=== PATIENT | female | born 1940 | race Caucasian/White ===

== ENCOUNTER → 2017-03-05 | Outpatient (CLI) | payer MEDICARE, OTHER ==
[2016-01-14 15:11] VITALS: BP 109/56
[~2017-03-05] MED LIST: AMIO200T2 PO; AMLO10TA2 PO; ASPI81TA2 PO; BENA20TA2 PO; DILT120C97 PO; DILT240C2 PO; DRON400T PO; HYDR25TA9 PO; MECL25TA PO; MULT1TAB52 PO; OMEG-113 PO; WARF4TAB7 PO
--- NOTE | 2017-03-05 09:52 | RAD ---
EXAM: DIGITAL SCREEN BILAT W/CAD. HISTORY: Screening. COMPARISON: 12/09/2015 and 11/25/2014. FINDINGS: Digital mammography was performed. Computer-aided detection (CAD) was utilized. The breast parenchyma demonstrates scattered fibroglandular densities (tissue density B). No dominant suspicious mass, suspicious microcalcifications, or architectural distortion is identified. Both breasts demonstrate scattered, benign appearing calcifications. IMPRESSION: No mammographic evidence of malignancy. BI-RADS CATEGORY: 2 BENIGN FINDING(S) RECOMMENDED FOLLOW-UP: 12M 12 MONTH FOLLOW-UP PQRS compliance statement: Patient information was entered into a reminder system with a target due date for the next mammogram. Mammography is a sensitive method for finding small breast cancers, but it does not detect them all and is not a substitute for careful clinical examination. A negative mammogram does not negate a clinically suspicious finding and should not result in delay in biopsying a clinically suspicious abnormality. "Our facility is accredited by the [employer] Mammography Program."
== END | disposition home or self-care (01) ==
LOC: MAMMO 09:19
PROVIDERS: ATTEND Nurse Practitioner Family
DX: Z12.31 Encounter for screening mammogram for malignant neoplasm of breast (principal)
CPT/HCPCS: G0202; 77067

== ENCOUNTER → 2017-03-05 | Outpatient (CLI) | payer MEDICARE, OTHER ==
[2016-01-14 15:11] VITALS: BP 109/56
--- NOTE | 2017-03-05 12:50 | RAD ---
APPROVED REPORT Patient Location: OUT-PATIENT Indications Rest Pain:Bilaterally VELOCITY AND DOPPLER WAVEFORM ANALYSIS RIGHT cm/secWaveformSeverity LEFT c m/secWaveformSeverity Ext Iliac Art. 157.0TriphasicExt Iliac Art. 109.0Triphasic pCFA 139.0TriphasicpCFA 168.0Biphasic dCFA 95.0TriphasicdCFA 107.0Biphasic Prof Fem Art. 86.0BiphasicProf Fem Art. 104.0Biphasic Fem Art Prox. 103.0BiphasicFem Art Prox. 109.0Triphasic Fem Art Mid. 90.0BiphasicFem Art Mid. 95.0Triphasic Fem Art Dist. 90.0BiphasicFem Art Dist. 122.0Triphasic Pop Art(AK) 81.0BiphasicPop Art(AK) 77.0Biphasic Pop Art(BK) 75.0BiphasicPop Art(BK) 68.0Biphasic GASTROENTEROLOGY NURSE Prox. 31.0BiphasicPTA Prox. 61.0Biphasic GASTROENTEROLOGY NURSE Dist. 71.0BiphasicPTA Dist. 91.0Biphasic Per Art Mid. 82.0BiphasicPer Art Mid. 69.0Biphasic COY Prox. 106.0BiphasicATA Prox. 42.0 Image Findings Mild to moderate atherosclerotic plaque with triphasic and biphasic flows throughout the lower extrem ity arterial tree as noted. No high grade flow limiting stenosis identified. Critical Notification Critical Value: No <Conclusion> No significant disease in the bilateral lower extremity arterial vessels.
--- NOTE | 2017-03-05 12:52 | RAD ---
APPROVED REPORT Patient Location: OUT-PATIENT Indications Rest Pain:Bilaterally Findings Normal JOSUE indices as follows: R arm: 129 mm hg R ankle: 130 mm hg L arm: 120 L ankle: 125 Critical Notification Critical Value: No <Conclusion> Normal bilateral JOSUE
--- NOTE | 2017-03-05 13:43 | CARD ---
APPROVED REPORT EXAM: Two-dimensional and M-mode echocardiogram with Doppler and color Doppler. Other Information Quality : GoodHR: 62bpm Rhythm : Pacemaker INDICATION Arrhythmia 2D DIMENSIONS RVDd2.7 (2.9-3.5cm)Left Atrium(2D)4.5 (1.6-4.0cm) IVSd0.8 (0.7-1.1cm)Aortic Root(2D)2.7 (2.0-3.7cm) LVDd5.0 (3.9-5.9cm)LVOT Diameter2.2 (1.8-2.4cm) PWd0.2 (0.7-1.1cm)LVDs3.0 (2.5-4.0cm) FS (%) 38.6 %SV79.7 ml Aortic Valve AoV Peak Delgado.129.3cm/sAoV VTI36.2cm AO Peak GR.6.7mmHgLVOT Peak Delgado.102.2cm/s AO Mean GR.4mmHgAVA (VMAX)3.05cm2 Mitral Valve MV E Pdlwrqlt620.6cm/sMV E Peak Gr.8mmHg MV DECEL [id number] A Ftcdmytp77.3cm/s MV E Mean Gr.2mmHgE/A Ratio3.4 MV A [id number] Tricuspid Valve TR P. Gmtoyfcx685kh/sTR Peak Gr.44mmHg LEFT VENTRICLE The left ventricle is normal size. There is normal left ventricular wall thickness. The left ventricu lar systolic function is normal and the ejection fraction is within normal range. The Ejection Fracti on is 55-60%. There is normal LV segmental wall motion. RIGHT VENTRICLE The right ventricle is normal size. There is normal right ventricular wall thickness. The right ventr icular systolic function is normal. ATRIA The left atrium is mild to moderately dilated. The right atrium size is normal. The interatrial septu m is intact with no evidence for an atrial septal defect or patent foramen ovale as noted on 2-D or D oppler imaging. AORTIC VALVE The aortic valve is mildly sclerotic. The aortic valve is trileaflet. Doppler and Color Flow revealed no significant aortic regurgitation. There is no significant aortic valvular stenosis. MITRAL VALVE Mitral annular calcification is mild. The mitral valve leaflets are thickened. There is no evidence o f mitral valve prolapse. There is no mitral valve stenosis. Doppler and Color Flow revealed moderate mitral regurgitation. TRICUSPID VALVE Doppler and Color Flow revealed moderate tricuspid regurgitation. The pulmonary artery systolic press ure is estimated at 47 mmHg. PULMONIC VALVE Doppler and Color Flow revealed mild pulmonic valvular regurgitation. There is no pulmonic valvular s tenosis. GREAT VESSELS The aortic root is normal in size. The ascending aorta is normal in size. The pulmonary artery is nor mal. The IVC is normal in size and collapses >50% with inspiration. PERICARDIAL EFFUSION There is no evidence of significant pericardial effusion. Critical Notification Critical Value: No <Conclusion> The left ventricle is normal size. The left ventricular systolic function is normal and the ejection fraction is within normal range. The Ejection Fraction is 55-60%. There is no significant aortic valvular stenosis. Doppler and Color Flow revealed no significant aortic regurgitation. Doppler and Color Flow revealed moderate mitral regurgitation. Doppler and Color Flow revealed moderate tricuspid regurgitation. The pulmonary artery systolic pressure is estimated at 47 mmHg.
== END | disposition home or self-care (01) ==
LOC: US 10:13
PROVIDERS: ATTEND Internal Medicine Cardiovascular Disease
DX: I48.0 Paroxysmal atrial fibrillation (principal); I49.9 Cardiac arrhythmia, unspecified; I08.1 Rheumatic disorders of both mitral and tricuspid valves; M79.605 Pain in left leg; M79.604 Pain in right leg
CPT/HCPCS: 93306; 93922; 93925

== ENCOUNTER → 2017-10-01 | Outpatient (CLI) | payer MEDICARE, OTHER ==
[2016-01-14 15:11] VITALS: BP 109/56
[~2017-10-01] MED LIST changes: +ASPI-630 PO; -ASPI81TA2 PO; +DILT120C80 PO; -DILT120C97 PO; +REGADENOSON 0.4 MG/5 ML DISP.SYRIN. IV ONE
--- NOTE | 2017-10-01 14:19 | RAD ---
APPROVED REPORT Test Type: Pharmacological Stress Nurse/Tech: Daina Stewart R.N. Test Indications: SOA Cardiac History: CAD, PPM, CABG,HTN Medications: See Electronic Medical Record Medical History: See Electronic Medical Record Resting EC% A PACED w/ inverted T waves in leads II,III,AVF,V3-V6, the leads with inverte d T's also have scant ST depression ranging from 0.5 to 1 whole small box Resting Heart Rate: 60 bpm Resting Blood Pressure: 125/69mmHg Pretest Chest Pain: No chest pain Nurse/Tech Notes S1S2, lungs CTA Consent: The procedure was explained to the patient in lay terms. Informed consent was witnessed. Joe eout was entered into [employer]. History and Stress Test performed by RT Tho (Chiquis) (N) Pharm. Details Pharmacologic stress testing was performed using 0.4mg per 5ml of regadenoson given intravenously ove r 7-10 seconds. Stress Symptoms general malaise, hot flash for several minutes, h/a towards the end of recovery period. HR when faste r was not paced and had a 1st degree AVB w/ darian of 0.28 POST EXERCISE Reason for Termination: Infusion complete Max HR: 100 bpm Max Blood Pressure: 131/51mmHg Blood Pressure response to exercise: Normal blood pressure response during stress. Heart Rate response to exercise: wnl Chest Pain: No. Arrhythmia: No. ST Change: No. INTERPRETATION Stress EKG Conclusion: Baseline EKG shows a predominantly atrially paced beats, some probable sinus b eats and T wave inversion in the inferior and anterior septal leads. The stress EKG shows no significant change from baseline. Abnormal baseline EKG but no EKG evidence of stressed induced ischemia. Imaging Protocol IMAGE PROTOCOL: Rest Tc-99m/stress Tc-99m 1 day Rest: Stress: Viability: Radiopharm.Tc99m TiktgccchEv43x Sestamibi Nztt31yPz 32mCi Img Date 10/01/2017 10/01/2017 Inj-Img [id number]. 60min. Rest Admin Site:IV - Right AntecubitalAdministrator:RT Tho (R)(N) Stress Admin Site: IV - Right AntecubitalAdministrator: Justin Perez, RT (R)(N) STRESS DATA End Diast. Vol.95.0mlAv. Heart Rate60.0bpm End Syst. Vol.29.0mlCO Index BSA0.0L/min Myocardial Yjok674.0gEject. Ekexzxhm17.0% Stress Rates Pk. Fill Rate3.41EDV/secLVtime Pk. Fill 251.67msec Pk. Empty Rate3.34ESV/secLVtime Pk. Qcrhu248.26msec 11/14 Pk. Fill0.80EDV/sec Stress Scores Regional WT0.00Summed WT0.00 Regional WM0.00Summed WM11.00 LV Perfusion The stress scans showed no significant defects. The rest scans showed no significant defects. Nuclear imaging shows no reversible ischemia or infarct. Wall Motion Normal left ventricular systolic function with an ejection fraction of 69%. LV Perf. Quant 17 Seg. SSS1.00 17 Seg. SRS2.00 17 Seg. SDS0.00 Stress Defect Extent (% LAD)0.60Rest Defect Extent (% LAD)5.00Rev. Defect Extent (% LAD)0.00 Stress Defect Extent (% LCX) 0.00Rest Defect Extent (% LCX)0.00Rev. Defect Extent (% LCX)0.00 Stress Defect Extent (% RCA)0.00Rest Defect Extent (% RCA)0.00Rev. Defect Extent (% RCA)0.00 Stress Defect Extent (% NIKHIL)1.30Rest Defect Extent (% NIKHIL)3.70Rev. Defect Extent (% NIKHIL)0.00 Conclusion 1. Abnormal baseline EKG but no EKG evidence of stressed induced ischemia. 2. Nuclear imaging shows no reversible ischemia or infarct. 3. Normal left ventricular systolic function with an ejection fraction of 69%. 4. Low risk Lexiscan nuclear stress test.
== END | disposition home or self-care (01) ==
LOC: NM 09:27
PROVIDERS: ATTEND Internal Medicine Cardiovascular Disease
DX: I25.10 Atherosclerotic heart disease of native coronary artery without angina pectoris (principal); I10 Essential (primary) hypertension; I49.5 Sick sinus syndrome
CPT/HCPCS: 78452; 93017; 96374; 96375; 96376; A9500; J2785

== ENCOUNTER → 2018-03-28 | Outpatient (CLI) | payer MEDICARE, OTHER | END | disposition home or self-care (01) | LOC: MAMMO 13:33 | DX: Z12.31 Encounter for screening mammogram for malignant neoplasm of breast (principal); I10 Essential (primary) hypertension; E78.5 Hyperlipidemia, unspecified | CPT/HCPCS: 77063; 77067 ==

== ENCOUNTER → 2018-04-19 | Outpatient (CLI) | payer MEDICARE, OTHER ==
[~2018-04-19] MED LIST changes: -AMIO200T2 PO; -AMLO10TA2 PO; -ASPI-630 PO; -BENA20TA2 PO; -DILT120C80 PO; -DILT240C2 PO; -DRON400T PO; -HYDR25TA9 PO; +IOHEXOL 300 MG/ML 100ML VIAL. IV; -MECL25TA PO; -MULT1TAB52 PO; -OMEG-113 PO; -REGADENOSON 0.4 MG/5 ML DISP.SYRIN. IV ONE; -WARF4TAB7 PO
[2018-04-19] MEDS: IOHEXOL 240 MG/ML 50ML VIAL. PO (09:28)
[2018-04-19 09:34] LABS: ISTAT CREATININE 1.8 mg/dL (0.6-1.1)
== END | disposition home or self-care (01) ==
LOC: KCIC CT 07:59
DX: J90 Pleural effusion, not elsewhere classified (principal); K82.8 Other specified diseases of gallbladder; N32.89 Other specified disorders of bladder; I10 Essential (primary) hypertension; R18.8 Other ascites; Z79.01 Long term (current) use of anticoagulants; Z95.0 Presence of cardiac pacemaker
CPT/HCPCS: 74176; 82565; Q9966

== ENCOUNTER 2018-11-15 15:31 | Inpatient (IN) | payer MEDICARE, OTHER ==
[~2018-11-15] VITALS: Ht 165.1 cm; Wt 79.4 kg
[~2018-11-15 15:31] MED LIST changes: +AMIO200T4 PO; +AMLO10TA6 PO; +ASPI-630 PO; +ATOR10TA60 PO; +BENA20TA4 PO; +BUME2TAB PO; +CHOL10003 PO; +DILT120C85 PO; +DILT240C2 PO; +DRON400T PO; +FAMO20TA5 PO; +HYDR-2145 PO; -IOHEXOL 300 MG/ML 100ML VIAL. IV; +LEVO50TA5 PO; +MECL25TA PO; +MULT1TAB52 PO; +OMEG-113 PO; +POTA10TA12 PO; +WARF4TAB64 PO
[2018-11-15 16:39] LABS: BASO # 0.1 x10^3/uL (0.0-0.2); BASO % 1 % (0-3); EOS # 0.1 x10^3/uL (0.0-0.7); EOS % 2 % (0-3); HEMOGLOBIN 10.9 g/dL (12.0-15.5); LYMPH # 0.7 x10^3/uL (1.0-4.8); LYMPH % 11 % (24-48); MEAN CORPUSCULAR HEMOGLOBIN 31 pg (25-35); MEAN CORPUSCULAR HGB CONC 35 g/dL (31-37); MEAN CORPUSCULAR VOLUME 87 fL (79-100); MONO # 0.7 x10^3/uL (0.0-1.1); MONO % 10 % (0-9); NEUT # 5.3 x10^3uL (1.8-7.7); NEUT % 77 % (31-73); PLATELET COUNT 182 x10^3/uL (140-400); RED BLOOD COUNT 3.56 x10^6/uL (3.50-5.40); RED CELL DISTRIBUTION WIDTH 16.4 % (11.5-14.5); WHITE BLOOD COUNT 6.9 x10^3/uL (4.0-11.0)
[2018-11-15 16:46] LABS: BILIRUBIN,URINE NEGATIVE (NEG); CLARITY,URINE CLOUDY; COLOR,URINE YELLOW; NITRITE,URINE NEGATIVE (NEG); PROTEIN,URINE NEGATIVE (NEG-TRACE)
[2018-11-15 16:49] LABS: CREATININE 1.4 mg/dL (0.6-1.0); GFR 36.4; POTASSIUM 3.7 mmol/L (3.5-5.1)
--- NOTE | 2018-11-15 16:49 | RAD ---
EXAM: Chest, 2 views. HISTORY: Edema. Cough. COMPARISON: 04/22/2018 FINDINGS: 2 views of the chest are obtained. There is diffuse increased interstitial opacity. There is a small right pleural effusion with right lower lobe atelectasis or infiltrate. There is mild elevation of the right hemidiaphragm. There is cardiomegaly. There is evidence of CABG and left atrial appendage clip placement. There is a cardiac pacemaker with leads in expected position. There is no pneumothorax. IMPRESSION: 1. Small right pleural effusion with lower lobe atelectasis or infiltrate. The superimposed on stable elevation of the right hemidiaphragm. 3. Cardiomegaly with mild diffuse increased interstitial opacity. Electronically signed by: Fany French MD (11/15/2018 4:45 PM) [facility]
[2018-11-15 16:52] LABS: BACTERIA,URINE FEW /HPF (0-FEW); RBC,URINE OCC /HPF (0-2); SQUAMOUS EPITHELIAL CELL,UR OCC /LPF
--- NOTE | 2018-11-15 16:53 | PHYS DOC ---
Past Medical History Past Medical History: A-Fib, Hypertension Additional Past Medical Histor: Ascites Past Surgical History: Angioplasty, Pacemaker Additional Past Surgical Histo: vein stripping Alcohol Use: None Drug Use: None Adult General Chief Complaint Chief Complaint: LOWER EXTREMITY SWELLING HPI HPI Patient is a 78 year old female who presents with bilateral lower extremity swelling and abdominal swelling that has been increasing over the past 2 weeks. The patient states that she takes Bumex and her primary care provider had increased her dosage recently. She states that it is not helping. The patient does have congestive heart failure and has had fluid overload before. The patient states that in April she also had to have a paracentesis to drain abdominal fluid. She states that they never found a cause for her ascites. She does not have known liver disease. She states that she feels that this is what is occurring now. She denies chest pain or shortness of air. Review of Systems Review of Systems Constitutional: Denies fever or chills [] Eyes: Denies change in visual acuity, redness, or eye pain [] HENT: Denies nasal congestion or sore throat [] Respiratory: Denies cough or shortness of breath [] Cardiovascular: No additional information not addressed in HPI [] GI: See history of present illness : Denies dysuria or hematuria [] Musculoskeletal: See history of present illness Integument: Denies rash or skin lesions [] Neurologic: Denies headache, focal weakness or sensory changes [] Endocrine: Denies polyuria or polydipsia [] All other systems were reviewed and found to be within normal limits, except as documented in this note. Current Medications Current Medications Current Medications Medications (Trade) Dose Ordered Sig/Aileen Start Time Stop Time Status Last Admin Dose Admin Acetaminophen (Tylenol) 650 mg PRN Q4HRS PRN 11/15/18 17:15 11/16/18 17:14 Albuterol/ Ipratropium (Duoneb) 3 ml RTQID 11/15/18 17:30 11/16/18 17:29 Levofloxacin/ Dextrose 50 ml @ 50 mls/hr Q24H 11/15/18 18:00 Levofloxacin/ Dextrose (Levaquin Per Pharmacy) 1 each PRN DAILY PRN 11/15/18 17:15 Ondansetron HCl (Zofran) 4 mg PRN Q8HRS PRN 11/15/18 17:15 11/16/18 17:14 Allergies Allergies Allergies Coded Allergies Type Severity Reaction Last Updated Verified Sulfa (Sulfonamide Antibiotics) Allergy Intermediate 04/04/18 No Physical Exam Physical Exam Constitutional: Well developed, well nourished, no acute distress, non-toxic appearance. [] HENT: Normocephalic, atraumatic, bilateral external ears normal, oropharynx moist, no oral exudates, nose normal. [] Eyes: PERRLA, EOMI, conjunctiva normal, no discharge. [] Neck: Normal range of motion, no tenderness, supple, no stridor. [] Cardiovascular:Heart rate regular rhythm, no murmur or gallops noted[] Lungs & Thorax: Bilateral breath sounds clear to auscultation [] Abdomen: Bowel sounds normal, firm, round, no tenderness Skin: Warm, dry, no erythema, no rash. [] Back: No tenderness, no CVA tenderness. [] Extremities: Bilateral tenderness with 2+ pitting edema to just below her knees , no cyanosis, no clubbing, ROM intact, no erythema or weeping Neurologic: Alert and oriented X 3, normal motor function, normal sensory function, no focal deficits noted. [] Psychologic: Affect normal, judgement normal, mood normal. [] Current Patient Data Vital Signs Vital Signs Date Time Temp Pulse Resp B/P (MAP) Pulse Ox O2 Delivery O2 Flow Rate FiO2 11/15/18 16:57 68 20 142/68 (92) 96 11/15/18 16:15 98.1 98.1 Lab Values Laboratory Tests Test 11/15/18 16:17 11/15/18 16:30 Urine Color Yellow Urine Clarity Cloudy Urine pH 7.0 Urine Specific [place] 1.010 Urine Protein Negative mg/dL (NEG-TRACE) Urine Glucose (UA) Negative mg/dL (NEG) Urine Ketones (Stick) Negative mg/dL (NEG) Urine Blood Small (NEG) Urine Nitrite Negative (NEG) Urine Bilirubin Negative (NEG) Urine Urobilinogen Dipstick 1.0 mg/dL (0.2 mg/dL) Urine Leukocyte Esterase Negative (NEG) Urine RBC Occ /HPF (0-2) Urine WBC 1-4 /HPF (0-4) Urine Squamous Epithelial Cells Occ /LPF Urine Bacteria Few /HPF (0-FEW) White Blood Count 6.9 x10^3/uL (4.0-11.0) Red Blood Count 3.56 x10^6/uL (3.50-5.40) Hemoglobin 10.9 g/dL (12.0-15.5) L Hematocrit 31.0 % (36.0-47.0) L Mean Corpuscular Volume 87 fL (79-100) Mean Corpuscular Hemoglobin 31 pg (25-35) Mean Corpuscular Hemoglobin Concent 35 g/dL (31-37) Red Cell Distribution Width 16.4 % (11.5-14.5) H Platelet Count 182 x10^3/uL (140-400) Neutrophils (%) (Auto) 77 % (31-73) H Lymphocytes (%) (Auto) 11 % (24-48) L Monocytes (%) (Auto) 10 % (0-9) H Eosinophils (%) (Auto) 2 % (0-3) Basophils (%) (Auto) 1 % (0-3) Neutrophils # (Auto) 5.3 x10^3uL (1.8-7.7) Lymphocytes # (Auto) 0.7 x10^3/uL (1.0-4.8) L Monocytes # (Auto) 0.7 x10^3/uL (0.0-1.1) Eosinophils # (Auto) 0.1 x10^3/uL (0.0-0.7) Basophils # (Auto) 0.1 x10^3/uL (0.0-0.2) Sodium Level 139 mmol/L (136-145) Potassium Level 3.7 mmol/L (3.5-5.1) Chloride Level 101 mmol/L (98-107) Carbon Dioxide Level 30 mmol/L (21-32) Anion Gap 8 (6-14) Blood Urea Nitrogen 18 mg/dL (7-20) Creatinine 1.4 mg/dL (0.6-1.0) H Estimated GFR (Cockcroft-Gault) 36.4 BUN/Creatinine Ratio 13 (6-20) Glucose Level 118 mg/dL (70-99) H Calcium Level 9.0 mg/dL (8.5-10.1) Total Bilirubin 1.4 mg/dL (0.2-1.0) H Aspartate Amino Transferase (AST) 28 U/L (15-37) Alanine Aminotransferase (ALT) 30 U/L (14-59) Alkaline Phosphatase 140 U/L (46-116) H XA-Hig-S-Type Natriuretic Peptide 2441 pg/mL (0-449) H Total Protein 6.6 g/dL (6.4-8.2) Albumin 3.1 g/dL (3.4-5.0) L Albumin/Globulin Ratio 0.9 (1.0-1.7) L Laboratory Tests 11/15/18 16:30 Laboratory Tests 11/15/18 16:30 EKG EKG [] Radiology/Procedures Radiology/Procedures []PATIENT: MARY ALICE MICHELE AACCOUNT: [id number]#: [id number] : 1940 LOCATION: ER AGE: 78 SEX: F EXAM STATUS: REG ER ORD. PHYSICIAN: MARTY DELATORRE APRN REASON: bilateral lower extremity edema PROCEDURE: CHEST PA & LATERAL EXAM: Chest, 2 views. HISTORY: Edema. Cough. COMPARISON: 04/22/2018 FINDINGS: 2 views of the chest are obtained. There is diffuse increased interstitial opacity. There is a small right pleural effusion with right lower lobe atelectasis or infiltrate. There is mild elevation of the right hemidiaphragm. There is cardiomegaly. There is evidence of CABG and left atrial appendage clip placement. There is a cardiac pacemaker with leads in expected position. There is no pneumothorax. IMPRESSION: 1. Small right pleural effusion with lower lobe atelectasis or infiltrate. The superimposed on stable elevation of the right hemidiaphragm. 3. Cardiomegaly with mild diffuse increased interstitial opacity. Electronically signed by: Fany Mcdonald MD (11/15/2018 4:45 PM) [facility] DICTATED and SIGNED BY: FANY MCDONALD MD DATE: 11/15/18 4712 Course & Med Decision Making Course & Med Decision Making Pertinent Labs and Imaging studies reviewed. (See chart for details) []The patient is being admitted to Dr. Castellon's service for treatment of her pneumonia and congestive heart failure. She is in agreement with this plan. She is being treated with Levaquin in the emergency department for pneumonia. Dragon Disclaimer Dragon Disclaimer This electronic medical record was generated, in whole or in part, using a voice recognition dictation system. Departure Departure Impression: Primary Impression: CHF (congestive heart failure) Additional Impression: Pneumonia Disposition: 09 ADMITTED INPATIENT Admitting Physician: Froylan Felix Condition: GOOD Referrals: ROMAIN MCMILLAN APRN (PCP) Problem Qualifiers MARTY DELATORRE APRN Nov 15, 2018 16:53
[2018-11-15 16:54] LABS: ALBUMIN 3.1 g/dL (3.4-5.0); ALBUMIN/GLOBULIN RATIO 0.9 (1.0-1.7); TOTAL BILIRUBIN 1.4 mg/dL (0.2-1.0); TOTAL PROTEIN 6.6 g/dL (6.4-8.2)
[2018-11-15] MEDS ORDERED: ONDANSETRON PF 4 MG/2 ML VIAL. IV PRN (17:15)
[2018-11-15] MEDS ORDERED: levOFLOXacin PER PHARMACY. MC PRN (17:15)
[2018-11-15] MEDS ORDERED: ACETAMINOPHEN 325 MG TABLET. PO PRN (17:15)
[2018-11-15] MEDS: IPRATRPIUM/ALBUTEROL 0.5/2.5MG 3 ML NEBU. NEB SCH ×2 (17:30→20:53)
[2018-11-15 19:00] VITALS: BP_SYST 121; BP_SYST 136; BP_DIAS 52; BP_DIAS 61
--- NOTE | 2018-11-15 19:46 | NUR ---
Pt. arrived around 1840 from ED w/ COPD and PNU. She is A/O x4 and will make needs known. Aliyah @ bedside.
--- NOTE | 2018-11-15 20:47 | PDOC1 ---
History and Physical Date of Admission Date of Admission DATE: 11/15/18 TIME: 20:45 Identification/Chief Complaint Chief Complaint SEEN IN ER 78 year old female who presents with bilateral lower extremity swelling and abdominal swelling that has been increasing over the past 2 weeks. The patient states that she takes Bumex and her primary care provider had increased her dosage recently. She states that it is not helping. The patient does have congestive heart failure and has had fluid overload before. Past Medical History Past Medical History Past Medical History Past Medical History: A-Fib, Hypertension Additional Past Medical Histor: Ascites Past Surgical History: Angioplasty, Pacemaker Additional Past Surgical Histo: vein stripping Alcohol Use: None Drug Use: None Thrombocytopenia,HX Elevated LFTs with ascites new-onset s/p paracentesis 04/23/18 ( 5 L?) moderate pleural effusion New-onset CHF Hypertension, indwelling pacer, history of A. fib on OAC Weight loss, poor appetite Elavetd Ca19-9 (320) family hx htn Cardiovascular: AFIB, CAD, CHF, HTN, Hyperlipidemia, Other Pulmonary: Other CENTRAL NERVOUS SYSTEM: Other GI: Other Heme/Onc: No pertinent hx Hepatobiliary: No pertinent hx Psych: Anxiety, Depression Musculoskeletal: Osteoarthritis Rheumatologic: No pertinent hx Infectious disease: No pertinent hx Renal/: No pertinent hx Endocrine: No pertinent hx, Hypothyroidism, Other Past Surgical History Past Surgical History: Pacemaker, CABG Family History Family History: Cancer, Diabetes, Heart Disease, Hypertension, Stroke Social History Smoke: Quit ALCOHOL: none Drugs: None Current Medications Current Medications Current Medications Ondansetron HCl (Zofran) 4 mg PRN Q8HRS PRN IV NAUSEA/VOMITING; Start 11/15/18 at 17:15; Stop 11/16/18 at 17:14 Acetaminophen (Tylenol) 650 mg PRN Q4HRS PRN PO FEVER; Start 11/15/18 at 17:15; Stop 11/16/18 at 17:14 Albuterol/ Ipratropium (Duoneb) 3 ml RTQID NEB Last administered on 11/15/18at 17 :30; Start 11/15/18 at 17:30; Stop 11/16/18 at 17:29 Levofloxacin/ Dextrose (Levaquin Per Pharmacy) 1 each PRN DAILY PRN MC SEE COMMENTS; Start 11/15/18 at 17:15 Levofloxacin/ Dextrose 50 ml @ 50 mls/hr Q24H IV Last administered on 11/15/18at 18:00; Start 11/15/18 at 18:00 Active Scripts Active Bumetanide 2 Mg Tablet 1 Tab PO BID 30 Days Multaq (Dronedarone Hcl) 400 Mg Tablet 400 Mg PO BID Reported Levothyroxine Sodium 50 Mcg Tablet 50 Mcg PO DAILYAC Atorvastatin Calcium 10 Mg Tablet 10 Mg PO HS Potassium Chloride 10 Meq Tablet.er 10 Meq PO DAILY Vitamin D3 (Cholecalciferol (Vitamin D3)) 1,000 Unit Tablet 1,000 Unit PO Famotidine 20 Mg Tablet 20 Mg PO BID Fish Oil 1,200 mg Softgel ([place]-3S/Dha/Epa/Fish Oil) 1 Each Capsule 2 Each PO Multivitamins (Multivitamin) 1 Each Tablet 1 Tab PO DAILY Aspirin 81 Mg Tab.chew 1 Tab PO DAILY Diltiazem 24HR Cd (Diltiazem Hcl) 120 Mg Cap.er.24h 1 Cap PO DAILY Warfarin Sodium 4 Mg Tablet 4.5 Mg PO DAILY Allergies Allergies: Coded Allergies: Sulfa (Sulfonamide Antibiotics) (Unverified Allergy, Intermediate, 04/04/18 ) ROS Review of System Review of Systems Review of Systems Constitutional: Denies fever or chills [] Eyes: Denies change in visual acuity, redness, or eye pain [] HENT: Denies nasal congestion or sore throat [] Respiratory: Denies cough or shortness of breath [] Cardiovascular: No additional information not addressed in HPI [] GI: See history of present illness : Denies dysuria or hematuria [] Musculoskeletal: See history of present illness Integument: Denies rash or skin lesions [] Neurologic: Denies headache, focal weakness or sensory changes [] Endocrine: Denies polyuria or polydipsia [] 14 PT systems were reviewed and found to be within normal limits, except as documented General: YES: Fatigue Respiratory: YES: Shortness of breath, SOB with excertion Musculoskeletal: Yes Joint Stiffness Skin: Yes Dry Skin Physical Exam Physical Exam Physical Exam Physical Exam Constitutional: Well developed, well nourished, no acute distress, non-toxic appearance. [] HENT: Normocephalic, atraumatic, bilateral external ears normal, oropharynx moist, no oral exudates, nose normal. [] Eyes: PERRLA, EOMI, conjunctiva normal, no discharge. [] Neck: Normal range of motion, no tenderness, supple, no stridor. [] Cardiovascular:Heart rate regular rhythm, no murmur or gallops noted[] Lungs & Thorax: Bilateral breath sounds clear to auscultation [] Abdomen: Bowel sounds normal, firm, round, no tenderness Skin: Warm, dry, no erythema, no rash. [] Back: No tenderness, no CVA tenderness. [] Extremities: Bilateral tenderness with 2+ pitting edema to just below her knees , no cyanosis, no clubbing, ROM intact, no erythema or weeping Neurologic: Alert and oriented X 3, normal motor function, normal sensory function, no focal deficits noted. [] Psychologic: Affect normal, judgement normal, mood normal. [] General: Oriented X3, Cooperative, mild distress HEENT: Atraumatic, EOMI Breasts: Not examined Abdomen: Normal bowel sounds, Soft Rectal Exam: not examined PELVIC: Examination not indicated Extremities: No cyanosis Neuro: Normal speech, Cranial nerves 3-12 NL Psych/Mental Status: Mental status NL, Mood NL Vitals Vitals Vital Signs Date Time Temp Pulse Resp B/P (MAP) Pulse Ox O2 Delivery O2 Flow Rate FiO2 11/15/18 19:00 97.7 59 20 136/52 (80) 98 Room Air 97.7 11/15/18 19:00 2.0 Labs Labs ECHOCARDIOGRAM ECHOCARDIOGRAM 04/24/2018: TTE: Left ventricle systolic function is normal. The Ejection Fraction is 55%. There is normal LV segmental wall motion. There is a pacemaker lead in the right atrium and right ventricle. The left atrium is mildly dilated. Moderate mitral regurgitation. Moderate tricuspid regurgitation. There is moderate pulmonary hypertension. The PA pressure was estimated at 65 mmHg. There is no evidence of significant pericardial effusion. HEART CATH HEART CATH 12/2015: FINDINGS 1. Hemodynamics: Left ventricular end-diastolic pressure of 22 mmHg. No pullback gradient across the aortic valve. 2. Left ventriculography: Normal left ventricle systolic function with ejection fraction estimated at 65%. No significant mitral regurgitation seen. 3. Coronary angiography: a. The left main coronary artery arose from the left sinus of Valsalva, gave rise to the left anterior descending and left circumflex arteries and showed 80- 90% stenosis involving the mid to distal segment. b. The left anterior descending artery showed patent stent in the proximal segment and 60% stenosis in the midsegment. The diagonal branch showed 50% stenosis in the proximal segment. c. The left circumflex artery did not show any significant stenosis. d. The right coronary artery was a large and dominant vessel arising from the right sinus of Valsalva that showed 30% stenosis involving the ostial segment. Conclusion 1. Significant 80-90% stenosis involving the left main coronary artery. The previously placed stent in the left anterior descending arteries patent. 2. Normal left ventricular systolic function with ejection fraction estimated at 65%. 3. No significant mitral regurgitation or aortic stenosis. REASON: check for ascites amt,liver etc, elevated LFTS,TB PROCEDURE: ABDOMEN LTD Indication: Check ascites. Elevated liver flexion contrast. TECHNIQUE: Grayscale, color Doppler and spectral waveform images of the abdomen obtained. COMPARISON: CT from 04/19/2018 FINDINGS: The main portal vein is patent with hepatopedal flow. The main portal vein measures 0.9 cm in diameter and is within normal limits. The left portal vein is patent. The right portal vein is patent. The hepatic artery is patent with peak systolic velocity of 73 cm/s. Hepatic veins are patent. Splenic vein is patent. Visualized pancreas is within normal limits. The main pancreatic duct measures 3 m in diameter and is within normal limits. IVC is patent. Liver measures 17 cm in longest dimension with mild surface nodularity. Mild hepatic steatosis. No apparent focal lesion. Gallstone noted. There is gallbladder wall thickening measuring 6 mm. No pericholecystic fluid. CBD measures 5 mm in diameter and is within normal limits. Right kidney measures 10 cm in length without hydronephrosis. Small amount of ascites is seen in the lower quadrants. Small right pleural effusion. IMPRESSION: 1. Findings of chronic liver disease. Mild hepatic steatosis. 2. Cholelithiasis. Gallbladder wall thickening can be seen in the context of chronic liver disease. No sonographic evidence of acute cholecystitis. 3. Portal vein is patent. Mild ascites. 4. Small right pleural effusion. Electronically signed by: Torres Dong DO (04/23/2018 10:19 AM) [facility] No. of containers..01 Other (Miscellaneous) Source: 01 ASCITES DIAGNOSIS: 02 ASCITES NEGATIVE FOR MALIGNANT CELLS. MESOTHELIAL CELLS ARE PRESENT. Signed out by: 02 Chintan Casanova MD, Pathologist NPI- [id number] Performed by: 01 Bessie Doty, Developer Relations Manager ([facility]) Gross description: 01 27ML, RED, CLOUDY /LCS FLAG LEGEND: L-Low Normal,H-High Normal,LL-Alert Low,HH-Alert High <-Panic Low,>-Panic High,A-Abnormal,AA-Critical Abnormal Performed at: [address] [address] Hipolito Carlton MD, [id number] [address] Luis Ansari MD, A duplicate report has been generated due to demographic updates. Performed at: [address] [place] [id number] MD Hipolito Carlton MD Phone: [phone] Dictated By: CHINTAN CASANOVA MD Signed By: CHINTAN CASANOVA MD Dictated Date/Time: 04/24/18 0000 Transcribed Date/Time: 07/16/18 1207 Wader Boot Top Assembler: TL Signed Date/Time: 07/16/18 1203 Laboratory Tests Test 11/15/18 16:17 11/15/18 16:30 Urine Color Yellow Urine Clarity Cloudy Urine pH 7.0 Urine Specific [place] 1.010 Urine Protein Negative mg/dL (NEG-TRACE) Urine Glucose (UA) Negative mg/dL (NEG) Urine Ketones (Stick) Negative mg/dL (NEG) Urine Blood Small (NEG) Urine Nitrite Negative (NEG) Urine Bilirubin Negative (NEG) Urine Urobilinogen Dipstick 1.0 mg/dL (0.2 mg/dL) Urine Leukocyte Esterase Negative (NEG) Urine RBC Occ /HPF (0-2) Urine WBC 1-4 /HPF (0-4) Urine Squamous Epithelial Cells Occ /LPF Urine Bacteria Few /HPF (0-FEW) White Blood Count 6.9 x10^3/uL (4.0-11.0) Red Blood Count 3.56 x10^6/uL (3.50-5.40) Hemoglobin 10.9 g/dL (12.0-15.5) Hematocrit 31.0 % (36.0-47.0) Mean Corpuscular Volume 87 fL (79-100) Mean Corpuscular Hemoglobin 31 pg (25-35) Mean Corpuscular Hemoglobin Concent 35 g/dL (31-37) Red Cell Distribution Width 16.4 % (11.5-14.5) Platelet Count 182 x10^3/uL (140-400) Neutrophils (%) (Auto) 77 % (31-73) Lymphocytes (%) (Auto) 11 % (24-48) Monocytes (%) (Auto) 10 % (0-9) Eosinophils (%) (Auto) 2 % (0-3) Basophils (%) (Auto) 1 % (0-3) Neutrophils # (Auto) 5.3 x10^3uL (1.8-7.7) Lymphocytes # (Auto) 0.7 x10^3/uL (1.0-4.8) Monocytes # (Auto) 0.7 x10^3/uL (0.0-1.1) Eosinophils # (Auto) 0.1 x10^3/uL (0.0-0.7) Basophils # (Auto) 0.1 x10^3/uL (0.0-0.2) Sodium Level 139 mmol/L (136-145) Potassium Level 3.7 mmol/L (3.5-5.1) Chloride Level 101 mmol/L (98-107) Carbon Dioxide Level 30 mmol/L (21-32) Anion Gap 8 (6-14) Blood Urea Nitrogen 18 mg/dL (7-20) Creatinine 1.4 mg/dL (0.6-1.0) Estimated GFR (Cockcroft-Gault) 36.4 BUN/Creatinine Ratio 13 (6-20) Glucose Level 118 mg/dL (70-99) Calcium Level 9.0 mg/dL (8.5-10.1) Total Bilirubin 1.4 mg/dL (0.2-1.0) Aspartate Amino Transf (AST/SGOT) 28 U/L (15-37) Alanine Aminotransferase (ALT/SGPT) 30 U/L (14-59) Alkaline Phosphatase 140 U/L (46-116) FG-Nvv-H-Type Natriuretic Peptide 2441 pg/mL (0-449) Total Protein 6.6 g/dL (6.4-8.2) Albumin 3.1 g/dL (3.4-5.0) Albumin/Globulin Ratio 0.9 (1.0-1.7) Laboratory Tests Test 11/15/18 16:17 11/15/18 16:30 Urine Color Yellow Urine Clarity Cloudy Urine pH 7.0 Urine Specific [place] 1.010 Urine Protein Negative mg/dL (NEG-TRACE) Urine Glucose (UA) Negative mg/dL (NEG) Urine Ketones (Stick) Negative mg/dL (NEG) Urine Blood Small (NEG) Urine Nitrite Negative (NEG) Urine Bilirubin Negative (NEG) Urine Urobilinogen Dipstick 1.0 mg/dL (0.2 mg/dL) Urine Leukocyte Esterase Negative (NEG) Urine RBC Occ /HPF (0-2) Urine WBC 1-4 /HPF (0-4) Urine Squamous Epithelial Cells Occ /LPF Urine Bacteria Few /HPF (0-FEW) White Blood Count 6.9 x10^3/uL (4.0-11.0) Red Blood Count 3.56 x10^6/uL (3.50-5.40) Hemoglobin 10.9 g/dL (12.0-15.5) Hematocrit 31.0 % (36.0-47.0) Mean Corpuscular Volume 87 fL (79-100) Mean Corpuscular Hemoglobin 31 pg (25-35) Mean Corpuscular Hemoglobin Concent 35 g/dL (31-37) Red Cell Distribution Width 16.4 % (11.5-14.5) Platelet Count 182 x10^3/uL (140-400) Neutrophils (%) (Auto) 77 % (31-73) Lymphocytes (%) (Auto) 11 % (24-48) Monocytes (%) (Auto) 10 % (0-9) Eosinophils (%) (Auto) 2 % (0-3) Basophils (%) (Auto) 1 % (0-3) Neutrophils # (Auto) 5.3 x10^3uL (1.8-7.7) Lymphocytes # (Auto) 0.7 x10^3/uL (1.0-4.8) Monocytes # (Auto) 0.7 x10^3/uL (0.0-1.1) Eosinophils # (Auto) 0.1 x10^3/uL (0.0-0.7) Basophils # (Auto) 0.1 x10^3/uL (0.0-0.2) Sodium Level 139 mmol/L (136-145) Potassium Level 3.7 mmol/L (3.5-5.1) Chloride Level 101 mmol/L (98-107) Carbon Dioxide Level 30 mmol/L (21-32) Anion Gap 8 (6-14) Blood Urea Nitrogen 18 mg/dL (7-20) Creatinine 1.4 mg/dL (0.6-1.0) Estimated GFR (Cockcroft-Gault) 36.4 BUN/Creatinine Ratio 13 (6-20) Glucose Level 118 mg/dL (70-99) Calcium Level 9.0 mg/dL (8.5-10.1) Total Bilirubin 1.4 mg/dL (0.2-1.0) Aspartate Amino Transf (AST/SGOT) 28 U/L (15-37) Alanine Aminotransferase (ALT/SGPT) 30 U/L (14-59) Alkaline Phosphatase 140 U/L (46-116) DG-Kkp-F-Type Natriuretic Peptide 2441 pg/mL (0-449) Total Protein 6.6 g/dL (6.4-8.2) Albumin 3.1 g/dL (3.4-5.0) Albumin/Globulin Ratio 0.9 (1.0-1.7) VTE Prophylaxis Ordered VTE Prophylaxis Devices: Yes VTE Pharmacological Prophylaxi: Yes Assessment/Plan Assessment/Plan Thrombocytopenia, RESOLVED Elevated LFTs with ascites new-onset s/p paracentesis 04/23/18 ( 5 L?) chronic liver disease. Mild hepatic steatosis. Cholelithiasis. Gallbladder wall thickening can be seen in the context of chronic liver disease. mild to moderate pleural effusion New-onset CHF CAD Significant 80-90% stenosis involving the left main coronary artery. The previously placed stent in the left anterior descending arteries patent. 04/29 Hypertension, indwelling pacer, history of A. fib on OAC Weight loss, poor appetite Elavetd Ca19-9 (320) Moderate mitral regurgitation. Moderate tricuspid regurgitation. moderate pulmonary hypertension. The PA pressure was estimated at 65 mmHg. PLAN TELE IV DIURESIS CARDIOLOGY CONSULT ECHO REVIEWED 04/29 JEANIE ARZATE MD Nov 15, 2018 20:47
[2018-11-15] MEDS: FAMOTIDINE 20 MG TABLET. PO SCH (21:00)
[2018-11-15] MEDS ORDERED: ATORVASTATIN CALCIUM 10 MG TABLET. PO SCH (21:00)
[2018-11-15] MEDS: DRONEDARONE HCL 400 MG TABLET PO SCH (21:00)
[2018-11-15 21:13] LABS: PROTHROMBIN TIME PATIENT 37.2 SEC (11.7-14.0)
[2018-11-15 23:00] VITALS: BP 134/62
[2018-11-16] MEDS ORDERED: MAGN400T22 PO (01:35)
[2018-11-16] MEDS ORDERED: ONDA4TAB7 PO (01:35)
[2018-11-16] MEDS ORDERED: DILT180C29 PO (01:35)
[2018-11-16] MEDS ORDERED: FERR325T14 PO (01:35)
[2018-11-16 03:00] VITALS: BP 129/55
[2018-11-16 04:56] LABS: BASO % 1 % (0-3); EOS # 0.1 x10^3/uL (0.0-0.7); EOS % 2 % (0-3); HEMATOCRIT 27.5 % (36.0-47.0); HEMOGLOBIN 9.8 g/dL (12.0-15.5); LYMPH # 0.8 x10^3/uL (1.0-4.8); LYMPH % 14 % (24-48); MEAN CORPUSCULAR HEMOGLOBIN 31 pg (25-35); MEAN CORPUSCULAR HGB CONC 35 g/dL (31-37); MEAN CORPUSCULAR VOLUME 87 fL (79-100); MONO # 0.6 x10^3/uL (0.0-1.1); MONO % 12 % (0-9); NEUT % 73 % (31-73); PLATELET COUNT 149 x10^3/uL (140-400); RED BLOOD COUNT 3.18 x10^6/uL (3.50-5.40); RED CELL DISTRIBUTION WIDTH 16.3 % (11.5-14.5); WHITE BLOOD COUNT 5.6 x10^3/uL (4.0-11.0)
[2018-11-16] MEDS: LEVOTHYROXINE 50 MCG TABLET PO SCH (05:46)
[2018-11-16 05:51] LABS: CREATININE 1.4 mg/dL (0.6-1.0); GFR 36.4; POTASSIUM 3.7 mmol/L (3.5-5.1)
[2018-11-16 07:00] VITALS: BP 151/57
[2018-11-16] MEDS: IPRATRPIUM/ALBUTEROL 0.5/2.5MG 3 ML NEBU. NEB SCH ×3 (07:16→15:05)
[2018-11-16] MEDS: ASPIRIN CHEWABLE 81 MG TABLET. PO SCH (08:35)
[2018-11-16] MEDS: BUMETANIDE 1 MG TABLET. PO SCH ×2 (08:35→16:54)
[2018-11-16] MEDS: MAGNESIUM OXIDE 400 MG TABLET PO SCH ×2 (08:36→20:25)
[2018-11-16] MEDS: MULTIVITAMIN with MINERAL TABLET. PO SCH (08:36)
[2018-11-16] MEDS: CHOLECALCIFEROL (VITAMIN D3) 1,000 UNIT TABLET PO SCH (08:36)
[2018-11-16] MEDS: DRONEDARONE HCL 400 MG TABLET PO SCH ×2 (08:36→20:25)
[2018-11-16] MEDS: FERROUS SULFATE 325 MG TABLET. PO SCH (08:36)
[2018-11-16] MEDS: OMEGA-3 FATTY ACIDS/FISH OIL 1,000 MG CAPSULE. PO SCH (08:36)
[2018-11-16] MEDS: POTASSIUM CHLORIDE 10 MEQ TABLET.ER. PO SCH (08:37)
[2018-11-16] MEDS ORDERED: WARFARIN SODIUM 4.5 MG PO SCH (09:00)
[2018-11-16 11:00] VITALS: BP 133/46
--- NOTE | 2018-11-16 11:07 | PDOC ---
PROGRESS NOTES History of Present Illness History of Present Illness Assessment/Plan Assessment/Plan Thrombocytopenia, RESOLVED Elevated LFTs with ascites new-onset s/p paracentesis 04/23/18 ( 5 L?) chronic liver disease. Mild hepatic steatosis. Cholelithiasis. Gallbladder wall thickening can be seen in the context of chronic liver disease. mild to moderate pleural effusion New-onset CHF CAD Significant 80-90% stenosis involving the left main coronary artery. The previously placed stent in the left anterior descending arteries patent. 04/29 Hypertension, indwelling pacer, history of A. fib on OAC Weight loss, poor appetite Elavetd Ca19-9 (320) ELEVATED CA 125 Moderate mitral regurgitation. Moderate tricuspid regurgitation. moderate pulmonary hypertension. The PA pressure was estimated at 65 mmHg. SUPRA-THERAPEUTIC INR Thickened endometrial stripe for the postmenopausal status the patient. PLAN TELE CONSULT DR GARG PELVIC SONO REPEAT CA 125 GI CONSULT IV DIURESIS CARDIOLOGY CONSULT ECHO REVIEWED 04/29 REPEAT ECHO HOLD COUMADIN ,PHARMACY ADJUSTING VIT 5 MG SQ X 1, INR AT 1800 TODAY ABD SONO TODAY Vitals Vitals Vital Signs Date Time Temp Pulse Resp B/P (MAP) Pulse Ox O2 Delivery O2 Flow Rate FiO2 11/16/18 08:37 66 151/57 11/16/18 08:03 Room Air 11/16/18 07:18 93 11/16/18 07:00 97.7 97.7 11/16/18 03:00 20 11/15/18 19:00 2.0 Physical Exam General: Alert, Oriented X3, Cooperative, No acute distress, mild distress Heart: Regular rate, Other (S4 GALLOP) Lungs: Clear Abdomen: Normal bowel sounds, Soft, Other (MILD DISTENSION, NO RUQ TENDERNESS) Extremities: No clubbing, No cyanosis, Other (1-2 PLUS ANKLE EDEMA) Labs LABS PROCEDURE: TRANSVAGINAL EXAM: Transvaginal sonogram. HISTORY: Elevated CA-19-9 tumor marker level. TECHNIQUE: Transvaginal sonographic imaging of the pelvis was performed. COMPARISON: CT dated 04/19/2018. FINDINGS: The uterus measures 6.4 x 3.1 x 5.0 cm. There are uterine parenchymal calcifications. The endometrial stripe is thickened for the postmenopausal status of the patient, measuring 9.2 mm. The ovaries are not seen. There is moderate pelvic free fluid. IMPRESSION: 1. Thickened endometrial stripe for the postmenopausal status the patient. Tissue sampling can be performed for definitive diagnosis. 2. Moderate pelvic free fluid. 3. Uterine parenchymal calcifications. 4. Nonvisualization of the ovaries. Electronically signed by: Fany French MD (04/25/2018 11:31 AM) [facility] Laboratory Tests Test 11/15/18 16:17 11/15/18 16:30 11/16/18 04:35 Urine Color Yellow Urine Clarity Cloudy Urine pH 7.0 Urine Specific [place] 1.010 Urine Protein Negative mg/dL (NEG-TRACE) Urine Glucose (UA) Negative mg/dL (NEG) Urine Ketones (Stick) Negative mg/dL (NEG) Urine Blood Small (NEG) Urine Nitrite Negative (NEG) Urine Bilirubin Negative (NEG) Urine Urobilinogen Dipstick 1.0 mg/dL (0.2 mg/dL) Urine Leukocyte Esterase Negative (NEG) Urine RBC Occ /HPF (0-2) Urine WBC 1-4 /HPF (0-4) Urine Squamous Epithelial Cells Occ /LPF Urine Bacteria Few /HPF (0-FEW) White Blood Count 6.9 x10^3/uL (4.0-11.0) 5.6 x10^3/uL (4.0-11.0) Red Blood Count 3.56 x10^6/uL (3.50-5.40) 3.18 x10^6/uL (3.50-5.40) Hemoglobin 10.9 g/dL (12.0-15.5) 9.8 g/dL (12.0-15.5) Hematocrit 31.0 % (36.0-47.0) 27.5 % (36.0-47.0) Mean Corpuscular Volume 87 fL (79-100) 87 fL (79-100) Mean Corpuscular Hemoglobin 31 pg (25-35) 31 pg (25-35) Mean Corpuscular Hemoglobin Concent 35 g/dL (31-37) 35 g/dL (31-37) Red Cell Distribution Width 16.4 % (11.5-14.5) 16.3 % (11.5-14.5) Platelet Count 182 x10^3/uL (140-400) 149 x10^3/uL (140-400) Neutrophils (%) (Auto) 77 % (31-73) 73 % (31-73) Lymphocytes (%) (Auto) 11 % (24-48) 14 % (24-48) Monocytes (%) (Auto) 10 % (0-9) 12 % (0-9) Eosinophils (%) (Auto) 2 % (0-3) 2 % (0-3) Basophils (%) (Auto) 1 % (0-3) 1 % (0-3) Neutrophils # (Auto) 5.3 x10^3uL (1.8-7.7) 4.0 x10^3uL (1.8-7.7) Lymphocytes # (Auto) 0.7 x10^3/uL (1.0-4.8) 0.8 x10^3/uL (1.0-4.8) Monocytes # (Auto) 0.7 x10^3/uL (0.0-1.1) 0.6 x10^3/uL (0.0-1.1) Eosinophils # (Auto) 0.1 x10^3/uL (0.0-0.7) 0.1 x10^3/uL (0.0-0.7) Basophils # (Auto) 0.1 x10^3/uL (0.0-0.2) 0.0 x10^3/uL (0.0-0.2) Prothrombin Time 37.2 SEC (11.7-14.0) 40.0 SEC (11.7-14.0) Prothromb Time International Ratio 3.8 (0.8-1.1) 4.1 (0.8-1.1) Sodium Level 139 mmol/L (136-145) 139 mmol/L (136-145) Potassium Level 3.7 mmol/L (3.5-5.1) 3.7 mmol/L (3.5-5.1) Chloride Level 101 mmol/L (98-107) 102 mmol/L (98-107) Carbon Dioxide Level 30 mmol/L (21-32) 29 mmol/L (21-32) Anion Gap 8 (6-14) 8 (6-14) Blood Urea Nitrogen 18 mg/dL (7-20) 14 mg/dL (7-20) Creatinine 1.4 mg/dL (0.6-1.0) 1.4 mg/dL (0.6-1.0) Estimated GFR (Cockcroft-Gault) 36.4 36.4 BUN/Creatinine Ratio 13 (6-20) Glucose Level 118 mg/dL (70-99) 98 mg/dL (70-99) Calcium Level 9.0 mg/dL (8.5-10.1) 9.0 mg/dL (8.5-10.1) Total Bilirubin 1.4 mg/dL (0.2-1.0) Aspartate Amino Transf (AST/SGOT) 28 U/L (15-37) Alanine Aminotransferase (ALT/SGPT) 30 U/L (14-59) Alkaline Phosphatase 140 U/L (46-116) CK-Ifn-J-Type Natriuretic Peptide 2441 pg/mL (0-449) Total Protein 6.6 g/dL (6.4-8.2) Albumin 3.1 g/dL (3.4-5.0) Albumin/Globulin Ratio 0.9 (1.0-1.7) Comment Review of Relevant I have reviewed the following items walt (where applicable) has been applied. Labs Laboratory Tests Test 11/15/18 16:17 11/15/18 16:30 11/16/18 04:35 Urine Color Yellow Urine Clarity Cloudy Urine pH 7.0 Urine Specific [place] 1.010 Urine Protein Negative mg/dL (NEG-TRACE) Urine Glucose (UA) Negative mg/dL (NEG) Urine Ketones (Stick) Negative mg/dL (NEG) Urine Blood Small (NEG) Urine Nitrite Negative (NEG) Urine Bilirubin Negative (NEG) Urine Urobilinogen Dipstick 1.0 mg/dL (0.2 mg/dL) Urine Leukocyte Esterase Negative (NEG) Urine RBC Occ /HPF (0-2) Urine WBC 1-4 /HPF (0-4) Urine Squamous Epithelial Cells Occ /LPF Urine Bacteria Few /HPF (0-FEW) White Blood Count 6.9 x10^3/uL (4.0-11.0) 5.6 x10^3/uL (4.0-11.0) Red Blood Count 3.56 x10^6/uL (3.50-5.40) 3.18 x10^6/uL (3.50-5.40) Hemoglobin 10.9 g/dL (12.0-15.5) 9.8 g/dL (12.0-15.5) Hematocrit 31.0 % (36.0-47.0) 27.5 % (36.0-47.0) Mean Corpuscular Volume 87 fL (79-100) 87 fL (79-100) Mean Corpuscular Hemoglobin 31 pg (25-35) 31 pg (25-35) Mean Corpuscular Hemoglobin Concent 35 g/dL (31-37) 35 g/dL (31-37) Red Cell Distribution Width 16.4 % (11.5-14.5) 16.3 % (11.5-14.5) Platelet Count 182 x10^3/uL (140-400) 149 x10^3/uL (140-400) Neutrophils (%) (Auto) 77 % (31-73) 73 % (31-73) Lymphocytes (%) (Auto) 11 % (24-48) 14 % (24-48) Monocytes (%) (Auto) 10 % (0-9) 12 % (0-9) Eosinophils (%) (Auto) 2 % (0-3) 2 % (0-3) Basophils (%) (Auto) 1 % (0-3) 1 % (0-3) Neutrophils # (Auto) 5.3 x10^3uL (1.8-7.7) 4.0 x10^3uL (1.8-7.7) Lymphocytes # (Auto) 0.7 x10^3/uL (1.0-4.8) 0.8 x10^3/uL (1.0-4.8) Monocytes # (Auto) 0.7 x10^3/uL (0.0-1.1) 0.6 x10^3/uL (0.0-1.1) Eosinophils # (Auto) 0.1 x10^3/uL (0.0-0.7) 0.1 x10^3/uL (0.0-0.7) Basophils # (Auto) 0.1 x10^3/uL (0.0-0.2) 0.0 x10^3/uL (0.0-0.2) Prothrombin Time 37.2 SEC (11.7-14.0) 40.0 SEC (11.7-14.0) Prothromb Time International Ratio 3.8 (0.8-1.1) 4.1 (0.8-1.1) Sodium Level 139 mmol/L (136-145) 139 mmol/L (136-145) Potassium Level 3.7 mmol/L (3.5-5.1) 3.7 mmol/L (3.5-5.1) Chloride Level 101 mmol/L (98-107) 102 mmol/L (98-107) Carbon Dioxide Level 30 mmol/L (21-32) 29 mmol/L (21-32) Anion Gap 8 (6-14) 8 (6-14) Blood Urea Nitrogen 18 mg/dL (7-20) 14 mg/dL (7-20) Creatinine 1.4 mg/dL (0.6-1.0) 1.4 mg/dL (0.6-1.0) Estimated GFR (Cockcroft-Gault) 36.4 36.4 BUN/Creatinine Ratio 13 (6-20) Glucose Level 118 mg/dL (70-99) 98 mg/dL (70-99) Calcium Level 9.0 mg/dL (8.5-10.1) 9.0 mg/dL (8.5-10.1) Total Bilirubin 1.4 mg/dL (0.2-1.0) Aspartate Amino Transf (AST/SGOT) 28 U/L (15-37) Alanine Aminotransferase (ALT/SGPT) 30 U/L (14-59) Alkaline Phosphatase 140 U/L (46-116) WD-Joe-H-Type Natriuretic Peptide 2441 pg/mL (0-449) Total Protein 6.6 g/dL (6.4-8.2) Albumin 3.1 g/dL (3.4-5.0) Albumin/Globulin Ratio 0.9 (1.0-1.7) Laboratory Tests Test 11/15/18 16:17 11/15/18 16:30 11/16/18 04:35 Urine Color Yellow Urine Clarity Cloudy Urine pH 7.0 Urine Specific [place] 1.010 Urine Protein Negative mg/dL (NEG-TRACE) Urine Glucose (UA) Negative mg/dL (NEG) Urine Ketones (Stick) Negative mg/dL (NEG) Urine Blood Small (NEG) Urine Nitrite Negative (NEG) Urine Bilirubin Negative (NEG) Urine Urobilinogen Dipstick 1.0 mg/dL (0.2 mg/dL) Urine Leukocyte Esterase Negative (NEG) Urine RBC Occ /HPF (0-2) Urine WBC 1-4 /HPF (0-4) Urine Squamous Epithelial Cells Occ /LPF Urine Bacteria Few /HPF (0-FEW) White Blood Count 6.9 x10^3/uL (4.0-11.0) 5.6 x10^3/uL (4.0-11.0) Red Blood Count 3.56 x10^6/uL (3.50-5.40) 3.18 x10^6/uL (3.50-5.40) Hemoglobin 10.9 g/dL (12.0-15.5) 9.8 g/dL (12.0-15.5) Hematocrit 31.0 % (36.0-47.0) 27.5 % (36.0-47.0) Mean Corpuscular Volume 87 fL (79-100) 87 fL (79-100) Mean Corpuscular Hemoglobin 31 pg (25-35) 31 pg (25-35) Mean Corpuscular Hemoglobin Concent 35 g/dL (31-37) 35 g/dL (31-37) Red Cell Distribution Width 16.4 % (11.5-14.5) 16.3 % (11.5-14.5) Platelet Count 182 x10^3/uL (140-400) 149 x10^3/uL (140-400) Neutrophils (%) (Auto) 77 % (31-73) 73 % (31-73) Lymphocytes (%) (Auto) 11 % (24-48) 14 % (24-48) Monocytes (%) (Auto) 10 % (0-9) 12 % (0-9) Eosinophils (%) (Auto) 2 % (0-3) 2 % (0-3) Basophils (%) (Auto) 1 % (0-3) 1 % (0-3) Neutrophils # (Auto) 5.3 x10^3uL (1.8-7.7) 4.0 x10^3uL (1.8-7.7) Lymphocytes # (Auto) 0.7 x10^3/uL (1.0-4.8) 0.8 x10^3/uL (1.0-4.8) Monocytes # (Auto) 0.7 x10^3/uL (0.0-1.1) 0.6 x10^3/uL (0.0-1.1) Eosinophils # (Auto) 0.1 x10^3/uL (0.0-0.7) 0.1 x10^3/uL (0.0-0.7) Basophils # (Auto) 0.1 x10^3/uL (0.0-0.2) 0.0 x10^3/uL (0.0-0.2) Prothrombin Time 37.2 SEC (11.7-14.0) 40.0 SEC (11.7-14.0) Prothromb Time International Ratio 3.8 (0.8-1.1) 4.1 (0.8-1.1) Sodium Level 139 mmol/L (136-145) 139 mmol/L (136-145) Potassium Level 3.7 mmol/L (3.5-5.1) 3.7 mmol/L (3.5-5.1) Chloride Level 101 mmol/L (98-107) 102 mmol/L (98-107) Carbon Dioxide Level 30 mmol/L (21-32) 29 mmol/L (21-32) Anion Gap 8 (6-14) 8 (6-14) Blood Urea Nitrogen 18 mg/dL (7-20) 14 mg/dL (7-20) Creatinine 1.4 mg/dL (0.6-1.0) 1.4 mg/dL (0.6-1.0) Estimated GFR (Cockcroft-Gault) 36.4 36.4 BUN/Creatinine Ratio 13 (6-20) Glucose Level 118 mg/dL (70-99) 98 mg/dL (70-99) Calcium Level 9.0 mg/dL (8.5-10.1) 9.0 mg/dL (8.5-10.1) Total Bilirubin 1.4 mg/dL (0.2-1.0) Aspartate Amino Transf (AST/SGOT) 28 U/L (15-37) Alanine Aminotransferase (ALT/SGPT) 30 U/L (14-59) Alkaline Phosphatase 140 U/L (46-116) RA-Yjr-K-Type Natriuretic Peptide 2441 pg/mL (0-449) Total Protein 6.6 g/dL (6.4-8.2) Albumin 3.1 g/dL (3.4-5.0) Albumin/Globulin Ratio 0.9 (1.0-1.7) Medications Current Medications Ondansetron HCl (Zofran) 4 mg PRN Q8HRS PRN IV NAUSEA/VOMITING; Start 11/15/18 at 17:15; Stop 11/16/18 at 17:14 Acetaminophen (Tylenol) 650 mg PRN Q4HRS PRN PO FEVER; Start 11/15/18 at 17:15; Stop 11/16/18 at 17:14 Albuterol/ Ipratropium (Duoneb) 3 ml RTQID NEB Last administered on 11/16/18at 07 :16; Start 11/15/18 at 17:30; Stop 11/16/18 at 17:29 Levofloxacin/ Dextrose (Levaquin Per Pharmacy) 1 each PRN DAILY PRN MC SEE COMMENTS; Start 11/15/18 at 17:15 Levofloxacin/ Dextrose 50 ml @ 50 mls/hr Q24H IV Last administered on 11/15/18at 18:00; Start 11/15/18 at 18:00 Aspirin (Children'S Aspirin) 81 mg DAILY PO Last administered on 11/16/18at 08:35 ; Start 11/16/18 at 09:00 Atorvastatin Calcium (Lipitor) 10 mg HS PO Last administered on 11/15/18at 22:14 ; Start 11/15/18 at 21:00; Stop 11/16/18 at 01:41; Status DC Vitamin D (Vitamin D3) 1,000 unit DAILY08 PO Last administered on 11/16/18at 08: 36; Start 11/16/18 at 08:00 Dronedarone (Multaq) 400 mg BID PO Last administered on 11/16/18at 08:36; Start 11/15/18 at 21:00 Famotidine (Pepcid) 20 mg QHS PO ; Start 11/15/18 at 21:00 Potassium Chloride (Klor-Con) 10 meq DAILY PO Last administered on 11/16/18at 08: 37; Start 11/16/18 at 09:00 Bumetanide (Bumex) 2 mg BID92 PO Last administered on 11/16/18at 08:35; Start 11/16/18 at 09:00 Diltiazem HCl (Cardizem 24hr Cd) 120 mg DAILY PO ; Start 11/16/18 at 09:00; Stop 11/16/18 at 09:00; Status DC Levothyroxine Sodium (Synthroid) 50 mcg DAILY06 PO Last administered on at 05:46; Start 11/16/18 at 06:00 Multivitamins (Thera M Plus) 1 tab DAILY PO Last administered on 11/16/18at 08:36 ; Start 11/16/18 at 09:00 Fish Oil (Fish Oil) 1,000 mg DAILY PO Last administered on 11/16/18at 08:36; Start 11/16/18 at 09:00 Non-Formulary Medication (Warfarin Sodium ) 4.5 mg DAILY PO ; Start 11/16/18 at 09:00; Status UNV Atorvastatin Calcium (Lipitor) 5 mg HS PO ; Start 11/16/18 at 21:00 Diltiazem HCl (Cardizem 24hr Cd) 180 mg DAILY PO Last administered on 11/16/18at 08:37; Start 11/16/18 at 09:00 Magnesium Oxide (Magnesium Oxide) 400 mg BID PO Last administered on 11/16/18at 08:36; Start 11/16/18 at 09:00 Ondansetron HCl (Zofran Odt) 4 mg PRN Q6HRS PRN PO NAUSEA/VOMITING 1ST CHOICE; Start 11/16/18 at 01:45 Ferrous Sulfate (Feosol) 325 mg DAILYWBKFT PO Last administered on 11/16/18at 08: 36; Start 11/16/18 at 08:00 Warfarin Sodium (Coumadin Per Pharmacy) 1 each PRN DAILY PRN MC SEE COMMENTS; Start 11/16/18 at 07:15 Warfarin Sodium (Coumadin - No Dose Today) 1 each 1X WARF ONCE MC ; Start at 16:00; Stop 11/16/18 at 16:01 Active Scripts Active Bumetanide 2 Mg Tablet 1 Tab PO BID 30 Days Multaq (Dronedarone Hcl) 400 Mg Tablet 400 Mg PO BID Reported Diltiazem 24HR Cd (Diltiazem Hcl) 180 Mg Cap.er.24h 180 Mg PO DAILY Mag-Oxide (Magnesium Oxide) 400 Mg Tablet 1 Tab PO BID Zofran (Ondansetron Hcl) 4 Mg Tablet 1 Tab PO PRN Q6HRS PRN Ferrous Sulfate 325 Mg Tablet 325 Mg PO DAILY Levothyroxine Sodium 50 Mcg Tablet 50 Mcg PO DAILYAC Atorvastatin Calcium 10 Mg Tablet 5 Mg PO HS Potassium Chloride 10 Meq Tablet.er 10 Meq PO DAILY Vitamin D3 (Cholecalciferol (Vitamin D3)) 1,000 Unit Tablet 1,000 Unit PO Famotidine 20 Mg Tablet 20 Mg PO BID Fish Oil 1,200 mg Softgel ([place]-3S/Dha/Epa/Fish Oil) 1 Each Capsule 2 Each PO Multivitamins (Multivitamin) 1 Each Tablet 1 Tab PO DAILY Aspirin 81 Mg Tab.chew 1 Tab PO DAILY Diltiazem 24HR Cd (Diltiazem Hcl) 120 Mg Cap.er.24h 1 Cap PO DAILY Warfarin Sodium 4 Mg Tablet 4 Mg PO DAILY Vitals/I & O Vital Sign - Last 24 Hours 11/15/18 11/15/18 11/15/18 11/15/18 16:15 16:57 19:00 19:00 Temp 98.1 97.6 97.7 98.1 97.6 97.7 Pulse 63 68 59 59 Resp 20 20 18 20 B/P (MAP) 143/66 (91) 142/68 (92) 121/61 (81) 136/52 (80) Pulse Ox 98 96 100 98 O2 Delivery Nasal Cannula Room Air O2 Flow Rate 2.0 11/15/18 11/15/18 11/15/18 11/16/18 20:05 20:56 23:00 03:00 Temp 98.0 98.6 98.0 98.6 Pulse 63 60 Resp 20 20 B/P (MAP) 134/62 (86) 129/55 (79) Pulse Ox 95 94 95 O2 Delivery Room Air Room Air Room Air Room Air 11/16/18 11/16/18 11/16/18 11/16/18 07:00 07:18 08:03 08:36 Temp 97.7 97.7 Pulse 66 66 B/P (MAP) 151/57 (88) 151/57 Pulse Ox 90 93 O2 Delivery Room Air Room Air Room Air 11/16/18 08:37 Pulse 66 B/P (MAP) 151/57 Intake and Output 11/15/18 11/15/18 11/16/18 15:01 23:01 07:01 Intake Total 170 ml 240 ml Balance 170 ml 240 ml JEANIE ARZATE MD Nov 16, 2018 11:07
[2018-11-16] MEDS: ONDANSETRON ODT 4 MG TAB.RAPDIS. PO PRN (11:10)
[2018-11-16] MEDS ORDERED: PHYTONADIONE 10 MG/ML ORAL SOLUTION. PO ONE (13:30)
--- NOTE | 2018-11-16 14:09 | PDOC2 ---
CONSULT Date of Consult Date of Consult DATE: 11/16/18 TIME: 14:06 Reason for Consult Reason for Consult: Hx ascites/cirrhosis Past Medical History Cardiovascular: AFIB, CAD, CHF, HTN, Hyperlipidemia, Other Pulmonary: Other CENTRAL NERVOUS SYSTEM: Other GI: Other Heme/Onc: No pertinent hx Hepatobiliary: No pertinent hx Psych: Anxiety, Depression Musculoskeletal: Osteoarthritis Rheumatologic: No pertinent hx Infectious disease: No pertinent hx Renal/: No pertinent hx Endocrine: No pertinent hx, Hypothyroidism, Other Past Surgical History Past Surgical History: Pacemaker, CABG Family History Family History: Cancer, Diabetes, Heart Disease, Hypertension, Stroke Social History Quit ALCOHOL: none Drugs: None Lives: with Family Domestic Violence: Neg Current Medications Current Medications Current Medications Ondansetron HCl (Zofran) 4 mg PRN Q8HRS PRN IV NAUSEA/VOMITING; Start 11/15/18 at 17:15; Stop 11/16/18 at 17:14 Acetaminophen (Tylenol) 650 mg PRN Q4HRS PRN PO FEVER; Start 11/15/18 at 17:15; Stop 11/16/18 at 17:14 Albuterol/ Ipratropium (Duoneb) 3 ml RTQID NEB Last administered on 11/16/18at 11 :15; Start 11/15/18 at 17:30; Stop 11/16/18 at 17:29 Levofloxacin/ Dextrose (Levaquin Per Pharmacy) 1 each PRN DAILY PRN MC SEE COMMENTS; Start 11/15/18 at 17:15 Levofloxacin/ Dextrose 50 ml @ 50 mls/hr Q24H IV Last administered on 11/15/18at 18:00; Start 11/15/18 at 18:00 Aspirin (Children'S Aspirin) 81 mg DAILY PO Last administered on 11/16/18at 08:35 ; Start 11/16/18 at 09:00 Atorvastatin Calcium (Lipitor) 10 mg HS PO Last administered on 11/15/18at 22:14 ; Start 11/15/18 at 21:00; Stop 11/16/18 at 01:41; Status DC Vitamin D (Vitamin D3) 1,000 unit DAILY08 PO Last administered on 11/16/18at 08: 36; Start 11/16/18 at 08:00 Dronedarone (Multaq) 400 mg BID PO Last administered on 11/16/18at 08:36; Start 11/15/18 at 21:00 Famotidine (Pepcid) 20 mg QHS PO ; Start 11/15/18 at 21:00 Potassium Chloride (Klor-Con) 10 meq DAILY PO Last administered on 11/16/18at 08: 37; Start 11/16/18 at 09:00 Bumetanide (Bumex) 2 mg BID92 PO Last administered on 11/16/18at 08:35; Start 11/16/18 at 09:00 Diltiazem HCl (Cardizem 24hr Cd) 120 mg DAILY PO ; Start 11/16/18 at 09:00; Stop 11/16/18 at 09:00; Status DC Levothyroxine Sodium (Synthroid) 50 mcg DAILY06 PO Last administered on at 05:46; Start 11/16/18 at 06:00 Multivitamins (Thera M Plus) 1 tab DAILY PO Last administered on 11/16/18at 08:36 ; Start 11/16/18 at 09:00 Fish Oil (Fish Oil) 1,000 mg DAILY PO Last administered on 11/16/18at 08:36; Start 11/16/18 at 09:00 Non-Formulary Medication (Warfarin Sodium ) 4.5 mg DAILY PO ; Start 11/16/18 at 09:00; Status UNV Atorvastatin Calcium (Lipitor) 5 mg HS PO ; Start 11/16/18 at 21:00 Diltiazem HCl (Cardizem 24hr Cd) 180 mg DAILY PO Last administered on 11/16/18at 08:37; Start 11/16/18 at 09:00 Magnesium Oxide (Magnesium Oxide) 400 mg BID PO Last administered on 11/16/18at 08:36; Start 11/16/18 at 09:00 Ondansetron HCl (Zofran Odt) 4 mg PRN Q6HRS PRN PO NAUSEA/VOMITING 1ST CHOICE Last administered on 11/16/18 11:10; Start 11/16/18 at 01:45 Ferrous Sulfate (Feosol) 325 mg DAILYWBKFT PO Last administered on 11/16/18 08: 36; Start 11/16/18 at 08:00 Warfarin Sodium (Coumadin Per Pharmacy) 1 each PRN DAILY PRN MC SEE COMMENTS; Start 11/16/18 at 07:15 Warfarin Sodium (Coumadin - No Dose Today) 1 each 1X WARF ONCE MC ; Start at 16:00; Stop 11/16/18 at 16:01 Phytonadione (Mephyton Oral Soln) 5 mg 1X ONCE PO ; Start 11/16/18 at 13:30; Stop 11/16/18 at 13:31; Status DC Active Scripts Active Bumetanide 2 Mg Tablet 1 Tab PO BID 30 Days Multaq (Dronedarone Hcl) 400 Mg Tablet 400 Mg PO BID Reported Diltiazem 24HR Cd (Diltiazem Hcl) 180 Mg Cap.er.24h 180 Mg PO DAILY Mag-Oxide (Magnesium Oxide) 400 Mg Tablet 1 Tab PO BID Zofran (Ondansetron Hcl) 4 Mg Tablet 1 Tab PO PRN Q6HRS PRN Ferrous Sulfate 325 Mg Tablet 325 Mg PO DAILY Levothyroxine Sodium 50 Mcg Tablet 50 Mcg PO DAILYAC Atorvastatin Calcium 10 Mg Tablet 5 Mg PO HS Potassium Chloride 10 Meq Tablet.er 10 Meq PO DAILY Vitamin D3 (Cholecalciferol (Vitamin D3)) 1,000 Unit Tablet 1,000 Unit PO Famotidine 20 Mg Tablet 20 Mg PO BID Fish Oil 1,200 mg Softgel ([place]-3S/Dha/Epa/Fish Oil) 1 Each Capsule 2 Each PO Multivitamins (Multivitamin) 1 Each Tablet 1 Tab PO DAILY Aspirin 81 Mg Tab.chew 1 Tab PO DAILY Diltiazem 24HR Cd (Diltiazem Hcl) 120 Mg Cap.er.24h 1 Cap PO DAILY Warfarin Sodium 4 Mg Tablet 4 Mg PO DAILY Allergies Allergies: Coded Allergies: Sulfa (Sulfonamide Antibiotics) (Unverified Allergy, Intermediate, 04/04/18 ) Vitals VITALS Vital Signs Date Time Temp Pulse Resp B/P (MAP) Pulse Ox O2 Delivery O2 Flow Rate FiO2 11/16/18 11:16 Room Air 11/16/18 11:00 97.2 68 16 133/46 (75) 93 97.2 11/15/18 19:00 2.0 Labs Labs Laboratory Tests Test 11/15/18 16:17 11/15/18 16:30 11/16/18 04:35 Urine Color Yellow Urine Clarity Cloudy Urine pH 7.0 Urine Specific [place] 1.010 Urine Protein Negative mg/dL (NEG-TRACE) Urine Glucose (UA) Negative mg/dL (NEG) Urine Ketones (Stick) Negative mg/dL (NEG) Urine Blood Small (NEG) Urine Nitrite Negative (NEG) Urine Bilirubin Negative (NEG) Urine Urobilinogen Dipstick 1.0 mg/dL (0.2 mg/dL) Urine Leukocyte Esterase Negative (NEG) Urine RBC Occ /HPF (0-2) Urine WBC 1-4 /HPF (0-4) Urine Squamous Epithelial Cells Occ /LPF Urine Bacteria Few /HPF (0-FEW) White Blood Count 6.9 x10^3/uL (4.0-11.0) 5.6 x10^3/uL (4.0-11.0) Red Blood Count 3.56 x10^6/uL (3.50-5.40) 3.18 x10^6/uL (3.50-5.40) Hemoglobin 10.9 g/dL (12.0-15.5) 9.8 g/dL (12.0-15.5) Hematocrit 31.0 % (36.0-47.0) 27.5 % (36.0-47.0) Mean Corpuscular Volume 87 fL (79-100) 87 fL (79-100) Mean Corpuscular Hemoglobin 31 pg (25-35) 31 pg (25-35) Mean Corpuscular Hemoglobin Concent 35 g/dL (31-37) 35 g/dL (31-37) Red Cell Distribution Width 16.4 % (11.5-14.5) 16.3 % (11.5-14.5) Platelet Count 182 x10^3/uL (140-400) 149 x10^3/uL (140-400) Neutrophils (%) (Auto) 77 % (31-73) 73 % (31-73) Lymphocytes (%) (Auto) 11 % (24-48) 14 % (24-48) Monocytes (%) (Auto) 10 % (0-9) 12 % (0-9) Eosinophils (%) (Auto) 2 % (0-3) 2 % (0-3) Basophils (%) (Auto) 1 % (0-3) 1 % (0-3) Neutrophils # (Auto) 5.3 x10^3uL (1.8-7.7) 4.0 x10^3uL (1.8-7.7) Lymphocytes # (Auto) 0.7 x10^3/uL (1.0-4.8) 0.8 x10^3/uL (1.0-4.8) Monocytes # (Auto) 0.7 x10^3/uL (0.0-1.1) 0.6 x10^3/uL (0.0-1.1) Eosinophils # (Auto) 0.1 x10^3/uL (0.0-0.7) 0.1 x10^3/uL (0.0-0.7) Basophils # (Auto) 0.1 x10^3/uL (0.0-0.2) 0.0 x10^3/uL (0.0-0.2) Prothrombin Time 37.2 SEC (11.7-14.0) 40.0 SEC (11.7-14.0) Prothromb Time International Ratio 3.8 (0.8-1.1) 4.1 (0.8-1.1) Sodium Level 139 mmol/L (136-145) 139 mmol/L (136-145) Potassium Level 3.7 mmol/L (3.5-5.1) 3.7 mmol/L (3.5-5.1) Chloride Level 101 mmol/L (98-107) 102 mmol/L (98-107) Carbon Dioxide Level 30 mmol/L (21-32) 29 mmol/L (21-32) Anion Gap 8 (6-14) 8 (6-14) Blood Urea Nitrogen 18 mg/dL (7-20) 14 mg/dL (7-20) Creatinine 1.4 mg/dL (0.6-1.0) 1.4 mg/dL (0.6-1.0) Estimated GFR (Cockcroft-Gault) 36.4 36.4 BUN/Creatinine Ratio 13 (6-20) Glucose Level 118 mg/dL (70-99) 98 mg/dL (70-99) Calcium Level 9.0 mg/dL (8.5-10.1) 9.0 mg/dL (8.5-10.1) Total Bilirubin 1.4 mg/dL (0.2-1.0) Aspartate Amino Transf (AST/SGOT) 28 U/L (15-37) Alanine Aminotransferase (ALT/SGPT) 30 U/L (14-59) Alkaline Phosphatase 140 U/L (46-116) DJ-Jnj-K-Type Natriuretic Peptide 2441 pg/mL (0-449) Total Protein 6.6 g/dL (6.4-8.2) Albumin 3.1 g/dL (3.4-5.0) Albumin/Globulin Ratio 0.9 (1.0-1.7) Laboratory Tests Test 11/15/18 16:17 11/15/18 16:30 11/16/18 04:35 Urine Color Yellow Urine Clarity Cloudy Urine pH 7.0 Urine Specific [place] 1.010 Urine Protein Negative mg/dL (NEG-TRACE) Urine Glucose (UA) Negative mg/dL (NEG) Urine Ketones (Stick) Negative mg/dL (NEG) Urine Blood Small (NEG) Urine Nitrite Negative (NEG) Urine Bilirubin Negative (NEG) Urine Urobilinogen Dipstick 1.0 mg/dL (0.2 mg/dL) Urine Leukocyte Esterase Negative (NEG) Urine RBC Occ /HPF (0-2) Urine WBC 1-4 /HPF (0-4) Urine Squamous Epithelial Cells Occ /LPF Urine Bacteria Few /HPF (0-FEW) White Blood Count 6.9 x10^3/uL (4.0-11.0) 5.6 x10^3/uL (4.0-11.0) Red Blood Count 3.56 x10^6/uL (3.50-5.40) 3.18 x10^6/uL (3.50-5.40) Hemoglobin 10.9 g/dL (12.0-15.5) 9.8 g/dL (12.0-15.5) Hematocrit 31.0 % (36.0-47.0) 27.5 % (36.0-47.0) Mean Corpuscular Volume 87 fL (79-100) 87 fL (79-100) Mean Corpuscular Hemoglobin 31 pg (25-35) 31 pg (25-35) Mean Corpuscular Hemoglobin Concent 35 g/dL (31-37) 35 g/dL (31-37) Red Cell Distribution Width 16.4 % (11.5-14.5) 16.3 % (11.5-14.5) Platelet Count 182 x10^3/uL (140-400) 149 x10^3/uL (140-400) Neutrophils (%) (Auto) 77 % (31-73) 73 % (31-73) Lymphocytes (%) (Auto) 11 % (24-48) 14 % (24-48) Monocytes (%) (Auto) 10 % (0-9) 12 % (0-9) Eosinophils (%) (Auto) 2 % (0-3) 2 % (0-3) Basophils (%) (Auto) 1 % (0-3) 1 % (0-3) Neutrophils # (Auto) 5.3 x10^3uL (1.8-7.7) 4.0 x10^3uL (1.8-7.7) Lymphocytes # (Auto) 0.7 x10^3/uL (1.0-4.8) 0.8 x10^3/uL (1.0-4.8) Monocytes # (Auto) 0.7 x10^3/uL (0.0-1.1) 0.6 x10^3/uL (0.0-1.1) Eosinophils # (Auto) 0.1 x10^3/uL (0.0-0.7) 0.1 x10^3/uL (0.0-0.7) Basophils # (Auto) 0.1 x10^3/uL (0.0-0.2) 0.0 x10^3/uL (0.0-0.2) Prothrombin Time 37.2 SEC (11.7-14.0) 40.0 SEC (11.7-14.0) Prothromb Time International Ratio 3.8 (0.8-1.1) 4.1 (0.8-1.1) Sodium Level 139 mmol/L (136-145) 139 mmol/L (136-145) Potassium Level 3.7 mmol/L (3.5-5.1) 3.7 mmol/L (3.5-5.1) Chloride Level 101 mmol/L (98-107) 102 mmol/L (98-107) Carbon Dioxide Level 30 mmol/L (21-32) 29 mmol/L (21-32) Anion Gap 8 (6-14) 8 (6-14) Blood Urea Nitrogen 18 mg/dL (7-20) 14 mg/dL (7-20) Creatinine 1.4 mg/dL (0.6-1.0) 1.4 mg/dL (0.6-1.0) Estimated GFR (Cockcroft-Gault) 36.4 36.4 BUN/Creatinine Ratio 13 (6-20) Glucose Level 118 mg/dL (70-99) 98 mg/dL (70-99) Calcium Level 9.0 mg/dL (8.5-10.1) 9.0 mg/dL (8.5-10.1) Total Bilirubin 1.4 mg/dL (0.2-1.0) Aspartate Amino Transf (AST/SGOT) 28 U/L (15-37) Alanine Aminotransferase (ALT/SGPT) 30 U/L (14-59) Alkaline Phosphatase 140 U/L (46-116) QD-Meg-N-Type Natriuretic Peptide 2441 pg/mL (0-449) Total Protein 6.6 g/dL (6.4-8.2) Albumin 3.1 g/dL (3.4-5.0) Albumin/Globulin Ratio 0.9 (1.0-1.7) Assessment/Plan Assessment/Plan Cirrhosis- with CHF, likely secondary to STALLWORTH and/or passive congestion with CHR , medical therpay recommended. O/P serologies and/or biopsy if patient is inclined ARNULFO RESENDIZ MD Nov 16, 2018 14:09
--- NOTE | 2018-11-16 14:15 | NUR ---
ASSUMED PATIENT CARE AT THIS TIME, PATIENT ALERT AND VERBALLY RESPONSIVE, FAMILY MEMBERS AT THE BEDSIDE, QUESTIONS AND CONCERNS ANSWERED.
[2018-11-16 15:00] VITALS: BP 120/61
--- NOTE | 2018-11-16 16:26 | NUR ---
Pharmacy Warfarin Dosing Note S:Pharmacy consulted to assist with anticoagulation therapy started with target INR: 2 -3 O:MARY ALICE MICHELE is a 78 year old F with Atrial Fibrillation LABS: Last INR: 4.1 Last HGB: 9.8 Last HCT: 27.5 Last PLT: 149 Last dose of Hold given on 11/15/18 (unless dose taken prior to admission at home) Previous Regimen: 4 mg po daily Vitamin K given: Y 5 mg po 11/16/18 Drug Interaction Changes: New Interacting Drug Ongoing Drug Interactions: Levofloxacin A:INR of 4.1 is above desired range. Target range for this patient is: 2 -3 P: Warfarin dose: Hold Today at 1600 Bridge Therapy: None Next INR due 11/17/18 Pharmacy anticoagulation service will continue to follow. MAXIMILIANO CARVER [facility], 11/16/18 [id number]
[2018-11-16] MEDS: cefTRIAXone IV Push 1 GM VIAL. IVP SCH (18:37)
[2018-11-16 19:00] VITALS: BP 123/62
[2018-11-16 19:14] LABS: PROTHROMBIN TIME PATIENT 40.9 SEC (11.7-14.0)
[2018-11-16] MEDS: ATORVASTATIN CALCIUM 10 MG TABLET. PO SCH (20:24)
[2018-11-16] MEDS: FAMOTIDINE 20 MG TABLET. PO SCH (20:24)
[2018-11-16] MEDS: LACTOBACILLUS RHAMNOSUS GG 1 CAPSULE. PO SCH (20:25)
--- NOTE | 2018-11-16 20:50 | RAD ---
EXAM: Bilateral lower extremity venous Doppler sonogram. HISTORY: Edema and pain. TECHNIQUE: Lee scale and color Doppler sonographic evaluation of the bilateral lower extremity veins with spectral waveform analysis was performed. FINDINGS: There is normal color flow, normal compressibility and there are normal spectral waveforms in the common femoral, superficial femoral, popliteal, posterior tibial and greater saphenous veins. IMPRESSION: No Doppler evidence of lower extremity deep venous thrombosis. Electronically signed by: Fany French MD (11/16/2018 8:46 PM) [facility]
[2018-11-16 21:13] LABS: CA 125 154.4 U/mL (0.0-38.1)
--- NOTE | 2018-11-16 21:39 | RAD ---
EXAM: Pelvic sonogram. HISTORY: Elevated serum CA 125 tumor marker level. TECHNIQUE: Sonographic imaging of the pelvis was performed. COMPARISON: None. FINDINGS: The uterus measures 5.9 x 4.4 x 4.1 cm. The endometrial stripe is not seen. The ovaries are not seen. There is no ascites. No solid or cystic lesion is seen within the adnexal regions. The bladder volume is 91 cc. IMPRESSION: Obscured endometrial stripe and ovaries. No suspicious lesion is seen within the adnexal regions. Electronically signed by: Fany French MD (11/16/2018 9:36 PM) [facility]
--- NOTE | 2018-11-16 21:45 | RAD ---
Complete abdominal ultrasound History: ASCITES. . Findings: Aorta: Poorly visualized. Inferior vena cava: Poorly visualized but appears patent. Pancreas: Poorly visualized. Liver: Measures 18.4 cm cephalocaudal. Gallbladder: Large echogenic structure identified with posterior shadowing. Gallbladder wall thickening, measures 6 mm. Bile ducts: No evidence of dilatation Right kidney: 10.1 cm length. No evidence of hydronephrosis. Left kidney: 9.1 cm length. No evidence of hydronephrosis. Spleen: Not enlarged. Right upper quadrant ascites is identified. Impression: 1. Findings compatible with cholelithiasis. Gallbladder wall thickening as can be seen with cholecystitis. 2. Right upper quadrant mild ascites. Electronically signed by: Jose Ramirez MD (11/16/2018 9:41 PM) [facility]
--- NOTE | 2018-11-16 22:23 | PDOC2 ---
CARDIOLOGY CONSULT NOTE CHEIF COMPLAINT: Lower extremity swelling. HPI: 78 y.o female presenting with recurrent lower ext edema. Seen in 04/2018 with ascites and volume overload. Had paracentesis and diuresis. Returns now with recurrent issues. GI prelim diagnosis is Henson versus pulm HTN related fluid overload. Patient reports outpt diuresis with bumex not adequate. Admitted for inpt diuresis. Reports compliance with meds. No chest pain, syncope. Since admission this morning she reports improved symptoms. No palpitations. PMHX: ardiovascular: AFIB (previous modified Alarcon-Maze procedure with PVI using cryo and RODRIGO ligation with atria-clip), CAD (s/p CABG with OG to LAD; radial artery to diagonal & SVG to OM on 01/07/2016), CHF, HTN, Hyperlipidemia, Other ( SSS with [facility] PPM; venous insufficiency with RF catheter ablation of left GSV) SOCHX: No alcohol, tob or illicits. FAMHX: NC CURRENT MEDS: Bumex diltiazem dronaderone warfarin ALLERGIES: Allergies Coded Allergies Type Severity Reaction Last Updated Verified Sulfa (Sulfonamide Antibiotics) Allergy Intermediate 04/04/18 No ROS: Negative for 08/25 systems reviewed unless otherwise noted above in HPI PHYSICAL EXAM: Vital Signs: Vital Signs Date Time Temp Pulse Resp B/P (MAP) Pulse Ox O2 Delivery O2 Flow Rate FiO2 11/16/18 20:42 Room Air 11/16/18 20:25 62 123/62 11/16/18 19:00 97.9 18 95 97.9 11/15/18 19:00 2.0 I & O Intake and Output 11/16/18 07:01 Intake Total 410 ml Balance 410 ml Intake Oral 360 ml IV Total 50 ml # Voids 2 Physical Exam: GEN.: No apparent distress. Alert and oriented. HEENT: Head is normocephalic, atraumatic NECK: Supple. LUNGS: Decreased right sided breath sounds. HEART: RRR, S1, S2 present. Peripheral pulses intact ABDOMEN: Soft, nontender. Positive bowel sounds. EXTREMITIES: 1+ edema on the left leg, RLE no edema. NEUROLOGIC: Normal speech, normal tone PSYCHIATRIC: Normal affect, normal mood. SKIN: No ulcerations DIAGNOSTIC TESTING: Echo 04/2018, normal EF with moderate to severe phtn Nuc 2017 - wnl LE u/s negative. Labs noted - anemia. ASSESSMENT: 1. Acute on chronic diastolic HF 2. Cor pulmonale 3. HENSON with cirrhosis. PLAN: 1. Continue diuresis as tolerated, close monitoring of renal function. Will add israel 50mg daily 2. Will repeat echo to assess for any progression of pulmonary HTN. 3. Supportive care. Poor usp prognosis. Ok to DC from CV standpoint after echo with close f/u in clinic in 1-2 weeks. Thx. Would consider referral to p. HTN center on an outpt basis. JAMSHID WEBB MD Nov 16, 2018 22:23
[2018-11-16 23:00] VITALS: BP 122/48
--- NOTE | 2018-11-17 00:36 | CONS ---
DATE OF CONSULTATION: 11/16/2018 GASTROENTEROLOGY CONSULTATION REASON FOR CONSULTATION: Ascites, thrombocytopenia, history of liver disease, CHF. HISTORY OF PRESENT ILLNESS: A 78-year-old female who is admitted with nonproductive cough, dyspnea, shortness of breath. Subsequently, he has been admitted for possible bronchitis and heart failure. The patient states that she has taken diuretics in the past with good control of fluid overload. Until recently, she has been on antibiotics without significant improvement in her cough and has been admitted for further evaluation and care. PAST MEDICAL HISTORY: CHF, hypertension, status post pacemaker placement, status post angioplasty, status post CABG. MEDICATIONS: At the present time includes atorvastatin, warfarin, magnesium, diltiazem, fish oil, multivitamins, Bumex, potassium chloride, aspirin, ferrous sulfate, vitamin D, levothyroxine, famotidine. FAMILY AND SOCIAL HISTORY: She is retired. Does not drink or smoke. REVIEW OF SYSTEMS: Per records. PHYSICAL EXAMINATION: GENERAL: Reveals a thin, cachectic-appearing white female who is alert, cooperative, in mild distress. VITAL SIGNS: Temperature is 97.2, pulse 68, respiratory rate 16, blood pressure is 132/46. HEENT: Normocephalic and atraumatic head. Pupils and extraocular muscles are not tested. Sclerae anicteric. NECK: Supple. LUNGS: Clear. CARDIOVASCULAR: Reveals an S1, S2 without S3, S4 or appreciable murmur. Well-healed midline sternal incision. LUNGS: Decreased breath sounds with crackles and inspiratory rhonchi. ABDOMEN: Soft abdomen, normal bowel sounds without appreciable hepatosplenomegaly with mild fullness, epigastric tenderness to deep palpation. EXTREMITIES: Reveals no cyanosis or clubbing. Has 2+ edema. LABORATORY STUDIES: Sodium 138, potassium 3.7, chloride 102, bicarbonate 29, BUN 14, creatinine 1.4. Total bilirubin 1.4, AST of 28, ALT of 30, alkaline phosphatase of 148. Beta natriuretic peptide 2441, total protein 6.6, albumin 3.1. AFP is 1.0. IMPRESSION: Cirrhosis with interval ascites, most likely is cardiogenic in nature, nonalcoholic steatohepatitis certainly is possible as well. We will recommend medical therapy for the heart failure, consider additional autoimmune markers as an outpatient due to limitations on inpatient lab evaluations as well as possible biopsy if the patient is resistant to medical therapy. ARNULFO RESENDIZ MD DR: CLAUDE/mayda JOB#: [id number] / [id number] MAGALI Devine MD
--- NOTE | 2018-11-17 02:15 | CONS ---
DATE OF CONSULTATION: SERVICE: Internal medicine. 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 HISTORY OF PRESENT ILLNESS: This is a very pleasant 78-year-old white female that presented with bilateral edema and abdominal swelling that has been increased over the past 2 weeks. The patient had a previous episode in April of last year. The patient at that time had a CA-125 in the 600 level. The patient has history of a-fib with the current pacemaker and CABG also performed. The patient also has history of thrombocytopenia, elevated liver function test, and congestive heart failure, hypertension, weight loss, and poor appetite. I discussed approximately 20-30 minutes with the patient and her daughters about reason and causes for elevated CA-125. The patient has a history of cirrhosis with ascites and both of those could be the inciting cause of elevation of the CA-125. On exam of her abdomen and legs, I do agree with increased abdominal distention and edema in her bilateral lower extremities, but feel this elevated CA-125 is not probably related to any type of ovarian neoplasm since ultrasound in the past did not reveal the large ovaries or ovarian cyst. A CT scan or MRI would give more information to lymphadenopathy or omental signal lesions if this is possible with her pacemaker. the CA-125 was ordered. I will follow up along with you with that, but in the light of her paracentesis also back in April of last year with no evidence of confinement of any type of malignancy in her associated with the fluid, I feel it highly unlikely this is hope ovarian or uterine origin. I will continue to follow along with you. If you have any other questions or have additional information, feel free to contact me. IMPRESSION: Elevated CA-125, most likely not associated with any ovarian or uterine or female genitalia lesions. We will follow up with a repeat CA-125. We will consider MRI or CT scan or repeat ultrasound to look for additional lymphadenopathy or ovarian pathology or uterine pathology. I appreciate to allow me to participate in care of your patient. If you have any questions about this patient or any other patient, feel free to contact me. MINH CANTU MD DR: CLAUDIO/mayda JOB#: [id number] / [id number]
[2018-11-17] MEDS: LEVOTHYROXINE 50 MCG TABLET PO SCH (05:41)
[2018-11-17 06:01] LABS: BASO % 1 % (0-3); EOS # 0.1 x10^3/uL (0.0-0.7); EOS % 3 % (0-3); HEMATOCRIT 28.3 % (36.0-47.0); HEMOGLOBIN 9.8 g/dL (12.0-15.5); LYMPH # 0.8 x10^3/uL (1.0-4.8); LYMPH % 14 % (24-48); MEAN CORPUSCULAR HEMOGLOBIN 30 pg (25-35); MEAN CORPUSCULAR HGB CONC 35 g/dL (31-37); MEAN CORPUSCULAR VOLUME 86 fL (79-100); MONO # 0.7 x10^3/uL (0.0-1.1); MONO % 11 % (0-9); NEUT # 4.1 x10^3uL (1.8-7.7); NEUT % 71 % (31-73); PLATELET COUNT 153 x10^3/uL (140-400); RED BLOOD COUNT 3.28 x10^6/uL (3.50-5.40); RED CELL DISTRIBUTION WIDTH 16.6 % (11.5-14.5); WHITE BLOOD COUNT 5.8 x10^3/uL (4.0-11.0)
[2018-11-17 06:22] LABS: PROTHROMBIN TIME PATIENT 22.9 SEC (11.7-14.0)
[2018-11-17 06:36] LABS: ALBUMIN 2.8 g/dL (3.4-5.0); ALBUMIN/GLOBULIN RATIO 0.9 (1.0-1.7); CALCIUM 8.9 mg/dL (8.5-10.1); CREATININE 1.3 mg/dL (0.6-1.0); GFR 39.6; POTASSIUM 3.5 mmol/L (3.5-5.1); TOTAL BILIRUBIN 1.3 mg/dL (0.2-1.0)
[2018-11-17 07:00] VITALS: BP 125/40
[2018-11-17] MEDS: ALBUTEROL SULFATE 2.5 MG/3 ML NEBU. NEB PRN ×2 (07:25→20:20)
[2018-11-17] MEDS: BUMETANIDE 1 MG TABLET. PO SCH ×2 (09:24→14:25)
[2018-11-17] MEDS: MAGNESIUM OXIDE 400 MG TABLET PO SCH ×2 (09:25→21:27)
[2018-11-17] MEDS: FERROUS SULFATE 325 MG TABLET. PO SCH (09:25)
[2018-11-17] MEDS: SPIRONOLACTONE 25 MG TABLET PO SCH (09:25)
[2018-11-17] MEDS: DRONEDARONE HCL 400 MG TABLET PO SCH ×2 (09:25→21:27)
[2018-11-17] MEDS: OMEGA-3 FATTY ACIDS/FISH OIL 1,000 MG CAPSULE. PO SCH (09:26)
[2018-11-17] MEDS: MULTIVITAMIN with MINERAL TABLET. PO SCH (09:26)
[2018-11-17] MEDS: CHOLECALCIFEROL (VITAMIN D3) 1,000 UNIT TABLET PO SCH (09:26)
[2018-11-17] MEDS: POTASSIUM CHLORIDE 10 MEQ TABLET.ER. PO SCH (09:27)
[2018-11-17] MEDS: LACTOBACILLUS RHAMNOSUS GG 1 CAPSULE. PO SCH ×2 (09:27→21:27)
[2018-11-17] MEDS: ASPIRIN CHEWABLE 81 MG TABLET. PO SCH (09:27)
--- NOTE | 2018-11-17 10:52 | PDOC ---
PROGRESS NOTES History of Present Illness History of Present Illness Assessment/Plan Assessment/Plan Thrombocytopenia, RESOLVED Elevated LFTs with ascites new-onset s/p paracentesis 04/23/18 ( 5 L?) chronic liver disease. Mild hepatic steatosis. Cholelithiasis. Gallbladder wall thickening can be seen in the context of chronic liver disease. mild to moderate pleural effusion New-onset CHF CAD Significant 80-90% stenosis involving the left main coronary artery. The previously placed stent in the left anterior descending arteries patent. 04/29 Hypertension, indwelling pacer, history of A. fib on OAC Weight loss, poor appetite Elavetd Ca19-9 (320) ELEVATED CA 200=068, ELEVATED Reviewed pt Ca 125 down to 154.4 from 600 from april 2018 Moderate mitral regurgitation. Moderate tricuspid regurgitation. moderate pulmonary hypertension. The PA pressure was estimated at 65 mmHg. SUPRA-THERAPEUTIC INR now 2.1, pharmacy adjusting Thickened endometrial stripe for the postmenopausal status the patient. PLAN TELE CONSULT DR GARG if ovarian ca suspected will need onc-spa assistant manager consult PELVIC SONO noted REPEAT CA 125 pending GI CONSULT IV DIURESIS CARDIOLOGY CONSULT ECHO REVIEWED 04/29 REPEAT ECHO COUMADIN ,PHARMACY ADJUSTING ABD SONO REVIEWED Vitals Vitals Vital Signs Date Time Temp Pulse Resp B/P (MAP) Pulse Ox O2 Delivery O2 Flow Rate FiO2 11/17/18 09:26 58 125/40 11/17/18 07:26 94 Room Air 11/17/18 07:00 98.0 18 98.0 Physical Exam General: Alert, Oriented X3, Cooperative, No acute distress, mild distress Heart: Regular rate, Other (S4 GALLOP) Lungs: Clear Abdomen: Normal bowel sounds, Soft, No tenderness, Other (MILD DISTENSION, NO RUQ TENDERNESS) Extremities: No clubbing, No cyanosis, Other (1-2 PLUS ANKLE EDEMA) Skin: No significant lesion Labs LABS Laboratory Tests Test 11/16/18 17:50 11/17/18 05:40 Prothrombin Time 40.9 SEC (11.7-14.0) 22.9 SEC (11.7-14.0) Prothromb Time International Ratio 4.2 (0.8-1.1) 2.1 (0.8-1.1) White Blood Count 5.8 x10^3/uL (4.0-11.0) Red Blood Count 3.28 x10^6/uL (3.50-5.40) Hemoglobin 9.8 g/dL (12.0-15.5) Hematocrit 28.3 % (36.0-47.0) Mean Corpuscular Volume 86 fL (79-100) Mean Corpuscular Hemoglobin 30 pg (25-35) Mean Corpuscular Hemoglobin Concent 35 g/dL (31-37) Red Cell Distribution Width 16.6 % (11.5-14.5) Platelet Count 153 x10^3/uL (140-400) Neutrophils (%) (Auto) 71 % (31-73) Lymphocytes (%) (Auto) 14 % (24-48) Monocytes (%) (Auto) 11 % (0-9) Eosinophils (%) (Auto) 3 % (0-3) Basophils (%) (Auto) 1 % (0-3) Neutrophils # (Auto) 4.1 x10^3uL (1.8-7.7) Lymphocytes # (Auto) 0.8 x10^3/uL (1.0-4.8) Monocytes # (Auto) 0.7 x10^3/uL (0.0-1.1) Eosinophils # (Auto) 0.1 x10^3/uL (0.0-0.7) Basophils # (Auto) 0.0 x10^3/uL (0.0-0.2) Sodium Level 140 mmol/L (136-145) Potassium Level 3.5 mmol/L (3.5-5.1) Chloride Level 103 mmol/L (98-107) Carbon Dioxide Level 30 mmol/L (21-32) Anion Gap 7 (6-14) Blood Urea Nitrogen 13 mg/dL (7-20) Creatinine 1.3 mg/dL (0.6-1.0) Estimated GFR (Cockcroft-Gault) 39.6 BUN/Creatinine Ratio 10 (6-20) Glucose Level 92 mg/dL (70-99) Calcium Level 8.9 mg/dL (8.5-10.1) Total Bilirubin 1.3 mg/dL (0.2-1.0) Aspartate Amino Transf (AST/SGOT) 21 U/L (15-37) Alanine Aminotransferase (ALT/SGPT) 24 U/L (14-59) Alkaline Phosphatase 114 U/L (46-116) Total Protein 6.0 g/dL (6.4-8.2) Albumin 2.8 g/dL (3.4-5.0) Albumin/Globulin Ratio 0.9 (1.0-1.7) Comment Review of Relevant I have reviewed the following items walt (where applicable) has been applied. Labs Laboratory Tests Test 11/15/18 16:17 11/15/18 16:30 11/16/18 04:35 11/16/18 17:50 Urine Color Yellow Urine Clarity Cloudy Urine pH 7.0 Urine Specific [place] 1.010 Urine Protein Negative mg/dL (NEG-TRACE) Urine Glucose (UA) Negative mg/dL (NEG) Urine Ketones (Stick) Negative mg/dL (NEG) Urine Blood Small (NEG) Urine Nitrite Negative (NEG) Urine Bilirubin Negative (NEG) Urine Urobilinogen Dipstick 1.0 mg/dL (0.2 mg/dL) Urine Leukocyte Esterase Negative (NEG) Urine RBC Occ /HPF (0-2) Urine WBC 1-4 /HPF (0-4) Urine Squamous Epithelial Cells Occ /LPF Urine Bacteria Few /HPF (0-FEW) White Blood Count 6.9 x10^3/uL (4.0-11.0) 5.6 x10^3/uL (4.0-11.0) Red Blood Count 3.56 x10^6/uL (3.50-5.40) 3.18 x10^6/uL (3.50-5.40) Hemoglobin 10.9 g/dL (12.0-15.5) 9.8 g/dL (12.0-15.5) Hematocrit 31.0 % (36.0-47.0) 27.5 % (36.0-47.0) Mean Corpuscular Volume 87 fL (79-100) 87 fL (79-100) Mean Corpuscular Hemoglobin 31 pg (25-35) 31 pg (25-35) Mean Corpuscular Hemoglobin Concent 35 g/dL (31-37) 35 g/dL (31-37) Red Cell Distribution Width 16.4 % (11.5-14.5) 16.3 % (11.5-14.5) Platelet Count 182 x10^3/uL (140-400) 149 x10^3/uL (140-400) Neutrophils (%) (Auto) 77 % (31-73) 73 % (31-73) Lymphocytes (%) (Auto) 11 % (24-48) 14 % (24-48) Monocytes (%) (Auto) 10 % (0-9) 12 % (0-9) Eosinophils (%) (Auto) 2 % (0-3) 2 % (0-3) Basophils (%) (Auto) 1 % (0-3) 1 % (0-3) Neutrophils # (Auto) 5.3 x10^3uL (1.8-7.7) 4.0 x10^3uL (1.8-7.7) Lymphocytes # (Auto) 0.7 x10^3/uL (1.0-4.8) 0.8 x10^3/uL (1.0-4.8) Monocytes # (Auto) 0.7 x10^3/uL (0.0-1.1) 0.6 x10^3/uL (0.0-1.1) Eosinophils # (Auto) 0.1 x10^3/uL (0.0-0.7) 0.1 x10^3/uL (0.0-0.7) Basophils # (Auto) 0.1 x10^3/uL (0.0-0.2) 0.0 x10^3/uL (0.0-0.2) Prothrombin Time 37.2 SEC (11.7-14.0) 40.0 SEC (11.7-14.0) 40.9 SEC (11.7-14.0) Prothromb Time International Ratio 3.8 (0.8-1.1) 4.1 (0.8-1.1) 4.2 (0.8-1.1) Sodium Level 139 mmol/L (136-145) 139 mmol/L (136-145) Potassium Level 3.7 mmol/L (3.5-5.1) 3.7 mmol/L (3.5-5.1) Chloride Level 101 mmol/L (98-107) 102 mmol/L (98-107) Carbon Dioxide Level 30 mmol/L (21-32) 29 mmol/L (21-32) Anion Gap 8 (6-14) 8 (6-14) Blood Urea Nitrogen 18 mg/dL (7-20) 14 mg/dL (7-20) Creatinine 1.4 mg/dL (0.6-1.0) 1.4 mg/dL (0.6-1.0) Estimated GFR (Cockcroft-Gault) 36.4 36.4 BUN/Creatinine Ratio 13 (6-20) Glucose Level 118 mg/dL (70-99) 98 mg/dL (70-99) Calcium Level 9.0 mg/dL (8.5-10.1) 9.0 mg/dL (8.5-10.1) Total Bilirubin 1.4 mg/dL (0.2-1.0) Aspartate Amino Transf (AST/SGOT) 28 U/L (15-37) Alanine Aminotransferase (ALT/SGPT) 30 U/L (14-59) Alkaline Phosphatase 140 U/L (46-116) ZM-Gbi-J-Type Natriuretic Peptide 2441 pg/mL (0-449) Total Protein 6.6 g/dL (6.4-8.2) Albumin 3.1 g/dL (3.4-5.0) Albumin/Globulin Ratio 0.9 (1.0-1.7) CA 125 Antigen 154.4 U/mL (0.0-38.1) Test 11/17/18 05:40 White Blood Count 5.8 x10^3/uL (4.0-11.0) Red Blood Count 3.28 x10^6/uL (3.50-5.40) Hemoglobin 9.8 g/dL (12.0-15.5) Hematocrit 28.3 % (36.0-47.0) Mean Corpuscular Volume 86 fL (79-100) Mean Corpuscular Hemoglobin 30 pg (25-35) Mean Corpuscular Hemoglobin Concent 35 g/dL (31-37) Red Cell Distribution Width 16.6 % (11.5-14.5) Platelet Count 153 x10^3/uL (140-400) Neutrophils (%) (Auto) 71 % (31-73) Lymphocytes (%) (Auto) 14 % (24-48) Monocytes (%) (Auto) 11 % (0-9) Eosinophils (%) (Auto) 3 % (0-3) Basophils (%) (Auto) 1 % (0-3) Neutrophils # (Auto) 4.1 x10^3uL (1.8-7.7) Lymphocytes # (Auto) 0.8 x10^3/uL (1.0-4.8) Monocytes # (Auto) 0.7 x10^3/uL (0.0-1.1) Eosinophils # (Auto) 0.1 x10^3/uL (0.0-0.7) Basophils # (Auto) 0.0 x10^3/uL (0.0-0.2) Prothrombin Time 22.9 SEC (11.7-14.0) Prothromb Time International Ratio 2.1 (0.8-1.1) Sodium Level 140 mmol/L (136-145) Potassium Level 3.5 mmol/L (3.5-5.1) Chloride Level 103 mmol/L (98-107) Carbon Dioxide Level 30 mmol/L (21-32) Anion Gap 7 (6-14) Blood Urea Nitrogen 13 mg/dL (7-20) Creatinine 1.3 mg/dL (0.6-1.0) Estimated GFR (Cockcroft-Gault) 39.6 BUN/Creatinine Ratio 10 (6-20) Glucose Level 92 mg/dL (70-99) Calcium Level 8.9 mg/dL (8.5-10.1) Total Bilirubin 1.3 mg/dL (0.2-1.0) Aspartate Amino Transf (AST/SGOT) 21 U/L (15-37) Alanine Aminotransferase (ALT/SGPT) 24 U/L (14-59) Alkaline Phosphatase 114 U/L (46-116) Total Protein 6.0 g/dL (6.4-8.2) Albumin 2.8 g/dL (3.4-5.0) Albumin/Globulin Ratio 0.9 (1.0-1.7) Laboratory Tests Test 11/16/18 17:50 11/17/18 05:40 Prothrombin Time 40.9 SEC (11.7-14.0) 22.9 SEC (11.7-14.0) Prothromb Time International Ratio 4.2 (0.8-1.1) 2.1 (0.8-1.1) White Blood Count 5.8 x10^3/uL (4.0-11.0) Red Blood Count 3.28 x10^6/uL (3.50-5.40) Hemoglobin 9.8 g/dL (12.0-15.5) Hematocrit 28.3 % (36.0-47.0) Mean Corpuscular Volume 86 fL (79-100) Mean Corpuscular Hemoglobin 30 pg (25-35) Mean Corpuscular Hemoglobin Concent 35 g/dL (31-37) Red Cell Distribution Width 16.6 % (11.5-14.5) Platelet Count 153 x10^3/uL (140-400) Neutrophils (%) (Auto) 71 % (31-73) Lymphocytes (%) (Auto) 14 % (24-48) Monocytes (%) (Auto) 11 % (0-9) Eosinophils (%) (Auto) 3 % (0-3) Basophils (%) (Auto) 1 % (0-3) Neutrophils # (Auto) 4.1 x10^3uL (1.8-7.7) Lymphocytes # (Auto) 0.8 x10^3/uL (1.0-4.8) Monocytes # (Auto) 0.7 x10^3/uL (0.0-1.1) Eosinophils # (Auto) 0.1 x10^3/uL (0.0-0.7) Basophils # (Auto) 0.0 x10^3/uL (0.0-0.2) Sodium Level 140 mmol/L (136-145) Potassium Level 3.5 mmol/L (3.5-5.1) Chloride Level 103 mmol/L (98-107) Carbon Dioxide Level 30 mmol/L (21-32) Anion Gap 7 (6-14) Blood Urea Nitrogen 13 mg/dL (7-20) Creatinine 1.3 mg/dL (0.6-1.0) Estimated GFR (Cockcroft-Gault) 39.6 BUN/Creatinine Ratio 10 (6-20) Glucose Level 92 mg/dL (70-99) Calcium Level 8.9 mg/dL (8.5-10.1) Total Bilirubin 1.3 mg/dL (0.2-1.0) Aspartate Amino Transf (AST/SGOT) 21 U/L (15-37) Alanine Aminotransferase (ALT/SGPT) 24 U/L (14-59) Alkaline Phosphatase 114 U/L (46-116) Total Protein 6.0 g/dL (6.4-8.2) Albumin 2.8 g/dL (3.4-5.0) Albumin/Globulin Ratio 0.9 (1.0-1.7) Medications Current Medications Ondansetron HCl (Zofran) 4 mg PRN Q8HRS PRN IV NAUSEA/VOMITING; Start 11/15/18 at 17:15; Stop 11/16/18 at 17:14; Status DC Acetaminophen (Tylenol) 650 mg PRN Q4HRS PRN PO FEVER; Start 11/15/18 at 17:15; Stop 11/16/18 at 17:14; Status DC Albuterol/ Ipratropium (Duoneb) 3 ml RTQID NEB Last administered on 11/16/18at 15 :05; Start 11/15/18 at 17:30; Stop 11/16/18 at 17:29; Status DC Levofloxacin/ Dextrose (Levaquin Per Pharmacy) 1 each PRN DAILY PRN MC SEE COMMENTS; Start 11/15/18 at 17:15; Status Cancel Levofloxacin/ Dextrose 50 ml @ 50 mls/hr Q24H IV Last administered on 11/15/18at 18:00; Start 11/15/18 at 18:00; Stop 11/16/18 at 16:37; Status DC Aspirin (Children'S Aspirin) 81 mg DAILY PO Last administered on 11/17/18at 09:27 ; Start 11/16/18 at 09:00 Atorvastatin Calcium (Lipitor) 10 mg HS PO Last administered on 11/15/18at 22:14 ; Start 11/15/18 at 21:00; Stop 11/16/18 at 01:41; Status DC Vitamin D (Vitamin D3) 1,000 unit DAILY08 PO Last administered on 11/17/18at 09: 26; Start 11/16/18 at 08:00 Dronedarone (Multaq) 400 mg BID PO Last administered on 11/17/18at 09:25; Start 11/15/18 at 21:00 Famotidine (Pepcid) 20 mg QHS PO Last administered on 11/16/18at 20:24; Start 11/15/18 at 21:00 Potassium Chloride (Klor-Con) 10 meq DAILY PO Last administered on 11/17/18 09: 27; Start 11/16/18 at 09:00 Bumetanide (Bumex) 2 mg BID92 PO Last administered on 11/17/18 09:24; Start 11/16/18 at 09:00 Diltiazem HCl (Cardizem 24hr Cd) 120 mg DAILY PO ; Start 11/16/18 at 09:00; Stop 11/16/18 at 09:00; Status DC Levothyroxine Sodium (Synthroid) 50 mcg DAILY06 PO Last administered on 05:41; Start 11/16/18 at 06:00 Multivitamins (Thera M Plus) 1 tab DAILY PO Last administered on 11/17/18 09:26 ; Start 11/16/18 at 09:00 Fish Oil (Fish Oil) 1,000 mg DAILY PO Last administered on 11/17/18 09:26; Start 11/16/18 at 09:00 Non-Formulary Medication (Warfarin Sodium ) 4.5 mg DAILY PO ; Start 11/16/18 at 09:00; Status UNV Atorvastatin Calcium (Lipitor) 5 mg HS PO Last administered on 11/16/18 20:24; Start 11/16/18 at 21:00 Diltiazem HCl (Cardizem 24hr Cd) 180 mg DAILY PO Last administered on 11/17/18 09:26; Start 11/16/18 at 09:00 Magnesium Oxide (Magnesium Oxide) 400 mg BID PO Last administered on 11/17/18 09:25; Start 11/16/18 at 09:00 Ondansetron HCl (Zofran Odt) 4 mg PRN Q6HRS PRN PO NAUSEA/VOMITING 1ST CHOICE Last administered on 11/16/18 11:10; Start 11/16/18 at 01:45 Ferrous Sulfate (Feosol) 325 mg DAILYWBKFT PO Last administered on 11/17/18 09: 25; Start 11/16/18 at 08:00 Warfarin Sodium (Coumadin Per Pharmacy) 1 each PRN DAILY PRN MC SEE COMMENTS Last administered on 11/16/18 16:25; Start 11/16/18 at 07:15 Warfarin Sodium (Coumadin - No Dose Today) 1 each 1X WARF ONCE MC ; Start at 16:00; Stop 11/16/18 at 16:01; Status DC Phytonadione (Mephyton Oral Soln) 5 mg 1X ONCE PO Last administered on at 16:55; Start 11/16/18 at 13:30; Stop 11/16/18 at 13:31; Status DC Lactobacillus Rhamnosus (Culturelle) 1 cap BID PO Last administered on at 09:27; Start 11/16/18 at 21:00 Ceftriaxone Sodium (Rocephin) 1 gm Q24H IVP Last administered on 11/16/18at 18:37 ; Start 11/16/18 at 17:00 Albuterol Sulfate (Ventolin Neb Soln) 2.5 mg PRN Q4HRS PRN NEB SHORTNESS OF BREATH Last administered on 11/17/18at 07:25; Start 11/16/18 at 22:15 Spironolactone (Aldactone) 50 mg DAILY PO Last administered on 11/17/18at 09:25; Start 11/17/18 at 09:00 Active Scripts Active Bumetanide 2 Mg Tablet 1 Tab PO BID 30 Days Multaq (Dronedarone Hcl) 400 Mg Tablet 400 Mg PO BID Reported Diltiazem 24HR Cd (Diltiazem Hcl) 180 Mg Cap.er.24h 180 Mg PO DAILY Mag-Oxide (Magnesium Oxide) 400 Mg Tablet 1 Tab PO BID Zofran (Ondansetron Hcl) 4 Mg Tablet 1 Tab PO PRN Q6HRS PRN Ferrous Sulfate 325 Mg Tablet 325 Mg PO DAILY Levothyroxine Sodium 50 Mcg Tablet 50 Mcg PO DAILYAC Atorvastatin Calcium 10 Mg Tablet 5 Mg PO HS Potassium Chloride 10 Meq Tablet.er 10 Meq PO DAILY Vitamin D3 (Cholecalciferol (Vitamin D3)) 1,000 Unit Tablet 1,000 Unit PO Famotidine 20 Mg Tablet 20 Mg PO BID Fish Oil 1,200 mg Softgel ([place]-3S/Dha/Epa/Fish Oil) 1 Each Capsule 2 Each PO Multivitamins (Multivitamin) 1 Each Tablet 1 Tab PO DAILY Aspirin 81 Mg Tab.chew 1 Tab PO DAILY Diltiazem 24HR Cd (Diltiazem Hcl) 120 Mg Cap.er.24h 1 Cap PO DAILY Warfarin Sodium 4 Mg Tablet 4 Mg PO DAILY Vitals/I & O Vital Sign - Last 24 Hours 11/16/18 11/16/18 11/16/18 11/16/18 11:00 11:16 15:00 15:06 Temp 97.2 97.8 97.2 97.8 Pulse 68 60 Resp 16 16 B/P (MAP) 133/46 (75) 120/61 (80) Pulse Ox 93 95 O2 Delivery Room Air Room Air Room Air Room Air 11/16/18 11/16/18 11/16/18 11/16/18 19:00 20:00 20:25 20:42 Temp 97.9 97.9 Pulse 62 62 Resp 18 B/P (MAP) 123/62 (82) 123/62 Pulse Ox 95 O2 Delivery Room Air Room Air Room Air 11/16/18 11/17/18 11/17/18 11/17/18 23:00 03:00 07:00 07:26 Temp 98.0 98.0 98.0 98.0 Pulse 59 58 Resp 18 18 B/P (MAP) 122/48 (72) 125/40 (68) Pulse Ox 95 95 94 O2 Delivery Room Air Room Air Room Air 11/17/18 11/17/18 09:25 09:26 Pulse 58 58 B/P (MAP) 125/40 125/40 Intake and Output 11/16/18 11/16/18 11/17/18 15:01 23:01 07:01 Intake Total 600 ml 600 ml 380 ml Balance 600 ml 600 ml 380 ml JEANIE ARZATE MD Nov 17, 2018 10:52
[2018-11-17 11:00] VITALS: BP 152/57
--- NOTE | 2018-11-17 11:58 | NUR ---
Pharmacy Warfarin Dosing Note S:Pharmacy consulted to assist with anticoagulation therapy started with target INR: 2 -3 O:MARY ALICE MICHELE is a 78 year old F with Atrial Fibrillation LABS: Last INR: 2.1 Last HGB: 9.8 Last HCT: 28.3 Last PLT: 153 Last dose of Hold given on 11/16/18 at 1600 Previous Regimen: 4 mg po daily Vitamin K given: Y 5 mg po 11/16/18 Drug Interaction Changes: New Interacting Drug Ongoing Drug Interactions: Levofloxacin -Dc'd changed to ceftriaxone per Dr. Castellon A:INR of 2.1 is within desired range. Target range for this patient is: 2 -3 P: Warfarin dose: 2.5 mg Today at 1600 Bridge Therapy: None Next INR due 11/18/18 Pharmacy anticoagulation service will continue to follow. MAXIMILIANO CARVER [facility], 11/17/18 [id number]
--- NOTE | 2018-11-17 13:45 | PDOC ---
Provider Note Provider Note Consult Reviewed pt Ca 125 down to 154.4 from 600 in april 2018 U/S normal If further need to evaluate pt possibility of ovarian Ca would recommend ham smoker/ onc consult. MINH CANTU MD Nov 17, 2018 13:45
[2018-11-17 15:00] VITALS: BP 100/64
--- NOTE | 2018-11-17 15:04 | PDOC ---
G I PROGRESS NOTE Reason for Follow-up Cough/ascites/abd distention Subjective Feeling better Physical Exam Lungs decreased BS CV S1 S2 ABD +BS, soft, distended EXt 1+ edema Review of Relevant I have reviewed the following items walt (where applicable) has been applied. Labs Laboratory Tests Test 11/15/18 16:17 11/15/18 16:30 11/16/18 04:35 11/16/18 17:50 Urine Color Yellow Urine Clarity Cloudy Urine pH 7.0 Urine Specific [place] 1.010 Urine Protein Negative mg/dL (NEG-TRACE) Urine Glucose (UA) Negative mg/dL (NEG) Urine Ketones (Stick) Negative mg/dL (NEG) Urine Blood Small (NEG) Urine Nitrite Negative (NEG) Urine Bilirubin Negative (NEG) Urine Urobilinogen Dipstick 1.0 mg/dL (0.2 mg/dL) Urine Leukocyte Esterase Negative (NEG) Urine RBC Occ /HPF (0-2) Urine WBC 1-4 /HPF (0-4) Urine Squamous Epithelial Cells Occ /LPF Urine Bacteria Few /HPF (0-FEW) White Blood Count 6.9 x10^3/uL (4.0-11.0) 5.6 x10^3/uL (4.0-11.0) Red Blood Count 3.56 x10^6/uL (3.50-5.40) 3.18 x10^6/uL (3.50-5.40) Hemoglobin 10.9 g/dL (12.0-15.5) 9.8 g/dL (12.0-15.5) Hematocrit 31.0 % (36.0-47.0) 27.5 % (36.0-47.0) Mean Corpuscular Volume 87 fL (79-100) 87 fL (79-100) Mean Corpuscular Hemoglobin 31 pg (25-35) 31 pg (25-35) Mean Corpuscular Hemoglobin Concent 35 g/dL (31-37) 35 g/dL (31-37) Red Cell Distribution Width 16.4 % (11.5-14.5) 16.3 % (11.5-14.5) Platelet Count 182 x10^3/uL (140-400) 149 x10^3/uL (140-400) Neutrophils (%) (Auto) 77 % (31-73) 73 % (31-73) Lymphocytes (%) (Auto) 11 % (24-48) 14 % (24-48) Monocytes (%) (Auto) 10 % (0-9) 12 % (0-9) Eosinophils (%) (Auto) 2 % (0-3) 2 % (0-3) Basophils (%) (Auto) 1 % (0-3) 1 % (0-3) Neutrophils # (Auto) 5.3 x10^3uL (1.8-7.7) 4.0 x10^3uL (1.8-7.7) Lymphocytes # (Auto) 0.7 x10^3/uL (1.0-4.8) 0.8 x10^3/uL (1.0-4.8) Monocytes # (Auto) 0.7 x10^3/uL (0.0-1.1) 0.6 x10^3/uL (0.0-1.1) Eosinophils # (Auto) 0.1 x10^3/uL (0.0-0.7) 0.1 x10^3/uL (0.0-0.7) Basophils # (Auto) 0.1 x10^3/uL (0.0-0.2) 0.0 x10^3/uL (0.0-0.2) Prothrombin Time 37.2 SEC (11.7-14.0) 40.0 SEC (11.7-14.0) 40.9 SEC (11.7-14.0) Prothromb Time International Ratio 3.8 (0.8-1.1) 4.1 (0.8-1.1) 4.2 (0.8-1.1) Sodium Level 139 mmol/L (136-145) 139 mmol/L (136-145) Potassium Level 3.7 mmol/L (3.5-5.1) 3.7 mmol/L (3.5-5.1) Chloride Level 101 mmol/L (98-107) 102 mmol/L (98-107) Carbon Dioxide Level 30 mmol/L (21-32) 29 mmol/L (21-32) Anion Gap 8 (6-14) 8 (6-14) Blood Urea Nitrogen 18 mg/dL (7-20) 14 mg/dL (7-20) Creatinine 1.4 mg/dL (0.6-1.0) 1.4 mg/dL (0.6-1.0) Estimated GFR (Cockcroft-Gault) 36.4 36.4 BUN/Creatinine Ratio 13 (6-20) Glucose Level 118 mg/dL (70-99) 98 mg/dL (70-99) Calcium Level 9.0 mg/dL (8.5-10.1) 9.0 mg/dL (8.5-10.1) Total Bilirubin 1.4 mg/dL (0.2-1.0) Aspartate Amino Transf (AST/SGOT) 28 U/L (15-37) Alanine Aminotransferase (ALT/SGPT) 30 U/L (14-59) Alkaline Phosphatase 140 U/L (46-116) EB-Vsn-G-Type Natriuretic Peptide 2441 pg/mL (0-449) Total Protein 6.6 g/dL (6.4-8.2) Albumin 3.1 g/dL (3.4-5.0) Albumin/Globulin Ratio 0.9 (1.0-1.7) CA 125 Antigen 154.4 U/mL (0.0-38.1) Test 11/17/18 05:40 White Blood Count 5.8 x10^3/uL (4.0-11.0) Red Blood Count 3.28 x10^6/uL (3.50-5.40) Hemoglobin 9.8 g/dL (12.0-15.5) Hematocrit 28.3 % (36.0-47.0) Mean Corpuscular Volume 86 fL (79-100) Mean Corpuscular Hemoglobin 30 pg (25-35) Mean Corpuscular Hemoglobin Concent 35 g/dL (31-37) Red Cell Distribution Width 16.6 % (11.5-14.5) Platelet Count 153 x10^3/uL (140-400) Neutrophils (%) (Auto) 71 % (31-73) Lymphocytes (%) (Auto) 14 % (24-48) Monocytes (%) (Auto) 11 % (0-9) Eosinophils (%) (Auto) 3 % (0-3) Basophils (%) (Auto) 1 % (0-3) Neutrophils # (Auto) 4.1 x10^3uL (1.8-7.7) Lymphocytes # (Auto) 0.8 x10^3/uL (1.0-4.8) Monocytes # (Auto) 0.7 x10^3/uL (0.0-1.1) Eosinophils # (Auto) 0.1 x10^3/uL (0.0-0.7) Basophils # (Auto) 0.0 x10^3/uL (0.0-0.2) Prothrombin Time 22.9 SEC (11.7-14.0) Prothromb Time International Ratio 2.1 (0.8-1.1) Sodium Level 140 mmol/L (136-145) Potassium Level 3.5 mmol/L (3.5-5.1) Chloride Level 103 mmol/L (98-107) Carbon Dioxide Level 30 mmol/L (21-32) Anion Gap 7 (6-14) Blood Urea Nitrogen 13 mg/dL (7-20) Creatinine 1.3 mg/dL (0.6-1.0) Estimated GFR (Cockcroft-Gault) 39.6 BUN/Creatinine Ratio 10 (6-20) Glucose Level 92 mg/dL (70-99) Calcium Level 8.9 mg/dL (8.5-10.1) Total Bilirubin 1.3 mg/dL (0.2-1.0) Aspartate Amino Transf (AST/SGOT) 21 U/L (15-37) Alanine Aminotransferase (ALT/SGPT) 24 U/L (14-59) Alkaline Phosphatase 114 U/L (46-116) Total Protein 6.0 g/dL (6.4-8.2) Albumin 2.8 g/dL (3.4-5.0) Albumin/Globulin Ratio 0.9 (1.0-1.7) Laboratory Tests Test 11/16/18 17:50 11/17/18 05:40 Prothrombin Time 40.9 SEC (11.7-14.0) 22.9 SEC (11.7-14.0) Prothromb Time International Ratio 4.2 (0.8-1.1) 2.1 (0.8-1.1) White Blood Count 5.8 x10^3/uL (4.0-11.0) Red Blood Count 3.28 x10^6/uL (3.50-5.40) Hemoglobin 9.8 g/dL (12.0-15.5) Hematocrit 28.3 % (36.0-47.0) Mean Corpuscular Volume 86 fL (79-100) Mean Corpuscular Hemoglobin 30 pg (25-35) Mean Corpuscular Hemoglobin Concent 35 g/dL (31-37) Red Cell Distribution Width 16.6 % (11.5-14.5) Platelet Count 153 x10^3/uL (140-400) Neutrophils (%) (Auto) 71 % (31-73) Lymphocytes (%) (Auto) 14 % (24-48) Monocytes (%) (Auto) 11 % (0-9) Eosinophils (%) (Auto) 3 % (0-3) Basophils (%) (Auto) 1 % (0-3) Neutrophils # (Auto) 4.1 x10^3uL (1.8-7.7) Lymphocytes # (Auto) 0.8 x10^3/uL (1.0-4.8) Monocytes # (Auto) 0.7 x10^3/uL (0.0-1.1) Eosinophils # (Auto) 0.1 x10^3/uL (0.0-0.7) Basophils # (Auto) 0.0 x10^3/uL (0.0-0.2) Sodium Level 140 mmol/L (136-145) Potassium Level 3.5 mmol/L (3.5-5.1) Chloride Level 103 mmol/L (98-107) Carbon Dioxide Level 30 mmol/L (21-32) Anion Gap 7 (6-14) Blood Urea Nitrogen 13 mg/dL (7-20) Creatinine 1.3 mg/dL (0.6-1.0) Estimated GFR (Cockcroft-Gault) 39.6 BUN/Creatinine Ratio 10 (6-20) Glucose Level 92 mg/dL (70-99) Calcium Level 8.9 mg/dL (8.5-10.1) Total Bilirubin 1.3 mg/dL (0.2-1.0) Aspartate Amino Transf (AST/SGOT) 21 U/L (15-37) Alanine Aminotransferase (ALT/SGPT) 24 U/L (14-59) Alkaline Phosphatase 114 U/L (46-116) Total Protein 6.0 g/dL (6.4-8.2) Albumin 2.8 g/dL (3.4-5.0) Albumin/Globulin Ratio 0.9 (1.0-1.7) Medications Current Medications Ondansetron HCl (Zofran) 4 mg PRN Q8HRS PRN IV NAUSEA/VOMITING; Start 11/15/18 at 17:15; Stop 11/16/18 at 17:14; Status DC Acetaminophen (Tylenol) 650 mg PRN Q4HRS PRN PO FEVER; Start 11/15/18 at 17:15; Stop 11/16/18 at 17:14; Status DC Albuterol/ Ipratropium (Duoneb) 3 ml RTQID NEB Last administered on 11/16/18at 15 :05; Start 11/15/18 at 17:30; Stop 11/16/18 at 17:29; Status DC Levofloxacin/ Dextrose (Levaquin Per Pharmacy) 1 each PRN DAILY PRN MC SEE COMMENTS; Start 11/15/18 at 17:15; Status Cancel Levofloxacin/ Dextrose 50 ml @ 50 mls/hr Q24H IV Last administered on 11/15/18at 18:00; Start 11/15/18 at 18:00; Stop 11/16/18 at 16:37; Status DC Aspirin (Children'S Aspirin) 81 mg DAILY PO Last administered on 11/17/18 09:27 ; Start 11/16/18 at 09:00 Atorvastatin Calcium (Lipitor) 10 mg HS PO Last administered on 11/15/18 22:14 ; Start 11/15/18 at 21:00; Stop 11/16/18 at 01:41; Status DC Vitamin D (Vitamin D3) 1,000 unit DAILY08 PO Last administered on 11/17/18 09: 26; Start 11/16/18 at 08:00 Dronedarone (Multaq) 400 mg BID PO Last administered on 11/17/18 09:25; Start 11/15/18 at 21:00 Famotidine (Pepcid) 20 mg QHS PO Last administered on 11/16/18at 20:24; Start 11/15/18 at 21:00 Potassium Chloride (Klor-Con) 10 meq DAILY PO Last administered on 11/17/18at 09: 27; Start 11/16/18 at 09:00 Bumetanide (Bumex) 2 mg BID92 PO Last administered on 11/17/18 14:25; Start 11/16/18 at 09:00 Diltiazem HCl (Cardizem 24hr Cd) 120 mg DAILY PO ; Start 11/16/18 at 09:00; Stop 11/16/18 at 09:00; Status DC Levothyroxine Sodium (Synthroid) 50 mcg DAILY06 PO Last administered on 05:41; Start 11/16/18 at 06:00 Multivitamins (Thera M Plus) 1 tab DAILY PO Last administered on 11/17/18 09:26 ; Start 11/16/18 at 09:00 Fish Oil (Fish Oil) 1,000 mg DAILY PO Last administered on 11/17/18 09:26; Start 11/16/18 at 09:00 Non-Formulary Medication (Warfarin Sodium ) 4.5 mg DAILY PO ; Start 11/16/18 at 09:00; Status UNV Atorvastatin Calcium (Lipitor) 5 mg HS PO Last administered on 11/16/18 20:24; Start 11/16/18 at 21:00 Diltiazem HCl (Cardizem 24hr Cd) 180 mg DAILY PO Last administered on 11/17/18 09:26; Start 11/16/18 at 09:00 Magnesium Oxide (Magnesium Oxide) 400 mg BID PO Last administered on 11/17/18 09:25; Start 11/16/18 at 09:00 Ondansetron HCl (Zofran Odt) 4 mg PRN Q6HRS PRN PO NAUSEA/VOMITING 1ST CHOICE Last administered on 11/16/18 11:10; Start 11/16/18 at 01:45 Ferrous Sulfate (Feosol) 325 mg DAILYWBKFT PO Last administered on 11/17/18 09: 25; Start 11/16/18 at 08:00 Warfarin Sodium (Coumadin Per Pharmacy) 1 each PRN DAILY PRN MC SEE COMMENTS Last administered on 11/17/18 11:58; Start 11/16/18 at 07:15 Warfarin Sodium (Coumadin - No Dose Today) 1 each 1X WARF ONCE MC ; Start at 16:00; Stop 11/16/18 at 16:01; Status DC Phytonadione (Mephyton Oral Soln) 5 mg 1X ONCE PO Last administered on at 16:55; Start 11/16/18 at 13:30; Stop 11/16/18 at 13:31; Status DC Lactobacillus Rhamnosus (Culturelle) 1 cap BID PO Last administered on at 09:27; Start 11/16/18 at 21:00 Ceftriaxone Sodium (Rocephin) 1 gm Q24H IVP Last administered on 11/16/18at 18:37 ; Start 11/16/18 at 17:00 Albuterol Sulfate (Ventolin Neb Soln) 2.5 mg PRN Q4HRS PRN NEB SHORTNESS OF BREATH Last administered on 11/17/18at 07:25; Start 11/16/18 at 22:15 Spironolactone (Aldactone) 50 mg DAILY PO Last administered on 11/17/18at 09:25; Start 11/17/18 at 09:00 Warfarin Sodium (Coumadin) 2.5 mg 1X WARF ONCE PO ; Start 11/17/18 at 16:00; Stop 11/17/18 at 16:01 Active Scripts Active Bumetanide 2 Mg Tablet 1 Tab PO BID 30 Days Multaq (Dronedarone Hcl) 400 Mg Tablet 400 Mg PO BID Reported Diltiazem 24HR Cd (Diltiazem Hcl) 180 Mg Cap.er.24h 180 Mg PO DAILY Mag-Oxide (Magnesium Oxide) 400 Mg Tablet 1 Tab PO BID Zofran (Ondansetron Hcl) 4 Mg Tablet 1 Tab PO PRN Q6HRS PRN Ferrous Sulfate 325 Mg Tablet 325 Mg PO DAILY Levothyroxine Sodium 50 Mcg Tablet 50 Mcg PO DAILYAC Atorvastatin Calcium 10 Mg Tablet 5 Mg PO HS Potassium Chloride 10 Meq Tablet.er 10 Meq PO DAILY Vitamin D3 (Cholecalciferol (Vitamin D3)) 1,000 Unit Tablet 1,000 Unit PO Famotidine 20 Mg Tablet 20 Mg PO BID Fish Oil 1,200 mg Softgel ([place]-3S/Dha/Epa/Fish Oil) 1 Each Capsule 2 Each PO Multivitamins (Multivitamin) 1 Each Tablet 1 Tab PO DAILY Aspirin 81 Mg Tab.chew 1 Tab PO DAILY Diltiazem 24HR Cd (Diltiazem Hcl) 120 Mg Cap.er.24h 1 Cap PO DAILY Warfarin Sodium 4 Mg Tablet 4 Mg PO DAILY Vitals/I & O Vital Sign - Last 24 Hours 11/16/18 11/16/18 11/16/18 11/16/18 15:06 19:00 20:00 20:25 Temp 97.9 97.9 Pulse 62 62 Resp 18 B/P (MAP) 123/62 (82) 123/62 Pulse Ox 95 O2 Delivery Room Air Room Air Room Air 11/16/18 11/16/18 11/17/18 11/17/18 20:42 23:00 03:00 07:00 Temp 98.0 98.0 98.0 98.0 Pulse 59 58 Resp 18 18 B/P (MAP) 122/48 (72) 125/40 (68) Pulse Ox 95 95 O2 Delivery Room Air Room Air Room Air 11/17/18 11/17/18 11/17/18 11/17/18 07:26 08:22 09:25 09:26 Pulse 58 58 B/P (MAP) 125/40 125/40 Pulse Ox 94 O2 Delivery Room Air Room Air 11/17/18 11:00 Temp 97.9 97.9 Pulse 65 Resp 18 B/P (MAP) 152/57 (88) Pulse Ox 95 O2 Delivery Room Air Intake and Output 11/16/18 11/16/18 11/17/18 15:01 23:01 07:01 Intake Total 600 ml 600 ml 380 ml Balance 600 ml 600 ml 380 ml Problem List Cirrhosis- with ascites, fluctuating CA 125 is noted with manager surgery input, await CA 19 -9 level, continue with increased diuretics ARNULFO RESENDIZ MD Nov 17, 2018 15:04
[2018-11-17] MEDS ORDERED: WARFARIN 2.5 MG TABLET. PO ONE (16:00)
[2018-11-17] MEDS: cefTRIAXone IV Push 1 GM VIAL. IVP SCH (17:19)
[2018-11-17 19:00] VITALS: BP 129/65
[2018-11-17] MEDS: FAMOTIDINE 20 MG TABLET. PO SCH (21:27)
[2018-11-17] MEDS: ATORVASTATIN CALCIUM 10 MG TABLET. PO SCH (21:27)
[2018-11-17 23:00] VITALS: BP 131/58
[2018-11-18] MEDS: LEVOTHYROXINE 50 MCG TABLET PO SCH (05:37)
[2018-11-18 07:00] VITALS: BP 132/48
[2018-11-18] MEDS: MULTIVITAMIN with MINERAL TABLET. PO SCH (08:07)
[2018-11-18] MEDS: BUMETANIDE 1 MG TABLET. PO SCH ×2 (08:07→16:11)
[2018-11-18] MEDS: OMEGA-3 FATTY ACIDS/FISH OIL 1,000 MG CAPSULE. PO SCH (08:07)
[2018-11-18] MEDS: LACTOBACILLUS RHAMNOSUS GG 1 CAPSULE. PO SCH ×2 (08:07→21:49)
[2018-11-18] MEDS: SPIRONOLACTONE 25 MG TABLET PO SCH (08:07)
[2018-11-18] MEDS: ASPIRIN CHEWABLE 81 MG TABLET. PO SCH (08:07)
[2018-11-18] MEDS: MAGNESIUM OXIDE 400 MG TABLET PO SCH ×2 (08:07→21:48)
[2018-11-18] MEDS: FERROUS SULFATE 325 MG TABLET. PO SCH (08:07)
[2018-11-18] MEDS: DRONEDARONE HCL 400 MG TABLET PO SCH ×2 (08:08→21:49)
[2018-11-18] MEDS: CHOLECALCIFEROL (VITAMIN D3) 1,000 UNIT TABLET PO SCH (08:08)
[2018-11-18] MEDS: POTASSIUM CHLORIDE 10 MEQ TABLET.ER. PO SCH (08:08)
[2018-11-18 08:56] LABS: BASO % 1 % (0-3); EOS # 0.1 x10^3/uL (0.0-0.7); EOS % 2 % (0-3); HEMATOCRIT 30.6 % (36.0-47.0); HEMOGLOBIN 10.5 g/dL (12.0-15.5); LYMPH # 0.8 x10^3/uL (1.0-4.8); LYMPH % 12 % (24-48); MEAN CORPUSCULAR HEMOGLOBIN 30 pg (25-35); MEAN CORPUSCULAR HGB CONC 34 g/dL (31-37); MEAN CORPUSCULAR VOLUME 88 fL (79-100); MONO # 0.5 x10^3/uL (0.0-1.1); MONO % 8 % (0-9); NEUT # 4.9 x10^3uL (1.8-7.7); NEUT % 77 % (31-73); PLATELET COUNT 169 x10^3/uL (140-400); RED CELL DISTRIBUTION WIDTH 16.7 % (11.5-14.5); WHITE BLOOD COUNT 6.4 x10^3/uL (4.0-11.0)
[2018-11-18 09:10] LABS: PROTHROMBIN TIME PATIENT 16.7 SEC (11.7-14.0)
[2018-11-18 09:13] LABS: ALBUMIN 3.1 g/dL (3.4-5.0); ALBUMIN/GLOBULIN RATIO 0.9 (1.0-1.7); CALCIUM 9.3 mg/dL (8.5-10.1); CREATININE 1.3 mg/dL (0.6-1.0); GFR 39.6; POTASSIUM 3.6 mmol/L (3.5-5.1); TOTAL BILIRUBIN 1.4 mg/dL (0.2-1.0); TOTAL PROTEIN 6.6 g/dL (6.4-8.2)
--- NOTE | 2018-11-18 09:13 | PDOC ---
PROGRESS NOTES Chief Complaint Chief Complaint Thrombocytopenia Elevated LFTs with ascites new-onset s/p paracentesis 04/23/18 ( 5 L?) chronic liver disease. Mild hepatic steatosis. Cholelithiasis. Gallbladder wall thickening can be seen in the context of chronic liver disease. mild to moderate pleural effusion New-onset CHF CAD Significant 80-90% stenosis involving the left main coronary artery. The previously placed stent in the left anterior descending arteries patent. 04/29 Hypertension, indwelling pacer, history of A. fib on OAC Weight loss, poor appetite Elavetd Ca19-9 (320) ELEVATED CA 336=626, ELEVATED Reviewed pt Ca 125 down to 154.4 from 600 from april 2018 Moderate mitral regurgitation. Moderate tricuspid regurgitation. moderate pulmonary hypertension. The PA pressure was estimated at 65 mmHg. SUPRA-THERAPEUTIC INR now 2.1, pharmacy adjusting Thickened endometrial stripe for the postmenopausal status the patient. History of Present Illness History of Present Illness This morning ate toast, feels more distended today and states she is having the urge to have a BM, would like bowel regimen PLAN TELE CONSULT DR GARG if ovarian ca suspected will need onc-silk examiner consult PELVIC SONO noted REPEAT CA 125 still elevated, lower GI CONSULTED IV DIURESIS CARDIOLOGY CONSULT ECHO REVIEWED 04/29 REPEAT ECHO COUMADIN ,PHARMACY ADJUSTING Vitals Vitals Vital Signs Date Time Temp Pulse Resp B/P (MAP) Pulse Ox O2 Delivery O2 Flow Rate FiO2 11/18/18 08:08 60 132/48 11/18/18 07:00 98.0 18 94 Room Air 98.0 Physical Exam General: Alert, Oriented X3, Cooperative, No acute distress, mild distress Heart: Regular rate, Other (S4 GALLOP) Lungs: Clear Abdomen: Normal bowel sounds, Soft, No tenderness, Other (MILD DISTENSION, NO RUQ TENDERNESS) Extremities: No clubbing, No cyanosis, Other (1-2 PLUS ANKLE EDEMA) Skin: No significant lesion Labs LABS Laboratory Tests Test 11/18/18 08:10 White Blood Count 6.4 x10^3/uL (4.0-11.0) Red Blood Count 3.50 x10^6/uL (3.50-5.40) Hemoglobin 10.5 g/dL (12.0-15.5) Hematocrit 30.6 % (36.0-47.0) Mean Corpuscular Volume 88 fL (79-100) Mean Corpuscular Hemoglobin 30 pg (25-35) Mean Corpuscular Hemoglobin Concent 34 g/dL (31-37) Red Cell Distribution Width 16.7 % (11.5-14.5) Platelet Count 169 x10^3/uL (140-400) Neutrophils (%) (Auto) 77 % (31-73) Lymphocytes (%) (Auto) 12 % (24-48) Monocytes (%) (Auto) 8 % (0-9) Eosinophils (%) (Auto) 2 % (0-3) Basophils (%) (Auto) 1 % (0-3) Neutrophils # (Auto) 4.9 x10^3uL (1.8-7.7) Lymphocytes # (Auto) 0.8 x10^3/uL (1.0-4.8) Monocytes # (Auto) 0.5 x10^3/uL (0.0-1.1) Eosinophils # (Auto) 0.1 x10^3/uL (0.0-0.7) Basophils # (Auto) 0.0 x10^3/uL (0.0-0.2) Prothrombin Time 16.7 SEC (11.7-14.0) Prothromb Time International Ratio 1.4 (0.8-1.1) Comment Review of Relevant I have reviewed the following items walt (where applicable) has been applied. Labs Laboratory Tests Test 11/16/18 17:50 11/17/18 05:40 11/18/18 08:10 Prothrombin Time 40.9 SEC (11.7-14.0) 22.9 SEC (11.7-14.0) 16.7 SEC (11.7-14.0) Prothromb Time International Ratio 4.2 (0.8-1.1) 2.1 (0.8-1.1) 1.4 (0.8-1.1) White Blood Count 5.8 x10^3/uL (4.0-11.0) 6.4 x10^3/uL (4.0-11.0) Red Blood Count 3.28 x10^6/uL (3.50-5.40) 3.50 x10^6/uL (3.50-5.40) Hemoglobin 9.8 g/dL (12.0-15.5) 10.5 g/dL (12.0-15.5) Hematocrit 28.3 % (36.0-47.0) 30.6 % (36.0-47.0) Mean Corpuscular Volume 86 fL (79-100) 88 fL (79-100) Mean Corpuscular Hemoglobin 30 pg (25-35) 30 pg (25-35) Mean Corpuscular Hemoglobin Concent 35 g/dL (31-37) 34 g/dL (31-37) Red Cell Distribution Width 16.6 % (11.5-14.5) 16.7 % (11.5-14.5) Platelet Count 153 x10^3/uL (140-400) 169 x10^3/uL (140-400) Neutrophils (%) (Auto) 71 % (31-73) 77 % (31-73) Lymphocytes (%) (Auto) 14 % (24-48) 12 % (24-48) Monocytes (%) (Auto) 11 % (0-9) 8 % (0-9) Eosinophils (%) (Auto) 3 % (0-3) 2 % (0-3) Basophils (%) (Auto) 1 % (0-3) 1 % (0-3) Neutrophils # (Auto) 4.1 x10^3uL (1.8-7.7) 4.9 x10^3uL (1.8-7.7) Lymphocytes # (Auto) 0.8 x10^3/uL (1.0-4.8) 0.8 x10^3/uL (1.0-4.8) Monocytes # (Auto) 0.7 x10^3/uL (0.0-1.1) 0.5 x10^3/uL (0.0-1.1) Eosinophils # (Auto) 0.1 x10^3/uL (0.0-0.7) 0.1 x10^3/uL (0.0-0.7) Basophils # (Auto) 0.0 x10^3/uL (0.0-0.2) 0.0 x10^3/uL (0.0-0.2) Sodium Level 140 mmol/L (136-145) Potassium Level 3.5 mmol/L (3.5-5.1) Chloride Level 103 mmol/L (98-107) Carbon Dioxide Level 30 mmol/L (21-32) Anion Gap 7 (6-14) Blood Urea Nitrogen 13 mg/dL (7-20) Creatinine 1.3 mg/dL (0.6-1.0) Estimated GFR (Cockcroft-Gault) 39.6 BUN/Creatinine Ratio 10 (6-20) Glucose Level 92 mg/dL (70-99) Calcium Level 8.9 mg/dL (8.5-10.1) Total Bilirubin 1.3 mg/dL (0.2-1.0) Aspartate Amino Transf (AST/SGOT) 21 U/L (15-37) Alanine Aminotransferase (ALT/SGPT) 24 U/L (14-59) Alkaline Phosphatase 114 U/L (46-116) Total Protein 6.0 g/dL (6.4-8.2) Albumin 2.8 g/dL (3.4-5.0) Albumin/Globulin Ratio 0.9 (1.0-1.7) Laboratory Tests Test 11/18/18 08:10 White Blood Count 6.4 x10^3/uL (4.0-11.0) Red Blood Count 3.50 x10^6/uL (3.50-5.40) Hemoglobin 10.5 g/dL (12.0-15.5) Hematocrit 30.6 % (36.0-47.0) Mean Corpuscular Volume 88 fL (79-100) Mean Corpuscular Hemoglobin 30 pg (25-35) Mean Corpuscular Hemoglobin Concent 34 g/dL (31-37) Red Cell Distribution Width 16.7 % (11.5-14.5) Platelet Count 169 x10^3/uL (140-400) Neutrophils (%) (Auto) 77 % (31-73) Lymphocytes (%) (Auto) 12 % (24-48) Monocytes (%) (Auto) 8 % (0-9) Eosinophils (%) (Auto) 2 % (0-3) Basophils (%) (Auto) 1 % (0-3) Neutrophils # (Auto) 4.9 x10^3uL (1.8-7.7) Lymphocytes # (Auto) 0.8 x10^3/uL (1.0-4.8) Monocytes # (Auto) 0.5 x10^3/uL (0.0-1.1) Eosinophils # (Auto) 0.1 x10^3/uL (0.0-0.7) Basophils # (Auto) 0.0 x10^3/uL (0.0-0.2) Prothrombin Time 16.7 SEC (11.7-14.0) Prothromb Time International Ratio 1.4 (0.8-1.1) Medications Current Medications Ondansetron HCl (Zofran) 4 mg PRN Q8HRS PRN IV NAUSEA/VOMITING; Start 11/15/18 at 17:15; Stop 11/16/18 at 17:14; Status DC Acetaminophen (Tylenol) 650 mg PRN Q4HRS PRN PO FEVER; Start 11/15/18 at 17:15; Stop 11/16/18 at 17:14; Status DC Albuterol/ Ipratropium (Duoneb) 3 ml RTQID NEB Last administered on 11/16/18at 15 :05; Start 11/15/18 at 17:30; Stop 11/16/18 at 17:29; Status DC Levofloxacin/ Dextrose (Levaquin Per Pharmacy) 1 each PRN DAILY PRN MC SEE COMMENTS; Start 11/15/18 at 17:15; Status Cancel Levofloxacin/ Dextrose 50 ml @ 50 mls/hr Q24H IV Last administered on 11/15/18at 18:00; Start 11/15/18 at 18:00; Stop 11/16/18 at 16:37; Status DC Aspirin (Children'S Aspirin) 81 mg DAILY PO Last administered on 11/18/18at 08:07 ; Start 11/16/18 at 09:00 Atorvastatin Calcium (Lipitor) 10 mg HS PO Last administered on 11/15/18at 22:14 ; Start 11/15/18 at 21:00; Stop 11/16/18 at 01:41; Status DC Vitamin D (Vitamin D3) 1,000 unit DAILY08 PO Last administered on 11/18/18at 08: 08; Start 11/16/18 at 08:00 Dronedarone (Multaq) 400 mg BID PO Last administered on 11/18/18at 08:08; Start 11/15/18 at 21:00 Famotidine (Pepcid) 20 mg QHS PO Last administered on 11/17/18 21:27; Start 11/15/18 at 21:00 Potassium Chloride (Klor-Con) 10 meq DAILY PO Last administered on 11/18/18 08: 08; Start 11/16/18 at 09:00 Bumetanide (Bumex) 2 mg BID92 PO Last administered on 11/18/18 08:07; Start 11/16/18 at 09:00 Diltiazem HCl (Cardizem 24hr Cd) 120 mg DAILY PO ; Start 11/16/18 at 09:00; Stop 11/16/18 at 09:00; Status DC Levothyroxine Sodium (Synthroid) 50 mcg DAILY06 PO Last administered on 05:37; Start 11/16/18 at 06:00 Multivitamins (Thera M Plus) 1 tab DAILY PO Last administered on 11/18/18 08:07 ; Start 11/16/18 at 09:00 Fish Oil (Fish Oil) 1,000 mg DAILY PO Last administered on 11/18/18 08:07; Start 11/16/18 at 09:00 Non-Formulary Medication (Warfarin Sodium ) 4.5 mg DAILY PO ; Start 11/16/18 at 09:00; Status UNV Atorvastatin Calcium (Lipitor) 5 mg HS PO Last administered on 11/17/18 21:27; Start 11/16/18 at 21:00 Diltiazem HCl (Cardizem 24hr Cd) 180 mg DAILY PO Last administered on 11/18/18 08:08; Start 11/16/18 at 09:00 Magnesium Oxide (Magnesium Oxide) 400 mg BID PO Last administered on 11/18/18 08:07; Start 11/16/18 at 09:00 Ondansetron HCl (Zofran Odt) 4 mg PRN Q6HRS PRN PO NAUSEA/VOMITING 1ST CHOICE Last administered on 11/16/18 11:10; Start 11/16/18 at 01:45 Ferrous Sulfate (Feosol) 325 mg DAILYWBKFT PO Last administered on 11/18/18 08: 07; Start 11/16/18 at 08:00 Warfarin Sodium (Coumadin Per Pharmacy) 1 each PRN DAILY PRN MC SEE COMMENTS Last administered on 1/6/19at 11:58; Start 11/16/18 at 07:15 Warfarin Sodium (Coumadin - No Dose Today) 1 each 1X WARF ONCE MC ; Start at 16:00; Stop 11/16/18 at 16:01; Status DC Phytonadione (Mephyton Oral Soln) 5 mg 1X ONCE PO Last administered on at 16:55; Start 11/16/18 at 13:30; Stop 11/16/18 at 13:31; Status DC Lactobacillus Rhamnosus (Culturelle) 1 cap BID PO Last administered on at 08:07; Start 11/16/18 at 21:00 Ceftriaxone Sodium (Rocephin) 1 gm Q24H IVP Last administered on 11/17/18at 17:19 ; Start 11/16/18 at 17:00 Albuterol Sulfate (Ventolin Neb Soln) 2.5 mg PRN Q4HRS PRN NEB SHORTNESS OF BREATH Last administered on 11/17/18at 20:20; Start 11/16/18 at 22:15 Spironolactone (Aldactone) 50 mg DAILY PO Last administered on 11/18/18at 08:07; Start 11/17/18 at 09:00 Warfarin Sodium (Coumadin) 2.5 mg 1X WARF ONCE PO Last administered on at 17:19; Start 11/17/18 at 16:00; Stop 11/17/18 at 16:01; Status DC Active Scripts Active Bumetanide 2 Mg Tablet 1 Tab PO BID 30 Days Multaq (Dronedarone Hcl) 400 Mg Tablet 400 Mg PO BID Reported Diltiazem 24HR Cd (Diltiazem Hcl) 180 Mg Cap.er.24h 180 Mg PO DAILY Mag-Oxide (Magnesium Oxide) 400 Mg Tablet 1 Tab PO BID Zofran (Ondansetron Hcl) 4 Mg Tablet 1 Tab PO PRN Q6HRS PRN Ferrous Sulfate 325 Mg Tablet 325 Mg PO DAILY Levothyroxine Sodium 50 Mcg Tablet 50 Mcg PO DAILYAC Atorvastatin Calcium 10 Mg Tablet 5 Mg PO HS Potassium Chloride 10 Meq Tablet.er 10 Meq PO DAILY Vitamin D3 (Cholecalciferol (Vitamin D3)) 1,000 Unit Tablet 1,000 Unit PO Famotidine 20 Mg Tablet 20 Mg PO BID Fish Oil 1,200 mg Softgel ([place]-3S/Dha/Epa/Fish Oil) 1 Each Capsule 2 Each PO Multivitamins (Multivitamin) 1 Each Tablet 1 Tab PO DAILY Aspirin 81 Mg Tab.chew 1 Tab PO DAILY Diltiazem 24HR Cd (Diltiazem Hcl) 120 Mg Cap.er.24h 1 Cap PO DAILY Warfarin Sodium 4 Mg Tablet 4 Mg PO DAILY Vitals/I & O Vital Sign - Last 24 Hours 11/17/18 11/17/18 11/17/18 11/17/18 09:25 09:26 11:00 15:00 Temp 97.9 97.9 97.9 97.9 Pulse 58 58 65 60 Resp 18 18 B/P (MAP) 125/40 125/40 152/57 (88) 100/64 (76) Pulse Ox 95 95 O2 Delivery Room Air Room Air 11/17/18 11/17/18 11/17/18 11/17/18 19:00 20:21 20:22 21:27 Temp 98.3 98.3 Pulse 60 60 Resp 18 B/P (MAP) 129/65 (86) 129/65 Pulse Ox 95 95 O2 Delivery Room Air Room Air 11/17/18 11/18/18 11/18/18 11/18/18 23:00 07:00 08:08 08:08 Temp 97.9 98.0 97.9 98.0 Pulse 62 60 60 60 Resp 16 18 B/P (MAP) 131/58 (82) 132/48 (76) 132/48 132/48 Pulse Ox 92 94 O2 Delivery Room Air Intake and Output 11/17/18 11/17/18 11/18/18 15:01 23:01 07:01 Intake Total 600 ml 420 ml 210 ml Balance 600 ml 420 ml 210 ml LUAN LAROSE MD Nov 18, 2018 09:13
[2018-11-18 10:45] VITALS: BP 119/65
--- NOTE | 2018-11-18 12:03 | PDOC ---
Subjective: Subjective: Nausea earlier - asked for med but didn't receive, not better. Ate 1/2 a piece of toast this morning. Abd distention x 3 weeks. Might have had a stool on Sunday - h/o constipation previously on Linzess, stopped due abdominal distention and changed to Miralax. Says has asked for that here and not given. Objective: Vital Signs: Vital Signs Date Time Temp Pulse Resp B/P (MAP) Pulse Ox O2 Delivery O2 Flow Rate FiO2 11/18/18 10:45 97.9 63 18 119/65 (83) 94 Room Air 97.9 Labs: Laboratory Tests Test 11/18/18 08:10 White Blood Count 6.4 x10^3/uL Red Blood Count 3.50 x10^6/uL Hemoglobin 10.5 g/dL Hematocrit 30.6 % Mean Corpuscular Volume 88 fL Mean Corpuscular Hemoglobin 30 pg Mean Corpuscular Hemoglobin Concent 34 g/dL Red Cell Distribution Width 16.7 % Platelet Count 169 x10^3/uL Neutrophils (%) (Auto) 77 % Lymphocytes (%) (Auto) 12 % Monocytes (%) (Auto) 8 % Eosinophils (%) (Auto) 2 % Basophils (%) (Auto) 1 % Neutrophils # (Auto) 4.9 x10^3uL Lymphocytes # (Auto) 0.8 x10^3/uL Monocytes # (Auto) 0.5 x10^3/uL Eosinophils # (Auto) 0.1 x10^3/uL Basophils # (Auto) 0.0 x10^3/uL Prothrombin Time 16.7 SEC Prothromb Time International Ratio 1.4 Sodium Level 138 mmol/L Potassium Level 3.6 mmol/L Chloride Level 102 mmol/L Carbon Dioxide Level 28 mmol/L Anion Gap 8 Blood Urea Nitrogen 12 mg/dL Creatinine 1.3 mg/dL Estimated GFR (Cockcroft-Gault) 39.6 BUN/Creatinine Ratio 9 Glucose Level 107 mg/dL Calcium Level 9.3 mg/dL Total Bilirubin 1.4 mg/dL Aspartate Amino Transf (AST/SGOT) 22 U/L Alanine Aminotransferase (ALT/SGPT) 26 U/L Alkaline Phosphatase 128 U/L Total Protein 6.6 g/dL Albumin 3.1 g/dL Albumin/Globulin Ratio 0.9 Imaging: Pelv US IMPRESSION: Obscured endometrial stripe and ovaries. No suspicious lesion is seen within the adnexal regions. Abd US Impression: 1. Findings compatible with cholelithiasis. Gallbladder wall thickening as can be seen with cholecystitis. 2. Right upper quadrant mild ascites. 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 Gordillo. TEQUILA CASTELAN Nov 18, 2018 12:03
--- NOTE | 2018-11-18 13:21 | NUR ---
Pharmacy Warfarin Dosing Note S: Pharmacy consulted to assist with anticoagulation therapy O: MARY ALICE MICHELE is a 78 year old F with Atrial Fibrillation LABS: Last INR: 1.4 Last HGB: 10.5 Last HCT: 30.6 Last PLT: 169 Last dose of 2.5 mg given on 11/17/18 at 1719 Vitamin K given: Y 5 mg po 11/16/18 Ongoing Drug Interactions: Rocephin (Levaquin d/c'd 11/16/18) A:INR of 1.4 is below desired range of 2 - 3 due to vitamin K admin and held dose. Interacting medication of Levaquin has been discontinued. Warfarin resumed at lower dose (2.5 mg) yesterday. P: Warfarin dose: 3 mg Today at 1600 Bridge Therapy: None Next INR due 11/19/18 Pharmacy anticoagulation service will continue to follow. JEAN ALLEN [facility], 11/18/18 [id number]
--- NOTE | 2018-11-18 14:49 | PDOC ---
PROGRESS NOTES Subjective Subjective c/o nausea and abdominal distention Objective Objective Vital Signs Date Time Temp Pulse Resp B/P (MAP) Pulse Ox O2 Delivery O2 Flow Rate FiO2 11/18/18 10:45 97.9 63 18 119/65 (83) 94 Room Air 97.9 11/18/18 08:00 2.0 Intake and Output 11/18/18 07:01 Intake Total 1230 ml Balance 1230 ml Intake Oral 1230 ml # Voids 2 Physical Exam Abdomen: Normal bowel sounds, Soft, No tenderness, Other (MILD DISTENSION, NO RUQ TENDERNESS) Heart: Regular rate, Other (S4 GALLOP) Extremities: No clubbing, No cyanosis, Other (1-2 PLUS ANKLE EDEMA) General: Alert, Oriented X3, Cooperative, mild distress HEENT: Atraumatic, EOMI MUSCULOSKELETAL: No deformity Neuro: Normal speech Psych/Mental Status: Mental status NL, Mood NL Skin: No significant lesion Assessment Assessment 1. Acute on chronic diastolic HF: Better compensated. Continue current medications including spironolactone. 2. Cor pulmonale, pulmonary hypertension. We will consider outpatient referral to [facility] 3. STALLWORTH with cirrhosis and ascites. GI following 4. CAD s/p CABG, clinically stable 5. SSS s/p PPM Comment Review of Relevant I have reviewed the following items walt (where applicable) has been applied. Labs Laboratory Tests Test 11/18/18 08:10 White Blood Count 6.4 x10^3/uL (4.0-11.0) Red Blood Count 3.50 x10^6/uL (3.50-5.40) Hemoglobin 10.5 g/dL (12.0-15.5) Hematocrit 30.6 % (36.0-47.0) Mean Corpuscular Volume 88 fL (79-100) Mean Corpuscular Hemoglobin 30 pg (25-35) Mean Corpuscular Hemoglobin Concent 34 g/dL (31-37) Red Cell Distribution Width 16.7 % (11.5-14.5) Platelet Count 169 x10^3/uL (140-400) Neutrophils (%) (Auto) 77 % (31-73) Lymphocytes (%) (Auto) 12 % (24-48) Monocytes (%) (Auto) 8 % (0-9) Eosinophils (%) (Auto) 2 % (0-3) Basophils (%) (Auto) 1 % (0-3) Neutrophils # (Auto) 4.9 x10^3uL (1.8-7.7) Lymphocytes # (Auto) 0.8 x10^3/uL (1.0-4.8) Monocytes # (Auto) 0.5 x10^3/uL (0.0-1.1) Eosinophils # (Auto) 0.1 x10^3/uL (0.0-0.7) Basophils # (Auto) 0.0 x10^3/uL (0.0-0.2) Prothrombin Time 16.7 SEC (11.7-14.0) Prothromb Time International Ratio 1.4 (0.8-1.1) Sodium Level 138 mmol/L (136-145) Potassium Level 3.6 mmol/L (3.5-5.1) Chloride Level 102 mmol/L (98-107) Carbon Dioxide Level 28 mmol/L (21-32) Anion Gap 8 (6-14) Blood Urea Nitrogen 12 mg/dL (7-20) Creatinine 1.3 mg/dL (0.6-1.0) Estimated GFR (Cockcroft-Gault) 39.6 BUN/Creatinine Ratio 9 (6-20) Glucose Level 107 mg/dL (70-99) Calcium Level 9.3 mg/dL (8.5-10.1) Total Bilirubin 1.4 mg/dL (0.2-1.0) Aspartate Amino Transf (AST/SGOT) 22 U/L (15-37) Alanine Aminotransferase (ALT/SGPT) 26 U/L (14-59) Alkaline Phosphatase 128 U/L (46-116) Total Protein 6.6 g/dL (6.4-8.2) Albumin 3.1 g/dL (3.4-5.0) Albumin/Globulin Ratio 0.9 (1.0-1.7) Medications Current Medications Polyethylene Glycol (miraLAX PACKET) 17 gm DAILY PO ; Start 11/19/18 at 09:00 Warfarin Sodium (Coumadin) 2.5 mg 1X WARF ONCE PO Last administered on at 17:19; Start 11/17/18 at 16:00; Stop 11/17/18 at 16:01; Status DC Warfarin Sodium (Coumadin) 3 mg 1X WARF ONCE PO ; Start 11/18/18 at 16:00; Stop 11/18/18 at 16:01 Vitals/I & O Vital Sign - Last 24 Hours 11/17/18 11/17/18 11/17/18 11/17/18 15:00 19:00 20:21 20:22 Temp 97.9 98.3 97.9 98.3 Pulse 60 60 Resp 18 18 B/P (MAP) 100/64 (76) 129/65 (86) Pulse Ox 95 95 95 O2 Delivery Room Air Room Air Room Air 11/17/18 11/17/18 11/18/18 11/18/18 21:27 23:00 07:00 08:00 Temp 97.9 98.0 97.9 98.0 Pulse 60 62 60 Resp 16 18 B/P (MAP) 129/65 131/58 (82) 132/48 (76) Pulse Ox 92 94 O2 Delivery Room Air Room Air O2 Flow Rate 2.0 11/18/18 11/18/18 11/18/18 08:08 08:08 10:45 Temp 97.9 97.9 Pulse 60 60 63 Resp 18 B/P (MAP) 132/48 132/48 119/65 (83) Pulse Ox 94 O2 Delivery Room Air Intake and Output 11/17/18 11/17/18 11/18/18 15:01 23:01 07:01 Intake Total 600 ml 420 ml 210 ml Balance 600 ml 420 ml 210 ml JENSEN BALTAZAR MD Nov 18, 2018 14:49
[2018-11-18 15:00] VITALS: BP 115/64
--- NOTE | 2018-11-18 15:37 | NUR ---
SW following for discharge planning. Discussed with RN. Per RN, pt is from home alone, and gets around okay. RN denied and SW needs at this time. SW will continue to follow.
[2018-11-18] MEDS ORDERED: WARFARIN 3 MG TABLET. PO ONE (16:00)
[2018-11-18] MEDS: cefTRIAXone IV Push 1 GM VIAL. IVP SCH (16:12)
--- NOTE | 2018-11-18 18:48 | NUR ---
Dr. Najera did not want to administer the cipro and flagyl so right now patient just getting fluids infused right now.
[2018-11-18 19:00] VITALS: BP 115/60
[2018-11-18] MEDS: ATORVASTATIN CALCIUM 10 MG TABLET. PO SCH (21:48)
[2018-11-18] MEDS: FAMOTIDINE 20 MG TABLET. PO SCH (21:49)
[2018-11-18 23:00] VITALS: BP 125/40
[2018-11-19 03:00] VITALS: BP 131/63
[2018-11-19] MEDS: LEVOTHYROXINE 50 MCG TABLET PO SCH (05:54)
[2018-11-19 07:00] VITALS: BP 98/46
[2018-11-19] MEDS: MULTIVITAMIN with MINERAL TABLET. PO SCH (09:10)
[2018-11-19] MEDS: CHOLECALCIFEROL (VITAMIN D3) 1,000 UNIT TABLET PO SCH (09:11)
[2018-11-19] MEDS: BUMETANIDE 1 MG TABLET. PO SCH ×2 (09:11→15:23)
[2018-11-19] MEDS: MAGNESIUM OXIDE 400 MG TABLET PO SCH ×2 (09:11→20:31)
[2018-11-19] MEDS: LACTOBACILLUS RHAMNOSUS GG 1 CAPSULE. PO SCH ×2 (09:11→20:31)
[2018-11-19] MEDS: FERROUS SULFATE 325 MG TABLET. PO SCH (09:11)
[2018-11-19] MEDS: SPIRONOLACTONE 25 MG TABLET PO SCH (09:11)
[2018-11-19] MEDS: OMEGA-3 FATTY ACIDS/FISH OIL 1,000 MG CAPSULE. PO SCH (09:11)
[2018-11-19] MEDS: POTASSIUM CHLORIDE 10 MEQ TABLET.ER. PO SCH (09:12)
[2018-11-19] MEDS: ASPIRIN CHEWABLE 81 MG TABLET. PO SCH (09:12)
[2018-11-19] MEDS: POLYETHYLENE GLYCOL 3350 17 GM PACKET. PO SCH (09:18)
--- NOTE | 2018-11-19 10:25 | PDOC ---
PROGRESS NOTES Chief Complaint Chief Complaint Thrombocytopenia Elevated LFTs with ascites new-onset s/p paracentesis 04/23/18 ( 5 L?) chronic liver disease. Mild hepatic steatosis. Cholelithiasis. Gallbladder wall thickening can be seen in the context of chronic liver disease. mild to moderate pleural effusion New-onset CHF CAD Significant 80-90% stenosis involving the left main coronary artery. The previously placed stent in the left anterior descending arteries patent. 04/29 Hypertension, indwelling pacer, history of A. fib on OAC Weight loss, poor appetite Elavetd Ca19-9 (320) ELEVATED CA 032=884, ELEVATED Reviewed pt Ca 125 down to 154.4 from 600 from april 2018 Moderate mitral regurgitation. Moderate tricuspid regurgitation. moderate pulmonary hypertension. The PA pressure was estimated at 65 mmHg. SUPRA-THERAPEUTIC INR now 2.1, pharmacy adjusting Thickened endometrial stripe for the postmenopausal status the patient. 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 May certainly have STALLWORTH/cirrhosis, but cardiac component as well - pulm HTN - should have referral to [facility] considered CA 19-9 normal. TELE If ovarian ca suspected will need onc-urogynecology physician consult PELVIC SONO noted REPEAT CA 125 still elevated, lower GI CONSULTED IV DIURESIS CARDIOLOGY CONSULT ECHO REVIEWED 04/29 REPEAT ECHO COUMADIN ,PHARMACY ADJUSTING Vitals Vitals Vital Signs Date Time Temp Pulse Resp B/P (MAP) Pulse Ox O2 Delivery O2 Flow Rate FiO2 11/19/18 07:00 97.4 60 18 98/46 (63) 93 Room Air 2.0 97.4 Physical Exam General: Alert, Oriented X3, Cooperative, mild distress Heart: Regular rate, Other (S4 GALLOP) Lungs: Clear Abdomen: Normal bowel sounds, Soft, No tenderness, Other (MILD DISTENSION, NO RUQ TENDERNESS) Extremities: No clubbing, No cyanosis, Other (1-2 PLUS ANKLE EDEMA) Skin: No significant lesion Comment Review of Relevant I have reviewed the following items walt (where applicable) has been applied. Labs Laboratory Tests Test 11/18/18 08:10 White Blood Count 6.4 x10^3/uL (4.0-11.0) Red Blood Count 3.50 x10^6/uL (3.50-5.40) Hemoglobin 10.5 g/dL (12.0-15.5) Hematocrit 30.6 % (36.0-47.0) Mean Corpuscular Volume 88 fL (79-100) Mean Corpuscular Hemoglobin 30 pg (25-35) Mean Corpuscular Hemoglobin Concent 34 g/dL (31-37) Red Cell Distribution Width 16.7 % (11.5-14.5) Platelet Count 169 x10^3/uL (140-400) Neutrophils (%) (Auto) 77 % (31-73) Lymphocytes (%) (Auto) 12 % (24-48) Monocytes (%) (Auto) 8 % (0-9) Eosinophils (%) (Auto) 2 % (0-3) Basophils (%) (Auto) 1 % (0-3) Neutrophils # (Auto) 4.9 x10^3uL (1.8-7.7) Lymphocytes # (Auto) 0.8 x10^3/uL (1.0-4.8) Monocytes # (Auto) 0.5 x10^3/uL (0.0-1.1) Eosinophils # (Auto) 0.1 x10^3/uL (0.0-0.7) Basophils # (Auto) 0.0 x10^3/uL (0.0-0.2) Prothrombin Time 16.7 SEC (11.7-14.0) Prothromb Time International Ratio 1.4 (0.8-1.1) Sodium Level 138 mmol/L (136-145) Potassium Level 3.6 mmol/L (3.5-5.1) Chloride Level 102 mmol/L (98-107) Carbon Dioxide Level 28 mmol/L (21-32) Anion Gap 8 (6-14) Blood Urea Nitrogen 12 mg/dL (7-20) Creatinine 1.3 mg/dL (0.6-1.0) Estimated GFR (Cockcroft-Gault) 39.6 BUN/Creatinine Ratio 9 (6-20) Glucose Level 107 mg/dL (70-99) Calcium Level 9.3 mg/dL (8.5-10.1) Total Bilirubin 1.4 mg/dL (0.2-1.0) Aspartate Amino Transf (AST/SGOT) 22 U/L (15-37) Alanine Aminotransferase (ALT/SGPT) 26 U/L (14-59) Alkaline Phosphatase 128 U/L (46-116) Total Protein 6.6 g/dL (6.4-8.2) Albumin 3.1 g/dL (3.4-5.0) Albumin/Globulin Ratio 0.9 (1.0-1.7) Medications Current Medications Ondansetron HCl (Zofran) 4 mg PRN Q8HRS PRN IV NAUSEA/VOMITING; Start 11/15/18 at 17:15; Stop 11/16/18 at 17:14; Status DC Acetaminophen (Tylenol) 650 mg PRN Q4HRS PRN PO FEVER; Start 11/15/18 at 17:15; Stop 11/16/18 at 17:14; Status DC Albuterol/ Ipratropium (Duoneb) 3 ml RTQID NEB Last administered on 11/16/18at 15 :05; Start 11/15/18 at 17:30; Stop 11/16/18 at 17:29; Status DC Levofloxacin/ Dextrose (Levaquin Per Pharmacy) 1 each PRN DAILY PRN MC SEE COMMENTS; Start 11/15/18 at 17:15; Status Cancel Levofloxacin/ Dextrose 50 ml @ 50 mls/hr Q24H IV Last administered on 11/15/18at 18:00; Start 11/15/18 at 18:00; Stop 11/16/18 at 16:37; Status DC Aspirin (Children'S Aspirin) 81 mg DAILY PO Last administered on 11/19/18at 09:12 ; Start 11/16/18 at 09:00 Atorvastatin Calcium (Lipitor) 10 mg HS PO Last administered on 11/15/18at 22:14 ; Start 11/15/18 at 21:00; Stop 11/16/18 at 01:41; Status DC Vitamin D (Vitamin D3) 1,000 unit DAILY08 PO Last administered on 11/19/18 09: 11; Start 11/16/18 at 08:00 Dronedarone (Multaq) 400 mg BID PO Last administered on 11/18/18 21:49; Start 11/15/18 at 21:00 Famotidine (Pepcid) 20 mg QHS PO Last administered on 11/18/18 21:49; Start 11/15/18 at 21:00 Potassium Chloride (Klor-Con) 10 meq DAILY PO Last administered on 11/19/18 09: 12; Start 11/16/18 at 09:00 Bumetanide (Bumex) 2 mg BID92 PO Last administered on 11/19/18 09:11; Start 11/16/18 at 09:00 Diltiazem HCl (Cardizem 24hr Cd) 120 mg DAILY PO ; Start 11/16/18 at 09:00; Stop 11/16/18 at 09:00; Status DC Levothyroxine Sodium (Synthroid) 50 mcg DAILY06 PO Last administered on 05:54; Start 11/16/18 at 06:00 Multivitamins (Thera M Plus) 1 tab DAILY PO Last administered on 11/19/18 09:10 ; Start 11/16/18 at 09:00 Fish Oil (Fish Oil) 1,000 mg DAILY PO Last administered on 11/19/18 09:11; Start 11/16/18 at 09:00 Non-Formulary Medication (Warfarin Sodium ) 4.5 mg DAILY PO ; Start 11/16/18 at 09:00; Status UNV Atorvastatin Calcium (Lipitor) 5 mg HS PO Last administered on 11/18/18 21:48; Start 11/16/18 at 21:00 Diltiazem HCl (Cardizem 24hr Cd) 180 mg DAILY PO Last administered on 11/18/18 08:08; Start 11/16/18 at 09:00 Magnesium Oxide (Magnesium Oxide) 400 mg BID PO Last administered on 11/19/18 09:11; Start 11/16/18 at 09:00 Ondansetron HCl (Zofran Odt) 4 mg PRN Q6HRS PRN PO NAUSEA/VOMITING 1ST CHOICE Last administered on 11/16/18 11:10; Start 11/16/18 at 01:45 Ferrous Sulfate (Feosol) 325 mg DAILYWBKFT PO Last administered on 11/19/18 09: 11; Start 11/16/18 at 08:00 Warfarin Sodium (Coumadin Per Pharmacy) 1 each PRN DAILY PRN MC SEE COMMENTS Last administered on 11/18/18 13:21; Start 11/16/18 at 07:15 Warfarin Sodium (Coumadin - No Dose Today) 1 each 1X WARF ONCE MC ; Start at 16:00; Stop 11/16/18 at 16:01; Status DC Phytonadione (Mephyton Oral Soln) 5 mg 1X ONCE PO Last administered on 16:55; Start 11/16/18 at 13:30; Stop 11/16/18 at 13:31; Status DC Lactobacillus Rhamnosus (Culturelle) 1 cap BID PO Last administered on 09:11; Start 11/16/18 at 21:00 Ceftriaxone Sodium (Rocephin) 1 gm Q24H IVP Last administered on 11/18/18 16:12 ; Start 11/16/18 at 17:00 Albuterol Sulfate (Ventolin Neb Soln) 2.5 mg PRN Q4HRS PRN NEB SHORTNESS OF BREATH Last administered on 11/17/18 20:20; Start 11/16/18 at 22:15 Spironolactone (Aldactone) 50 mg DAILY PO Last administered on 11/19/18 09:11; Start 11/17/18 at 09:00 Warfarin Sodium (Coumadin) 2.5 mg 1X WARF ONCE PO Last administered on 17:19; Start 11/17/18 at 16:00; Stop 11/17/18 at 16:01; Status DC Polyethylene Glycol (miraLAX PACKET) 17 gm DAILY PO Last administered on 09:18; Start 11/19/18 at 09:00 Warfarin Sodium (Coumadin) 3 mg 1X WARF ONCE PO Last administered on 11/18/18 16:12; Start 11/18/18 at 16:00; Stop 11/18/18 at 16:01; Status DC Active Scripts Active Bumetanide 2 Mg Tablet 1 Tab PO BID 30 Days Multaq (Dronedarone Hcl) 400 Mg Tablet 400 Mg PO BID Reported Diltiazem 24HR Cd (Diltiazem Hcl) 180 Mg Cap.er.24h 180 Mg PO DAILY Mag-Oxide (Magnesium Oxide) 400 Mg Tablet 1 Tab PO BID Zofran (Ondansetron Hcl) 4 Mg Tablet 1 Tab PO PRN Q6HRS PRN Ferrous Sulfate 325 Mg Tablet 325 Mg PO DAILY Levothyroxine Sodium 50 Mcg Tablet 50 Mcg PO DAILYAC Atorvastatin Calcium 10 Mg Tablet 5 Mg PO HS Potassium Chloride 10 Meq Tablet.er 10 Meq PO DAILY Vitamin D3 (Cholecalciferol (Vitamin D3)) 1,000 Unit Tablet 1,000 Unit PO Famotidine 20 Mg Tablet 20 Mg PO BID Fish Oil 1,200 mg Softgel (Tunica-3S/Dha/Epa/Fish Oil) 1 Each Capsule 2 Each PO Multivitamins (Multivitamin) 1 Each Tablet 1 Tab PO DAILY Aspirin 81 Mg Tab.chew 1 Tab PO DAILY Diltiazem 24HR Cd (Diltiazem Hcl) 120 Mg Cap.er.24h 1 Cap PO DAILY Warfarin Sodium 4 Mg Tablet 4 Mg PO DAILY Vitals/I & O Vital Sign - Last 24 Hours 11/18/18 11/18/18 11/18/18 11/18/18 10:45 15:00 19:00 20:03 Temp 97.9 97.9 97.8 97.9 97.9 97.8 Pulse 63 64 64 Resp 18 18 18 B/P (MAP) 119/65 (83) 115/64 (81) 115/60 (78) Pulse Ox 94 95 94 O2 Delivery Room Air Room Air Room Air Room Air 11/18/18 11/18/18 11/19/18 11/19/18 21:49 23:00 03:00 07:00 Temp 98.2 97.8 97.4 98.2 97.8 97.4 Pulse 64 62 72 60 Resp 18 18 18 B/P (MAP) 115/60 125/40 (68) 131/63 (85) 98/46 (63) Pulse Ox 96 95 93 O2 Delivery Room Air Room Air Room Air O2 Flow Rate 2.0 2.0 Intake and Output 11/18/18 11/18/18 11/19/18 15:01 23:01 07:01 Intake Total 600 ml 300 ml 120 ml Balance 600 ml 300 ml 120 ml LUAN LAROSE MD Nov 19, 2018 10:25
[2018-11-19 10:49] VITALS: BP 127/43
--- NOTE | 2018-11-19 11:51 | PDOC ---
Subjective: Subjective: Feels better today - ate better, no nausea. Can't tell if abdomen is distended. Wants to know "What more can be done about my liver." Did not have bone marrow or endometrial biopsy over the summer. Objective: Objective: RN says she has questions about "swelling." Vital Signs: Vital Signs Date Time Temp Pulse Resp B/P (MAP) Pulse Ox O2 Delivery O2 Flow Rate FiO2 11/19/18 10:49 97.8 62 18 127/43 (71) 96 Room Air 97.8 11/19/18 08:00 2.0 PE: GEN: NAD, up to chair LUNGS: CTAB HEART: RRR ABD: stable - some distention, non-tender EXTREMITY: mild BLE edema NEURO/PSYCH: A & O 3 A/P: Ascites (STALLWORTH/cirrhosis), CHF, pulm HTN, CKD -on PO diuretics -- Continue same per GI. TEQUILA CASTELAN Nov 19, 2018 11:51
[2018-11-19] MEDS: DRONEDARONE HCL 400 MG TABLET PO SCH ×2 (13:02→20:31)
--- NOTE | 2018-11-19 14:02 | NUR ---
Pharmacy Warfarin Dosing Note S:Pharmacy consulted to assist with anticoagulation therapy started with target INR: 2 -3 O:MARY ALICE MICHELE is a 78 year old F with Atrial Fibrillation LABS: Last INR: 1.4 Last HGB: 10.5 Last HCT: 30.6 Last PLT: 169 Last dose of 3 mg given on 11/18/18 at 1612 Previous Regimen: 4 mg po daily Vitamin K given: Y 5 mg po 11/16/18 Drug Interaction Changes: New Interacting Drug Ongoing Drug Interactions: Levofloxacin -Dc'd changed to ceftriaxone per Dr. Castellon A:INR of 1.4 is below desired range. Target range for this patient is: 2 -3 P: Warfarin dose: 3 mg Today at 1600 Bridge Therapy: None Next INR due IN AM Pharmacy anticoagulation service will continue to follow. LIZBET HERNANDEZ [facility], 11/19/18 1406
--- NOTE | 2018-11-19 14:18 | NUR ---
CATERINA following for discharge planning. Discussed with RN. SW met with pt to determine plans for discharge, pt does not want home health, as she believes she does not need it at this time. Pt lives in the basement of her daughter's home and has people who can support her if she needs anything. Pt denied any needs from SW. SW will continue to follow.
[2018-11-19 15:00] VITALS: BP 122/48
[2018-11-19] MEDS ORDERED: WARFARIN 3 MG TABLET. PO ONE (16:00)
[2018-11-19] MEDS: cefTRIAXone IV Push 1 GM VIAL. IVP SCH (16:16)
--- NOTE | 2018-11-19 17:14 | PDOC ---
CARDIO Progress Notes Date and Time Date of Service 11/19/2018 Time of Evaluation 1645 Subjective Subjective: No Chest Pain, No shortness of breath, No Palpitations Vitals Vitals Vital Signs Date Time Temp Pulse Resp B/P (MAP) Pulse Ox O2 Delivery O2 Flow Rate FiO2 11/19/18 15:00 97.8 64 18 122/48 (72) 97 Room Air 97.8 11/19/18 08:00 2.0 Weight Weight [ ] Input and Output Intake and Output Intake and Output 11/19/18 07:01 Intake Total 1020 ml Balance 1020 ml Intake Oral 1020 ml # Voids 1 Physical Exam HEENT: Neck Supple W Full Motion Chest: Symmetric LUNGS: Clear to Auscultation Heart: S1S2, RRR (no tele) Abdomen: Soft N/T Extremities: No Calf Tenderness, Other (1+ bilateral LE pitting edema) Neurology: alert, oriented, follow commands Assessment Assessment 1. Acute on chronic diastolic CHF: Compensated 2. Cor pulmonale, pulmonary hypertension. 3. STALLWORTH with cirrhosis and ascites. GI following 4. CAD s/p CABG, clinically stable 5. SSS s/p PPM Recommendations 1. Will discuss with primary aquatic scientist in regards to alternative for multaq if true cirrhosis is noted 2. Continue with aldactone, bumex and cardizem 3. TTE tomorrow. 4. Will continue warfarin for now for stroke prevention but will reevaluate further after complete GI eval in regards to cirrhosis confirmation 5. We will consider outpatient referral to [facility] GRENADA NELL HASSAN APRN Nov 19, 2018 17:14
[2018-11-19 19:00] VITALS: BP 140/66
[2018-11-19] MEDS: FAMOTIDINE 20 MG TABLET. PO SCH (20:31)
[2018-11-19] MEDS: ATORVASTATIN CALCIUM 10 MG TABLET. PO SCH (20:32)
[2018-11-19 23:00] VITALS: BP 116/42
[2018-11-20 03:00] VITALS: BP 114/51
[2018-11-20 05:28] LABS: PROTHROMBIN TIME PATIENT 19.1 SEC (11.7-14.0)
[2018-11-20] MEDS: LEVOTHYROXINE 50 MCG TABLET PO SCH (05:35)
--- NOTE | 2018-11-20 07:13 | PDOC ---
PROGRESS NOTES Chief Complaint Chief Complaint Thrombocytopenia Elevated LFTs with ascites new-onset s/p paracentesis 04/23/18 ( 5 L?) chronic liver disease. Mild hepatic steatosis. Cholelithiasis. Gallbladder wall thickening can be seen in the context of chronic liver disease. mild to moderate pleural effusion New-onset CHF CAD Significant 80-90% stenosis involving the left main coronary artery. The previously placed stent in the left anterior descending arteries patent. 04/29 Hypertension, indwelling pacer, history of A. fib on OAC Weight loss, poor appetite Elavetd Ca19-9 (320) ELEVATED CA [id number], ELEVATED Reviewed pt Ca 125 down to 154.4 from 600 from april 2018 Moderate mitral regurgitation. Moderate tricuspid regurgitation. moderate pulmonary hypertension. The PA pressure was estimated at 65 mmHg. SUPRA-THERAPEUTIC INR now 2.1, pharmacy adjusting Thickened endometrial stripe for the postmenopausal status the patient. History of Present Illness History of Present Illness This morning ate toast, feels more distended today and states she had BM last night and again this morning ASSESSMENT/PLAN Ascites, CHF, coagulopathy (better), CKD -h/o chronic liver disease on past imaging/STALLWORTH suspected in the past, had paracentesis in 04/2018 -h/o elevated CA125 (improved since 04/2018) -on Aldactone 50mg QD, also BID Bumex -Hematology recs to consider bone marrow bx and MAGNETIC DOCTOR/endometrial bx Nausea, decreased appetite -on famotidine H/o constipation -past use of Linzess, most recently Miralax Improving with diuresis. May certainly have STALLWORTH/cirrhosis, but cardiac component as well - pulm HTN - should have referral to [facility] considered CA 19-9 normal. TELE If ovarian ca suspected will need onc-supervisor customer complaint service consult PELVIC SONO noted REPEAT CA 125 still elevated, lower GI CONSULTED IV DIURESIS CARDIOLOGY CONSULT ECHO REVIEWED 04/29 REPEAT ECHO COUMADIN ,PHARMACY ADJUSTING Vitals Vitals Vital Signs Date Time Temp Pulse Resp B/P (MAP) Pulse Ox O2 Delivery O2 Flow Rate FiO2 11/20/18 03:00 97.8 60 18 114/51 (72) 94 Room Air 97.8 11/19/18 08:00 2.0 Physical Exam General: Alert, Oriented X3, Cooperative, mild distress Heart: Regular rate, Other (S4 GALLOP) Lungs: Clear Abdomen: Normal bowel sounds, Soft, No tenderness, Other (MILD DISTENSION, NO RUQ TENDERNESS) Extremities: No clubbing, No cyanosis, Other (1-2 PLUS ANKLE EDEMA) Skin: No significant lesion Labs LABS Laboratory Tests Test 11/20/18 04:20 Prothrombin Time 19.1 SEC (11.7-14.0) Prothromb Time International Ratio 1.6 (0.8-1.1) Comment Review of Relevant I have reviewed the following items walt (where applicable) has been applied. Labs Laboratory Tests Test 11/18/18 08:10 11/20/18 04:20 White Blood Count 6.4 x10^3/uL (4.0-11.0) Red Blood Count 3.50 x10^6/uL (3.50-5.40) Hemoglobin 10.5 g/dL (12.0-15.5) Hematocrit 30.6 % (36.0-47.0) Mean Corpuscular Volume 88 fL (79-100) Mean Corpuscular Hemoglobin 30 pg (25-35) Mean Corpuscular Hemoglobin Concent 34 g/dL (31-37) Red Cell Distribution Width 16.7 % (11.5-14.5) Platelet Count 169 x10^3/uL (140-400) Neutrophils (%) (Auto) 77 % (31-73) Lymphocytes (%) (Auto) 12 % (24-48) Monocytes (%) (Auto) 8 % (0-9) Eosinophils (%) (Auto) 2 % (0-3) Basophils (%) (Auto) 1 % (0-3) Neutrophils # (Auto) 4.9 x10^3uL (1.8-7.7) Lymphocytes # (Auto) 0.8 x10^3/uL (1.0-4.8) Monocytes # (Auto) 0.5 x10^3/uL (0.0-1.1) Eosinophils # (Auto) 0.1 x10^3/uL (0.0-0.7) Basophils # (Auto) 0.0 x10^3/uL (0.0-0.2) Prothrombin Time 16.7 SEC (11.7-14.0) 19.1 SEC (11.7-14.0) Prothromb Time International Ratio 1.4 (0.8-1.1) 1.6 (0.8-1.1) Sodium Level 138 mmol/L (136-145) Potassium Level 3.6 mmol/L (3.5-5.1) Chloride Level 102 mmol/L (98-107) Carbon Dioxide Level 28 mmol/L (21-32) Anion Gap 8 (6-14) Blood Urea Nitrogen 12 mg/dL (7-20) Creatinine 1.3 mg/dL (0.6-1.0) Estimated GFR (Cockcroft-Gault) 39.6 BUN/Creatinine Ratio 9 (6-20) Glucose Level 107 mg/dL (70-99) Calcium Level 9.3 mg/dL (8.5-10.1) Total Bilirubin 1.4 mg/dL (0.2-1.0) Aspartate Amino Transf (AST/SGOT) 22 U/L (15-37) Alanine Aminotransferase (ALT/SGPT) 26 U/L (14-59) Alkaline Phosphatase 128 U/L (46-116) Total Protein 6.6 g/dL (6.4-8.2) Albumin 3.1 g/dL (3.4-5.0) Albumin/Globulin Ratio 0.9 (1.0-1.7) Laboratory Tests Test 11/20/18 04:20 Prothrombin Time 19.1 SEC (11.7-14.0) Prothromb Time International Ratio 1.6 (0.8-1.1) Medications Current Medications Ondansetron HCl (Zofran) 4 mg PRN Q8HRS PRN IV NAUSEA/VOMITING; Start 11/15/18 at 17:15; Stop 11/16/18 at 17:14; Status DC Acetaminophen (Tylenol) 650 mg PRN Q4HRS PRN PO FEVER; Start 11/15/18 at 17:15; Stop 11/16/18 at 17:14; Status DC Albuterol/ Ipratropium (Duoneb) 3 ml RTQID NEB Last administered on 11/16/18at 15 :05; Start 11/15/18 at 17:30; Stop 11/16/18 at 17:29; Status DC Levofloxacin/ Dextrose (Levaquin Per Pharmacy) 1 each PRN DAILY PRN MC SEE COMMENTS; Start 11/15/18 at 17:15; Status Cancel Levofloxacin/ Dextrose 50 ml @ 50 mls/hr Q24H IV Last administered on 11/15/18 18:00; Start 11/15/18 at 18:00; Stop 11/16/18 at 16:37; Status DC Aspirin (Children'S Aspirin) 81 mg DAILY PO Last administered on 11/19/18 09:12 ; Start 11/16/18 at 09:00 Atorvastatin Calcium (Lipitor) 10 mg HS PO Last administered on 11/15/18 22:14 ; Start 11/15/18 at 21:00; Stop 11/16/18 at 01:41; Status DC Vitamin D (Vitamin D3) 1,000 unit DAILY08 PO Last administered on 11/19/18 09: 11; Start 11/16/18 at 08:00 Dronedarone (Multaq) 400 mg BID PO Last administered on 11/19/18 20:31; Start 11/15/18 at 21:00 Famotidine (Pepcid) 20 mg QHS PO Last administered on 11/19/18 20:31; Start 11/15/18 at 21:00 Potassium Chloride (Klor-Con) 10 meq DAILY PO Last administered on 11/19/18 09: 12; Start 11/16/18 at 09:00 Bumetanide (Bumex) 2 mg BID92 PO Last administered on 11/19/18 15:23; Start 11/16/18 at 09:00 Diltiazem HCl (Cardizem 24hr Cd) 120 mg DAILY PO ; Start 11/16/18 at 09:00; Stop 11/16/18 at 09:00; Status DC Levothyroxine Sodium (Synthroid) 50 mcg DAILY06 PO Last administered on 05:35; Start 11/16/18 at 06:00 Multivitamins (Thera M Plus) 1 tab DAILY PO Last administered on 11/19/18 09:10 ; Start 11/16/18 at 09:00 Fish Oil (Fish Oil) 1,000 mg DAILY PO Last administered on 11/19/18 09:11; Start 11/16/18 at 09:00 Non-Formulary Medication (Warfarin Sodium ) 4.5 mg DAILY PO ; Start 11/16/18 at 09:00; Status UNV Atorvastatin Calcium (Lipitor) 5 mg HS PO Last administered on 11/19/18 20:32; Start 11/16/18 at 21:00 Diltiazem HCl (Cardizem 24hr Cd) 180 mg DAILY PO Last administered on 11/19/18 13:02; Start 11/16/18 at 09:00 Magnesium Oxide (Magnesium Oxide) 400 mg BID PO Last administered on 11/19/18 20:31; Start 11/16/18 at 09:00 Ondansetron HCl (Zofran Odt) 4 mg PRN Q6HRS PRN PO NAUSEA/VOMITING 1ST CHOICE Last administered on 11/16/18 11:10; Start 11/16/18 at 01:45 Ferrous Sulfate (Feosol) 325 mg DAILYWBKFT PO Last administered on 11/19/18 09: 11; Start 11/16/18 at 08:00 Warfarin Sodium (Coumadin Per Pharmacy) 1 each PRN DAILY PRN MC SEE COMMENTS Last administered on 11/19/18 13:49; Start 11/16/18 at 07:15 Warfarin Sodium (Coumadin - No Dose Today) 1 each 1X WARF ONCE MC ; Start at 16:00; Stop 11/16/18 at 16:01; Status DC Phytonadione (Mephyton Oral Soln) 5 mg 1X ONCE PO Last administered on 16:55; Start 11/16/18 at 13:30; Stop 11/16/18 at 13:31; Status DC Lactobacillus Rhamnosus (Culturelle) 1 cap BID PO Last administered on 20:31; Start 11/16/18 at 21:00 Ceftriaxone Sodium (Rocephin) 1 gm Q24H IVP Last administered on 11/19/18 16:16 ; Start 11/16/18 at 17:00 Albuterol Sulfate (Ventolin Neb Soln) 2.5 mg PRN Q4HRS PRN NEB SHORTNESS OF BREATH Last administered on 11/17/18 20:20; Start 11/16/18 at 22:15 Spironolactone (Aldactone) 50 mg DAILY PO Last administered on 11/19/18 09:11; Start 11/17/18 at 09:00 Warfarin Sodium (Coumadin) 2.5 mg 1X WARF ONCE PO Last administered on 17:19; Start 11/17/18 at 16:00; Stop 11/17/18 at 16:01; Status DC Polyethylene Glycol (miraLAX PACKET) 17 gm DAILY PO Last administered on at 09:18; Start 11/19/18 at 09:00 Warfarin Sodium (Coumadin) 3 mg 1X WARF ONCE PO Last administered on 11/18/18at 16:12; Start 11/18/18 at 16:00; Stop 11/18/18 at 16:01; Status DC Warfarin Sodium (Coumadin) 3 mg 1X WARF ONCE PO Last administered on 11/19/18at 15:30; Start 11/19/18 at 16:00; Stop 11/19/18 at 16:01; Status DC Active Scripts Active Bumetanide 2 Mg Tablet 1 Tab PO BID 30 Days Multaq (Dronedarone Hcl) 400 Mg Tablet 400 Mg PO BID Reported Diltiazem 24HR Cd (Diltiazem Hcl) 180 Mg Cap.er.24h 180 Mg PO DAILY Mag-Oxide (Magnesium Oxide) 400 Mg Tablet 1 Tab PO BID Zofran (Ondansetron Hcl) 4 Mg Tablet 1 Tab PO PRN Q6HRS PRN Ferrous Sulfate 325 Mg Tablet 325 Mg PO DAILY Levothyroxine Sodium 50 Mcg Tablet 50 Mcg PO DAILYAC Atorvastatin Calcium 10 Mg Tablet 5 Mg PO HS Potassium Chloride 10 Meq Tablet.er 10 Meq PO DAILY Vitamin D3 (Cholecalciferol (Vitamin D3)) 1,000 Unit Tablet 1,000 Unit PO Famotidine 20 Mg Tablet 20 Mg PO BID Fish Oil 1,200 mg Softgel ([place]-3S/Dha/Epa/Fish Oil) 1 Each Capsule 2 Each PO Multivitamins (Multivitamin) 1 Each Tablet 1 Tab PO DAILY Aspirin 81 Mg Tab.chew 1 Tab PO DAILY Diltiazem 24HR Cd (Diltiazem Hcl) 120 Mg Cap.er.24h 1 Cap PO DAILY Warfarin Sodium 4 Mg Tablet 4 Mg PO DAILY Vitals/I & O Vital Sign - Last 24 Hours 11/19/18 11/19/18 11/19/18 11/19/18 08:00 10:49 13:02 13:02 Temp 97.8 97.8 Pulse 62 62 62 Resp 18 B/P (MAP) 127/43 (71) 127/43 127/43 Pulse Ox 96 O2 Delivery Room Air Room Air O2 Flow Rate 2.0 11/19/18 11/19/18 11/19/18 11/19/18 15:00 19:00 20:00 20:31 Temp 97.8 98.5 97.8 98.5 Pulse 64 60 60 Resp 18 18 B/P (MAP) 122/48 (72) 140/66 (90) 140/66 Pulse Ox 97 95 O2 Delivery Room Air Room Air Room Air 11/19/18 11/20/18 23:00 03:00 Temp 98.1 97.8 98.1 97.8 Pulse 59 60 Resp 18 18 B/P (MAP) 116/42 (66) 114/51 (72) Pulse Ox 95 94 O2 Delivery Room Air Room Air Intake and Output 11/19/18 11/19/18 11/20/18 15:01 23:01 07:01 Intake Total 600 ml 300 ml 300 ml Balance 600 ml 300 ml 300 ml LUAN LAROSE MD Nov 20, 2018 07:13
[2018-11-20 07:20] VITALS: BP 138/64
--- NOTE | 2018-11-20 08:18 | CARD ---
MR#: [id number] Date of Study: 11/17/2018 Ordering Physician: JAMSHID WEBB, Referring Physician: JEANIE ARZATE Tech: Radha Sharpe SHORTY APPROVED REPORT EXAM: Two-dimensional and M-mode echocardiogram with Doppler and color Doppler. Other Information Quality : ExcellentHR: 62bpm Rhythm : NSR INDICATION Pulmonary Hypertention Congestive Heart Failure 2D DIMENSIONS IVSd0.8 (0.7-1.1cm)LVDd4.6 (3.9-5.9cm) PWd0.9 (0.7-1.1cm)LVDs3.5 (2.5-4.0cm) FS (%) 24.6 %SV48.5 ml LVEF(%)50.0 (>50%)CO2.9 L/min Tricuspid Valve TR P. [id number] Peak Gr.42mmHg LEFT VENTRICLE The left ventricle is normal size. There is normal left ventricular wall thickness. The Ejection Frac tion is 40% There is global hypokinesis. Septal motion suggestive of conduction defect. Tissue Dopple r imaging reveals moderate left ventricular diastolic dysfunction. RIGHT VENTRICLE The right ventricle is moderately dilated. There is normal right ventricular wall thickness. RV Systo lic function is mildly reduced. ATRIA The left atrium is moderately dilated. The right atrium is moderately dilated. The interatrial septum is intact with no evidence for an atrial septal defect or patent foramen ovale as noted on 2-D or Do ppler imaging. AORTIC VALVE The aortic valve is normal in structure and function. There is no significant aortic valvular stenosi s. There is no aortic valvular vegetation. MITRAL VALVE The mitral valve is normal in structure and function. There is no evidence of mitral valve prolapse. There is no mitral valve stenosis. TRICUSPID VALVE The tricuspid valve is normal in structure and function. Doppler and Color Flow revealed moderate tri cuspid regurgitation. RVSP 42 mm hg. There is no tricuspid valve prolapse or vegetation. There is no tricuspid valve stenosis. PULMONIC VALVE Doppler and Color Flow revealed mild pulmonic valvular regurgitation. There is no pulmonic valvular s tenosis. GREAT VESSELS The aortic root is normal in size. The IVC is normal in size and collapses >50% with inspiration. PERICARDIAL EFFUSION There is no pleural effusion. There is no evidence of significant pericardial effusion. Critical Notification Critical Value: No <Conclusion> The Ejection Fraction is 40% There is global hypokinesis. Septal motion suggestive of conduction defect. The right ventricle is moderately dilated. RV Systolic function is mildly reduced. Doppler and Color Flow revealed moderate tricuspid regurgitation. RVSP 38 mm hg. Signed by : Jamshid Webb, Electronically Approved : 11/18/2018 09:06:39
[2018-11-20] MEDS: CHOLECALCIFEROL (VITAMIN D3) 1,000 UNIT TABLET PO SCH (08:26)
[2018-11-20] MEDS: FERROUS SULFATE 325 MG TABLET. PO SCH (08:26)
[2018-11-20] MEDS: SPIRONOLACTONE 25 MG TABLET PO SCH (08:26)
[2018-11-20] MEDS: MULTIVITAMIN with MINERAL TABLET. PO SCH (08:26)
[2018-11-20] MEDS: OMEGA-3 FATTY ACIDS/FISH OIL 1,000 MG CAPSULE. PO SCH (08:27)
[2018-11-20] MEDS: BUMETANIDE 1 MG TABLET. PO SCH ×2 (08:27→14:30)
[2018-11-20] MEDS: LACTOBACILLUS RHAMNOSUS GG 1 CAPSULE. PO SCH ×2 (08:27→20:51)
[2018-11-20] MEDS: ASPIRIN CHEWABLE 81 MG TABLET. PO SCH (08:27)
[2018-11-20] MEDS: MAGNESIUM OXIDE 400 MG TABLET PO SCH ×2 (08:27→20:51)
[2018-11-20] MEDS: POTASSIUM CHLORIDE 10 MEQ TABLET.ER. PO SCH (08:27)
[2018-11-20] MEDS: DRONEDARONE HCL 400 MG TABLET PO SCH (08:28)
[2018-11-20] MEDS: POLYETHYLENE GLYCOL 3350 17 GM PACKET. PO SCH (08:28)
[2018-11-20] MEDS: ONDANSETRON ODT 4 MG TAB.RAPDIS. PO PRN (10:17)
[2018-11-20 11:11] VITALS: BP 135/59
--- NOTE | 2018-11-20 11:17 | PDOC ---
Subjective: Subjective: Not feeling too well this morning - was nauseated and didn't eat much breakfast , maybe felt worse after taking pills. Still fills bloated, "mathew" gets full quickly when eating. Denies heartburn/ reflux but has always taken Pepcid. [place] short of breath this morning and maybe overnight. Objective: Objective: D/w cardiology yesterday and today. Vital Signs: Vital Signs Date Time Temp Pulse Resp B/P (MAP) Pulse Ox O2 Delivery O2 Flow Rate FiO2 11/20/18 08:28 61 138/64 11/20/18 08:00 Room Air 2.0 11/20/18 07:20 98.0 20 94 98.0 Labs: Laboratory Tests Test 11/20/18 04:20 Prothrombin Time 19.1 SEC Prothromb Time International Ratio 1.6 Imaging: Echo 11/17 <Conclusion> The Ejection Fraction is 40% There is global hypokinesis. Septal motion suggestive of conduction defect. The right ventricle is moderately dilated. RV Systolic function is mildly reduced. Doppler and Color Flow revealed moderate tricuspid regurgitation. RVSP 38 mm hg. PE: GEN: NAD LUNGS: CTAB HEART: RRR ABD: stable distention NEURO/PSYCH: A & O 3 A/P: Ascites -cirrhosis on imaging (unclear if has portal hypertension), STALLWORTH suspected -CHF, pulm HTN, CKD on PO diuretics -additional h/o A Fib on Warfarin and Multaq - per yesterday's note, could continue Warfarin w/ monitoring, risk vs benefit re: Multaq Dyspepsia -- Try PPI instead of H2 avi. TEQUILA CASTELAN Nov 20, 2018 11:17
[2018-11-20] MEDS ORDERED: CALCIUM CARBONATE 500 MG TAB.CHEW PO PRN (11:30)
[2018-11-20] MEDS: PANTOPRAZOLE 40 MG TABLET.DR. PO SCH (12:42)
--- NOTE | 2018-11-20 14:32 | NUR ---
Pharmacy Warfarin Dosing Note S: Pharmacy consulted to assist with anticoagulation therapy started O: MARY ALICE MICHELE is a 78 year old F with Atrial Fibrillation LABS: Last INR: 1.6 Last HGB: 10.5 Last HCT: 30.6 Last PLT: 169 Last dose of 3 mg given on 11/19/18 at 1530 Vitamin K given: YES 5 mg po 11/16/18 Ongoing Drug Interactions: Levofloxacin -Dc'd changed to ceftriaxone per Dr. Castellon A:INR of 1.6 is below desired range. Target range for this patient is: 2 -3 P: Warfarin dose: 3 mg Today at 1600 Bridge Therapy: None Next INR due 11/21/18 AM Pharmacy anticoagulation service will continue to follow. DUANE GALICIA ROPER [facility], 11/20/18 [id number]
[2018-11-20 15:10] VITALS: BP 123/59
[2018-11-20] MEDS ORDERED: WARFARIN 3 MG TABLET. PO ONE (16:00)
--- NOTE | 2018-11-20 16:09 | NUR ---
SW following for discharge planning. Discussed with RN, RN advised no SW needs at this time. SW will continue to follow.
[2018-11-20 19:00] VITALS: BP 134/61
[2018-11-20] MEDS: ATORVASTATIN CALCIUM 10 MG TABLET. PO SCH (20:51)
[2018-11-20 23:00] VITALS: BP 116/50
[2018-11-21 04:56] LABS: PROTHROMBIN TIME PATIENT 12.9 SEC (11.7-14.0)
[2018-11-21] MEDS: LEVOTHYROXINE 50 MCG TABLET PO SCH (06:18)
[2018-11-21 07:00] VITALS: BP 129/42
[2018-11-21] MEDS: MAGNESIUM OXIDE 400 MG TABLET PO SCH (08:34)
[2018-11-21] MEDS: SPIRONOLACTONE 25 MG TABLET PO SCH (08:34)
[2018-11-21] MEDS: POTASSIUM CHLORIDE 10 MEQ TABLET.ER. PO SCH (08:34)
[2018-11-21] MEDS: BUMETANIDE 1 MG TABLET. PO SCH (08:34)
[2018-11-21] MEDS: CHOLECALCIFEROL (VITAMIN D3) 1,000 UNIT TABLET PO SCH (08:34)
[2018-11-21] MEDS: ASPIRIN CHEWABLE 81 MG TABLET. PO SCH (08:35)
[2018-11-21] MEDS: PANTOPRAZOLE 40 MG TABLET.DR. PO SCH (08:35)
[2018-11-21] MEDS: FERROUS SULFATE 325 MG TABLET. PO SCH (08:35)
[2018-11-21] MEDS: LACTOBACILLUS RHAMNOSUS GG 1 CAPSULE. PO SCH (08:35)
[2018-11-21] MEDS: OMEGA-3 FATTY ACIDS/FISH OIL 1,000 MG CAPSULE. PO SCH (08:35)
[2018-11-21] MEDS: MULTIVITAMIN with MINERAL TABLET. PO SCH (08:35)
[2018-11-21] MEDS: POLYETHYLENE GLYCOL 3350 17 GM PACKET. PO SCH (08:36)
[2018-11-21 08:49] LABS: ALBUMIN 3.1 g/dL (3.4-5.0); ALBUMIN/GLOBULIN RATIO 0.9 (1.0-1.7); CALCIUM 9.2 mg/dL (8.5-10.1); CREATININE 1.3 mg/dL (0.6-1.0); GFR 39.6; POTASSIUM 3.6 mmol/L (3.5-5.1); TOTAL BILIRUBIN 1.3 mg/dL (0.2-1.0); TOTAL PROTEIN 6.5 g/dL (6.4-8.2)
[2018-11-21] MEDS ORDERED: METOPROLOL SUCC 24HR ER 50 MG TAB.ER.24H. PO SCH (09:00)
[2018-11-21 11:00] VITALS: BP 134/35
[2018-11-21] MEDS ORDERED: SPIR25TA PO (11:43)
[2018-11-21] MEDS ORDERED: METO50TA4 PO (11:43)
[2018-11-21] MEDS ORDERED: Pantoprazole PO (11:43)
--- NOTE | 2018-11-21 11:45 | PDOC ---
PROGRESS NOTES Chief Complaint Chief Complaint Thrombocytopenia Elevated LFTs with ascites new-onset s/p paracentesis 04/23/18 ( 5 L?) chronic liver disease. Mild hepatic steatosis. Cholelithiasis. Gallbladder wall thickening can be seen in the context of chronic liver disease. mild to moderate pleural effusion New-onset CHF CAD Significant 80-90% stenosis involving the left main coronary artery. The previously placed stent in the left anterior descending arteries patent. 04/29 Hypertension, indwelling pacer, history of A. fib on OAC Weight loss, poor appetite Elavetd Ca19-9 (320) ELEVATED CA 556=[id number], ELEVATED Reviewed pt Ca 125 down to 154.4 from 600 from april 2018 Moderate mitral regurgitation. Moderate tricuspid regurgitation. moderate pulmonary hypertension. The PA pressure was estimated at 65 mmHg. SUPRA-THERAPEUTIC INR now 2.1, pharmacy adjusting Thickened endometrial stripe for the postmenopausal status the patient. History of Present Illness History of Present Illness This morning feels much better, feels more distended today and states she had BM last night and again this morning ASSESSMENT/PLAN Ascites, CHF, coagulopathy (better), CKD -h/o chronic liver disease on past imaging/STALLWORTH suspected in the past, had paracentesis in 04/2018 -h/o elevated CA125 (improved since 04/2018) -on Aldactone 50mg QD, also BID Bumex -Hematology recs to consider bone marrow bx and [employer] ASBE[employer]/endometrial bx Nausea, decreased appetite -on famotidine H/o constipation -past use of Linzess, most recently Miralax Improving with diuresis. May certainly have STALLWORTH/cirrhosis, but cardiac component as well - pulm HTN - should have referral to [facility] considered CA 19-9 normal. TELE If ovarian ca suspected will need onc-information scientist consult PELVIC SONO noted REPEAT CA 125 still elevated, lower GI CONSULTED IV DIURESIS CARDIOLOGY CONSULT ECHO REVIEWED 04/29 REPEAT ECHO COUMADIN ,PHARMACY ADJUSTING Vitals Vitals Vital Signs Date Time Temp Pulse Resp B/P (MAP) Pulse Ox O2 Delivery O2 Flow Rate FiO2 11/21/18 08:35 61 129/42 11/21/18 08:00 Room Air 11/21/18 07:00 98.1 18 91 98.1 11/20/18 08:00 2.0 Physical Exam General: Alert, Oriented X3, Cooperative, mild distress Heart: Regular rate, Other (S4 GALLOP) Lungs: Clear Abdomen: Normal bowel sounds, Soft, No tenderness, Other (MILD DISTENSION, NO RUQ TENDERNESS) Extremities: No clubbing, No cyanosis, Other (1-2 PLUS ANKLE EDEMA) Skin: No significant lesion Labs LABS Laboratory Tests Test 11/21/18 04:25 Prothrombin Time 12.9 SEC (11.7-14.0) Prothromb Time International Ratio 1.0 (0.8-1.1) Sodium Level 141 mmol/L (136-145) Potassium Level 3.6 mmol/L (3.5-5.1) Chloride Level 103 mmol/L (98-107) Carbon Dioxide Level 31 mmol/L (21-32) Anion Gap 7 (6-14) Blood Urea Nitrogen 14 mg/dL (7-20) Creatinine 1.3 mg/dL (0.6-1.0) Estimated GFR (Cockcroft-Gault) 39.6 BUN/Creatinine Ratio 11 (6-20) Glucose Level 83 mg/dL (70-99) Calcium Level 9.2 mg/dL (8.5-10.1) Total Bilirubin 1.3 mg/dL (0.2-1.0) Aspartate Amino Transf (AST/SGOT) 22 U/L (15-37) Alanine Aminotransferase (ALT/SGPT) 22 U/L (14-59) Alkaline Phosphatase 135 U/L (46-116) Total Protein 6.5 g/dL (6.4-8.2) Albumin 3.1 g/dL (3.4-5.0) Albumin/Globulin Ratio 0.9 (1.0-1.7) Comment Review of Relevant I have reviewed the following items walt (where applicable) has been applied. Labs Laboratory Tests Test 11/20/18 04:20 11/21/18 04:25 Prothrombin Time 19.1 SEC (11.7-14.0) 12.9 SEC (11.7-14.0) Prothromb Time International Ratio 1.6 (0.8-1.1) 1.0 (0.8-1.1) Sodium Level 141 mmol/L (136-145) Potassium Level 3.6 mmol/L (3.5-5.1) Chloride Level 103 mmol/L (98-107) Carbon Dioxide Level 31 mmol/L (21-32) Anion Gap 7 (6-14) Blood Urea Nitrogen 14 mg/dL (7-20) Creatinine 1.3 mg/dL (0.6-1.0) Estimated GFR (Cockcroft-Gault) 39.6 BUN/Creatinine Ratio 11 (6-20) Glucose Level 83 mg/dL (70-99) Calcium Level 9.2 mg/dL (8.5-10.1) Total Bilirubin 1.3 mg/dL (0.2-1.0) Aspartate Amino Transf (AST/SGOT) 22 U/L (15-37) Alanine Aminotransferase (ALT/SGPT) 22 U/L (14-59) Alkaline Phosphatase 135 U/L (46-116) Total Protein 6.5 g/dL (6.4-8.2) Albumin 3.1 g/dL (3.4-5.0) Albumin/Globulin Ratio 0.9 (1.0-1.7) Laboratory Tests Test 11/21/18 04:25 Prothrombin Time 12.9 SEC (11.7-14.0) Prothromb Time International Ratio 1.0 (0.8-1.1) Sodium Level 141 mmol/L (136-145) Potassium Level 3.6 mmol/L (3.5-5.1) Chloride Level 103 mmol/L (98-107) Carbon Dioxide Level 31 mmol/L (21-32) Anion Gap 7 (6-14) Blood Urea Nitrogen 14 mg/dL (7-20) Creatinine 1.3 mg/dL (0.6-1.0) Estimated GFR (Cockcroft-Gault) 39.6 BUN/Creatinine Ratio 11 (6-20) Glucose Level 83 mg/dL (70-99) Calcium Level 9.2 mg/dL (8.5-10.1) Total Bilirubin 1.3 mg/dL (0.2-1.0) Aspartate Amino Transf (AST/SGOT) 22 U/L (15-37) Alanine Aminotransferase (ALT/SGPT) 22 U/L (14-59) Alkaline Phosphatase 135 U/L (46-116) Total Protein 6.5 g/dL (6.4-8.2) Albumin 3.1 g/dL (3.4-5.0) Albumin/Globulin Ratio 0.9 (1.0-1.7) Medications Current Medications Ondansetron HCl (Zofran) 4 mg PRN Q8HRS PRN IV NAUSEA/VOMITING; Start 11/15/18 at 17:15; Stop 11/16/18 at 17:14; Status DC Acetaminophen (Tylenol) 650 mg PRN Q4HRS PRN PO FEVER; Start 11/15/18 at 17:15; Stop 11/16/18 at 17:14; Status DC Albuterol/ Ipratropium (Duoneb) 3 ml RTQID NEB Last administered on 11/16/18at 15 :05; Start 11/15/18 at 17:30; Stop 11/16/18 at 17:29; Status DC Levofloxacin/ Dextrose (Levaquin Per Pharmacy) 1 each PRN DAILY PRN MC SEE COMMENTS; Start 11/15/18 at 17:15; Status Cancel Levofloxacin/ Dextrose 50 ml @ 50 mls/hr Q24H IV Last administered on 11/15/18at 18:00; Start 11/15/18 at 18:00; Stop 11/16/18 at 16:37; Status DC Aspirin (Children'S Aspirin) 81 mg DAILY PO Last administered on 11/21/18 08: 35; Start 11/16/18 at 09:00 Atorvastatin Calcium (Lipitor) 10 mg HS PO Last administered on 11/15/18 22:14 ; Start 11/15/18 at 21:00; Stop 11/16/18 at 01:41; Status DC Vitamin D (Vitamin D3) 1,000 unit DAILY08 PO Last administered on 11/21/18 08: 34; Start 11/16/18 at 08:00 Dronedarone (Multaq) 400 mg BID PO Last administered on 11/20/18 08:28; Start 11/15/18 at 21:00; Stop 11/20/18 at 14:52; Status DC Famotidine (Pepcid) 20 mg QHS PO Last administered on 11/19/18at 20:31; Start 11/15/18 at 21:00; Stop 11/20/18 at 11:17; Status DC Potassium Chloride (Klor-Con) 10 meq DAILY PO Last administered on 11/21/18at 08 :34; Start 11/16/18 at 09:00 Bumetanide (Bumex) 2 mg BID92 PO Last administered on 11/21/18 08:34; Start at 09:00 Diltiazem HCl (Cardizem 24hr Cd) 120 mg DAILY PO ; Start 11/16/18 at 09:00; Stop 11/16/18 at 09:00; Status DC Levothyroxine Sodium (Synthroid) 50 mcg DAILY06 PO Last administered on 06:18; Start 11/16/18 at 06:00 Multivitamins (Thera M Plus) 1 tab DAILY PO Last administered on 11/21/18 08: 35; Start 11/16/18 at 09:00 Fish Oil (Fish Oil) 1,000 mg DAILY PO Last administered on 11/21/18 08:35; Start 11/16/18 at 09:00 Non-Formulary Medication (Warfarin Sodium ) 4.5 mg DAILY PO ; Start 11/16/18 at 09:00; Status UNV Atorvastatin Calcium (Lipitor) 5 mg HS PO Last administered on 11/20/18 20:51; Start 11/16/18 at 21:00 Diltiazem HCl (Cardizem 24hr Cd) 180 mg DAILY PO Last administered on 11/20/18 08:27; Start 11/16/18 at 09:00; Stop 11/20/18 at 14:52; Status DC Magnesium Oxide (Magnesium Oxide) 400 mg BID PO Last administered on 11/21/18 08:34; Start 11/16/18 at 09:00 Ondansetron HCl (Zofran Odt) 4 mg PRN Q6HRS PRN PO NAUSEA/VOMITING 1ST CHOICE Last administered on 11/20/18 10:17; Start 11/16/18 at 01:45 Ferrous Sulfate (Feosol) 325 mg DAILYWBKFT PO Last administered on 11/21/18 08 :35; Start 11/16/18 at 08:00 Warfarin Sodium (Coumadin Per Pharmacy) 1 each PRN DAILY PRN MC SEE COMMENTS Last administered on 11/20/18 14:32; Start 11/16/18 at 07:15 Warfarin Sodium (Coumadin - No Dose Today) 1 each 1X WARF ONCE MC ; Start at 16:00; Stop 11/16/18 at 16:01; Status DC Phytonadione (Mephyton Oral Soln) 5 mg 1X ONCE PO Last administered on 16:55; Start 11/16/18 at 13:30; Stop 11/16/18 at 13:31; Status DC Lactobacillus Rhamnosus (Culturelle) 1 cap BID PO Last administered on 08:35; Start 11/16/18 at 21:00 Ceftriaxone Sodium (Rocephin) 1 gm Q24H IVP Last administered on 11/19/18 16:16 ; Start 11/16/18 at 17:00; Stop 11/20/18 at 15:28; Status DC Albuterol Sulfate (Ventolin Neb Soln) 2.5 mg PRN Q4HRS PRN NEB SHORTNESS OF BREATH Last administered on 11/17/18 20:20; Start 11/16/18 at 22:15 Spironolactone (Aldactone) 50 mg DAILY PO Last administered on 11/21/18 08:34 ; Start 11/17/18 at 09:00 Warfarin Sodium (Coumadin) 2.5 mg 1X WARF ONCE PO Last administered on 17:19; Start 11/17/18 at 16:00; Stop 11/17/18 at 16:01; Status DC Polyethylene Glycol (miraLAX PACKET) 17 gm DAILY PO Last administered on 08:36; Start 11/19/18 at 09:00 Warfarin Sodium (Coumadin) 3 mg 1X WARF ONCE PO Last administered on 11/18/18 16:12; Start 11/18/18 at 16:00; Stop 11/18/18 at 16:01; Status DC Warfarin Sodium (Coumadin) 3 mg 1X WARF ONCE PO Last administered on 11/19/18 15:30; Start 11/19/18 at 16:00; Stop 11/19/18 at 16:01; Status DC Pantoprazole Sodium (Protonix) 40 mg DAILYAC PO Last administered on 11/21/18 08:35; Start 11/20/18 at 12:00 Calcium Carbonate/ Glycine (Tums) 500 mg PRN AFTMEALHC PRN PO INDIGESTION; Start 11/20/18 at 11:30 Warfarin Sodium (Coumadin) 3 mg 1X WARF ONCE PO Last administered on 11/20/18 15:59; Start 11/20/18 at 16:00; Stop 11/20/18 at 16:01; Status DC Metoprolol Succinate (Toprol Xl) 50 mg DAILY PO Last administered on 11/21/18at 08:35; Start 11/21/18 at 09:00 Active Scripts Active Aldactone (Spironolactone) 25 Mg Tablet 25 Mg PO DAILY 30 Days [Pantoprazole] 40 MG Tablet.dr 40 Mg PO DAILYAC 30 Days Toprol Xl (Metoprolol Succinate) 50 Mg Tab.er.24h 50 Mg PO DAILY 30 Days Bumetanide 2 Mg Tablet 1 Tab PO BID 30 Days Reported Mag-Oxide (Magnesium Oxide) 400 Mg Tablet 1 Tab PO BID Zofran (Ondansetron Hcl) 4 Mg Tablet 1 Tab PO PRN Q6HRS PRN Ferrous Sulfate 325 Mg Tablet 325 Mg PO DAILY Levothyroxine Sodium 50 Mcg Tablet 50 Mcg PO DAILYAC Atorvastatin Calcium 10 Mg Tablet 5 Mg PO HS Potassium Chloride 10 Meq Tablet.er 10 Meq PO DAILY Vitamin D3 (Cholecalciferol (Vitamin D3)) 1,000 Unit Tablet 1,000 Unit PO Fish Oil 1,200 mg Softgel ([place]-3S/Dha/Epa/Fish Oil) 1 Each Capsule 2 Each PO Multivitamins (Multivitamin) 1 Each Tablet 1 Tab PO DAILY Aspirin 81 Mg Tab.chew 1 Tab PO DAILY Diltiazem 24HR Cd (Diltiazem Hcl) 120 Mg Cap.er.24h 1 Cap PO DAILY Warfarin Sodium 4 Mg Tablet 4 Mg PO DAILY Vitals/I & O Vital Sign - Last 24 Hours 11/20/18 11/20/18 11/20/18 11/20/18 15:10 19:00 20:00 23:00 Temp 97.7 98.4 98.3 97.7 98.4 98.3 Pulse 62 60 60 Resp 18 20 17 B/P (MAP) 123/59 (80) 134/61 (85) 116/50 (72) Pulse Ox 96 96 94 O2 Delivery Room Air Room Air Room Air 11/21/18 11/21/18 11/21/18 07:00 08:00 08:35 Temp 98.1 98.1 Pulse 61 61 Resp 18 B/P (MAP) 129/42 (71) 129/42 Pulse Ox 91 O2 Delivery Room Air Room Air Intake and Output 11/20/18 11/20/18 11/21/18 15:01 23:01 07:01 Intake Total 640 ml 480 ml 240 ml Output Total 1 ml Balance 640 ml 480 ml 239 ml LUAN LAROSE MD Nov 21, 2018 11:45
--- NOTE | 2018-11-21 11:46 | PDOC3 ---
Discharge Summary Visit Information Date of Admission: Nov 15, 2018 Date of Discharge: Nov 21, 2018 Admitting Diagnosis: CHF Final Diagnosis Cirrhosis, CHF Brief Hospital Course Allergies Allergies Coded Allergies Type Severity Reaction Last Updated Verified Sulfa (Sulfonamide Antibiotics) Allergy Intermediate 04/04/18 No Vital Signs Vital Signs Date Time Temp Pulse Resp B/P (MAP) Pulse Ox O2 Delivery O2 Flow Rate FiO2 11/21/18 08:35 61 129/42 11/21/18 08:00 Room Air 11/21/18 07:00 98.1 18 91 98.1 11/20/18 08:00 2.0 Lab Results Laboratory Tests Test 11/20/18 04:20 11/21/18 04:25 Prothrombin Time 19.1 SEC (11.7-14.0) 12.9 SEC (11.7-14.0) Prothromb Time International Ratio 1.6 (0.8-1.1) 1.0 (0.8-1.1) Sodium Level 141 mmol/L (136-145) Potassium Level 3.6 mmol/L (3.5-5.1) Chloride Level 103 mmol/L (98-107) Carbon Dioxide Level 31 mmol/L (21-32) Anion Gap 7 (6-14) Blood Urea Nitrogen 14 mg/dL (7-20) Creatinine 1.3 mg/dL (0.6-1.0) Estimated GFR (Cockcroft-Gault) 39.6 BUN/Creatinine Ratio 11 (6-20) Glucose Level 83 mg/dL (70-99) Calcium Level 9.2 mg/dL (8.5-10.1) Total Bilirubin 1.3 mg/dL (0.2-1.0) Aspartate Amino Transf (AST/SGOT) 22 U/L (15-37) Alanine Aminotransferase (ALT/SGPT) 22 U/L (14-59) Alkaline Phosphatase 135 U/L (46-116) Total Protein 6.5 g/dL (6.4-8.2) Albumin 3.1 g/dL (3.4-5.0) Albumin/Globulin Ratio 0.9 (1.0-1.7) Laboratory Tests Test 11/21/18 04:25 Prothrombin Time 12.9 SEC (11.7-14.0) Prothromb Time International Ratio 1.0 (0.8-1.1) Sodium Level 141 mmol/L (136-145) Potassium Level 3.6 mmol/L (3.5-5.1) Chloride Level 103 mmol/L (98-107) Carbon Dioxide Level 31 mmol/L (21-32) Anion Gap 7 (6-14) Blood Urea Nitrogen 14 mg/dL (7-20) Creatinine 1.3 mg/dL (0.6-1.0) Estimated GFR (Cockcroft-Gault) 39.6 BUN/Creatinine Ratio 11 (6-20) Glucose Level 83 mg/dL (70-99) Calcium Level 9.2 mg/dL (8.5-10.1) Total Bilirubin 1.3 mg/dL (0.2-1.0) Aspartate Amino Transf (AST/SGOT) 22 U/L (15-37) Alanine Aminotransferase (ALT/SGPT) 22 U/L (14-59) Alkaline Phosphatase 135 U/L (46-116) Total Protein 6.5 g/dL (6.4-8.2) Albumin 3.1 g/dL (3.4-5.0) Albumin/Globulin Ratio 0.9 (1.0-1.7) Brief Hospital Course Ms. Cali is a 78 year old w/ PMHx CAD, HTN, Afib s/p PPM, recent diagnosis of ascites with cirrhosis who presents with bilateral lower extremity swelling and abdominal swelling that has been increasing over the past 2 weeks. She was seen by cardiology and started on bumex with good diuresis, previously had a paracentesis for ascites, no significant fluid this admission. After d/w GI and cardiology with her h/o amiodarone and dronaderone dosing it was decided with her liver disease she should d/c the multaq and changed to metoprolol xl only with good effect. She continued her warfarin and diltiazem for her afib history. PPI was added for her nausea with good effect. For her ascites a CA125 was drawn based on elevated score in April 2018, Ca 125 down to 154.4 from 600. Seen by [facility] and abdominal imaging was negative for any concerning lymph nodes or masses. She does have etl architect/onc contact information at [facility] for follow up consultation after d/c home. She will also f/u with GI and cardiology in the next 30 days Other problems addressed: Thrombocytopenia Elevated LFTs with ascites new-onset s/p paracentesis 04/23/18 ( 5 L?) chronic liver disease. Mild hepatic steatosis. Cholelithiasis. Gallbladder wall thickening can be seen in the context of chronic liver disease. mild to moderate pleural effusion New-onset CHF - on BB, bumex, aldactone, ARB, statin, ASA and warfarin CAD Significant 80-90% stenosis involving the left main coronary artery. The previously placed stent in the left anterior descending arteries patent. 04/29 Hypertension, indwelling pacer, history of A. 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 Moderate tricuspid regurgitation. moderate pulmonary hypertension. The PA pressure was estimated at 65 mmHg. SUPRA-THERAPEUTIC INR now 2.1, pharmacy adjusting Thickened endometrial stripe for the postmenopausal status the patient. H/o constipation -past use of Linzess, most recently Miralax Discharge Information Condition at Discharge: Improved Follow Up: Weeks Disposition/Orders: D/C to Home Scheduled Aspirin (Aspirin) 81 Mg Tab.chew, 1 TAB PO DAILY, #30 Ref 3 (Reported) Entered as Reported by: CRISTINO GLEASON on 12/31/15 0834 Last Action: Continued on 11/15/182049 by JEANIE ARZATE MD Atorvastatin Calcium (Atorvastatin Calcium) 10 Mg Tablet, 5 MG PO HS for FOR CHOLESTEROL, #30 Ref 0 (Reported) Entered as Reported by: RADHA MOORE on 04/03/18 1555 Last Action: Edited on 11/16/18 013 by HIRAL ROSENBERG Bumetanide (Bumetanide) 2 Mg Tablet, 1 TAB PO BID for 30 Days, #60 Ref 3 Prescribed by: DAQUAN LOVELL on 04/26/18 0833 Last Action: Converted on 11/15/182049 by JEANIE ARZATE MD Diltiazem Hcl (Diltiazem 24HR Cd) 120 Mg Cap.er.24h, 1 CAP PO DAILY for HTN for 30 Days, #30 Ref 2 Prescribed by: LUAN LAROSE MD on 11/21/18 1253 Ferrous Sulfate (Ferrous Sulfate) 325 Mg Tablet, 325 MG PO DAILY for supplement, (Reported) Entered as Reported by: HIRAL ROSENBERG on 11/16/18134 Last Action: New Order on 11/16/18134 by HIRAL ROSENBERG Levothyroxine Sodium (Levothyroxine Sodium) 50 Mcg Tablet, 50 MCG PO DAILYAC for THYROID SUPPLEMENT, #30 Ref 0 (Reported) Entered as Reported by: ELIZABETH STUBBS on 04/04/18 1018 Last Action: Converted on 11/15/182049 by JEANIE ARZATE MD Magnesium Oxide (Mag-Oxide) 400 Mg Tablet, 1 TAB PO BID for supplement, #60 Ref 5 (Reported) Entered as Reported by: HIRAL ROSENBERG on 11/16/18134 Last Action: New Order on 11/16/18134 by HIRAL ROSENBERG Metoprolol Succinate (Toprol Xl) 50 Mg Tab.er.24h, 50 MG PO DAILY for Atrial Tachyarrhythmia for 30 Days, #30 Ref 2 Prescribed by: LUAN LAROSE MD on 11/21/18 1143 Multivitamin (Multivitamins) 1 Each Tablet, 1 TAB PO DAILY, #90 Ref 3 (Reported) Entered as Reported by: ANNETTE VELEZ on 01/05/16 1220 Last Action: Converted on 11/15/182049 by JEANIE ARZATE MD Potassium Chloride (Potassium Chloride) 10 Meq Tablet.er, 10 MEQ PO DAILY, ( Reported) Entered as Reported by: RADHA MOORE on 04/03/18 1555 Last Action: Continued on 11/15/182049 by JEANIE ARZATE MD Spironolactone (Aldactone) 25 Mg Tablet, 25 MG PO DAILY for CHF for 30 Days, #30 Prescribed by: LUAN LAROSE MD on 11/21/18 1143 Warfarin Sodium (Warfarin Sodium) 4 Mg Tablet, 4 MG PO DAILY for anticoagulant, (Reported) Entered as Reported by: LEYDA ROBERTS on 01/24/14 1438 Last Action: Edited on 11/16/18134 by HIRAL ROSENBERG [Pantoprazole] 40 MG TABLET.DR, 40 MG PO DAILYAC for GERD for 30 Days, #30 Prescribed by: LUAN LAROSE MD on 11/21/18 1143 Scheduled PRN Ondansetron Hcl (Zofran) 4 Mg Tablet, 1 TAB PO PRN Q6HRS PRN for NAUSEA, #5 ( Reported) Entered as Reported by: HIRAL ROSENBERG on 11/16/18134 Last Action: New Order on 11/16/18134 by HIRAL ROSENBERG Miscellaneous Medications Cholecalciferol (Vitamin D3) (Vitamin D3) 1,000 Unit Tablet, 1,000 UNIT PO, ( Reported) Entered as Reported by: RADHA MOORE on 04/03/18 0031 Last Action: Continued on 11/15/182049 by JEANIE ARZATE MD [place]-3S/Dha/Epa/Fish Oil (Fish Oil 1,200 mg Softgel) 1 Each Capsule, 2 EACH PO, (Reported) Entered as Reported by: ANNETTE VELEZ on 01/05/16 1220 Last Action: Converted on 11/15/182049 by JEANIE ARZATE MD Discontinued Medications Diltiazem Hcl (Diltiazem 24HR Cd) 180 Mg Cap.er.24h, 180 MG PO DAILY for cardiac , (Reported) Entered as Reported by: HIRAL ROSENBERG on 11/16/18134 Last Action: New Order on 11/16/18134 by HIRAL ROSENBERG Dronedarone Hcl (Multaq) 400 Mg Tablet, 400 MG PO BID, #60 Ref 3 Prescribed by: MAGALI WOLF on 09/12/14 0752 Last Action: Continued on 11/15/182049 by JEANIE ARZATE MD Famotidine (Famotidine) 20 Mg Tablet, 20 MG PO BID, (Reported) Entered as Reported by: RADHA MOORE on 04/03/18 9229 Last Action: Continued on 11/15/182049 by MD LACHELLE SOLANO CHRISTOPHER S MD Nov 21, 2018 11:46
--- NOTE | 2018-11-21 12:17 | NUR ---
Pharmacy Warfarin Dosing Note S: Pharmacy consulted to assist with anticoagulation therapy O: MARY ALICE MICHELE is a 78 year old F with Atrial Fibrillation LABS: Last INR: 1 Last HGB: 10.5 Last HCT: 30.6 Last PLT: 169 Last dose of 3 mg given on 11/19/18 at 1530 Vitamin K given: Y 5 mg po 11/16/18 Ongoing Drug Interactions: Levofloxacin -Dc'd changed to ceftriaxone per Dr. Castellon A:INR of 1 is below desired range. Target range for this patient is: 2 -3 P: Warfarin dose: 5 mg Prior to Discharge Bridge Therapy: None Next INR due per MD orders after d/c Pharmacy anticoagulation service will continue to follow. Rabia Aguilar RPH, 11/21/18 0974
--- NOTE | 2018-11-21 12:19 | PDOC ---
Subjective: Subjective: Feels better today, going home later. Objective: Vital Signs: Vital Signs Date Time Temp Pulse Resp B/P (MAP) Pulse Ox O2 Delivery O2 Flow Rate FiO2 11/21/18 11:00 97.5 60 18 134/35 (68) 92 Room Air 97.5 11/20/18 08:00 2.0 PE: GEN: NAD, eating lunch, dressed to leave NEURO/PSYCH: A & O 3 A/P: CHF, pulm HTN, A Fib Cirrhosis on imaging -- Note DC plans, looks like Multaq discontinued. She asks about follow-up w/ Dr. Gordillo, will review this w/ him. TEQUILA CASTELAN Nov 21, 2018 12:19
[2018-11-21] MEDS ORDERED: DILT120C85 PO (12:53)
--- NOTE | 2018-11-21 12:55 | NUR ---
SW following for dc planning. Discussed with RN, RN advised no needs. Pt does not want home health, RN anticipates pt will dc home today. No further SW needs.
[2018-11-21] MEDS ORDERED: WARFARIN 5 MG TABLET. PO ONE (13:00)
--- NOTE | 2018-11-21 14:26 | NUR ---
Patient discharged, home self care. Patient given new prescriptions and details regarding follow-ups with both Dr. Marie and Dr. Gordillo. Patient understands discharge instructions. Patient thoroughly educated about which home medications to discontinue and the need to fill new prescriptions Patient alert and stable upon discharge. IV line discontinued. All belongings with patient. Patient was accompanied by this RN to sister's car.
== END 2018-11-21 14:41 | disposition home or self-care (01) | DRG 291 ==
LOC: ER 15:31 → 5 SOUTH 17:10
PROVIDERS: ADMIT Family Medicine; ATTEND Family Medicine
DX: I13.0 Hypertensive heart and chronic kidney disease with heart failure and stage 1 through stage 4 chronic kidney disease, or unspecified chronic kidney disease (principal); J18.9 Pneumonia, unspecified organism; I50.33 Acute on chronic diastolic (congestive) heart failure; R18.8 Other ascites; K76.6 Portal hypertension; J98.11 Atelectasis; D68.9 Coagulation defect, unspecified; D69.6 Thrombocytopenia, unspecified; R79.89 Other specified abnormal findings of blood chemistry; I25.10 Atherosclerotic heart disease of native coronary artery without angina pectoris; I48.91 Unspecified atrial fibrillation; N18.9 Chronic kidney disease, unspecified; E78.5 Hyperlipidemia, unspecified; F41.9 Anxiety disorder, unspecified; F32.9 Major depressive disorder, single episode, unspecified; M19.90 Unspecified osteoarthritis, unspecified site; I08.1 Rheumatic disorders of both mitral and tricuspid valves; I27.81 Cor pulmonale (chronic); I27.29 Other secondary pulmonary hypertension; K80.20 Calculus of gallbladder without cholecystitis without obstruction; K74.60 Unspecified cirrhosis of liver; I49.5 Sick sinus syndrome; R63.4 Abnormal weight loss; Z68.29 Body mass index [BMI] 29.0-29.9, adult; Z95.1 Presence of aortocoronary bypass graft; Z83.3 Family history of diabetes mellitus; Z82.49 Family history of ischemic heart disease and other diseases of the circulatory system; Z82.3 Family history of stroke; Z95.5 Presence of coronary angioplasty implant and graft; Z78.0 Asymptomatic menopausal state; Z79.01 Long term (current) use of anticoagulants; Z95.0 Presence of cardiac pacemaker; K75.81 Nonalcoholic steatohepatitis (NASH)
CPT/HCPCS: 36415; 71046; 76700; 76856; 80048; 80053; 81001; 83880; 85025; 85610; 86301; 86304; 93306; 93970; 94640; 94760; 96365; 96366; J0696; J1956; J7613; J7620; Q0162; 99285-25

== ENCOUNTER → 2019-06-23 | Outpatient (CLI) | payer MEDICARE, OTHER ==
[~2019-06-23] MED LIST changes: -AMLO10TA6 PO; +AMLO10TA8 PO; -BUME2TAB PO; +BUME2TAB3 PO; +DILT180C29 PO; +FERR325T14 PO; +MAGN400T22 PO; +METO50TA4 PO; +ONDA4TAB7 PO; +Pantoprazole PO; +SPIR25TA PO
--- NOTE | 2019-06-25 14:35 | RAD ---
DATE: 06/23/2019 3:08 PM EXAM: MAMMO EFRA SCREENING BILATERAL HISTORY: routine screening evaluation. COMPARISON: 12/09/2015, 03/05/2017, 03/28/2018 Bilateral CC and MLO views of the breasts were performed. Bilateral breast tomosynthesis was performed in CC and MLO projections. This study was interpreted with the benefit of Computerized Aided Detection (CAD). FINDINGS: Breast Density: SCATTERED The breast parenchyma shows scattered fibroglandular densities. Breast parenchyma level B Benign calcifications are present. The parenchymal pattern appears stable. Nodular density at the posterior depth of the left breast seen on the MLO view with central lucency likely low-lying lymph node, partial suggestion of this density on prior mammogram. No suspicious masses, microcalcifications or architectural distortion is present to suggest malignancy in either breast. The visualized axillae are unremarkable. IMPRESSION: No mammographic evidence of malignancy. BI-RADS CATEGORY: 2 BENIGN FINDING(S) RECOMMENDED FOLLOW-UP: 12M 12 MONTH FOLLOW-UP Annual screening mammography is recommended, unless clinically indicated sooner based on symptoms or change in physical exam. PQRS compliance statement: Patient information was entered into a reminder system with a target due date for the next mammogram. Mammography is a sensitive method for finding small breast cancers, but it does not detect them all and is not a substitute for careful clinical examination. A negative mammogram does not negate a clinically suspicious finding and should not result in delay in biopsying a clinically suspicious abnormality. "Our facility is accredited by the [employer] Mammography Program."
== END | disposition home or self-care (01) ==
LOC: MAMMO 14:57
PROVIDERS: ATTEND Nurse Practitioner Family
DX: Z12.31 Encounter for screening mammogram for malignant neoplasm of breast (principal); N64.89 Other specified disorders of breast
CPT/HCPCS: 77063; 77067

== ENCOUNTER → 2019-12-01 | Outpatient (CLI) | payer MEDICARE, OTHER ==
[~2019-12-01] MED LIST changes: -DILT120C85 PO; +DILT120C99 PO; -POTA10TA12 PO; +POTASSIUM CHLO10 ME1 PO
--- NOTE | 2019-12-01 11:04 | CARD ---
MR#: [id number] Date of Study: 12/01/2019 Ordering Physician: JENSEN MARIE, Referring Physician: JENSEN MARIE Tech: Martha Franz SHORTY APPROVED REPORT EXAM: Two-dimensional and M-mode echocardiogram with Doppler and color Doppler. Other Information Quality : AverageHR: 80bpm Rhythm : NSR INDICATION Congestive Heart Failure 2D DIMENSIONS RVDd2.8 (2.9-3.5cm)Left Atrium(2D)3.7 (1.6-4.0cm) IVSd1.0 (0.7-1.1cm)Aortic Root(2D)2.6 (2.0-3.7cm) LVDd3.9 (3.9-5.9cm)LVOT Diameter1.8 (1.8-2.4cm) PWd1.0 (0.7-1.1cm)LVDs2.9 (2.5-4.0cm) FS (%) 24.6 %SV32.1 ml LVEF(%)49.5 (>50%) M-Mode DIMENSIONS Left Atrium(MM)4.12 (2.5-4.0cm)Aortic Root2.73 (2.2-3.7cm) Aortic Valve AoV Peak Delgado.114.0cm/sAoV VTI25.1cm AO Peak GR.5.2mmHgLVOT Peak Delgado.78.8cm/s AO Mean GR.3mmHgAVA (VMAX)1.67cm2 PEYTON (VTI)1.70cm2 Mitral Valve MV E Jxtzfgnu110.5cm/sMV E Peak Gr.81mmHg MV DECEL EIPR360moFA A Rxuuwjvg71.8cm/s E/A Ratio4.2 Pulmonary Valve PV Peak Bmcwzdly53.9cm/s Tricuspid Valve TR P. Biusryvy694uu/sRAP DTCAUYZV2duRk TR Peak Gr.10noFeAQOP71foOo LEFT VENTRICLE The left ventricle is normal size. There is normal left ventricular wall thickness. The left ventricu lar systolic function is mildly impaired. The Ejection Fraction is 45%. Septal motion consistent with conduction abnormality. Tissue Doppler imaging reveals moderate left ventricular diastolic dysfuncti on. RIGHT VENTRICLE The right ventricle is normal size. There is normal right ventricular wall thickness. The right ventr icular systolic function is normal. Pacer lead noted in right heart. ATRIA The left atrium is mildly dilated. The right atrium size is normal. The interatrial septum is intact with no evidence for an atrial septal defect or patent foramen ovale as noted on 2-D or Doppler imagi ng. AORTIC VALVE The aortic valve is normal in structure and function. The aortic valve is trileaflet. Doppler and Col or Flow revealed no significant aortic regurgitation. There is no significant aortic valvular stenosi s. MITRAL VALVE The mitral valve is mildly thickened. There is no evidence of mitral valve prolapse. There is no mitr al valve stenosis. Doppler and Color-flow revealed moderate mitral regurgitation. TRICUSPID VALVE The tricuspid valve is normal in structure and function. Doppler and Color Flow revealed moderate tri cuspid regurgitation. There is mild-moderate pulmonary hypertension. The PA pressure was estimated at 45 mmHg. There is no tricuspid valve prolapse or vegetation. There is no tricuspid valve stenosis. PULMONIC VALVE The pulmonary valve is normal in structure and function. Doppler and Color Flow revealed mild pulmoni c valvular regurgitation. There is no pulmonic valvular stenosis. GREAT VESSELS The aortic root is normal in size. The ascending aorta is normal in size. The IVC is dilated and christel apses >50% with inspiration. PERICARDIAL EFFUSION There is no evidence of significant pericardial effusion. Critical Notification Critical Value: No <Conclusion> The left ventricular systolic function is mildly impaired. The Ejection Fraction is 45%. Septal motion consistent with conduction abnormality. Pacer lead noted in RA/RV. Moderate mitral regurgitation. Moderate tricuspid regurgitation. The PA pressure was estimated at 45 mmHg. There is no evidence of significant pericardial effusion. Signed by : Jensen Marie, Electronically Approved : 12/01/2019 11:04:10
--- NOTE | 2019-12-03 08:03 | RAD ---
MR#: [id number] Date of Study: 12/01/2019 Ordering Physician: JENSEN BALTAZAR, Referring Physician: JENSEN BALTAZAR, Tech: Rubén Sin MBA, RDMS, RVT, RDCS, RTR APPROVED REPORT Patient Location: OUT-PATIENT Indications Rest Pain:Bilaterally VELOCITY AND DOPPLER WAVEFORM ANALYSIS RIGHT cm/secWaveformSeverity LEFT cm/secWaveform Severity dCFA 111.0TriphasicdCFA 96.0Triphasic Prof Fem Art. 49.0TriphasicProf Fem Art. 53.0Triphasic Fem Art Prox. 109.0TriphasicFem Art Prox. 76.0Biphasic Fem Art Mid. 62.0TriphasicFem Art Mid. 75.0Biphasic Fem Art Dist. 72.0TriphasicFem Art Dist. 76.0Biphasic Pop Art(Fossa) 50.0TriphasicPop Art(AK) 69.0Biphasic CHAPERONE Prox. 31.0TriphasicPTA Prox. 41.0Biphasic CHAPERONE Dist. 41.0TriphasicPTA Dist. 73.0Biphasic Per Art Mid. 57.0TriphasicPer Art Mid. 45.0Biphasic COY Prox. 56.0TriphasicATA Prox. 28.0Biphasic DPA 40TriphasicDPA 42Biphasic Image Findings Grayscale images of the bilateral lower extremity arterial vessels demonstrate mild diffuse intimal h yperplasia and plaque. Spectral waveforms, velocities are grossly within normal limits. Below-knee velocities in the peronea l, posterior tibial and anterior tibial vessels are mildly diminished on the left side compared to th e right but no gross focal obstruction is noted. Critical Notification Critical Value: No <Conclusion> 1. No significant lower extremity arterial disease identified with three-vessel runoff below the knee Signed by : Dorian Greer, Electronically Approved : 12/03/2019 08:03:41
== END | disposition home or self-care (01) ==
LOC: US 09:46
PROVIDERS: ATTEND Internal Medicine Cardiovascular Disease
DX: I08.8 Other rheumatic multiple valve diseases (principal); I11.0 Hypertensive heart disease with heart failure; I50.9 Heart failure, unspecified; I70.293 Other atherosclerosis of native arteries of extremities, bilateral legs
CPT/HCPCS: 93306; 93925

== ENCOUNTER → 2019-12-08 | Outpatient (CLI) | payer MEDICARE, OTHER ==
[~2019-12-08] MED LIST changes: +REGADENOSON 0.4 MG/5 ML DISP.SYRIN. IV ONE
--- NOTE | 2019-12-08 14:02 | RAD ---
MR#: [id number] Date of Study: 12/08/2019 Ordering Physician: JENSEN BALTAZAR, Referring Physician: SHER DEL REAL Tech: NORY Holder ARRT (R) (N) APPROVED REPORT Test Type: Pharmacological Stress Nurse/Tech: Ramón JARQUIN Test Indications: CAD, SOB x2 months Cardiac History: 2013= Cardiac stents, 2015=CABG, PPM, HTN, See EMR. Medications: ASA, See EMR. Medical History: See EMR. Resting ECG: Paced Resting Heart Rate: 80 bpm Resting Blood Pressure: 139/68mmHg Pretest Chest Pain: No chest pain Nurse/Tech Notes Lungs clear in right lobes, Crackles in Left upper and lower lobe. Heart tones regular. Consent: The procedure was explained to the patient in lay terms. Informed consent was witnessed. Joe eout was entered into [facility]. History and Stress Test performed by RT Tho (R) (N) Pharm. Details Pharmacologic stress testing was performed using 0.4mg per 5ml of regadenoson given intravenously ove r 7-10 seconds. POST EXERCISE Reason for Termination: Infusion complete Max HR: 84 bpm Max Blood Pressure: 119/47mmHg Blood Pressure response to exercise: Normal blood pressure response during stress. Heart Rate response to exercise: WNL Chest Pain: No. Arrhythmia: No. ST Change: No. INTERPRETATION Stress EKG Conclusion: Baseline EKG showed ventricular paced rhythm. Nondiagnostic changes at peak st ress. No arrhythmias. Imaging Protocol IMAGE PROTOCOL: Rest Tc-99m/stress Tc-99m 1 day Rest: Stress: Viability: Radiopharm.Tc99m UfiyncaqbEq62u Sestamibi Brbu39tBs 33mCi Img Date 12/08/2019 12/08/2019 Inj-Img Nwvy63ewr. 60min. Rest Admin Site:IV - Left AntecubitalAdministrator:NORY Holder, KO (R)(N) Stress Admin Site: IV - Left AntecubitalAdministrator: RT Karo Nettles)(N) STRESS DATA End Diast. Vol.60.0mlAv. Heart Rate80.0bpm End Syst. Vol.14.0mlCO Index BSA0.0L/min Myocardial Mass99.0gEject. Izvafbws79.0% Stress Rates Pk. Fill Rate3.80EDV/secLVtime Pk. Fill 124.92msec Pk. Empty Rate4.74ESV/secLVtime Pk. Mqgln685.80msec 1/3 Pk. Fill2.24EDV/sec Stress Scores Regional WT0.00Summed WT0.00 Regional WM0.00Summed WM7.00 LV Perfusion Scintigraphic images showed small reversible defect involving the apical wall consistent with ischemi a. Wall Motion Normal left ventricle systolic function with ejection fraction calculated at 77%. LV Perf. Quant 17 Seg. SSS6.00 17 Seg. SRS2.00 17 Seg. SDS4.00 Stress Defect Extent (% LAD)11.90Rest Defect Extent (% LAD)0.60Rev. Defect Extent (% LAD)6.30 Stress Defect Extent (% LCX) 16.30Rest Defect Extent (% LCX)0.00Rev. Defect Extent (% LCX)15.00 Stress Defect Extent (% RCA)1.10Rest Defect Extent (% RCA)0.00Rev. Defect Extent (% RCA)1.10 Stress Defect Extent (% NIKHIL)14.80Rest Defect Extent (% NIKHIL)0.90Rev. Defect Extent (% NIKHIL)9.60 Conclusion 1. Regadenoson cardioisotope stress test showed small amount of apical wall ischemia. 2. Normal left ventricular systolic function with ejection fraction calculated at 77%. 3. Low to intermediate risk for cardiac events. Signed by : Jensen Baltazar, Electronically Approved : 12/08/2019 14:02:25
== END | disposition home or self-care (01) ==
LOC: NM 09:30
PROVIDERS: ATTEND Internal Medicine Cardiovascular Disease
DX: I25.9 Chronic ischemic heart disease, unspecified (principal); I25.10 Atherosclerotic heart disease of native coronary artery without angina pectoris; I10 Essential (primary) hypertension; Z95.1 Presence of aortocoronary bypass graft
CPT/HCPCS: 78452; 93017; A9500; J2785

== ENCOUNTER 2020-01-16 08:28 | Outpatient (CLI) | payer MEDICARE, OTHER ==
[2020-01-16] VITALS (14 sets, daily range): BP systolic 92–125; BP diastolic 48–69
[~2020-01-16] VITALS: Ht 167.6 cm; Wt 74.8 kg
[~2020-01-16 08:28] MED LIST changes: -REGADENOSON 0.4 MG/5 ML DISP.SYRIN. IV ONE
[2020-01-16] MEDS ORDERED: POTA10TA12 PO (08:59)
[2020-01-16] MEDS ORDERED: BUME2TAB3 PO (08:59)
[2020-01-16] MEDS ORDERED: WARF1TAB69 PO (08:59)
[2020-01-16 09:04] LABS: HEMATOCRIT 41.5 % (36.0-47.0); HEMOGLOBIN 14.1 g/dL (12.0-15.5); RED BLOOD COUNT 4.73 x10^6/uL (3.50-5.40); RED CELL DISTRIBUTION WIDTH 15.2 % (11.5-14.5); WHITE BLOOD COUNT 8.7 x10^3/uL (4.0-11.0)
[2020-01-16 09:15] LABS: PROTHROMBIN TIME PATIENT 21.3 SEC (11.7-14.0)
[2020-01-16 09:19] LABS: CALCIUM 9.6 mg/dL (8.5-10.1); CREATININE 1.6 mg/dL (0.6-1.0); GFR 31.1; POTASSIUM 5.1 mmol/L (3.5-5.1)
[2020-01-16] MEDS ORDERED: fentaNYL PF VIAL 100 MCG/2 ML VIAL ONE (09:57)
[2020-01-16] MEDS ORDERED: LIDOCAINE 1% Multi-Dose 20 ML VIAL. ONE (09:58)
[2020-01-16] MEDS ORDERED: IODIXANOL 320 MG/ML 100 ML VIAL. ONE (09:58)
[2020-01-16] MEDS ORDERED: MIDAZOLAM HCL/PF 2 MG/2 ML VIAL. ONE (09:58)
[2020-01-16] MEDS ORDERED: MIDAZOLAM HCL/PF 2 MG/2 ML VIAL. IV ONE (10:15)
[2020-01-16] MEDS ORDERED: fentaNYL PF VIAL 100 MCG/2 ML VIAL IV ONE (10:15)
[2020-01-16] MEDS ORDERED: LIDOCAINE 1% Multi-Dose 20 ML VIAL. INJ ONE (10:15)
[2020-01-16] MEDS ORDERED: IODIXANOL 320 MG/ML 100 ML VIAL. IART ONE (10:15)
--- NOTE | 2020-01-16 12:05 | CARD ---
MR#: [id number] Date of Study: 01/16/2020 Ordering Physician: JENSEN BALTAZAR, Referring Physician: JENSEN BALTAZAR Tech: STEPHANIE ARREDONDO APPROVED REPORT Technologist: STEPHANIE ARREDONDO Nurse: Jackelin Douglas RN Procedure(s) performed: Right and left heart catheterization, selective coronary angiography and dominik ctive angiography of the bypass grafts Flouro time: 7.8 min Dose: 33.45 Gycm2 Contrast total: 109 Visi Moderate sedation: 33 min INDICATION The indication(s) include : Refractory dyspnea on exertion in a patient with known history of coronar y artery disease and positive stress test. [facility] Clinical Frailty Scale [facility] Clinical Frailty Scale: Mildly Frail Heart Failure Heart Failure: Yes If Yes, Newly Diagnosed: No If Yes, HF Type: Systolic If Yes, NYHA Class: Class II PROCEDURE NARRATIVE After explaining the risks, benefits and alternative options, informed consent was obtained from imelda ent. Patient was brought to the cardiac Data Warehousing Engineer and her right groin was prepped and draped in the us ual fashion. 20 mL of 2% lidocaine was infiltrated into the skin and subcutaneous tissues for local a nesthesia. Arterial and venous accesses were obtained in the right common femoral artery and vein res pectively and 6 and 5 Japanese sheaths inserted. 5 Japanese Latham-Katerin catheter was then advanced under fl uoroscopy guidance and intracardiac pressures and oxygen saturations obtained. Subsequently, JL4 and JR4 catheters were used to perform selective angiography of the left and right coronary arteries. The JR4 catheter was then used to perform selective angiography of the saphenous vein graft to the obtus e marginal branch, radial artery graft to the diagonal branch and also the left internal mammary apolinar ry graft to the left anterior descending artery. LVEDP and transaortic gradients were measured. Patie nt tolerated the procedure well. Hemostasis was achieved using Angio-Seal and manual compression. The re were no immediate complications. FINDINGS 1. RIGHT HEART CATHETERIZATION a. Intracardiac pressures: Mean right atrial pressure 9 mmHg, right ventricle pressure 35/1 mmHg, p ulmonary artery pressure 33/13 mmHg with mean PA pressure 22 mmHg and mean pulmonary capillary wedge pressure of 18 mmHg. No evidence for pulmonary hypertension. b. Oxygen saturation: Right atrium 73.1%, pulmonary artery 70.6% and arterial sheath 100%. c. Cardiac output by Roe method 3.1 L/m. 2. LEFT HEART CATHETERIZATION a. The left main coronary artery arose from the left sinus of Valsalva, gave rise to the left anteri or descending and left circumflex arteries and showed 70% mid to distal segment stenosis. b. The left anterior descending artery showed 80% stenosis in the midsegment. c. The left circumflex artery showed 60% stenosis in the proximal segment. d. The right coronary artery was a large and dominant vessel arising from the right sinus of Valsalv a that did not show any significant stenosis. e. The saphenous vein graft to the obtuse marginal branch of left circumflex artery was widely paten t. f. The radial artery graft to the diagonal branch was widely patent. g. The left internal mammary artery graft to the left anterior descending artery was widely patent. Conclusion 1. Coronary artery disease s/p coronary artery bypass surgery with patent OG to LAD, patent radial artery graft to the diagonal branch and patent SVG to OM/LCx. The right coronary artery that was not grafted did not show any significant stenosis. 2. No pulmonary hypertension. 3. No evidence for intracranial correction. Recommendations Patient's dyspnea on exertion appears noncardiac in etiology. We will refer patient to pulmonary team to rule out pulmonary etiology and also address her sleep apnea. Signed by : Jensen Baltazar, Electronically Approved : 01/16/2020 12:05:04
--- NOTE | 2020-01-16 14:15 | NUR ---
Discharge Note: MARY ALICE MICHELE Discharge instructions and discharge home medications reviewed with Family Member and a copy given. All questions have been answered and understanding verbalized. Patient ate lunch with no difficulties. The following instructions and handouts were given: Moderate sedation and groin site care. Patient is to restart Coumadin tomorrow, Thursday January 16, 2020. Discontinued lines and drains: Left hand PIV, dressing clean dry intact. Patient discharged to home with daughter via wheelchair to private vehicle.
== END 2020-01-16 14:30 | disposition home or self-care (01) ==
LOC: CCL 08:28
PROVIDERS: ATTEND Internal Medicine Cardiovascular Disease
DX: R06.00 Dyspnea, unspecified (principal); I25.10 Atherosclerotic heart disease of native coronary artery without angina pectoris
CPT/HCPCS: 36415; 80048; 85027; 85610; 93461; 99152; 99153; C1760; C1769; C1773; C1892; J1644; J2250; J3010; J3490; Q9967; C1771

== ENCOUNTER → 2020-04-26 | Outpatient (CLI) | payer MEDICARE, OTHER ==
[2020-01-16 14:00] VITALS: BP 100/62
[~2020-04-26] MED LIST changes: +MULT-445 PO; -MULT1TAB52 PO; +POTA10TA12 PO; +WARF1TAB69 PO
--- NOTE | 2020-04-26 12:00 | RAD ---
PA and lateral views of the chest. Comparison: None. Indication: Pleural effusion Findings: Left subclavian pacemaker sternotomy wires and CABG clips are reidentified. The heart size is enlarged. No pneumothorax or effusion. Mild bilateral predominantly basilar interstitial opacities are identified. The bony structures are intact. Impression: 1. Cardiomegaly. No pleural effusion seen. Mild pulmonary vascular congestion. Electronically signed by: Junaid Lucia MD (04/26/2020 11:57 AM) [id number]
--- NOTE | 2020-04-27 12:41 | SLEEP ---
DATE OF STUDY: 04/26/2020 HOME SLEEP STUDY REFERRING PHYSICIAN: Carole Pugh APRN The patient is a 79-year-old who weighs 165 pounds with a BMI of 26.6. The patient's [place] score was 0. The patient underwent home sleep study performed at [facility]. Total recording time was 573 minutes. During the night study, the patient had 34 obstructive apneas, no central apneas, 2 mixed apneas and 37 hypopneas. The patient's AHI was 14.8 per hour. The patient has signs of upper airway resistance syndrome during the testing throughout the night. Nocturnal oximetry study revealed no significant desaturation. Average saturation of 94% with the lowest of 88%. Mean heart rate 60 beats per minute. IMPRESSION: 1. Mild obstructive sleep apnea at an AHI of 14.8 per hour. 2. No significant nocturnal hypoxia. RECOMMENDATIONS: 1. If the patient is clinically symptomatic or has comorbid conditions, then the patient would benefit from treatment of sleep apnea with CPAP. 2. Weight loss to the ideal body weight is recommended. 3. Avoid EDGER TAILER depressants. 4. Cautioned regarding driving until symptoms of sleep apnea resolve. YULI PECK MD DR: CAMRYN/mayda JOB#: [id number] / [id number] CAROLE Melgar APRN
== END | disposition home or self-care (01) ==
LOC: RT 10:00
PROVIDERS: ATTEND Internal Medicine Critical Care Medicine
DX: J94.8 Other specified pleural conditions (principal); G47.33 Obstructive sleep apnea (adult) (pediatric); I51.7 Cardiomegaly
CPT/HCPCS: 71046; G0399

== ENCOUNTER 2020-06-08 16:39 | Emergency (ER) | payer MEDICARE, OTHER ==
[~2020-06-08] VITALS: Ht 167.6 cm; Wt 75.0 kg
[2020-06-08 19:30] VITALS: BP 167/80
--- NOTE | 2020-06-08 21:27 | RAD ---
Examination: Unilateral venous Doppler. Technique: Ultrasound evaluation of the left lower extremity was performed from the groin to the upper calf with madison scale, spectral and color doppler evaluation. Indication: Leg swelling Comparison: None Findings: There is normal venous flow and compressibility of left common femoral vein, femoral vein, popliteal vein, and visualized proximal calf veins. Impression: No evidence for deep vein thrombosis of left lower extremity from the level of the calf veins to the groins. Electronically signed by: Socrates Potts MD (06/08/2020 9:23 PM) [facility]
[2020-06-08] MEDS ORDERED: NAPR-514 PO (21:41)
--- NOTE | 2020-06-08 21:41 | PHYS DOC ---
Past Medical History Past Medical History: A-Fib, Hypertension Additional Past Medical Histor: Ascites Past Surgical History: Angioplasty, Pacemaker Additional Past Surgical Histo: vein stripping Smoking Status: Former Smoker Alcohol Use: None Drug Use: None General Adult EDM: Chief Complaint: LOWER EXT PAIN HPI: HPI: Patient is a 79-year-old female presents with pain and swelling in her left calf. She does not remember any injury to the area. She denies any chest pain shortness of breath or dyspnea on exertion. She states it is mainly painful when she tries to walk. She has not noticed any bruising or swollen blood vessels on the skin. [] Review of Systems: Review of Systems: Constitutional: Denies fever or chills. [] Eyes: Denies change in visual acuity. [] HENT: Denies nasal congestion or sore throat. [] Respiratory: Denies cough or shortness of breath. [] Cardiovascular: Denies chest pain or edema. [] GI: Denies abdominal pain, nausea, vomiting, bloody stools or diarrhea. [] : Denies dysuria. [] Musculoskeletal: Per HPI [] Integument: Denies rash. [] Neurologic: Denies headache, focal weakness or sensory changes. [] Endocrine: Denies polyuria or polydipsia. [] Lymphatic: Denies swollen glands. [] Psychiatric: Denies depression or anxiety. [] Heart Score: Risk Factors: Risk Factors: DM, Current or recent (<one month) smoker, HTN, HLP, family history of CAD, obesity. Risk Scores: Score 0 - 3: 2.5% MACE over next 6 weeks - Discharge Home Score 4 - 6: 20.3% MACE over next 6 weeks - Admit for Clinical Observation Score 7 - 10: 72.7% MACE over next 6 weeks - Early Invasive Strategies Allergies: Allergies: Allergies Coded Allergies Type Severity Reaction Last Updated Verified Sulfa (Sulfonamide Antibiotics) Allergy Intermediate Nausea and Vomiting 01/16/20 No Physical Exam: PE: Constitutional: Well developed, well nourished, no acute distress, non-toxic appearance. [] HENT: Normocephalic, atraumatic, bilateral external ears normal, oropharynx moist, no oral exudates, nose normal. [] Eyes: PERRLA, EOMI, conjunctiva normal, no discharge. [] Neck: Normal range of motion, no tenderness, supple, no stridor. [] Cardiovascular:Heart rate regular rhythm, no murmur [] Lungs & Thorax: Bilateral breath sounds clear to auscultation [] Abdomen: Bowel sounds normal, soft, no tenderness, no masses, no pulsatile masses. [] Skin: Warm, dry, no erythema, no rash. [] Back: No tenderness, no CVA tenderness. [] Extremities: Left calf is definitely a little more swollen than the right it is tender to palp no bruising. [] Neurologic: Alert and oriented X 3, normal motor function, normal sensory function, no focal deficits noted. [] Psychologic: Anxious [] Current Patient Data: Vital Signs: Vital Signs Date Time Temp Pulse Resp B/P (MAP) Pulse Ox O2 Delivery O2 Flow Rate FiO2 06/08/20 19:30 97.9 61 18 167/80 (109) 98 Room Air 97.9 EKG: EKG: [] Radiology/Procedures: Radiology/Procedures: []REASON: left calf swelling and pain PROCEDURE: VENOUS LOWER EXTREMITY LEFT Examination: Unilateral venous Doppler. Technique: Ultrasound evaluation of the left lower extremity was performed from the groin to the upper calf with madison scale, spectral and color doppler evaluation. Indication: Leg swelling Comparison: None Findings: There is normal venous flow and compressibility of left common femoral vein, femoral vein, popliteal vein, and visualized proximal calf veins. Impression: No evidence for deep vein thrombosis of left lower extremity from the level of the calf veins to the groins. Course & Med Decision Making: Course & Med Decision Making Pertinent Labs and Imaging studies reviewed. (See chart for details) [] Dragon Disclaimer: Dragon Disclaimer: This electronic medical record was generated, in whole or in part, using a voice recognition dictation system. Departure Departure Impression: Primary Impression: Localized swelling of left lower leg Disposition: 01 HOME, SELF-CARE Condition: STABLE Referrals: ROMAIN MCMILLAN APRN (PCP) Patient Instructions: Muscle Strain Scripts Naproxen (NAPROXEN) 500 Mg Tablet 1 TAB PO BID PRN for PAIN, #30 TAB 1 Refill Prov: JUANJO TUBBS DO 06/08/20 Justicifation of Admission Dx: Justifications for Admission: Justification of Admission Dx: No JUANJO TUBBS DO Jun 08, 2020 21:41
== END 2020-06-08 21:46 | disposition home or self-care (01) ==
LOC: ER 16:39
DX: R60.0 Localized edema (principal); M79.605 Pain in left leg; I10 Essential (primary) hypertension; Z90.89 Acquired absence of other organs; Z95.0 Presence of cardiac pacemaker; Z87.891 Personal history of nicotine dependence; Z86.79 Personal history of other diseases of the circulatory system
CPT/HCPCS: 93971; 99284

== ENCOUNTER → 2020-06-30 | Outpatient (CLI) | payer MEDICARE ==
[2020-06-08 19:30] VITALS: BP 167/80
[~2020-06-30] MED LIST changes: +NAPR-514 PO
--- NOTE | 2020-07-02 16:43 | RAD ---
EXAM: BILATERAL DIGITAL 3D SCREENING MAMMOGRAPHY. HISTORY: Routine mammographic screening. TECHNIQUE: Bilateral digital 3D and tomographic images were obtained in CC and MLO projections. Computer-aided detection was not currently available. COMPARISON: 06/23/2019. COMPOSITION: B. There are scattered areas of fibroglandular density. FINDINGS: There are no suspicious masses, microcalcifications or architectural distortion. The parenchymal pattern is stable. Scattered, vascular and coarse calcifications are benign. BI-RADS CATEGORY 2: Benign. RECOMMENDATION: 1. Routine screening mammography in one year. If mammography demonstrates dense breast tissue (heterogenously dense or extremely dense, category C or D), which could hide abnormalities, and if other risk factors for breast cancer have been identified, supplemental screening tests that may be suggested by the ordering physician may be of benefit. Dense breast tissue, in and of itself, is a relatively common condition. Therefore, this information is not provided to cause undue concern, but rather to raise awareness and to promote discussion with the referring physician regarding the presence of other risk factors, in addition to dense breast tissue. The results of this mammography examination is provided to the patient and referring physician. The patient should contact their referring physician if any questions or concerns exist regarding this report. PQRS compliance statement - Patient information was entered into a reminder system with a target due date for the next mammogram. "Our facility is accredited by the [employer] Mammography Program." Electronically signed by: Josue Durand MD (07/02/2020 4:40 PM) [facility]
== END | disposition home or self-care (01) ==
LOC: MAMMO 12:23
PROVIDERS: ATTEND Nurse Practitioner Family
DX: Z12.31 Encounter for screening mammogram for malignant neoplasm of breast (principal); N64.89 Other specified disorders of breast
CPT/HCPCS: 77063; 77067

== ENCOUNTER → 2021-03-21 | Outpatient (CLI) | payer MEDICARE ==
[~2021-03-21] MED LIST changes: -AMIO200T4 PO; +AMIO200T6 PO; +AMLO-187 PO; -AMLO10TA8 PO; -DRON400T PO; +DRON400T6 PO
--- NOTE | 2021-03-21 16:15 | CARD ---
MR#: [id number] Date of Study: 03/21/2021 Ordering Physician: JENSEN BALTAZAR, Referring Physician: JENSEN BALTAZAR Tech: Anitha Coa RDCS APPROVED REPORT EXAM: Two-dimensional and M-mode echocardiogram with Doppler and color Doppler. Other Information Quality : Good INDICATION Cardiac Disease: CAD Pacemaker 2015 2D DIMENSIONS RVDd2.6 (2.9-3.5cm)Left Atrium(2D)4.1 (1.6-4.0cm) IVSd0.8 (0.7-1.1cm)Aortic Root(2D)2.5 (2.0-3.7cm) LVDd4.4 (3.9-5.9cm)LVOT Diameter2.0 (1.8-2.4cm) PWd0.7 (0.7-1.1cm)LVDs2.4 (2.5-4.0cm) FS (%) 30.0 %SV69.0 ml LVEF(%)60.0 (>50%) Aortic Valve AoV Peak Delgado.131.5cm/sAoV VTI26.7cm AO Peak GR.6.9mmHgLVOT Peak Delgado.110.4cm/s AO Mean GR.3mmHgAVA (VMAX)2.55cm2 PEYTON (VTI)3.00cm2 Mitral Valve MV E Bobhemac240.6cm/sMV DECEL NNIG350eu MV A Xxpntmbn92.2cm/sE/A Ratio2.9 Tricuspid Valve TR P. Sqaljrrj839mx/sRAP TOIBXIMU6auNv TR Peak Gr.12vcDeIGMQ66yeMx Pulmonary Vein S1 Lwqwubrk15.6cm/sD2 Wpdjnyvx095.9cm/s LEFT VENTRICLE The left ventricle is normal size. There is normal left ventricular wall thickness. The left ventricu lar systolic function is normal and the ejection fraction is within normal range. The Ejection Fracti on is 55-60%. Apical motion consistent with pacemaker activation. Otherwise, grossly normal wall nilson on. Tissue Doppler imaging reveals moderate left ventricular diastolic dysfunction. RIGHT VENTRICLE The right ventricle is normal size. The right ventricular systolic function is normal. There is a pac emaker lead in the right ventricle. ATRIA The left atrium is mildly dilated. The right atrium size is normal. A pacemaker is seen in the right atrium consistent with history. The interatrial septum is intact with no evidence for an atrial septa l defect or patent foramen ovale as noted on 2-D or Doppler imaging. AORTIC VALVE The aortic valve is calcified but opens well. Doppler and Color Flow revealed no significant aortic r egurgitation. There is no significant aortic valvular stenosis. MITRAL VALVE The mitral valve is calcified but opens well. There is no evidence of mitral valve prolapse. There is no mitral valve stenosis. Doppler and Color-flow revealed mild mitral regurgitation. TRICUSPID VALVE The tricuspid valve is normal in structure and function. Doppler and Color Flow revealed moderate tri cuspid regurgitation. There is moderate pulmonary hypertension. The PA pressure was estimated at 57 m mHg. There is no tricuspid valve stenosis. PULMONIC VALVE The pulmonic valve is not well visualized. Doppler and Color Flow revealed mild pulmonic valvular reg urgitation. There is no pulmonic valvular stenosis. GREAT VESSELS The aortic root is normal in size. The ascending aorta is normal in size. The IVC is normal in size a nd collapses >50% with inspiration. PERICARDIAL EFFUSION There is no evidence of significant pericardial effusion. Critical Notification Critical Value: No <Conclusion> The left ventricular systolic function is normal and the ejection fraction is within normal range. Th e Ejection Fraction is 55-60%. Apical motion consistent with pacemaker activation. Otherwise, grossly normal wall motion. There is a pacemaker lead in the right ventricle. Doppler and Color Flow revealed moderate tricuspid regurgitation. There is moderate pulmonary hyperte nsion. The PA pressure was estimated at 57 mmHg. Signed by : Dorian Greer, Electronically Approved : 03/21/2021 16:14:59
== END ==
LOC: ECHO 13:26
PROVIDERS: ATTEND Internal Medicine Cardiovascular Disease
DX: I08.8 Other rheumatic multiple valve diseases (principal); I27.20 Pulmonary hypertension, unspecified; Z95.0 Presence of cardiac pacemaker
CPT/HCPCS: 93306

== ENCOUNTER → 2021-08-08 | Outpatient (CLI) | payer MEDICARE ==
[~2021-08-08] MED LIST changes: +REGADENOSON 0.4 MG/5 ML DISP.SYRIN. IV ONE
--- NOTE | 2021-08-10 10:12 | RAD ---
MR#: [id number] Date of Study: 08/08/2021 Ordering Physician: JENSEN BALTAZAR Referring Physician: SHER DEL REAL Tech: RT Karo Nettles) (N) APPROVED REPORT Test Type: Pharmacological Stress Nurse/Tech: Coco Ahumada RN Test Indications: CAD Cardiac History: HTN, CABG, Stent, PPM Medications: See Electronic Medical Record Medical History: See Electronic Medical Record Resting ECG: AV paced Resting Heart Rate: 60 bpm Resting Blood Pressure: 133/63mmHg Pretest Chest Pain: None Nurse/Tech Notes lungs CTA Consent: The procedure was explained to the patient in lay terms. Informed consent was witnessed. Joe eout was entered into [employer]. History and Stress Test performed by LYUBOV Franco Pharm. Details Pharmacologic stress testing was performed using 0.4mg per 5ml of regadenoson given intravenously ove r 7-10 seconds. Stress Symptoms No chest pain or symptoms. POST EXERCISE Reason for Termination: Infusion complete Max HR: 128 bpm Max Blood Pressure: 121/53mmHg Blood Pressure response to exercise: Normal blood pressure response during stress. Heart Rate response to exercise: normal response Chest Pain: No. Arrhythmia: No. ST Change: No. INTERPRETATION Stress EKG Conclusion: The resting EKG is AV paced. The stress EKG is V paced. Imaging Protocol IMAGE PROTOCOL: Rest Tc-99m/stress Tc-99m 1 day Rest: Stress: Viability: Radiopharm.Tc99m AnjpsggugDc05e Sestamibi Daqu61iIj 31mCi Duration 15min. 15min. Img Date 08/08/2021 08/08/2021 Inj-Img Ustm80wnz. 75min. Rest Admin Site:IV - Left AntecubitalAdministrator:RT Karo Nettles)(N) Stress Admin Site: IV - Left AntecubitalAdministrator: LYUBOV Franco STRESS DATA End Diast. Vol.68.0mlLVEDV index BSA37.0ml End Syst. Vol.13.0mlLVESV index BSA7.0ml Myocardial Uldj245.0gEject. Bmineszw15.0% Stress Scores Regional WT0.00Summed WT0.00 Regional WM0.00Summed WM8.00 LV Perfusion The stress scans show slight apical thinning. The rest scans show slight apical thinning. Nuclear imaging shows no reversible ischemia or infarct. Wall Motion LV systolic function is normal with an ejection fraction of greater than 70%. LV Perf. Quant 17 Seg. SSS1.00 17 Seg. SRS6.00 17 Seg. SDS0.00 Stress Defect Extent (% LAD)3.80Rest Defect Extent (% LAD)6.30Rev. Defect Extent (% LAD)3.80 Stress Defect Extent (% LCX) 0.00Rest Defect Extent (% LCX)10.00Rev. Defect Extent (% LCX)0.00 Stress Defect Extent (% RCA)0.00Rest Defect Extent (% RCA)12.20Rev. Defect Extent (% RCA)0.00 Stress Defect Extent (% NIKHIL)2.00Rest Defect Extent (% NIKHIL)12.80Rev. Defect Extent (% NIKHIL)2.00 Conclusion 1. Paced rhythm throughout the test. 2. Nuclear imaging shows no reversible ischemia or infarct. 3. Left ventricular systolic function is normal with an ejection fraction of greater than 70%. 4. Low risk Lexiscan nuclear stress test. Signed by : Rick Leone MD Electronically Approved : 08/10/2021 10:12:22
== END ==
LOC: NM 09:18
PROVIDERS: ATTEND Internal Medicine Cardiovascular Disease
DX: I25.10 Atherosclerotic heart disease of native coronary artery without angina pectoris (principal)
CPT/HCPCS: 78452; 93017; 93306; A9500; J2785

== ENCOUNTER 2021-11-17 10:29 | Inpatient (IN) | payer MEDICARE ==
[~2021-11-17] VITALS: Ht 167.6 cm; Wt 73.5 kg
[~2021-11-17 10:29] MED LIST changes: +AMIO200T53 PO; -AMIO200T6 PO; -BENA20TA4 PO; +BENA20TA84 PO; -REGADENOSON 0.4 MG/5 ML DISP.SYRIN. IV ONE
--- NOTE | 2021-11-17 11:09 | EKG ---
[facility] [address] [place] [address] Test Date: 2021-11-17 Test Time: 10:53:07 Pat Name: MARY ALICE MICHELE Department: Room: Gender: F German Professor: : 1940 Requested By: EUFEMIA HUGHES Order Number: [id number] Reading MD: Hans Marie Measurements Intervals Noble Rate: 76 P: OR: QRS: -73 QRSD: 192 T: 104 QT: 458 QTc: 520 Interpretive Statements VENTRICULAR PACED RHYTHM VENTRICULAR PREMATURE COMPLEXES Electronically Signed On 11-17-2021 14:23:44 AUTOMOTIVE ENGINEERING TEACHER by Hans Marie
[2021-11-17 11:35] LABS: BASO % 1 % (0-3); EOS % 0 % (0-3); HEMATOCRIT 37.2 % (36.0-47.0); LYMPH # 0.4 x10^3/uL (1.0-4.8); LYMPH % 5 % (24-48); MEAN CORPUSCULAR HEMOGLOBIN 29 pg (25-35); MEAN CORPUSCULAR HGB CONC 35 g/dL (31-37); MEAN CORPUSCULAR VOLUME 83 fL (79-100); MONO # 0.6 x10^3/uL (0.0-1.1); MONO % 8 % (0-9); NEUT # 6.7 x10^3/uL (1.8-7.7); NEUT % 86 % (31-73); PLATELET COUNT 187 x10^3/uL (140-400); RED BLOOD COUNT 4.49 x10^6/uL (3.50-5.40); RED CELL DISTRIBUTION WIDTH 15.1 % (11.5-14.5); WHITE BLOOD COUNT 7.8 x10^3/uL (4.0-11.0)
[2021-11-17 11:39] LABS: CREATININE 1.3 mg/dL (0.6-1.0); GFR 39.3; POTASSIUM 4.4 mmol/L (3.5-5.1)
[2021-11-17 11:44] LABS: ALBUMIN 3.5 g/dL (3.4-5.0); ALBUMIN/GLOBULIN RATIO 0.9 (1.0-1.7); MAGNESIUM 2.3 mg/dL (1.8-2.4); TOTAL PROTEIN 7.4 g/dL (6.4-8.2)
--- NOTE | 2021-11-17 11:58 | RAD ---
Exam Date: 11/17/2021 11:[address] HEAD AND C-SPINE WO Indication: Reason: SYNCOPE. HIT HEAD ON FLOOR, HEADACHE, NECK PAIN / Spl. Instructions: / History: . One or more of the following dose reduction techniques were utilized: *Automated exposure control (AEC) *Adjustment of mA and/or kV according to patient size *Use of iterative reconstruction technique *CT scan done according to ALARA, or ALARA/IMAGE GENTLY EXAMINATION: CT OF THE HEAD WITHOUT CONTRAST INDICATION: Trauma, head injury, headache; TECHNIQUE: Noncontrast helical axial CT images of the head were obtained. FINDINGS: The ventricles and sulci are prominent consistent with cerebral volume loss. Patchy ill-defined low attenuation areas in the subcortical and periventricular white matter bilaterally are consistent with microvascular disease. There is no evidence of acute intracranial hemorrhage, extra-axial collecti on, mass effect, midline shift, or acute territorial infarct. No lesion of the skull base or the calv arium is seen. The visualized paranasal sinuses, mastoid air cells, and orbits are normal in appearan ce. IMPRESSION: No evidence for acute intracranial abnormality. Volume loss and microvascular disease. EXAMINATION: CT OF THE CERVICAL SPINE WITHOUT CONTRAST Clinical Indication: Cervical spine pain after trauma Technique: Thin cut helical axial CT images through the cervical spine were obtained without contrast on a multi-detector CT scanner. Source data was then reconstructed into sagittal and coronal planes. Findings: Alignment is maintained without spondylolisthesis. Vertebral body heights are maintained without acute fracture. Mild to moderate multilevel degenerativ e changes are noted. No significant prevertebral soft tissue swelling is demonstrated. No severe osse ous central canal stenosis is seen. Biapical scarring is seen in the lungs. Impression: No evidence of acute cervical spine fracture or subluxation. Degenerative changes noted. Electronically signed by: Faustino Craft MD (11/17/2021 11:55 AM) [id number]
[2021-11-17] MEDS ORDERED: ONDANSETRON PF 4 MG/2 ML VIAL. IVP ONE (12:15)
--- NOTE | 2021-11-17 12:21 | RAD ---
EXAMINATION: Pelvic radiograph. VIEWS: Renal AP view COMPARISON: None INDICATION:81 years, Female, fell, pelvis pain. FINDINGS: No acute fracture, dislocation or subluxation. No bone erosion or periosteal reaction. Soft tissues a re grossly unremarkable. IMPRESSION: No acute osseous process. Electronically signed by: Jacques Elam DO (11/17/2021 12:18 PM) [id number]
--- NOTE | 2021-11-17 12:24 | RAD ---
EXAMINATION: Chest radiograph. VIEWS: Single AP view of the chest COMPARISON: Chest radiograph from 04/26/2020 INDICATION:81 years, Female, cough. FINDINGS: Left subclavian pacemaker, sternotomy wires and post-CABG changes are reidentified. Stable mildly enl arged cardiac silhouette. Increased bibasilar interstitial opacities with patchy and confluent bilate ral airspace opacities. No pneumothorax or pleural effusion. No acute osseous process. IMPRESSION: Multifocal airspace disease concerning for multifocal pneumonia, pulmonary edema is felt to be less l ikely. Electronically signed by: Jacques Elam DO (11/17/2021 12:21 PM) [id number]
[2021-11-17 12:49] LABS: BILIRUBIN,URINE NEGATIVE (NEG); CLARITY,URINE CLEAR; COLOR,URINE YELLOW; NITRITE,URINE NEGATIVE (NEG); PROTEIN,URINE NEGATIVE (NEG-TRACE); UROBILINOGEN,URINE 0.2 mg/dL (0.2 mg/dL)
[2021-11-17 13:03] LABS: BACTERIA,URINE MANY /HPF (0-FEW)
[2021-11-17] MEDS ORDERED: cefTRIAXone IV Push 1 GM VIAL. IVP ONE (13:45)
--- NOTE | 2021-11-17 14:38 | PHYS DOC ---
Past Medical History Past Medical History: A-Fib, Hypertension Additional Past Medical Histor: Ascites Past Surgical History: Angioplasty, Coronary Bypass Surgery, Pacemaker Additional Past Surgical Histo: vein stripping Smoking Status: Never Smoker Alcohol Use: None Drug Use: None General Adult EDM: Chief Complaint: MECHANICAL FALL HPI: HPI: Patient is a 81 year old female who was brought here by her daughter for evaluation of generalized weakness, body aches, nausea vomiting diarrhea. Patient has been sick for 2 weeks. Patient was walking in her kitchen this morning, she passed out, she landed on her buttocks and hit the back of her head on the floor. Patient was tested negative for COVID-19 infection couple days ago. Patient has history of atrial fibrillation, A. fib, and AICD. Patient says she is not on blood thinners. Patient denies any chest pain or any trouble with breathing at this time. Patient denies any fever. Patient denies any abdominal pain. Patient denies any back pain. Review of Systems: Review of Systems: Constitutional: Denies fever or chills. [] Eyes: Denies change in visual acuity. [] HENT: Denies nasal congestion or sore throat. [] Respiratory: Positive for nonproductive cough, trouble breathing with exertion Cardiovascular: Denies chest pain or edema. [] GI: Denies abdominal pain, positive for nausea vomiting diarrhea : Denies dysuria. [] Musculoskeletal: Denies back pain or joint pain. [] Integument: Denies rash. [] Neurologic: Positive headache, positive for general weakness, Endocrine: Denies polyuria or polydipsia. [] Lymphatic: Denies swollen glands. [] Psychiatric: Denies depression or anxiety. [] Heart Score: C/O Chest Pain: N/A Risk Factors: Risk Factors: DM, Current or recent (<one month) smoker, HTN, HLP, family history of CAD, obesity. Risk Scores: Score 0 - 3: 2.5% MACE over next 6 weeks - Discharge Home Score 4 - 6: 20.3% MACE over next 6 weeks - Admit for Clinical Observation Score 7 - 10: 72.7% MACE over next 6 weeks - Early Invasive Strategies Current Medications: Current Medications Medications (Trade) Dose Ordered Sig/Aileen Start Time Stop Time Status Last Admin Dose Admin Ceftriaxone Sodium (Rocephin) 1 gm 1X ONCE 11/17/21 13:45 11/17/21 13:46 DC Ondansetron HCl (Zofran) 4 mg 1X ONCE 11/17/21 12:15 11/17/21 12:16 DC 11/17/21 12:23 4 MG Allergies: Allergies: Allergies Coded Allergies Type Severity Reaction Last Updated Verified Sulfa (Sulfonamide Antibiotics) Allergy Intermediate Nausea and Vomiting 11/17/21 No Physical Exam: PE: Constitutional: Well developed, well nourished, no acute distress, non-toxic appearance. [] HENT: Normocephalic, atraumatic, bilateral external ears normal, oropharynx dry, no oral exudates, nose normal. [] Eyes: PERRLA, EOMI, conjunctiva normal, no discharge. [] Neck: Normal range of motion, no tenderness, supple, no stridor. [] Cardiovascular: Heart rate is paced, no murmur Lungs & Thorax: Bilateral breath sounds clear to auscultation [] Abdomen: Bowel sounds normal, soft, no tenderness, no masses, no pulsatile masses. [] Skin: Warm, dry, no erythema, no rash. [] Back: No tenderness, no CVA tenderness. [] Extremities: No tenderness, no cyanosis, no clubbing, ROM intact, no edema. [] Neurologic: Alert and oriented X 3, normal motor function, normal sensory function, no focal deficits noted. [] Psychologic: Affect normal, judgement normal, mood normal. [] Current Patient Data: Labs: Laboratory Tests Test 11/17/21 11:03 11/17/21 11:08 11/17/21 12:33 SARS-CoV-2 Antigen (Rapid) Positive (NEGATIVE) *A White Blood Count 7.8 x10^3/uL (4.0-11.0) Red Blood Count 4.49 x10^6/uL (3.50-5.40) Hemoglobin 13.0 g/dL (12.0-15.5) Hematocrit 37.2 % (36.0-47.0) Mean Corpuscular Volume 83 fL (79-100) Mean Corpuscular Hemoglobin 29 pg (25-35) Mean Corpuscular Hemoglobin Concent 35 g/dL (31-37) Red Cell Distribution Width 15.1 % (11.5-14.5) H Platelet Count 187 x10^3/uL (140-400) Neutrophils (%) (Auto) 86 % (31-73) H Lymphocytes (%) (Auto) 5 % (24-48) L Monocytes (%) (Auto) 8 % (0-9) Eosinophils (%) (Auto) 0 % (0-3) Basophils (%) (Auto) 1 % (0-3) Neutrophils # (Auto) 6.7 x10^3/uL (1.8-7.7) Lymphocytes # (Auto) 0.4 x10^3/uL (1.0-4.8) L Monocytes # (Auto) 0.6 x10^3/uL (0.0-1.1) Eosinophils # (Auto) 0.0 x10^3/uL (0.0-0.7) Basophils # (Auto) 0.0 x10^3/uL (0.0-0.2) Sodium Level 125 mmol/L (136-145) L Potassium Level 4.4 mmol/L (3.5-5.1) Chloride Level 90 mmol/L (98-107) L Carbon Dioxide Level 28 mmol/L (21-32) Anion Gap 7 (6-14) Blood Urea Nitrogen 26 mg/dL (7-20) H Creatinine 1.3 mg/dL (0.6-1.0) H Estimated GFR (Cockcroft-Gault) 39.3 BUN/Creatinine Ratio 20 (6-20) Glucose Level 108 mg/dL (70-99) H Calcium Level 9.0 mg/dL (8.5-10.1) Magnesium Level 2.3 mg/dL (1.8-2.4) Total Bilirubin 1.0 mg/dL (0.2-1.0) Aspartate Amino Transferase (AST) 38 U/L (15-37) H Alanine Aminotransferase (ALT) 37 U/L (14-59) Alkaline Phosphatase 105 U/L (46-116) Troponin I High Sensitivity 14 ng/L (4-50) ES-Kks-S-Type Natriuretic Peptide 1039 pg/mL (0-449) H Total Protein 7.4 g/dL (6.4-8.2) Albumin 3.5 g/dL (3.4-5.0) Albumin/Globulin Ratio 0.9 (1.0-1.7) L Lipase 175 U/L (73-393) Urine Collection Type U cath Urine Color Yellow Urine Clarity Clear Urine pH 5.0 (<5.0-8.0) Urine Specific Angie 1.015 (1.000-1.030) Urine Protein Negative mg/dL (NEG-TRACE) Urine Glucose (UA) Negative mg/dL (NEG) Urine Ketones (Stick) Trace mg/dL (NEG) Urine Blood Small (NEG) Urine Nitrite Negative (NEG) Urine Bilirubin Negative (NEG) Urine Urobilinogen Dipstick 0.2 mg/dL (0.2 mg/dL) Urine Leukocyte Esterase Small (NEG) Urine RBC 3-5 /HPF (0-2) Urine WBC 11-20 /HPF (0-4) Urine Transitional Epithelial Cells Occ /LPF Urine Bacteria Many /HPF (0-FEW) Laboratory Tests 11/17/21 11:08 Laboratory Tests 11/17/21 11:08 Vital Signs: Vital Signs Date Time Temp Pulse Resp B/P (MAP) Pulse Ox O2 Delivery O2 Flow Rate FiO2 11/17/21 12:26 76 20 134/60 (84) 96 Room Air 11/17/21 10:43 98.9 98.9 EKG: EKG: [][place] [id number] EKG REPORT Signed PATIENT: MARY ALICE MICHELE ACCOUNT: [id number] : 1940 LOCATION: ER AGE: 81 SEX: F EXAM PROCEDURE: 12 Lead EKG STATUS: REG ER ORD. PHYSICIAN: EUFEMIA HUGHES DO REASON: [address] [address] Test Date: 2021-11-17 Test Time: 10:53:07 Pat Name: MARY ALICE MICHELE Department: Room: Gender: F Lead Business Analyst: : 1940 Requested By: EUFEMIA HUGHES Order Number: [id number] Reading MD: Jensen Baltazar Measurements Intervals [place] Rate: 76 P: MA: QRS: -73 QRSD: 192 T: 104 QT: 458 QTc: 520 Interpretive Statements VENTRICULAR PACED RHYTHM VENTRICULAR PREMATURE COMPLEXES Electronically Signed On 11-17-2021 14:23:44 [address] AWAY DRIVER by Jensen Baltazar DICTATED and SIGNED BY: JENSEN BALTAZAR MD DATE: 11/17/21 [id number] Radiology/Procedures: Radiology/Procedures: [facility] [address] [place] [address] IMAGING REPORT Signed PATIENT: MARY ALICE MICHELE ACCOUNT: [id number] : 1940 LOCATION: ER AGE: 81 SEX: F EXAM STATUS: REG ER ORD. PHYSICIAN: EUFEMIA HUGHES DO REASON: SYNCOPE. HIT HEAD ON FLOOR, HEADACHE, NECK PAIN PROCEDURE: CT HEAD AND CERVICAL SPINE WO Exam Date: 11/17/2021 11:[address] HEAD AND C-SPINE WO Indication: Reason: SYNCOPE. HIT HEAD ON FLOOR, HEADACHE, NECK PAIN / Spl. I nstructions: / History: . One or more of the following dose reduction techniques were utilized: *Automated exposure control (AEC) *Adjustment of mA and/or kV according to patient size *Use of iterative reconstruction technique *CT scan done according to ALARA, or ALARA/IMAGE GENTLY EXAMINATION: CT OF THE HEAD WITHOUT CONTRAST INDICATION: Trauma, head injury, headache; TECHNIQUE: Noncontrast helical axial CT images of the head were obtained. FINDINGS: The ventricles and sulci are prominent consistent with cerebral volume loss. Patchy ill-defined low attenuation areas in the subcortical and periventricular white matter bilaterally are consistent with microvascular disease. There is no evidence of acute intracranial hemorrhage, extra-axial collection, mass effect, midline shift, or acute territorial infarct. No lesion of the skull base or the calvarium is seen. The visualized paranasal sinuses, mastoid air cells, and orbits are normal in appearance. IMPRESSION: No evidence for acute intracranial abnormality. Volume loss and microvascular disease. EXAMINATION: CT OF THE CERVICAL SPINE WITHOUT CONTRAST Clinical Indication: Cervical spine pain after trauma Technique: Thin cut helical axial CT images through the cervical spine were obtained without contrast on a multi-detector CT scanner. Source data was then reconstructed into sagittal and coronal planes. Findings: Alignment is maintained without spondylolisthesis. Vertebral body heights are maintained without acute fracture. Mild to moderate multilevel degenerative changes are noted. No significant prevertebral soft tissue swelling is demonstrated. No severe osseous central canal stenosis is seen. Biapical scarring is seen in the lungs. Impression: No evidence of acute cervical spine fracture or subluxation. D egenerative changes noted. Electronically signed by: Lali Craft MD (11/17/2021 11:55 AM) [id number] DICTATED and SIGNED BY: LALI CRAFT MD DATE: 11/17/21 [id number] [facility] [address] [place], [place] [id number] IMAGING REPORT Signed PATIENT: MARY ALICE MICHELE ACCOUNT: [id number] : 1940 LOCATION: ER AGE: 81 SEX: F EXAM STATUS: REG ER ORD. PHYSICIAN: EUFEMIA HUGHES DO REASON: COUGH CT ALSO PROCEDURE: CHEST AP ONLY EXAMINATION: Chest radiograph. VIEWS: Single AP view of the chest COMPARISON: Chest radiograph from 04/26/2020 INDICATION:81 years, Female, cough. FINDINGS: Left subclavian pacemaker, sternotomy wires and post-CABG changes are reidentified. Stable mildly enlarged cardiac silhouette. Increased bibasilar interstitial opacities with patchy and confluent bilateral airspace opacities. No pneumothorax or pleural effusion. No acute osseous process. IMPRESSION: Multifocal airspace disease concerning for multifocal pneumonia, pulmonary edema is felt to be less likely. Electronically signed by: Sonia Elam DO (11/17/2021 12:21 PM) [id number] DICTATED and SIGNED BY: SONIA ELAM DO DATE: 11/17/21 [id number] [facility] [address] [place] [address] IMAGING REPORT Signed PATIENT: MARY ALICE MICHELE ACCOUNT: [id number] : 1940 LOCATION: ER AGE: 81 SEX: F EXAM STATUS: REG ER ORD. PHYSICIAN: EUFEMIA HUGHES DO REASON: FELL, PELVIS PAIN CT ALSO PROCEDURE: PELVIS EXAMINATION: Pelvic radiograph. VIEWS: Renal AP view COMPARISON: None INDICATION:81 years, Female, fell, pelvis pain. FINDINGS: No acute fracture, dislocation or subluxation. No bone erosion or periosteal reaction. Soft tissues are grossly unremarkable. IMPRESSION: No acute osseous process. Electronically signed by: Sonia Elam DO (11/17/2021 12:18 PM) [id number] DICTATED and SIGNED BY: SONIA ELAM DO DATE: 11/17/21 [id number] Course & Med Decision Making: Course & Med Decision Making Pertinent Labs and Imaging studies reviewed. (See chart for details) Patient is a 81-year-old female who was brought here by family for evaluation of general weakness with nausea vomiting diarrhea. Patient was found to have COVID-19 pneumonia. Patient be admitted to hospital for further evaluation and treatment. Discussed with hospital on-call Dr. Patricio who agreed to admit the patient Dragon Disclaimer: Shirley Disclaimer: This electronic medical record was generated, in whole or in part, using a voice recognition dictation system. Departure Departure Impression: Primary Impression: Pneumonia due to COVID-19 virus Additional Impressions: UTI (urinary tract infection) Syncope and collapse Disposition: ADMITTED INPATIENT Admitting Physician: ANAIS (DR. LAROSE) Condition: STABLE Referrals: ROMAIN MCMILLAN APRN (PCP) EUFEMIA HUGHES DO Nov 17, 2021 14:38
--- NOTE | 2021-11-17 14:48 | PDOC1 ---
History and Physical Date of Admission Date of Admission DATE: 11/17/21 TIME: 14:45 Identification/Chief Complaint Chief Complaint Cough Source Source: Patient History of Present Illness History of Present Illness Ms Cali is an 81-year-old female w/ PMHx SSS s/p permanent pacemaker implantation, s/p AICD, CAD s/p CABG, afib s/p ablation who comes to ED c/o weakness, myalgias, N/V/D for almost 2 weeks. She has had loss off appetite and anosmia as well. She notes she was getting up to make herself food in the kitchen when she became lightheaded and fell back onto her backside and struck the back of her head on the concrete floor. She did not lose consciousness, did not experience any shock, has no focal weakness, no seizure activity. She denies any back pain. No PND or orthopnea. EKG paced WBC 7.8, Hb 13, platelets 187, NA 127, K4.4, BUN 26, CR 1.3, glucose 108, magn esium 2.3, bilirubin 1, AST 38, ALT 37, alkaline phosphatase 105, albumin 3.5, lipase 175, NT proBNP is 1039, high-sensitivity troponin is 14, urinalysis small leuk esterase small blood, rapid COVID-[address] head neck no acute abnormalities, pelvic x-ray with no acute abnormalities no fracture noted. Chest radiograph with bilateral interstitial opacities, median sternotomy wires, AICD. Admitted for further care. Past Medical History Cardiovascular: AFIB, CAD, CHF, HTN, Hyperlipidemia, Other Pulmonary: Other CENTRAL NERVOUS SYSTEM: Other GI: Other Heme/Onc: No pertinent hx Hepatobiliary: No pertinent hx Psych: Anxiety, Depression Musculoskeletal: Osteoarthritis Rheumatologic: No pertinent hx Infectious disease: No pertinent hx Renal/: No pertinent hx Endocrine: No pertinent hx, Hypothyroidism, Other Past Surgical History Past Surgical History: Pacemaker, CABG Family History Family History: Cancer, Diabetes, Heart Disease, Hypertension, Stroke Social History Smoke: No ALCOHOL: none Drugs: None Current Problem List Problem List Problems Medical Problems: (1) Pneumonia due to COVID-19 virus Status: Acute (2) Syncope and collapse Status: Acute (3) UTI (urinary tract infection) Status: Acute Current Medications Current Medications Current Medications Ondansetron HCl (Zofran) 4 mg 1X ONCE IVP Last administered on 11/17/21at 12:23; Start 11/17/21 at 12:15; Stop 11/17/21 at 12:16; Status DC Ceftriaxone Sodium (Rocephin) 1 gm 1X ONCE IVP ; Start 11/17/21 at 13:45; Stop 11/17/21 at 13:46; Status DC Active Scripts Active Naproxen 500 Mg Tablet 1 Tab PO BID PRN Diltiazem 24HR Cd (Diltiazem Hcl) 120 Mg Cap.er.24h 1 Cap PO DAILY 30 Days Toprol XL (Metoprolol Succinate) 50 Mg Tab.er.24h 50 Mg PO DAILY 30 Days Reported Warfarin Sodium 1 Mg Tablet 3 Tab PO DAILY Bumetanide 2 Mg Tablet 1 Tab PO DAILY Potassium Chloride (Potassium Chloride) 10 Meq Tab.sr.24h 2 Tab PO BID Mag-Oxide (Magnesium Oxide) 400 Mg Tablet 1 Tab PO BID Ferrous Sulfate 325 Mg Tablet 325 Mg PO DAILY Levothyroxine Sodium 50 Mcg Tablet 50 Mcg PO DAILYAC Atorvastatin Calcium 10 Mg Tablet 5 Mg PO HS Vitamin D3 (Cholecalciferol (Vitamin D3)) 1,000 Unit Tablet 1,000 Unit PO Fish Oil 1,200 mg Softgel ([place]-3S/Dha/Epa/Fish Oil) 1 Each Capsule 2 Each PO Multivitamins (Multivitamin) 1 Each Tablet 1 Tab PO DAILY Aspirin 81 Mg Tab.chew 1 Tab PO DAILY Allergies Allergies: Coded Allergies: Sulfa (Sulfonamide Antibiotics) (Unverified Allergy, Intermediate, Nausea and Vomiting, 11/17/21) ROS General: YES: Chills, Fatigue, Malaise, Appetite; No: Night Sweats, Other PSYCHOLOGICAL ROS: No: Anxiety, Behavioral Disorder, Concentration difficultie, Decreased libido, Depression, Disorientation, Hallucinations, Hostility, Irritablity, Memory difficulties, Mood Swings, Obsessive thoughts, Physical abuse, Sexual abuse, Sleep disturbances, Suicidal ideation, Other Eyes: No Blurry vision, No Decreased vision, No Double vision, No Dry eyes, No Excessive tearing, No Eye Pain, No Itchy Eyes, No Loss of vision, No Photophobia, No Scotomata, No Uses contacts, No Uses glasses, No Other HEENT: No: Heacaches, Visual Changes, Hearing change, Nasal congestion, Nasal discharge, Oral lesions, Sinus pain, Sore Throat, Epistaxis, Sneezing, Snoring, Tinnitus, Vertigo, Vocal changes, Other ALLERGY AND IMMUNOLOGY: No: Hives, Insect Bite Sensitivity, Itchy/Watery Eyes, Nasal Congestion, Post Nasal Drip, Seasonal Allergies, Other Hematological and Lymphatic: No: Bleeding Problems, Blood Clots, Blood T ransfusions, Brusing, Night Sweats, Pallor, Swollen Lymph Nodes, Other ENDOCRINE: No: Breast Changes, Galactorrhea, Hair Pattern Changes, Hot Flashes, Malaise/lethargy, Mood Swings, Palpitations, Polydipsia/polyuria, Skin Changes, Temperature Intolerance, Unexpected Weight Changes, Other Breast: No New/Changing Breast Lumps, No Nipple changes, No Nipple discharge, No Other Respiratory: YES: Cough, Shortness of breath, SOB with excertion; No: Hemoptysis, Orthopnea, Pleuritic Pain, Sputum Changes, Stridor, Tachypnea, Wheezing, Other Cardiovascular: No Chest Pain, No Palpitations, No Orthopnea, No Paroxysmal No c. Dyspnea, No Edema, No Lt Headedness, No Other Gastrointestinal: Yes Nausea, Yes Vomiting, Yes Diarrhea; No Abdominal Pain, No Constipation, No Melena, No Hematochezia, No Other Genitourinary: No Dysuria, No Frequency, No Incontinence, No Hematuria, No Retention, No Discharge, No Urgency, No Pain, No Flank Pain, No Other, No , No , No , No , No , No , No Musculoskeletal: Yes Gait Disturbance, Yes Muscular Weakness; No Joint Pain, No Joint Stiffness, No Joint Swelling, No Muscle Pain, No Pain In:, No Swelling In:, No Other Neurological: No Behavorial Changes, No Bowel/Bladder ControlChng, No Confusion, No Dizziness, No Gait Disturbance, No Headaches, No Impaired Coord/balance, No Memory Loss, No Numbness/Tingling, No Seizures, No Speech Problems, No Tremors, No Visual Changes, No Weakness, No Other Skin: No Dry Skin, No Eczema, No Hair Changes, No Lumps, No Mole Changes, No Mottling, No Nail Changes, No Pruritus, No Rash, No Skin Lesion Changes, No Other, No Acne Physical Exam General: Alert, Oriented X3, Cooperative, moderate distress HEENT: Atraumatic, PERRLA, EOMI, Mucous membr. moist/pink Lungs: Clear to auscultation, Normal air movement Heart: S1S2, RRR, no thrills, no rubs Abdomen: Normal bowel sounds, Soft, No tenderness, No hepatosplenomegaly, No masses Rectal Exam: not examined Extremities: No clubbing, No cyanosis, No edema, Normal pulses, No tenderness/swelling Skin: No rashes, No breakdown, No significant lesion Neuro: Normal speech, Strength at 5/5 X4 ext, Normal tone, Sensation intact, Cranial nerves 3-12 NL, Reflexes 2+ Psych/Mental Status: Mental status NL, Mood NL Vitals Vitals Vital Signs Date Time Temp Pulse Resp B/P (MAP) Pulse Ox O2 Delivery O2 Flow Rate FiO2 11/17/21 12:26 76 20 134/60 (84) 96 Room Air 11/17/21 10:43 98.9 98.9 Labs Labs Laboratory Tests Test 11/17/21 11:03 11/17/21 11:08 11/17/21 12:33 SARS-CoV-2 Antigen (Rapid) Positive (NEGATIVE) White Blood Count 7.8 x10^3/uL (4.0-11.0) Red Blood Count 4.49 x10^6/uL (3.50-5.40) Hemoglobin 13.0 g/dL (12.0-15.5) Hematocrit 37.2 % (36.0-47.0) Mean Corpuscular Volume 83 fL (79-100) Mean Corpuscular Hemoglobin 29 pg (25-35) Mean Corpuscular Hemoglobin Concent 35 g/dL (31-37) Red Cell Distribution Width 15.1 % (11.5-14.5) Platelet Count 187 x10^3/uL (140-400) Neutrophils (%) (Auto) 86 % (31-73) Lymphocytes (%) (Auto) 5 % (24-48) Monocytes (%) (Auto) 8 % (0-9) Eosinophils (%) (Auto) 0 % (0-3) Basophils (%) (Auto) 1 % (0-3) Neutrophils # (Auto) 6.7 x10^3/uL (1.8-7.7) Lymphocytes # (Auto) 0.4 x10^3/uL (1.0-4.8) Monocytes # (Auto) 0.6 x10^3/uL (0.0-1.1) Eosinophils # (Auto) 0.0 x10^3/uL (0.0-0.7) Basophils # (Auto) 0.0 x10^3/uL (0.0-0.2) Sodium Level 125 mmol/L (136-145) Potassium Level 4.4 mmol/L (3.5-5.1) Chloride Level 90 mmol/L (98-107) Carbon Dioxide Level 28 mmol/L (21-32) Anion Gap 7 (6-14) Blood Urea Nitrogen 26 mg/dL (7-20) Creatinine 1.3 mg/dL (0.6-1.0) Estimated GFR (Cockcroft-Gault) 39.3 BUN/Creatinine Ratio 20 (6-20) Glucose Level 108 mg/dL (70-99) Calcium Level 9.0 mg/dL (8.5-10.1) Magnesium Level 2.3 mg/dL (1.8-2.4) Total Bilirubin 1.0 mg/dL (0.2-1.0) Aspartate Amino Transf (AST/SGOT) 38 U/L (15-37) Alanine Aminotransferase (ALT/SGPT) 37 U/L (14-59) Alkaline Phosphatase 105 U/L (46-116) Troponin I High Sensitivity 14 ng/L (4-50) GU-Zdl-I-Type Natriuretic Peptide 1039 pg/mL (0-449) Total Protein 7.4 g/dL (6.4-8.2) Albumin 3.5 g/dL (3.4-5.0) Albumin/Globulin Ratio 0.9 (1.0-1.7) Lipase 175 U/L (73-393) Urine Collection Type U cath Urine Color Yellow Urine Clarity Clear Urine pH 5.0 (<5.0-8.0) Urine Specific [place] 1.015 (1.000-1.030) Urine Protein Negative mg/dL (NEG-TRACE) Urine Glucose (UA) Negative mg/dL (NEG) Urine Ketones (Stick) Trace mg/dL (NEG) Urine Blood Small (NEG) Urine Nitrite Negative (NEG) Urine Bilirubin Negative (NEG) Urine Urobilinogen Dipstick 0.2 mg/dL (0.2 mg/dL) Urine Leukocyte Esterase Small (NEG) Urine RBC 3-5 /HPF (0-2) Urine WBC 11-20 /HPF (0-4) Urine Transitional Epithelial Cells Occ /LPF Urine Bacteria Many /HPF (0-FEW) Laboratory Tests Test 11/17/21 11:03 11/17/21 11:08 11/17/21 12:33 SARS-CoV-2 Antigen (Rapid) Positive (NEGATIVE) White Blood Count 7.8 x10^3/uL (4.0-11.0) Red Blood Count 4.49 x10^6/uL (3.50-5.40) Hemoglobin 13.0 g/dL (12.0-15.5) Hematocrit 37.2 % (36.0-47.0) Mean Corpuscular Volume 83 fL (79-100) Mean Corpuscular Hemoglobin 29 pg (25-35) Mean Corpuscular Hemoglobin Concent 35 g/dL (31-37) Red Cell Distribution Width 15.1 % (11.5-14.5) Platelet Count 187 x10^3/uL (140-400) Neutrophils (%) (Auto) 86 % (31-73) Lymphocytes (%) (Auto) 5 % (24-48) Monocytes (%) (Auto) 8 % (0-9) Eosinophils (%) (Auto) 0 % (0-3) Basophils (%) (Auto) 1 % (0-3) Neutrophils # (Auto) 6.7 x10^3/uL (1.8-7.7) Lymphocytes # (Auto) 0.4 x10^3/uL (1.0-4.8) Monocytes # (Auto) 0.6 x10^3/uL (0.0-1.1) Eosinophils # (Auto) 0.0 x10^3/uL (0.0-0.7) Basophils # (Auto) 0.0 x10^3/uL (0.0-0.2) Sodium Level 125 mmol/L (136-145) Potassium Level 4.4 mmol/L (3.5-5.1) Chloride Level 90 mmol/L (98-107) Carbon Dioxide Level 28 mmol/L (21-32) Anion Gap 7 (6-14) Blood Urea Nitrogen 26 mg/dL (7-20) Creatinine 1.3 mg/dL (0.6-1.0) Estimated GFR (Cockcroft-Gault) 39.3 BUN/Creatinine Ratio 20 (6-20) Glucose Level 108 mg/dL (70-99) Calcium Level 9.0 mg/dL (8.5-10.1) Magnesium Level 2.3 mg/dL (1.8-2.4) Total Bilirubin 1.0 mg/dL (0.2-1.0) Aspartate Amino Transf (AST/SGOT) 38 U/L (15-37) Alanine Aminotransferase (ALT/SGPT) 37 U/L (14-59) Alkaline Phosphatase 105 U/L (46-116) Troponin I High Sensitivity 14 ng/L (4-50) JR-Xti-U-Type Natriuretic Peptide 1039 pg/mL (0-449) Total Protein 7.4 g/dL (6.4-8.2) Albumin 3.5 g/dL (3.4-5.0) Albumin/Globulin Ratio 0.9 (1.0-1.7) Lipase 175 U/L (73-393) Urine Collection Type U cath Urine Color Yellow Urine Clarity Clear Urine pH 5.0 (<5.0-8.0) Urine Specific [place] 1.015 (1.000-1.030) Urine Protein Negative mg/dL (NEG-TRACE) Urine Glucose (UA) Negative mg/dL (NEG) Urine Ketones (Stick) Trace mg/dL (NEG) Urine Blood Small (NEG) Urine Nitrite Negative (NEG) Urine Bilirubin Negative (NEG) Urine Urobilinogen Dipstick 0.2 mg/dL (0.2 mg/dL) Urine Leukocyte Esterase Small (NEG) Urine RBC 3-5 /HPF (0-2) Urine WBC 11-20 /HPF (0-4) Urine Transitional Epithelial Cells Occ /LPF Urine Bacteria Many /HPF (0-FEW) Images Images CT HEAD AND C-SPINE WO Indication: Reason: SYNCOPE. HIT HEAD ON FLOOR, HEADACHE, NECK PAIN / Spl. Instructions: / History: . One or more of the following dose reduction techniques were utilized: *Automated exposure control (AEC) *Adjustment of mA and/or kV according to patient size *Use of iterative reconstruction technique *CT scan done according to ALARA, or ALARA/IMAGE GENTLY EXAMINATION: CT OF THE HEAD WITHOUT CONTRAST INDICATION: Trauma, head injury, headache; TECHNIQUE: Noncontrast helical axial CT images of the head were obtained. FINDINGS: The ventricles and sulci are prominent consistent with cerebral volume loss. Patchy ill-defined low attenuation areas in the subcortical and periventricular white matter bilaterally are consistent with microvascular disease. There is no evidence of acute intracranial hemorrhage, extra-axial collection, mass effect, midline shift, or acute territorial infarct. No lesion of the skull base or the calvarium is seen. The visualized paranasal sinuses, mastoid air cells, and orbits are normal in appearance. IMPRESSION: No evidence for acute intracranial abnormality. Volume loss and microvascular disease. EXAMINATION: CT OF THE CERVICAL SPINE WITHOUT CONTRAST Clinical Indication: Cervical spine pain after trauma Technique: Thin cut helical axial CT images through the cervical spine were obtained without contrast on a multi-detector CT scanner. Source data was then reconstructed into sagittal and coronal planes. Findings: Alignment is maintained without spondylolisthesis. Vertebral body heights are maintained without acute fracture. Mild to moderate multilevel degenerative changes are noted. No significant prevertebral soft tissue swelling is demonstrated. No severe osseous central canal stenosis is seen. Biapical scarring is seen in the lungs. Impression: No evidence of acute cervical spine fracture or subluxation. Degenerative changes noted. Electronically signed by: Lali Craft MD (11/17/2021 11:55 AM) [id number] DICTATED and SIGNED BY: LALI CRAFT MD DATE: 11/17/21 [id number] [facility] [address] [place] [address] IMAGING REPORT Signed PATIENT: MARY ALICE CALI ACCOUNT: [id number] : 1940 LOCATION: ER AGE: 81 SEX: F EXAM STATUS: REG ER ORD. PHYSICIAN: EUFEMIA HUGHES DO REASON: COUGH CT ALSO PROCEDURE: CHEST AP ONLY EXAMINATION: Chest radiograph. VIEWS: Single AP view of the chest COMPARISON: Chest radiograph from 04/26/2020 INDICATION:81 years, Female, cough. FINDINGS: Left subclavian pacemaker, sternotomy wires and post-CABG changes are reidentified. Stable mildly enlarged cardiac silhouette. Increased bibasilar interstitial opacities with patchy and confluent bilateral airspace opacities. No pneumothorax or pleural effusion. No acute osseous process. IMPRESSION: Multifocal airspace disease concerning for multifocal pneumonia, pulmonary edema is felt to be less likely. Electronically signed by: Sonia Elam DO (11/17/2021 12:21 PM) [id number] DICTATED and SIGNED BY: SONIA ELAM DO DATE: 11/17/21 [id number] [facility] [address] [place] [address] IMAGING REPORT Signed PATIENT: MARY ALICE CALI ACCOUNT: [id number] : 1940 LOCATION: ER AGE: 81 SEX: F EXAM STATUS: REG ER ORD. PHYSICIAN: EUFEMIA HUGHES DO REASON: FELL, PELVIS PAIN CT ALSO PROCEDURE: PELVIS EXAMINATION: Pelvic radiograph. VIEWS: Renal AP view COMPARISON: None INDICATION:81 years, Female, fell, pelvis pain. FINDINGS: No acute fracture, dislocation or subluxation. No bone erosion or periosteal reaction. Soft tissues are grossly unremarkable. IMPRESSION: No acute osseous process. VTE Prophylaxis Ordered VTE Prophylaxis Devices: Yes VTE Pharmacological Prophylaxi: Yes Assessment/Plan Assessment/Plan A/P: Pneumonia - multifocal. Given the symptoms of 2 weeks and comorbidities likely secondary gram negative pneumonia with COVID 19 pneumonia. Empiric antibiotics for CAP COVID 19 -symptomatic with cough, malaise, diarrhea, loss of appetite. Not currently hypoxic, will give supportive care. Fall - likely due to weakness and debility. CT head and pelvis with no acute fracture. PT for gait assessment Hyponatremia - nutritional from COVID, will have casting associate to see NOHELIA - likely vasomotor nephropathy from poor PO intake. Will monitor SSS s/p PPM. Stable CAD s/p CABG - stable Atrial fibrillation s/p ablation - stable, sinus, paced FEN - Cardiac diet PPX - lovenox FULL CODE Dispo - inpatient Justifications for Admission Other Justification LUAN LAROSE MD Nov 17, 2021 14:48
[2021-11-17] MEDS ORDERED: ACETAMINOPHEN 325 MG TABLET. PO PRN (15:45)
[2021-11-17] MEDS ORDERED: guaiFENesin DM 200MG/20MG 10 ML SYRUP PO PRN (15:45)
[2021-11-17] MEDS: ENOXAPARIN 40 MG/0.4 ML SYRINGE. SQ SCH (17:04)
[2021-11-17] MEDS: DOXYCYCLINE HYCLATE 100 MG TABLET PO SCH (17:04)
--- NOTE | 2021-11-17 17:15 | PDOC2 ---
CONSULT Date of Consult Date of Consult DATE: 11/17/21 TIME: 17:03 Reason for Consult Reason for Consult: Syncope Referring Physician Referring Physician: Dr. Najera Identification/Chief Complaint Chief Complaint Generalized weakness Source Source: Chart review, Patient History of Present Illness Reason for Visit: 81-year-old female with history of sick sinus syndrome s/p permanent pacemaker implantation, coronary artery disease s/p CABG, atrial fibrillation/flutter s/p ablation therapy was brought by daughter for 2-week history of generalized weakness, body aches, nausea, vomiting and diarrhea. This morning, apparently when she was walking in her kitchen she had an episode of syncope, landed on her buttocks and hit the back of her head on the floor. She was diagnosed with Covid pneumonia and admitted for further management. She denied any chest pain, orthopnea/PND or palpitations. Past Medical History Cardiovascular: AFIB, CAD, CHF, HTN, Hyperlipidemia, Other Pulmonary: Other CENTRAL NERVOUS SYSTEM: Other GI: Other Heme/Onc: No pertinent hx Hepatobiliary: No pertinent hx Psych: Anxiety, Depression Musculoskeletal: Osteoarthritis Rheumatologic: No pertinent hx Infectious disease: No pertinent hx Renal/: No pertinent hx Endocrine: No pertinent hx, Hypothyroidism, Other Past Surgical History Past Surgical History: Pacemaker, CABG Family History Family History: Cancer, Diabetes, Heart Disease, Hypertension, Stroke Social History ALCOHOL: none Drugs: None Lives: with Family Domestic Violence: Neg Current Problem List Problem List Problems Medical Problems: (1) Pneumonia due to COVID-19 virus Status: Acute (2) Syncope and collapse Status: Acute (3) UTI (urinary tract infection) Status: Acute Current Medications Current Medications Current Medications Ondansetron HCl (Zofran) 4 mg 1X ONCE IVP Last administered on 11/17/21at 12:23; Start 11/17/21 at 12:15; Stop 11/17/21 at 12:16; Status DC Ceftriaxone Sodium (Rocephin) 1 gm 1X ONCE IVP Last administered on 11/17/21at 15:00; Start 11/17/21 at 13:45; Stop 11/17/21 at 13:46; Status DC Ondansetron HCl (Zofran) 4 mg PRN Q4HRS PRN IVP NAUSEA/VOMITING; Start 11/17/21 at 15:45 Tramadol HCl (Ultram) 50 mg PRN Q6HRS PRN PO MILD TO MODERATE PAIN; Start 11/17/21 at 15:45 Guaifenesin (Robitussin Dm) 10 ml PRN Q6HRS PRN PO COUGH; Start 11/17/21 at 15:45 Enoxaparin Sodium (Lovenox 40mg Syringe) 40 mg Q24H SQ ; Start 11/17/21 at 16:00 Acetaminophen (Tylenol) 650 mg PRN Q6HRS PRN PO MILD PAIN / TEMP > 100.3'F; Start 11/17/21 at 15:45 Zinc Sulfate (Orazinc) 220 mg DAILY PO ; Start 11/18/21 at 09:00 Thiamine Mononitrate (Vitamin B-1) 100 mg DAILY PO ; Start 11/18/21 at 09:00 Ascorbic Acid (Vitamin C) 500 mg DAILY PO ; Start 11/18/21 at 09:00 Doxycycline Hyclate (Vibra-Tab) 100 mg BID PO ; Start 11/17/21 at 17:00 Ceftriaxone Sodium (Rocephin) 1 gm Q24H IVP ; Start 11/18/21 at 16:00 Active Scripts Active Naproxen 500 Mg Tablet 1 Tab PO BID PRN Diltiazem 24HR Cd (Diltiazem Hcl) 120 Mg Cap.er.24h 1 Cap PO DAILY 30 Days Toprol XL (Metoprolol Succinate) 50 Mg Tab.er.24h 50 Mg PO DAILY 30 Days Reported Warfarin Sodium 1 Mg Tablet 3 Tab PO DAILY Bumetanide 2 Mg Tablet 1 Tab PO DAILY Potassium Chloride (Potassium Chloride) 10 Meq Tab.sr.24h 2 Tab PO BID Mag-Oxide (Magnesium Oxide) 400 Mg Tablet 1 Tab PO BID Ferrous Sulfate 325 Mg Tablet 325 Mg PO DAILY Levothyroxine Sodium 50 Mcg Tablet 50 Mcg PO DAILYAC Atorvastatin Calcium 10 Mg Tablet 5 Mg PO HS Vitamin D3 (Cholecalciferol (Vitamin D3)) 1,000 Unit Tablet 1,000 Unit PO Fish Oil 1,200 mg Softgel (Garfield-3S/Dha/Epa/Fish Oil) 1 Each Capsule 2 Each PO Multivitamins (Multivitamin) 1 Each Tablet 1 Tab PO DAILY Aspirin 81 Mg Tab.chew 1 Tab PO DAILY Allergies Allergies: Coded Allergies: Sulfa (Sulfonamide Antibiotics) (Unverified Allergy, Intermediate, Nausea and Vomiting, 11/17/21) ROS General: YES: Chills, Fatigue, Malaise, Appetite (Loss of) PSYCHOLOGICAL ROS: No: Hallucinations Eyes: No Loss of vision HEENT: No: Epistaxis Respiratory: YES: Cough; No: Hemoptysis, Shortness of breath Cardiovascular: No Chest Pain Gastrointestinal: Yes Nausea, Yes Vomiting, Yes Diarrhea Genitourinary: No Hematuria Neurological: Yes Other (Syncope); No Seizures Physical Exam General: Alert, No acute distress HEENT: PERRLA Lungs: Other (Scattered crepitations bilaterally) Heart: Regular rate Abdomen: Soft Extremities: No edema Neuro: Normal speech, Normal tone Psych/Mental Status: Mood NL Vitals VITALS Vital Signs Date Time Temp Pulse Resp B/P (MAP) Pulse Ox O2 Delivery O2 Flow Rate FiO2 11/17/21 14:58 74 20 129/60 (83) 98 Room Air 11/17/21 10:43 98.9 98.9 Labs Labs Laboratory Tests Test 11/17/21 11:03 11/17/21 11:08 11/17/21 12:33 11/17/21 15:25 SARS-CoV-2 Antigen (Rapid) Positive (NEGATIVE) White Blood Count 7.8 x10^3/uL (4.0-11.0) Red Blood Count 4.49 x10^6/uL (3.50-5.40) Hemoglobin 13.0 g/dL (12.0-15.5) Hematocrit 37.2 % (36.0-47.0) Mean Corpuscular Volume 83 fL (79-100) Mean Corpuscular Hemoglobin 29 pg (25-35) Mean Corpuscular Hemoglobin Concent 35 g/dL (31-37) Red Cell Distribution Width 15.1 % (11.5-14.5) Platelet Count 187 x10^3/uL (140-400) Neutrophils (%) (Auto) 86 % (31-73) Lymphocytes (%) (Auto) 5 % (24-48) Monocytes (%) (Auto) 8 % (0-9) Eosinophils (%) (Auto) 0 % (0-3) Basophils (%) (Auto) 1 % (0-3) Neutrophils # (Auto) 6.7 x10^3/uL (1.8-7.7) Lymphocytes # (Auto) 0.4 x10^3/uL (1.0-4.8) Monocytes # (Auto) 0.6 x10^3/uL (0.0-1.1) Eosinophils # (Auto) 0.0 x10^3/uL (0.0-0.7) Basophils # (Auto) 0.0 x10^3/uL (0.0-0.2) Sodium Level 125 mmol/L (136-145) Potassium Level 4.4 mmol/L (3.5-5.1) Chloride Level 90 mmol/L (98-107) Carbon Dioxide Level 28 mmol/L (21-32) Anion Gap 7 (6-14) Blood Urea Nitrogen 26 mg/dL (7-20) Creatinine 1.3 mg/dL (0.6-1.0) Estimated GFR (Cockcroft-Gault) 39.3 BUN/Creatinine Ratio 20 (6-20) Glucose Level 108 mg/dL (70-99) Calcium Level 9.0 mg/dL (8.5-10.1) Magnesium Level 2.3 mg/dL (1.8-2.4) Total Bilirubin 1.0 mg/dL (0.2-1.0) Aspartate Amino Transf (AST/SGOT) 38 U/L (15-37) Alanine Aminotransferase (ALT/SGPT) 37 U/L (14-59) Alkaline Phosphatase 105 U/L (46-116) Troponin I High Sensitivity 14 ng/L (4-50) 17 ng/L (4-50) AD-Gmp-I-Type Natriuretic Peptide 1039 pg/mL (0-449) Total Protein 7.4 g/dL (6.4-8.2) Albumin 3.5 g/dL (3.4-5.0) Albumin/Globulin Ratio 0.9 (1.0-1.7) Lipase 175 U/L (73-393) Urine Collection Type U cath Urine Color Yellow Urine Clarity Clear Urine pH 5.0 (<5.0-8.0) Urine Specific [place] 1.015 (1.000-1.030) Urine Protein Negative mg/dL (NEG-TRACE) Urine Glucose (UA) Negative mg/dL (NEG) Urine Ketones (Stick) Trace mg/dL (NEG) Urine Blood Small (NEG) Urine Nitrite Negative (NEG) Urine Bilirubin Negative (NEG) Urine Urobilinogen Dipstick 0.2 mg/dL (0.2 mg/dL) Urine Leukocyte Esterase Small (NEG) Urine RBC 3-5 /HPF (0-2) Urine WBC 11-20 /HPF (0-4) Urine Transitional Epithelial Cells Occ /LPF Urine Bacteria Many /HPF (0-FEW) Laboratory Tests Test 11/17/21 11:03 11/17/21 11:08 11/17/21 12:33 11/17/21 15:25 SARS-CoV-2 Antigen (Rapid) Positive (NEGATIVE) White Blood Count 7.8 x10^3/uL (4.0-11.0) Red Blood Count 4.49 x10^6/uL (3.50-5.40) Hemoglobin 13.0 g/dL (12.0-15.5) Hematocrit 37.2 % (36.0-47.0) Mean Corpuscular Volume 83 fL (79-100) Mean Corpuscular Hemoglobin 29 pg (25-35) Mean Corpuscular Hemoglobin Concent 35 g/dL (31-37) Red Cell Distribution Width 15.1 % (11.5-14.5) Platelet Count 187 x10^3/uL (140-400) Neutrophils (%) (Auto) 86 % (31-73) Lymphocytes (%) (Auto) 5 % (24-48) Monocytes (%) (Auto) 8 % (0-9) Eosinophils (%) (Auto) 0 % (0-3) Basophils (%) (Auto) 1 % (0-3) Neutrophils # (Auto) 6.7 x10^3/uL (1.8-7.7) Lymphocytes # (Auto) 0.4 x10^3/uL (1.0-4.8) Monocytes # (Auto) 0.6 x10^3/uL (0.0-1.1) Eosinophils # (Auto) 0.0 x10^3/uL (0.0-0.7) Basophils # (Auto) 0.0 x10^3/uL (0.0-0.2) Sodium Level 125 mmol/L (136-145) Potassium Level 4.4 mmol/L (3.5-5.1) Chloride Level 90 mmol/L (98-107) Carbon Dioxide Level 28 mmol/L (21-32) Anion Gap 7 (6-14) Blood Urea Nitrogen 26 mg/dL (7-20) Creatinine 1.3 mg/dL (0.6-1.0) Estimated GFR (Cockcroft-Gault) 39.3 BUN/Creatinine Ratio 20 (6-20) Glucose Level 108 mg/dL (70-99) Calcium Level 9.0 mg/dL (8.5-10.1) Magnesium Level 2.3 mg/dL (1.8-2.4) Total Bilirubin 1.0 mg/dL (0.2-1.0) Aspartate Amino Transf (AST/SGOT) 38 U/L (15-37) Alanine Aminotransferase (ALT/SGPT) 37 U/L (14-59) Alkaline Phosphatase 105 U/L (46-116) Troponin I High Sensitivity 14 ng/L (4-50) 17 ng/L (4-50) CH-Xwy-F-Type Natriuretic Peptide 1039 pg/mL (0-449) Total Protein 7.4 g/dL (6.4-8.2) Albumin 3.5 g/dL (3.4-5.0) Albumin/Globulin Ratio 0.9 (1.0-1.7) Lipase 175 U/L (73-393) Urine Collection Type U cath Urine Color Yellow Urine Clarity Clear Urine pH 5.0 (<5.0-8.0) Urine Specific [place] 1.015 (1.000-1.030) Urine Protein Negative mg/dL (NEG-TRACE) Urine Glucose (UA) Negative mg/dL (NEG) Urine Ketones (Stick) Trace mg/dL (NEG) Urine Blood Small (NEG) Urine Nitrite Negative (NEG) Urine Bilirubin Negative (NEG) Urine Urobilinogen Dipstick 0.2 mg/dL (0.2 mg/dL) Urine Leukocyte Esterase Small (NEG) Urine RBC 3-5 /HPF (0-2) Urine WBC 11-20 /HPF (0-4) Urine Transitional Epithelial Cells Occ /LPF Urine Bacteria Many /HPF (0-FEW) Assessment/Plan Assessment/Plan 1. Covid-19 pneumonia: Continue treatment per IM. 2. Syncope: Most probably secondary to dehydration resulting from loss of appetite/N/V/D. Continue intravenous hydration. 3. Sick sinus syndrome s/p permanent pacemaker implantation. Recent device check showed normal function. Her battery is at GUY (elective replacement indicated). Plan for generator change as an outpatient once Covid recovered. 4. Coronary artery disease s/p PCI/stent placement to LAD in the past and subsequent coronary artery bypass surgery for significant left main coronary artery stenosis. Recent Lexiscan nuclear stress test did not show any significant ischemia. Recent cardiac catheterization showed patent OG to LAD, radial artery graft to diagonal and SVG to OM/LCx without any stenosis in ungrafted RCA. She is currently stable and chest pain-free. Continue current secondary prevention measures. 5. Chronic diastolic heart failure: Clinically well compensated. Recent 2D echo showed normal LV systolic function with EF 50 to 55% with diastolic dysfunction. 6. Paroxysmal atrial fibrillation s/p ablation therapy, presently in sinus rhythm. Continue Tikosyn for rhythm maintenance per EP recommendations. 7. Hypertension: Controlled 8. Hyperlipidemia: Continue statin therapy 9. Hypothyroidism: Continue levothyroxine 10. Chronic venous insufficiency: s/p ablation therapy Thank you for your consultation JENSEN BALTAZAR MD Nov 17, 2021 17:15
[2021-11-17 19:22] VITALS: BP 140/66
[2021-11-17] MEDS: ONDANSETRON PF 4 MG/2 ML VIAL. IVP PRN (21:01)
[2021-11-17] MEDS: traMADol 50 MG TABLET PO PRN (21:01)
[2021-11-17 22:17] VITALS: BP 144/66
[2021-11-18 02:03] VITALS: BP 135/62
[2021-11-18 05:21] LABS: BASO % 0 % (0-3); EOS % 0 % (0-3); HEMATOCRIT 34.2 % (36.0-47.0); HEMOGLOBIN 12.3 g/dL (12.0-15.5); LYMPH # 0.5 x10^3/uL (1.0-4.8); LYMPH % 9 % (24-48); MEAN CORPUSCULAR HEMOGLOBIN 29 pg (25-35); MEAN CORPUSCULAR HGB CONC 36 g/dL (31-37); MEAN CORPUSCULAR VOLUME 82 fL (79-100); MONO # 0.6 x10^3/uL (0.0-1.1); MONO % 11 % (0-9); NEUT # 4.7 x10^3/uL (1.8-7.7); NEUT % 80 % (31-73); PLATELET COUNT 190 x10^3/uL (140-400); RED BLOOD COUNT 4.18 x10^6/uL (3.50-5.40); RED CELL DISTRIBUTION WIDTH 14.8 % (11.5-14.5); WHITE BLOOD COUNT 5.8 x10^3/uL (4.0-11.0)
[2021-11-18 05:49] LABS: ALBUMIN 3.1 g/dL (3.4-5.0); ALBUMIN/GLOBULIN RATIO 0.9 (1.0-1.7); CALCIUM 8.8 mg/dL (8.5-10.1); CREATININE 1.1 mg/dL (0.6-1.0); GFR 47.7; POTASSIUM 4.2 mmol/L (3.5-5.1); TOTAL BILIRUBIN 0.8 mg/dL (0.2-1.0); TOTAL PROTEIN 6.6 g/dL (6.4-8.2)
[2021-11-18 06:24] VITALS: BP 128/62
[2021-11-18] MEDS: ZINC SULFATE 220 MG CAPSULE. PO SCH (08:58)
[2021-11-18] MEDS: DOXYCYCLINE HYCLATE 100 MG TABLET PO SCH ×2 (08:58→21:11)
[2021-11-18] MEDS: THIAMINE 100 MG TABLET. PO SCH (08:59)
[2021-11-18] MEDS: ASCORBIC ACID 500 MG TABLET PO SCH (08:59)
--- NOTE | 2021-11-18 11:18 | PDOC ---
NELL HASSAN SOCIAL WORK MSW 11/18/21 1118: CARDIO Progress Notes Date and Time Date of Service 11/18/2021 Time of Evaluation 1040 Subjective Subjective: No Chest Pain, No shortness of breath, No Palpitations, Other (has some nausea) Vitals Vitals Vital Signs Date Time Temp Pulse Resp B/P (MAP) Pulse Ox O2 Delivery O2 Flow Rate FiO2 11/18/21 08:00 Room Air 11/18/21 06:24 98.3 69 19 128/62 (84) 96 2.0 98.3 Weight Weight [ ] Input and Output Intake and Output Intake and Output 11/18/21 07:00 Intake Total 150 ml Output Total 100 ml Balance 50 ml Intake Oral 150 ml Output Urine Total 100 ml # Voids 1 Laboratory Labs Laboratory Tests Test 11/17/21 11:08 11/17/21 12:33 11/17/21 15:25 11/17/21 17:30 White Blood Count 7.8 x10^3/uL (4.0-11.0) Red Blood Count 4.49 x10^6/uL (3.50-5.40) Hemoglobin 13.0 g/dL (12.0-15.5) Hematocrit 37.2 % (36.0-47.0) Mean Corpuscular Volume 83 fL (79-100) Mean Corpuscular Hemoglobin 29 pg (25-35) Mean Corpuscular Hemoglobin Concent 35 g/dL (31-37) Red Cell Distribution Width 15.1 % (11.5-14.5) Platelet Count 187 x10^3/uL (140-400) Neutrophils (%) (Auto) 86 % (31-73) Lymphocytes (%) (Auto) 5 % (24-48) Monocytes (%) (Auto) 8 % (0-9) Eosinophils (%) (Auto) 0 % (0-3) Basophils (%) (Auto) 1 % (0-3) Neutrophils # (Auto) 6.7 x10^3/uL (1.8-7.7) Lymphocytes # (Auto) 0.4 x10^3/uL (1.0-4.8) Monocytes # (Auto) 0.6 x10^3/uL (0.0-1.1) Eosinophils # (Auto) 0.0 x10^3/uL (0.0-0.7) Basophils # (Auto) 0.0 x10^3/uL (0.0-0.2) Sodium Level 125 mmol/L (136-145) Potassium Level 4.4 mmol/L (3.5-5.1) Chloride Level 90 mmol/L (98-107) Carbon Dioxide Level 28 mmol/L (21-32) Anion Gap 7 (6-14) Blood Urea Nitrogen 26 mg/dL (7-20) Creatinine 1.3 mg/dL (0.6-1.0) Estimated GFR (Cockcroft-Gault) 39.3 BUN/Creatinine Ratio 20 (6-20) Glucose Level 108 mg/dL (70-99) Calcium Level 9.0 mg/dL (8.5-10.1) Magnesium Level 2.3 mg/dL (1.8-2.4) Total Bilirubin 1.0 mg/dL (0.2-1.0) Aspartate Amino Transf (AST/SGOT) 38 U/L (15-37) Alanine Aminotransferase (ALT/SGPT) 37 U/L (14-59) Alkaline Phosphatase 105 U/L (46-116) Troponin I High Sensitivity 14 ng/L (4-50) 17 ng/L (4-50) 17 ng/L (4-50) TD-Yuz-R-Type Natriuretic Peptide 1039 pg/mL (0-449) Total Protein 7.4 g/dL (6.4-8.2) Albumin 3.5 g/dL (3.4-5.0) Albumin/Globulin Ratio 0.9 (1.0-1.7) Lipase 175 U/L (73-393) Urine Collection Type U cath Urine Color Yellow Urine Clarity Clear Urine pH 5.0 (<5.0-8.0) Urine Specific [place] 1.015 (1.000-1.030) Urine Protein Negative mg/dL (NEG-TRACE) Urine Glucose (UA) Negative mg/dL (NEG) Urine Ketones (Stick) Trace mg/dL (NEG) Urine Blood Small (NEG) Urine Nitrite Negative (NEG) Urine Bilirubin Negative (NEG) Urine Urobilinogen Dipstick 0.2 mg/dL (0.2 mg/dL) Urine Leukocyte Esterase Small (NEG) Urine RBC 3-5 /HPF (0-2) Urine WBC 11-20 /HPF (0-4) Urine Transitional Epithelial Cells Occ /LPF Urine Bacteria Many /HPF (0-FEW) Test 11/18/21 04:30 White Blood Count 5.8 x10^3/uL (4.0-11.0) Red Blood Count 4.18 x10^6/uL (3.50-5.40) Hemoglobin 12.3 g/dL (12.0-15.5) Hematocrit 34.2 % (36.0-47.0) Mean Corpuscular Volume 82 fL (79-100) Mean Corpuscular Hemoglobin 29 pg (25-35) Mean Corpuscular Hemoglobin Concent 36 g/dL (31-37) Red Cell Distribution Width 14.8 % (11.5-14.5) Platelet Count 190 x10^3/uL (140-400) Neutrophils (%) (Auto) 80 % (31-73) Lymphocytes (%) (Auto) 9 % (24-48) Monocytes (%) (Auto) 11 % (0-9) Eosinophils (%) (Auto) 0 % (0-3) Basophils (%) (Auto) 0 % (0-3) Neutrophils # (Auto) 4.7 x10^3/uL (1.8-7.7) Lymphocytes # (Auto) 0.5 x10^3/uL (1.0-4.8) Monocytes # (Auto) 0.6 x10^3/uL (0.0-1.1) Eosinophils # (Auto) 0.0 x10^3/uL (0.0-0.7) Basophils # (Auto) 0.0 x10^3/uL (0.0-0.2) Sodium Level 129 mmol/L (136-145) Potassium Level 4.2 mmol/L (3.5-5.1) Chloride Level 93 mmol/L (98-107) Carbon Dioxide Level 26 mmol/L (21-32) Anion Gap 10 (6-14) Blood Urea Nitrogen 24 mg/dL (7-20) Creatinine 1.1 mg/dL (0.6-1.0) Estimated GFR (Cockcroft-Gault) 47.7 BUN/Creatinine Ratio 22 (6-20) Glucose Level 82 mg/dL (70-99) Calcium Level 8.8 mg/dL (8.5-10.1) Total Bilirubin 0.8 mg/dL (0.2-1.0) Aspartate Amino Transf (AST/SGOT) 31 U/L (15-37) Alanine Aminotransferase (ALT/SGPT) 32 U/L (14-59) Alkaline Phosphatase 91 U/L (46-116) Total Protein 6.6 g/dL (6.4-8.2) Albumin 3.1 g/dL (3.4-5.0) Albumin/Globulin Ratio 0.9 (1.0-1.7) Microbiology Micro Microbiology 11/17/21 Urine Culture - Preliminary, Resulted Physical Exam Heart: S1S2, RRR (SR) Abdomen: Soft N/T Extremities: No Calf Tenderness Neurology: alert, oriented, follow commands Assessment Assessment 1. Covid-19 pneumonia: Continue treatment per IM. remains hypoxic on RA Continue O2 supplementation 2. Syncope: Most probably secondary to dehydration resulting from loss of appetite/N/V/D. Continue intravenous hydration. 3. Sick sinus syndrome s/p permanent pacemaker implantation. Recent device check showed normal function. Her battery is at GUY (elective replacement indicated). Plan for generator change as an outpatient once Covid recovered. 4. Coronary artery disease s/p PCI/stent placement to LAD in the past and subsequent coronary artery bypass surgery for significant left main coronary artery stenosis. Recent Lexiscan nuclear stress test did not show any sign ificant ischemia. Recent cardiac catheterization showed patent OG to LAD, radial artery graft to diagonal and SVG to OM/LCx without any stenosis in ungrafted RCA. She is currently stable and chest pain-free. Continue current secondary prevention measures. 5. Chronic diastolic heart failure: Clinically well compensated. Recent 2D echo showed normal LV systolic function with EF 50 to 55% with diastolic dysfunction. 6. Paroxysmal atrial fibrillation s/p ablation therapy, presently in sinus rhythm. pt reports that EP has taken off her tikosyn and anticoagulation as well. Continue metoprolol, hold off low dose cardizem till BP is consistently adequate. Continue ASA. 7. Hypertension: Controlled 8. Hyperlipidemia: Continue statin therapy 9. Hypothyroidism: Continue levothyroxine 10. Chronic venous insufficiency: s/p ablation therapy 11. Hyponatremia: per PCP Justicifation of Admission Dx: Justifications for Admission: Justification of Admission Dx: JENSEN Connors MD 11/18/21 1311: CARDIO Progress Notes Assessment Assessment Patient seen and examined. Agree with BEHAVIORAL THERAPY COORDINATOR's assessment and plan. Continue current treatment for Covid pneumonia Syncope most probably secondary to hypovolemia continue intravenous hydration - PAF s/p ablation maintaining sinus rhythm CAD s/p CABG clinically stable SSS s/p PPM with battery at GUY -plan for outpatient generator change once Covid recovered NELL HASSAN APRN Nov 18, 2021 11:18 JENSEN BALTAZAR MD Nov 18, 2021 13:11
[2021-11-18 11:30] VITALS: BP 167/78
--- NOTE | 2021-11-18 12:29 | NUR ---
SS following for discharge planning. SS reviewed pt chart and discussed with pt RN. Pt is from home and is currently on room air. COVID19 positive. Pt on IV Rocephin. Cardiology consulted. PT/OT ordered. SS will continue to follow for discharge planning.
[2021-11-18] MEDS: ASPIRIN CHEWABLE 81 MG TABLET. PO SCH (13:49)
[2021-11-18] MEDS: METOPROLOL SUCC 24HR ER 50 MG TAB.ER.24H. PO SCH (13:49)
--- NOTE | 2021-11-18 15:11 | NUR ---
SPOKE WITH PT'S DAUGHTER TO UPDATE ABOUT CONDITION AND ORAL INTAKE. INFORM THAT PT/OT WORKED WITH PT AND SHE IS NOW UP IN A CHAIR. DAUGHTER STATES THAT SHE DOES NOT WANT PATIENT RECEIVING REMDESIVIR UNDER ANY CIRCUMSTANCE. INFORMED DAUGHTER THAT I WOULD NOTE THIS AND THAT I WOULD HAVE ATTENDING PHYSICIAN CONTACT HER IF THEY FEEL PT NEEDS MEDICATION AND EDUCATE ON THE THE BENEFITS. WILL CONTINUE TO ASSESS.
[2021-11-18 15:18] VITALS: BP 121/60
--- NOTE | 2021-11-18 15:41 | PDOC ---
[facility] [facility] PROGRESS NOTE Date of Service DOS: DATE: 11/18/21 TIME: 15:39 Chief Complaint Chief Complaint Assessment/Plan Pneumonia - multifocal. Given the symptoms of 2 weeks and comorbidities likely secondary gram negative pneumonia with COVID 19 pneumonia. Empiric antibiotics for CAP COVID 19 -symptomatic with cough, malaise, diarrhea, loss of appetite. Not currently hypoxic, will give supportive care. Fall - likely due to weakness and debility. CT head and pelvis with no acute fracture. PT for gait assessment Hyponatremia - nutritional from COVID, will have diesel retrofit installer to see NOHELIA - likely vasomotor nephropathy from poor PO intake. Will monitor SSS s/p PPM. Stable CAD s/p CABG - stable Atrial fibrillation s/p ablation - stable, sinus, paced FEN - Cardiac diet PPX - lovenox FULL CODE Dispo - inpatient History of Present Illness History of Present Illness 81-year-old female w/ PMHx SSS s/p permanent pacemaker implantation, s/p AICD, CAD s/p CABG, afib s/p ablation who comes to ED c/o weakness, myalgias, N/V/D for almost 2 weeks. She has had loss off appetite and anosmia as well. She notes she was getting up to make herself food in the kitchen when she became lightheaded and fell back onto her backside and struck the back of her head on the concrete floor. She did not lose consciousness, did not experience any shock, has no focal weakness, no seizure activity. She denies any back pain. No PND or orthopnea. EKG paced WBC 7.8, Hb 13, platelets 187, NA 127, K4.4, BUN 26, CR 1.3, glucose 108, magnesium 2.3, bilirubin 1, AST 38, ALT 37, alkaline phosphatase 105, albumin 3.5, lipase 175, NT proBNP is 1039, high-sensitivity troponin is 14, urinalysis small leuk esterase small blood, rapid COVID-[address] head neck no acute abnormalities, pelvic x-ray with no acute abnormalities no fracture noted. Chest radiograph with bilateral interstitial opacities, median sternotomy wires, AICD. Admitted for further care. 11/18/2021 No acute events overnight. Patient seen and examined bedside. Saturating 96% on 2 L nasal cannula. Pending PT OT evaluation. Vitals/I&O Vitals/I&O: Vital Signs Date Time Temp Pulse Resp B/P (MAP) Pulse Ox O2 Delivery O2 Flow Rate FiO2 11/18/21 15:18 98.1 68 19 121/60 (80) 97 Nasal Cannula 2.0 98.1 I & O 11/17/21 11/17/21 11/18/21 15:00 23:00 07:00 Intake Total 150 ml Output Total 100 ml Balance -100 ml 150 ml Physical Exam General: Alert, Oriented X3, Cooperative, moderate distress Heart: Regular rate Lungs: Clear Abdomen: Normal bowel sounds, Soft, No tenderness, No hepatosplenomegaly, No masses Extremities: No clubbing, No cyanosis, No edema, Normal pulses, No tenderness/swelling Skin: No rashes, No breakdown, No significant lesion Labs Labs: Laboratory Tests Test 11/17/21 17:30 11/18/21 04:30 Troponin I High Sensitivity 17 ng/L (4-50) White Blood Count 5.8 x10^3/uL (4.0-11.0) Red Blood Count 4.18 x10^6/uL (3.50-5.40) Hemoglobin 12.3 g/dL (12.0-15.5) Hematocrit 34.2 % (36.0-47.0) Mean Corpuscular Volume 82 fL (79-100) Mean Corpuscular Hemoglobin 29 pg (25-35) Mean Corpuscular Hemoglobin Concent 36 g/dL (31-37) Red Cell Distribution Width 14.8 % (11.5-14.5) Platelet Count 190 x10^3/uL (140-400) Neutrophils (%) (Auto) 80 % (31-73) Lymphocytes (%) (Auto) 9 % (24-48) Monocytes (%) (Auto) 11 % (0-9) Eosinophils (%) (Auto) 0 % (0-3) Basophils (%) (Auto) 0 % (0-3) Neutrophils # (Auto) 4.7 x10^3/uL (1.8-7.7) Lymphocytes # (Auto) 0.5 x10^3/uL (1.0-4.8) Monocytes # (Auto) 0.6 x10^3/uL (0.0-1.1) Eosinophils # (Auto) 0.0 x10^3/uL (0.0-0.7) Basophils # (Auto) 0.0 x10^3/uL (0.0-0.2) Sodium Level 129 mmol/L (136-145) Potassium Level 4.2 mmol/L (3.5-5.1) Chloride Level 93 mmol/L (98-107) Carbon Dioxide Level 26 mmol/L (21-32) Anion Gap 10 (6-14) Blood Urea Nitrogen 24 mg/dL (7-20) Creatinine 1.1 mg/dL (0.6-1.0) Estimated GFR (Cockcroft-Gault) 47.7 BUN/Creatinine Ratio 22 (6-20) Glucose Level 82 mg/dL (70-99) Calcium Level 8.8 mg/dL (8.5-10.1) Total Bilirubin 0.8 mg/dL (0.2-1.0) Aspartate Amino Transf (AST/SGOT) 31 U/L (15-37) Alanine Aminotransferase (ALT/SGPT) 32 U/L (14-59) Alkaline Phosphatase 91 U/L (46-116) Total Protein 6.6 g/dL (6.4-8.2) Albumin 3.1 g/dL (3.4-5.0) Albumin/Globulin Ratio 0.9 (1.0-1.7) Assessment and Plan Assessmemt and Plan Problems Medical Problems: (1) Pneumonia due to COVID-19 virus Status: Acute (2) Syncope and collapse Status: Acute (3) UTI (urinary tract infection) Status: Acute Comment Review of Relevant I have reviewed the following items walt (where applicable) has been applied. Medications: Current Medications Medications (Trade) Dose Ordered Sig/Aileen Route PRN Reason Start Time Stop Time Status Last Admin Dose Admin Ondansetron HCl (Zofran) 4 mg PRN Q4HRS PRN IVP NAUSEA/VOMITING 11/17/21 15:45 11/17/21 21:01 Tramadol HCl (Ultram) 50 mg PRN Q6HRS PRN PO MODERATE - SEVERE PAIN 11/17/21 15:45 11/17/21 21:01 Enoxaparin Sodium (Lovenox 40mg Syringe) 40 mg Q24H SQ 11/17/21 16:00 11/17/21 17:04 Zinc Sulfate (Orazinc) 220 mg DAILY PO 11/18/21 09:00 1/7/22 08:58 Thiamine Mononitrate (Vitamin B-1) 100 mg DAILY PO 11/18/21 09:00 11/18/21 08:59 Ascorbic Acid (Vitamin C) 500 mg DAILY PO 11/18/21 09:00 11/18/21 08:59 Doxycycline Hyclate (Vibra-Tab) 100 mg BID PO 11/17/21 17:00 11/18/21 08:58 Aspirin (Aspirin Chewable) 81 mg DAILY PO 11/18/21 12:00 11/18/21 13:49 Metoprolol Succinate (Toprol Xl) 50 mg DAILY PO 11/18/21 12:00 11/18/21 13:49 Justifications for Admission Other Justification AWILDA DELATORRE MD Nov 18, 2021 15:41
[2021-11-18] MEDS: ENOXAPARIN 40 MG/0.4 ML SYRINGE. SQ SCH (17:59)
[2021-11-18] MEDS: cefTRIAXone IV Push 1 GM VIAL. IVP SCH (18:01)
--- NOTE | 2021-11-18 18:26 | NUR ---
CONTACT DR. OSORIO TO OBTAIN MEDICATION FOR ACID REFLUX NO PROPHYLACTIC PPI HAS BEEN ORDERED.
--- NOTE | 2021-11-18 18:51 | NUR ---
RETURN PT FROM CHAIR TO BED AND PLACE BED ALARM ON, FILLED WATER. BEDSIDE REPORT GIVEN TO NIGHT.
[2021-11-18 19:42] VITALS: BP 136/62
[2021-11-18] MEDS: ATORVASTATIN CALCIUM 10 MG TABLET. PO SCH (21:11)
[2021-11-18] MEDS: LACTOBACILLUS RHAMNOSUS GG 1 CAPSULE. PO SCH (21:11)
[2021-11-18] MEDS: PANTOPRAZOLE IV PUSH 40 MG VIAL. IVP SCH (21:11)
[2021-11-18 22:24] VITALS: BP 158/71
[2021-11-18] MEDS: ONDANSETRON PF 4 MG/2 ML VIAL. IVP PRN (23:09)
[2021-11-18] MEDS: traMADol 50 MG TABLET PO PRN (23:09)
[2021-11-19 02:08] VITALS: BP 142/63
[2021-11-19 05:01] LABS: BASO % 0 % (0-3); EOS % 0 % (0-3); HEMOGLOBIN 12.5 g/dL (12.0-15.5); LYMPH # 0.5 x10^3/uL (1.0-4.8); LYMPH % 5 % (24-48); MEAN CORPUSCULAR HEMOGLOBIN 29 pg (25-35); MEAN CORPUSCULAR HGB CONC 36 g/dL (31-37); MEAN CORPUSCULAR VOLUME 82 fL (79-100); MONO # 0.6 x10^3/uL (0.0-1.1); MONO % 7 % (0-9); NEUT # 7.7 x10^3/uL (1.8-7.7); NEUT % 88 % (31-73); PLATELET COUNT 215 x10^3/uL (140-400); RED BLOOD COUNT 4.25 x10^6/uL (3.50-5.40); RED CELL DISTRIBUTION WIDTH 14.8 % (11.5-14.5); WHITE BLOOD COUNT 8.8 x10^3/uL (4.0-11.0)
[2021-11-19 05:25] LABS: ALBUMIN 3.2 g/dL (3.4-5.0); ALBUMIN/GLOBULIN RATIO 0.9 (1.0-1.7); CALCIUM 9.4 mg/dL (8.5-10.1); GFR 53.2; POTASSIUM 4.5 mmol/L (3.5-5.1); TOTAL BILIRUBIN 0.7 mg/dL (0.2-1.0); TOTAL PROTEIN 6.9 g/dL (6.4-8.2)
[2021-11-19] MEDS: ONDANSETRON PF 4 MG/2 ML VIAL. IVP PRN ×2 (05:39→17:11)
[2021-11-19 07:00] VITALS: BP 151/69
[2021-11-19] MEDS: LACTOBACILLUS RHAMNOSUS GG 1 CAPSULE. PO SCH ×2 (08:30→20:06)
[2021-11-19] MEDS: THIAMINE 100 MG TABLET. PO SCH (08:30)
[2021-11-19] MEDS: ASCORBIC ACID 500 MG TABLET PO SCH (08:30)
[2021-11-19] MEDS: DOXYCYCLINE HYCLATE 100 MG TABLET PO SCH ×2 (08:30→20:06)
[2021-11-19] MEDS: ZINC SULFATE 220 MG CAPSULE. PO SCH (08:30)
[2021-11-19] MEDS: ASPIRIN CHEWABLE 81 MG TABLET. PO SCH (08:30)
[2021-11-19] MEDS ORDERED: PROCHLORPERAZINE 10 MG/2 ML VIAL. IV PRN (08:30)
[2021-11-19] MEDS: IV NORMAL SALINE 1000ML BAG 1,000 ML IV SCH ×2 (09:38→20:06)
[2021-11-19] MEDS: METOPROLOL SUCC 24HR ER 50 MG TAB.ER.24H. PO SCH (09:40)
--- NOTE | 2021-11-19 10:57 | PDOC ---
PROGRESS NOTES Date of Service: DATE: 11/19/21 TIME: 10:57 Subjective Subjective c/o nausea and lack of appetite Objective Objective Vital Signs Date Time Temp Pulse Resp B/P (MAP) Pulse Ox O2 Delivery O2 Flow Rate FiO2 11/19/21 09:40 50 151/69 11/19/21 07:00 97.9 20 94 Nasal Cannula 2.0 97.9 Intake and Output 11/19/21 07:00 Intake Total 1100 ml Balance 1100 ml Intake Oral 1100 ml # Voids 3 Physical Exam Abdomen: Normal bowel sounds, Soft, No tenderness, No hepatosplenomegaly, No masses Heart: Regular rate Extremities: No clubbing, No cyanosis, No edema, Normal pulses, No tenderness/swelling General: Alert, Oriented X3, Cooperative, moderate distress HEENT: Atraumatic, PERRLA, EOMI, Mucous membr. moist/pink Lungs: Clear to auscultation, Normal air movement MUSCULOSKELETAL: No deformity Neuro: Normal speech, Strength at 5/5 X4 ext, Normal tone, Sensation intact, Cranial nerves 3-12 NL, Reflexes 2+ Psych/Mental Status: Mental status NL, Mood NL Skin: No rashes, No breakdown, No significant lesion Assessment Assessment 1. Covid-19 pneumonia: Continue treatment per IM. remains hypoxic on RA Continue O2 supplementation 2. Syncope: Most probably secondary to dehydration resulting from loss of appetite/N/V/D. Continue intravenous hydration. 3. Sick sinus syndrome s/p permanent pacemaker implantation. Recent device c heck showed normal function. Her battery is at GUY (elective replacement indicated). Plan for generator change as an outpatient once Covid recovered. 4. Coronary artery disease s/p PCI/stent placement to LAD in the past and subsequent coronary artery bypass surgery for significant left main coronary artery stenosis. Recent Lexiscan nuclear stress test did not show any significa nt ischemia. Recent cardiac catheterization showed patent OG to LAD, radial artery graft to diagonal and SVG to OM/LCx without any stenosis in ungrafted RCA. She is currently stable and chest pain-free. Continue current secondary prevention measures. 5. Chronic diastolic heart failure: Clinically well compensated. Recent 2D echo showed normal LV systolic function with EF 50 to 55% with diastolic dysfunction. 6. Paroxysmal atrial fibrillation s/p ablation therapy, presently in sinus rhythm. pt reports that EP has taken off her tikosyn and anticoagulation as well. Continue metoprolol, hold off low dose cardizem till BP is consistently adequate. Continue ASA. 7. Hypertension: Controlled 8. Hyperlipidemia: Continue statin therapy 9. Hypothyroidism: Continue levothyroxine 10. Chronic venous insufficiency: s/p ablation therapy 11. Hyponatremia: per PCP Plan Plan of Care Problems Medical Problems: (1) Pneumonia due to COVID-19 virus Status: Acute (2) Syncope and collapse Status: Acute (3) UTI (urinary tract infection) Status: Acute Comment Review of Relevant I have reviewed the following items walt (where applicable) has been applied. Labs Laboratory Tests Test 11/19/21 04:30 White Blood Count 8.8 x10^3/uL (4.0-11.0) Red Blood Count 4.25 x10^6/uL (3.50-5.40) Hemoglobin 12.5 g/dL (12.0-15.5) Hematocrit 35.0 % (36.0-47.0) Mean Corpuscular Volume 82 fL (79-100) Mean Corpuscular Hemoglobin 29 pg (25-35) Mean Corpuscular Hemoglobin Concent 36 g/dL (31-37) Red Cell Distribution Width 14.8 % (11.5-14.5) Platelet Count 215 x10^3/uL (140-400) Neutrophils (%) (Auto) 88 % (31-73) Lymphocytes (%) (Auto) 5 % (24-48) Monocytes (%) (Auto) 7 % (0-9) Eosinophils (%) (Auto) 0 % (0-3) Basophils (%) (Auto) 0 % (0-3) Neutrophils # (Auto) 7.7 x10^3/uL (1.8-7.7) Lymphocytes # (Auto) 0.5 x10^3/uL (1.0-4.8) Monocytes # (Auto) 0.6 x10^3/uL (0.0-1.1) Eosinophils # (Auto) 0.0 x10^3/uL (0.0-0.7) Basophils # (Auto) 0.0 x10^3/uL (0.0-0.2) Sodium Level 129 mmol/L (136-145) Potassium Level 4.5 mmol/L (3.5-5.1) Chloride Level 93 mmol/L (98-107) Carbon Dioxide Level 24 mmol/L (21-32) Anion Gap 12 (6-14) Blood Urea Nitrogen 30 mg/dL (7-20) Creatinine 1.0 mg/dL (0.6-1.0) Estimated GFR (Cockcroft-Gault) 53.2 BUN/Creatinine Ratio 30 (6-20) Glucose Level 108 mg/dL (70-99) Calcium Level 9.4 mg/dL (8.5-10.1) Total Bilirubin 0.7 mg/dL (0.2-1.0) Aspartate Amino Transf (AST/SGOT) 28 U/L (15-37) Alanine Aminotransferase (ALT/SGPT) 32 U/L (14-59) Alkaline Phosphatase 95 U/L (46-116) Total Protein 6.9 g/dL (6.4-8.2) Albumin 3.2 g/dL (3.4-5.0) Albumin/Globulin Ratio 0.9 (1.0-1.7) Microbiology 11/17/21 Urine Culture - Final, Complete 11/17/21 Antimicrobic Susceptibility - Final, Complete Medications Current Medications Aspirin (Aspirin Chewable) 81 mg DAILY PO Last administered on 11/19/21 08:30; Start 11/18/21 at 12:00 Atorvastatin Calcium (Lipitor) 5 mg HS PO Last administered on 11/18/21 21:11; Start 11/18/21 at 21:00 Ceftriaxone Sodium (Rocephin) 1 gm Q24H IVP Last administered on 11/18/21 18:01; Start 11/18/21 at 16:00 Lactobacillus Rhamnosus (Culturelle) 1 cap BID PO Last administered on 11/19/21 08:30; Start 11/18/21 at 21:00 Metoprolol Succinate (Toprol Xl) 50 mg DAILY PO Last administered on 11/19/21 09:40; Start 11/18/21 at 12:00 Pantoprazole Sodium (PROTONIX VIAL for IV PUSH) 40 mg QHS IVP Last administered on 11/18/21 21:11; Start 11/18/21 at 21:00 Prochlorperazine Edisylate (Compazine) 10 mg PRN Q6HRS PRN IV NAUSEA/VOMITING, 2ND CHOICE Last administered on 1/8/22at 08:49; Start 11/19/21 at 08:30 Sodium Chloride 1,000 ml @ 100 mls/hr Q10H IV Last administered on 11/19/21at 09:38; Start 11/19/21 at 09:00; Stop 11/20/21 at 08:59 Vitals/I & O Vital Sign - Last 24 Hours 11/18/21 11/18/21 11/18/21 11/18/21 11:30 13:49 15:18 19:42 Temp 98.0 98.1 98.0 98.0 98.1 98.0 Pulse 75 75 68 72 Resp 19 19 19 B/P (MAP) 167/78 (107) 167/78 121/60 (80) 136/62 (86) Pulse Ox 96 97 96 O2 Delivery Nasal Cannula Nasal Cannula Nasal Cannula O2 Flow Rate 2.0 2.0 2.0 11/18/21 11/18/21 11/18/21 11/18/21 20:00 22:24 23:09 23:39 Temp 98.2 98.2 Pulse 72 Resp 19 18 20 B/P (MAP) 158/71 (100) Pulse Ox 95 95 95 O2 Delivery Nasal Cannula Nasal Cannula Room Air Room Air O2 Flow Rate 2.0 2.0 2.0 2.0 11/19/21 11/19/21 11/19/21 02:08 07:00 09:40 Temp 98.1 97.9 98.1 97.9 Pulse 60 80 50 Resp 19 20 B/P (MAP) 142/63 (89) 151/69 (96) 151/69 Pulse Ox 98 94 O2 Delivery Nasal Cannula Nasal Cannula O2 Flow Rate 2.0 2.0 Intake and Output 0 11/18/21 11/18/21 11/19/21 15:00 23:00 07:00 Intake Total 400 ml 600 ml 100 ml Balance 400 ml 600 ml 100 ml JENSEN BALTAZAR MD Nov 19, 2021 10:57
[2021-11-19 11:00] VITALS: BP 130/72
[2021-11-19] MEDS: FAMOTIDINE 20 MG TABLET. PO SCH (12:04)
[2021-11-19] MEDS: CALCIUM CARBONATE 500 MG TAB.CHEW PO PRN (12:04)
--- NOTE | 2021-11-19 14:25 | PDOC ---
[facility] PROGRESS NOTE Date of Service DOS: DATE: 11/19/21 TIME: 14:21 Chief Complaint Chief Complaint Assessment/Plan Pneumonia - multifocal. Given the symptoms of 2 weeks and comorbidities likely secondary gram negative pneumonia with COVID 19 pneumonia. Empiric antibiotics for CAP COVID 19 -symptomatic with cough, malaise, diarrhea, loss of appetite. Not currently hypoxic, will give supportive care. Fall - likely due to weakness and debility. CT head and pelvis with no acute fracture. PT for gait assessment Hyponatremia - nutritional from COVID, will have dispensing optician to see NOHELIA - likely vasomotor nephropathy from poor PO intake. Will monitor SSS s/p PPM. Stable CAD s/p CABG - stable Atrial fibrillation s/p ablation - stable, sinus, paced FEN - Cardiac diet PPX - lovenox FULL CODE Dispo - inpatient History of Present Illness History of Present Illness 81-year-old female w/ PMHx SSS s/p permanent pacemaker implantation, s/p AICD, CAD s/p CABG, afib s/p ablation who comes to ED c/o weakness, myalgias, N/V/D for almost 2 weeks. She has had loss off appetite and anosmia as well. She notes she was getting up to make herself food in the kitchen when she became lightheaded and fell back onto her backside and struck the back of her head on the concrete floor. She did not lose consciousness, did not experience any shock, has no focal weakness, no seizure activity. She denies any back pain. No PND or orthopnea. EKG paced WBC 7.8, Hb 13, platelets 187, NA 127, K4.4, BUN 26, CR 1.3, glucose 108, magnesium 2.3, bilirubin 1, AST 38, ALT 37, alkaline phosphatase 105, albumin 3.5, lipase 175, NT proBNP is 1039, high-sensitivity troponin is 14, urinalysis small leuk esterase small blood, rapid COVID-[address] head neck no acute abnormalities, pelvic x-ray with no acute abnormalities no fracture noted. Chest radiograph with bilateral interstitial opacities, median sternotomy wires, AICD. Admitted for further care. 11/18/2021 No acute events overnight. Patient seen and examined bedside. Saturating 96% on 2 L nasal cannula. Pending PT OT evaluation. 11/19/2021 No acute events overnight. Patient seen and examined bedside. Complaining of some nausea vomiting. Sodium decreased to 129 and potassium increased to 4.5. Will start NS at 100 cc/h. Saturating 98% on 2 L nasal cannula. Patient's chart, labs, images were reviewed and discussed with RN Vitals/I&O Vitals/I&O: Vital Signs Date Time Temp Pulse Resp B/P (MAP) Pulse Ox O2 Delivery O2 Flow Rate FiO2 11/19/21 09:40 50 151/69 11/19/21 07:00 97.9 20 94 Nasal Cannula 2.0 97.9 I & O 11/18/21 11/18/21 11/19/21 15:00 23:00 07:00 Intake Total 400 ml 600 ml 100 ml Balance 400 ml 600 ml 100 ml Physical Exam General: Alert, Oriented X3, Cooperative, moderate distress Heart: Regular rate Lungs: Clear Abdomen: Normal bowel sounds, Soft, No tenderness, No hepatosplenomegaly, No masses Extremities: No clubbing, No cyanosis, No edema, Normal pulses, No tenderness/swelling Skin: No rashes, No breakdown, No significant lesion Labs Labs: Laboratory Tests Test 11/19/21 04:30 White Blood Count 8.8 x10^3/uL (4.0-11.0) Red Blood Count 4.25 x10^6/uL (3.50-5.40) Hemoglobin 12.5 g/dL (12.0-15.5) Hematocrit 35.0 % (36.0-47.0) Mean Corpuscular Volume 82 fL (79-100) Mean Corpuscular Hemoglobin 29 pg (25-35) Mean Corpuscular Hemoglobin Concent 36 g/dL (31-37) Red Cell Distribution Width 14.8 % (11.5-14.5) Platelet Count 215 x10^3/uL (140-400) Neutrophils (%) (Auto) 88 % (31-73) Lymphocytes (%) (Auto) 5 % (24-48) Monocytes (%) (Auto) 7 % (0-9) Eosinophils (%) (Auto) 0 % (0-3) Basophils (%) (Auto) 0 % (0-3) Neutrophils # (Auto) 7.7 x10^3/uL (1.8-7.7) Lymphocytes # (Auto) 0.5 x10^3/uL (1.0-4.8) Monocytes # (Auto) 0.6 x10^3/uL (0.0-1.1) Eosinophils # (Auto) 0.0 x10^3/uL (0.0-0.7) Basophils # (Auto) 0.0 x10^3/uL (0.0-0.2) Sodium Level 129 mmol/L (136-145) Potassium Level 4.5 mmol/L (3.5-5.1) Chloride Level 93 mmol/L (98-107) Carbon Dioxide Level 24 mmol/L (21-32) Anion Gap 12 (6-14) Blood Urea Nitrogen 30 mg/dL (7-20) Creatinine 1.0 mg/dL (0.6-1.0) Estimated GFR (Cockcroft-Gault) 53.2 BUN/Creatinine Ratio 30 (6-20) Glucose Level 108 mg/dL (70-99) Calcium Level 9.4 mg/dL (8.5-10.1) Total Bilirubin 0.7 mg/dL (0.2-1.0) Aspartate Amino Transf (AST/SGOT) 28 U/L (15-37) Alanine Aminotransferase (ALT/SGPT) 32 U/L (14-59) Alkaline Phosphatase 95 U/L (46-116) Total Protein 6.9 g/dL (6.4-8.2) Albumin 3.2 g/dL (3.4-5.0) Albumin/Globulin Ratio 0.9 (1.0-1.7) Assessment and Plan Assessmemt and Plan Problems Medical Problems: (1) Pneumonia due to COVID-19 virus Status: Acute (2) Syncope and collapse Status: Acute (3) UTI (urinary tract infection) Status: Acute Comment Review of Relevant I have reviewed the following items walt (where applicable) has been applied. Medications: Current Medications Medications (Trade) Dose Ordered Sig/Aileen Route PRN Reason Start Time Stop Time Status Last Admin Dose Admin Ceftriaxone Sodium (Rocephin) 1 gm Q24H IVP 11/18/21 16:00 11/18/21 18:01 Lactobacillus Rhamnosus (Culturelle) 1 cap BID PO 11/18/21 21:00 11/19/21 08:30 Atorvastatin Calcium (Lipitor) 5 mg HS PO 11/18/21 21:00 11/18/21 21:11 Pantoprazole Sodium (PROTONIX VIAL for IV PUSH) 40 mg QHS IVP 11/18/21 21:00 11/18/21 21:11 Prochlorperazine Edisylate (Compazine) 10 mg PRN Q6HRS PRN IV NAUSEA/VOMITING, 2ND CHOICE 11/19/21 08:30 11/19/21 08:49 Sodium Chloride 1,000 ml @ 100 mls/hr Q10H IV 11/19/21 09:00 11/20/21 08:59 11/19/21 09:38 Famotidine (Pepcid) 20 mg DAILY PO 11/19/21 12:00 11/19/21 12:04 Calcium Carbonate/ Glycine (Tums) 500 mg PRN AFTMEALHC PRN PO INDIGESTION 11/19/21 11:45 11/19/21 12:04 Justifications for Admission Other Justification AWILDA DELATORRE MD Nov 19, 2021 14:25
[2021-11-19 15:00] VITALS: BP 144/69
[2021-11-19] MEDS: cefTRIAXone IV Push 1 GM VIAL. IVP SCH (16:46)
[2021-11-19] MEDS: ENOXAPARIN 40 MG/0.4 ML SYRINGE. SQ SCH (16:47)
[2021-11-19 19:56] VITALS: BP 133/64
[2021-11-19] MEDS: PANTOPRAZOLE IV PUSH 40 MG VIAL. IVP SCH (20:06)
[2021-11-19] MEDS: ATORVASTATIN CALCIUM 10 MG TABLET. PO SCH (20:06)
[2021-11-19 23:02] VITALS: BP 120/74
[2021-11-20] MEDS: ONDANSETRON PF 4 MG/2 ML VIAL. IVP PRN (00:28)
[2021-11-20] MEDS: CALCIUM CARBONATE 500 MG TAB.CHEW PO PRN (00:28)
[2021-11-20 03:02] VITALS: BP 139/63
[2021-11-20 05:08] LABS: BASO % 0 % (0-3); EOS % 0 % (0-3); HEMATOCRIT 32.4 % (36.0-47.0); HEMOGLOBIN 11.3 g/dL (12.0-15.5); LYMPH # 0.6 x10^3/uL (1.0-4.8); LYMPH % 9 % (24-48); MEAN CORPUSCULAR HEMOGLOBIN 29 pg (25-35); MEAN CORPUSCULAR HGB CONC 35 g/dL (31-37); MEAN CORPUSCULAR VOLUME 83 fL (79-100); MONO # 0.6 x10^3/uL (0.0-1.1); MONO % 8 % (0-9); NEUT # 6.2 x10^3/uL (1.8-7.7); NEUT % 83 % (31-73); PLATELET COUNT 226 x10^3/uL (140-400); RED BLOOD COUNT 3.91 x10^6/uL (3.50-5.40); RED CELL DISTRIBUTION WIDTH 14.6 % (11.5-14.5); WHITE BLOOD COUNT 7.5 x10^3/uL (4.0-11.0)
[2021-11-20 05:37] LABS: ALBUMIN 2.6 g/dL (3.4-5.0); ALBUMIN/GLOBULIN RATIO 0.8 (1.0-1.7); CALCIUM 8.5 mg/dL (8.5-10.1); CREATININE 0.8 mg/dL (0.6-1.0); GFR 68.8; POTASSIUM 4.4 mmol/L (3.5-5.1); TOTAL BILIRUBIN 0.7 mg/dL (0.2-1.0); TOTAL PROTEIN 5.9 g/dL (6.4-8.2)
[2021-11-20] MEDS: IV NORMAL SALINE 1000ML BAG 1,000 ML IV SCH (05:41)
[2021-11-20 07:00] VITALS: BP 145/67
[2021-11-20] MEDS: DOXYCYCLINE HYCLATE 100 MG TABLET PO SCH ×2 (08:30→20:19)
[2021-11-20] MEDS: ASCORBIC ACID 500 MG TABLET PO SCH (08:31)
[2021-11-20] MEDS: THIAMINE 100 MG TABLET. PO SCH (08:31)
[2021-11-20] MEDS: LACTOBACILLUS RHAMNOSUS GG 1 CAPSULE. PO SCH ×2 (08:31→20:19)
[2021-11-20] MEDS: FAMOTIDINE 20 MG TABLET. PO SCH (08:31)
[2021-11-20] MEDS: ZINC SULFATE 220 MG CAPSULE. PO SCH (08:31)
[2021-11-20] MEDS: ASPIRIN CHEWABLE 81 MG TABLET. PO SCH (08:31)
[2021-11-20] MEDS: METOPROLOL SUCC 24HR ER 50 MG TAB.ER.24H. PO SCH (08:32)
[2021-11-20] MEDS ORDERED: IV NORMAL SALINE 1000ML BAG 1,000 ML IV ONE (09:15)
--- NOTE | 2021-11-20 10:05 | PDOC ---
PROGRESS NOTES Date of Service: DATE: 11/20/21 TIME: 10:05 Subjective Subjective c/o cough, saturating 90% on 2L O2 Objective Objective Vital Signs Date Time Temp Pulse Resp B/P (MAP) Pulse Ox O2 Delivery O2 Flow Rate FiO2 11/20/21 08:32 73 145/67 11/20/21 07:00 97.9 20 99 Nasal Cannula 2.0 97.9 Intake and Output 11/20/21 07:00 Intake Total 960 ml Balance 960 ml Intake Oral 960 ml # Voids 3 Physical Exam Abdomen: Normal bowel sounds, Soft, No tenderness, No hepatosplenomegaly, No masses Heart: Regular rate Extremities: No clubbing, No cyanosis, No edema, Normal pulses, No tenderness/swelling General: Alert, Oriented X3, Cooperative, moderate distress HEENT: Atraumatic, PERRLA, EOMI, Mucous membr. moist/pink Lungs: Clear to auscultation, Normal air movement MUSCULOSKELETAL: No deformity Neuro: Normal speech, Strength at 5/5 X4 ext, Normal tone, Sensation intact, Cranial nerves 3-12 NL, Reflexes 2+ Psych/Mental Status: Mental status NL, Mood NL Skin: No rashes, No breakdown, No significant lesion Assessment Assessment 1. Covid-19 pneumonia: Continue treatment per IM. remains hypoxic on RA Continue O2 supplementation 2. Syncope: Most probably secondary to dehydration resulting from loss of appetite/N/V/D. Continue intravenous hydration. 3. Sick sinus syndrome s/p permanent pacemaker implantation. Recent device c heck showed normal function. Her battery is at GUY (elective replacement indicated). Plan for generator change as an outpatient once Covid recovered. 4. Coronary artery disease s/p PCI/stent placement to LAD in the past and subsequent coronary artery bypass surgery for significant left main coronary artery stenosis. Recent Lexiscan nuclear stress test did not show any significa nt ischemia. Recent cardiac catheterization showed patent OG to LAD, radial artery graft to diagonal and SVG to OM/LCx without any stenosis in ungrafted RCA. She is currently stable and chest pain-free. Continue current secondary prevention measures. 5. Chronic diastolic heart failure: Clinically well compensated. Recent 2D echo showed normal LV systolic function with EF 50 to 55% with diastolic dysfunction. 6. Paroxysmal atrial fibrillation s/p ablation therapy, presently in sinus rhythm. pt reports that EP has taken off her tikosyn and anticoagulation as well. Continue metoprolol, hold off low dose cardizem till BP is consistently adequate. Continue ASA. 7. Hypertension: Controlled 8. Hyperlipidemia: Continue statin therapy 9. Hypothyroidism: Continue levothyroxine 10. Chronic venous insufficiency: s/p ablation therapy 11. Hyponatremia: per PCP Plan Plan of Care Problems Medical Problems: (1) Pneumonia due to COVID-19 virus Status: Acute (2) Syncope and collapse Status: Acute (3) UTI (urinary tract infection) Status: Acute Comment Review of Relevant I have reviewed the following items walt (where applicable) has been applied. Labs Laboratory Tests Test 11/20/21 04:30 White Blood Count 7.5 x10^3/uL (4.0-11.0) Red Blood Count 3.91 x10^6/uL (3.50-5.40) Hemoglobin 11.3 g/dL (12.0-15.5) Hematocrit 32.4 % (36.0-47.0) Mean Corpuscular Volume 83 fL (79-100) Mean Corpuscular Hemoglobin 29 pg (25-35) Mean Corpuscular Hemoglobin Concent 35 g/dL (31-37) Red Cell Distribution Width 14.6 % (11.5-14.5) Platelet Count 226 x10^3/uL (140-400) Neutrophils (%) (Auto) 83 % (31-73) Lymphocytes (%) (Auto) 9 % (24-48) Monocytes (%) (Auto) 8 % (0-9) Eosinophils (%) (Auto) 0 % (0-3) Basophils (%) (Auto) 0 % (0-3) Neutrophils # (Auto) 6.2 x10^3/uL (1.8-7.7) Lymphocytes # (Auto) 0.6 x10^3/uL (1.0-4.8) Monocytes # (Auto) 0.6 x10^3/uL (0.0-1.1) Eosinophils # (Auto) 0.0 x10^3/uL (0.0-0.7) Basophils # (Auto) 0.0 x10^3/uL (0.0-0.2) Sodium Level 129 mmol/L (136-145) Potassium Level 4.4 mmol/L (3.5-5.1) Chloride Level 97 mmol/L (98-107) Carbon Dioxide Level 26 mmol/L (21-32) Anion Gap 6 (6-14) Blood Urea Nitrogen 21 mg/dL (7-20) Creatinine 0.8 mg/dL (0.6-1.0) Estimated GFR (Cockcroft-Gault) 68.8 BUN/Creatinine Ratio 26 (6-20) Glucose Level 88 mg/dL (70-99) Calcium Level 8.5 mg/dL (8.5-10.1) Total Bilirubin 0.7 mg/dL (0.2-1.0) Aspartate Amino Transf (AST/SGOT) 23 U/L (15-37) Alanine Aminotransferase (ALT/SGPT) 25 U/L (14-59) Alkaline Phosphatase 80 U/L (46-116) Total Protein 5.9 g/dL (6.4-8.2) Albumin 2.6 g/dL (3.4-5.0) Albumin/Globulin Ratio 0.8 (1.0-1.7) Microbiology 11/17/21 Urine Culture - Final, Complete 11/17/21 Antimicrobic Susceptibility - Final, Complete Medications Current Medications Calcium Carbonate/ Glycine (Tums) 500 mg PRN AFTMEALHC PRN PO INDIGESTION Last administered on 11/20/21at 00:28; Start 11/19/21 at 11:45 Famotidine (Pepcid) 20 mg DAILY PO Last administered on 11/20/21at 08:31; Start 11/19/21 at 12:00 Sodium Chloride 1,000 ml @ 125 mls/hr 1X ONCE IV ; Start 11/20/21 at 09:15; Stop 11/20/21 at 17:14 Vitals/I & O Vital Sign - Last 24 Hours 11/19/21 11/19/21 11/19/21 11/19/21 11:00 15:00 19:56 20:00 Temp 96.5 92.1 97.4 96.5 92.1 97.4 Pulse 80 96 64 Resp 20 20 18 B/P (MAP) 130/72 (91) 144/69 (94) 133/64 (87) Pulse Ox 99 97 100 O2 Delivery Nasal Cannula Nasal Cannula Nasal Cannula Nasal Cannula O2 Flow Rate 2.0 2.0 2.0 2.0 11/19/21 11/20/21 11/20/21 11/20/21 23:02 03:02 07:00 08:32 Temp 97.6 98.0 97.9 97.6 98.0 97.9 Pulse 60 60 73 73 Resp 18 16 20 B/P (MAP) 120/74 (89) 139/63 (88) 145/67 (93) 145/67 Pulse Ox 99 96 99 O2 Delivery Nasal Cannula Nasal Cannula Nasal Cannula O2 Flow Rate 2.0 2.0 2.0 Intake and Output 11/19/21 11/19/21 11/20/21 15:00 23:00 07:00 Intake Total 420 ml 540 ml 0 ml Balance 420 ml 540 ml 0 ml JENSEN BALTAZAR MD Nov 20, 2021 10:05
[2021-11-20 11:00] VITALS: BP 153/63
--- NOTE | 2021-11-20 11:34 | PDOC ---
[employer] PROGRESS NOTE Date of Service DOS: DATE: 11/20/21 TIME: 11:33 Chief Complaint Chief Complaint Assessment/Plan Pneumonia - multifocal. Given the symptoms of 2 weeks and comorbidities likely secondary gram negative pneumonia with COVID 19 pneumonia. Empiric antibiotics for CAP COVID 19 -symptomatic with cough, malaise, diarrhea, loss of appetite. Not currently hypoxic, will give supportive care. Fall - likely due to weakness and debility. CT head and pelvis with no acute fracture. PT for gait assessment Hyponatremia - nutritional from COVID, will have geric[employer] aide teacher to see NOHELIA - likely vasomotor nephropathy from poor PO intake. Will monitor SSS s/p PPM. Stable CAD s/p CABG - stable Atrial fibrillation s/p ablation - stable, sinus, paced FEN - Cardiac diet PPX - lovenox FULL CODE Dispo - inpatient History of Present Illness History of Present Illness 81-year-old female w/ PMHx SSS s/p permanent pacemaker implantation, s/p AICD, CAD s/p CABG, afib s/p ablation who comes to ED c/o weakness, myalgias, N/V/D for almost 2 weeks. She has had loss off appetite and anosmia as well. She notes she was getting up to make herself food in the kitchen when she became lightheaded and fell back onto her backside and struck the back of her head on the concrete floor. She did not lose consciousness, did not experience any shock, has no focal weakness, no seizure activity. She denies any back pain. No PND or orthopnea. EKG paced WBC 7.8, Hb 13, platelets 187, NA 127, K4.4, BUN 26, CR 1.3, glucose 108, magnesium 2.3, bilirubin 1, AST 38, ALT 37, alkaline phosphatase 105, albumin 3.5, lipase 175, NT proBNP is 1039, high-sensitivity troponin is 14, urinalysis small leuk esterase small blood, rapid COVID-[address] head neck no acute abnormalities, pelvic x-ray with no acute abnormalities no fracture noted. Chest radiograph with bilateral interstitial opacities, median sternotomy wires, AICD. Admitted for further care. 11/18/2021 No acute events overnight. Patient seen and examined bedside. Saturating 96% on 2 L nasal cannula. Pending PT OT evaluation. 11/19/2021 No acute events overnight. Patient seen and examined bedside. Complaining of some nausea vomiting. Sodium decreased to 129 and potassium increased to 4.5. Will start NS at 100 cc/h. Saturating 98% on 2 L nasal cannula. Patient's chart, labs, images were reviewed and discussed with RN 11/20/2021 Patient seen and examined bedside. Complaining of coughing spells. Sodium still at 129 when we will continue with IV fluids with NS at 100 cc/h. Saturating 90% on 2 L nasal cannula. Creatinine improved to 0.8. Patient's chart, labs, images were reviewed and discussed with RN Vitals/I&O Vitals/I&O: Vital Signs Date Time Temp Pulse Resp B/P (MAP) Pulse Ox O2 Delivery O2 Flow Rate FiO2 11/20/21 11:00 95.4 62 20 153/63 (93) 99 Nasal Cannula 2.0 95.4 I & O 11/19/21 11/19/21 11/20/21 15:00 23:00 07:00 Intake Total 420 ml 540 ml 0 ml Balance 420 ml 540 ml 0 ml Physical Exam General: Alert, Oriented X3, Cooperative, moderate distress Heart: Regular rate Lungs: Clear Abdomen: Normal bowel sounds, Soft, No tenderness, No hepatosplenomegaly, No masses Extremities: No clubbing, No cyanosis, No edema, Normal pulses, No tenderness/swelling Skin: No rashes, No breakdown, No significant lesion Labs Labs: Laboratory Tests Test 11/20/21 04:30 White Blood Count 7.5 x10^3/uL (4.0-11.0) Red Blood Count 3.91 x10^6/uL (3.50-5.40) Hemoglobin 11.3 g/dL (12.0-15.5) Hematocrit 32.4 % (36.0-47.0) Mean Corpuscular Volume 83 fL (79-100) Mean Corpuscular Hemoglobin 29 pg (25-35) Mean Corpuscular Hemoglobin Concent 35 g/dL (31-37) Red Cell Distribution Width 14.6 % (11.5-14.5) Platelet Count 226 x10^3/uL (140-400) Neutrophils (%) (Auto) 83 % (31-73) Lymphocytes (%) (Auto) 9 % (24-48) Monocytes (%) (Auto) 8 % (0-9) Eosinophils (%) (Auto) 0 % (0-3) Basophils (%) (Auto) 0 % (0-3) Neutrophils # (Auto) 6.2 x10^3/uL (1.8-7.7) Lymphocytes # (Auto) 0.6 x10^3/uL (1.0-4.8) Monocytes # (Auto) 0.6 x10^3/uL (0.0-1.1) Eosinophils # (Auto) 0.0 x10^3/uL (0.0-0.7) Basophils # (Auto) 0.0 x10^3/uL (0.0-0.2) Sodium Level 129 mmol/L (136-145) Potassium Level 4.4 mmol/L (3.5-5.1) Chloride Level 97 mmol/L (98-107) Carbon Dioxide Level 26 mmol/L (21-32) Anion Gap 6 (6-14) Blood Urea Nitrogen 21 mg/dL (7-20) Creatinine 0.8 mg/dL (0.6-1.0) Estimated GFR (Cockcroft-Gault) 68.8 BUN/Creatinine Ratio 26 (6-20) Glucose Level 88 mg/dL (70-99) Calcium Level 8.5 mg/dL (8.5-10.1) Total Bilirubin 0.7 mg/dL (0.2-1.0) Aspartate Amino Transf (AST/SGOT) 23 U/L (15-37) Alanine Aminotransferase (ALT/SGPT) 25 U/L (14-59) Alkaline Phosphatase 80 U/L (46-116) Total Protein 5.9 g/dL (6.4-8.2) Albumin 2.6 g/dL (3.4-5.0) Albumin/Globulin Ratio 0.8 (1.0-1.7) Assessment and Plan Assessmemt and Plan Problems Medical Problems: (1) Pneumonia due to COVID-19 virus Status: Acute (2) Syncope and collapse Status: Acute (3) UTI (urinary tract infection) Status: Acute Comment Review of Relevant I have reviewed the following items walt (where applicable) has been applied. Medications: Current Medications Medications (Trade) Dose Ordered Sig/Aileen Route PRN Reason Start Time Stop Time Status Last Admin Dose Admin Famotidine (Pepcid) 20 mg DAILY PO 11/19/21 12:00 11/20/21 08:31 Calcium Carbonate/ Glycine (Tums) 500 mg PRN AFTMEALHC PRN PO INDIGESTION 11/19/21 11:45 11/20/21 00:28 Sodium Chloride 1,000 ml @ 125 mls/hr 1X ONCE IV 11/20/21 09:15 11/20/21 17:14 11/20/21 09:15 Justifications for Admission Other Justification AWILDA DELATORRE MD Nov 20, 2021 11:34
[2021-11-20 15:00] VITALS: BP 142/63
[2021-11-20] MEDS: ENOXAPARIN 40 MG/0.4 ML SYRINGE. SQ SCH (17:02)
[2021-11-20] MEDS: cefTRIAXone IV Push 1 GM VIAL. IVP SCH (17:02)
[2021-11-20 19:37] VITALS: BP 156/72
[2021-11-20] MEDS: PANTOPRAZOLE IV PUSH 40 MG VIAL. IVP SCH (20:20)
[2021-11-20] MEDS: ATORVASTATIN CALCIUM 10 MG TABLET. PO SCH (20:20)
[2021-11-20 23:16] VITALS: BP 120/80
[2021-11-21 03:05] VITALS: BP 139/63
[2021-11-21 05:15] LABS: BASO % 0 % (0-3); EOS % 1 % (0-3); HEMATOCRIT 30.1 % (36.0-47.0); HEMOGLOBIN 10.5 g/dL (12.0-15.5); LYMPH # 0.6 x10^3/uL (1.0-4.8); LYMPH % 10 % (24-48); MEAN CORPUSCULAR HEMOGLOBIN 29 pg (25-35); MEAN CORPUSCULAR HGB CONC 35 g/dL (31-37); MEAN CORPUSCULAR VOLUME 83 fL (79-100); MONO # 0.6 x10^3/uL (0.0-1.1); MONO % 10 % (0-9); NEUT # 4.5 x10^3/uL (1.8-7.7); NEUT % 79 % (31-73); PLATELET COUNT 206 x10^3/uL (140-400); RED BLOOD COUNT 3.63 x10^6/uL (3.50-5.40); RED CELL DISTRIBUTION WIDTH 14.4 % (11.5-14.5); WHITE BLOOD COUNT 5.7 x10^3/uL (4.0-11.0)
[2021-11-21 05:53] LABS: ALBUMIN 2.5 g/dL (3.4-5.0); ALBUMIN/GLOBULIN RATIO 0.8 (1.0-1.7); CALCIUM 8.9 mg/dL (8.5-10.1); CREATININE 0.7 mg/dL (0.6-1.0); GFR 80.3; POTASSIUM 4.3 mmol/L (3.5-5.1); TOTAL BILIRUBIN 0.7 mg/dL (0.2-1.0); TOTAL PROTEIN 5.6 g/dL (6.4-8.2)
[2021-11-21 07:21] VITALS: BP 148/62
[2021-11-21] MEDS: LACTOBACILLUS RHAMNOSUS GG 1 CAPSULE. PO SCH ×2 (09:41→22:58)
[2021-11-21] MEDS: ZINC SULFATE 220 MG CAPSULE. PO SCH (09:41)
[2021-11-21] MEDS: ASCORBIC ACID 500 MG TABLET PO SCH (09:41)
[2021-11-21] MEDS: METOPROLOL SUCC 24HR ER 50 MG TAB.ER.24H. PO SCH (09:41)
[2021-11-21] MEDS: ASPIRIN CHEWABLE 81 MG TABLET. PO SCH (09:41)
[2021-11-21] MEDS: FAMOTIDINE 20 MG TABLET. PO SCH (09:41)
[2021-11-21] MEDS: THIAMINE 100 MG TABLET. PO SCH (09:41)
[2021-11-21] MEDS: DOXYCYCLINE HYCLATE 100 MG TABLET PO SCH ×2 (09:41→22:58)
[2021-11-21 10:44] VITALS: BP 140/64
[2021-11-21 14:41] VITALS: BP 120/58
--- NOTE | 2021-11-21 15:03 | PDOC ---
[employer] PROGRESS NOTE Date of Service DOS: DATE: 11/21/21 TIME: 15:02 Chief Complaint Chief Complaint Pneumonia - multifocal. Given the symptoms of 2 weeks and comorbidities likely secondary gram negative pneumonia with COVID 19 pneumonia. Empiric antibiotics for CAP COVID 19 -symptomatic with cough, malaise, diarrhea, loss of appetite. Not currently hypoxic, will give supportive care. Fall - likely due to weakness and debility. CT head and pelvis with no acute fracture. PT for gait assessment Hyponatremia - nutritional from COVID, will have peanut butter maker to see NOHELIA - likely vasomotor nephropathy from poor PO intake. Will monitor SSS s/p PPM. Stable CAD s/p CABG - stable Atrial fibrillation s/p ablation - stable, sinus, paced weakness, debility, confusion, fall risk History of Present Illness History of Present Illness 81-year-old female w/ PMHx SSS s/p permanent pacemaker implantation, s/p AICD, CAD s/p CABG, afib s/p ablation who comes to ED c/o weakness, myalgias, N/V/D for almost 2 weeks. She has had loss off appetite and anosmia as well. She notes she was getting up to make herself food in the kitchen when she became lightheaded and fell back onto her backside and struck the back of her head on the concrete floor. She did not lose consciousness, did not experience any shock, has no focal weakness, no seizure activity. She denies any back pain. No PND or orthopnea. EKG paced WBC 7.8, Hb 13, platelets 187, NA 127, K4.4, BUN 26, CR 1.3, glucose 108, magnesium 2.3, bilirubin 1, AST 38, ALT 37, alkaline phosphatase 105, albumin 3.5, lipase 175, NT proBNP is 1039, high-sensitivity troponin is 14, urinalysis small leuk esterase small blood, rapid COVID-[address] head neck no acute abnormalities, pelvic x-ray with no acute abnormalities no fracture noted. Chest radiograph with bilateral interstitial opacities, median sternotomy wires, AICD. Admitted for further care. 11/18/2021 No acute events overnight. Patient seen and examined bedside. Saturating 96% on 2 L nasal cannula. Pending PT OT evaluation. 11/19/2021 No acute events overnight. Patient seen and examined bedside. Complaining of some nausea vomiting. Sodium decreased to 129 and potassium increased to 4.5. Will start NS at 100 cc/h. Saturating 98% on 2 L nasal cannula. Patient's chart, labs, images were reviewed and discussed with RN 11/20/2021 Patient seen and examined bedside. Complaining of coughing spells. Sodium still at 129 when we will continue with IV fluids with NS at 100 cc/h. Saturating 90% on 2 L nasal cannula. Creatinine improved to 0.8. Patient's chart, labs, images were reviewed and discussed with RN 11/21, start PT andOT today, fall risk, breathing better, seems confused, acute covid complication, cont other Vitals/I&O Vitals/I&O: Vital Signs Date Time Temp Pulse Resp B/P (MAP) Pulse Ox O2 Delivery O2 Flow Rate FiO2 11/21/21 14:41 98.0 69 20 120/58 (78) 95 Room Air 98.0 11/21/21 03:05 2.0 I & O 11/20/21 11/20/21 11/21/21 15:00 23:00 07:00 Intake Total 800 ml 1331.2 ml 0 ml Output Total 300 ml Balance 500 ml 1331.2 ml 0 ml Physical Exam General: Alert, Oriented X3, Cooperative, moderate distress Heart: Regular rate Lungs: Clear Abdomen: Normal bowel sounds, Soft, No tenderness, No hepatosplenomegaly, No masses Extremities: No clubbing, No cyanosis, No edema, Normal pulses, No tenderness/swelling Skin: No rashes, No breakdown, No significant lesion Labs Labs: Laboratory Tests Test 11/21/21 04:45 White Blood Count 5.7 x10^3/uL (4.0-11.0) Red Blood Count 3.63 x10^6/uL (3.50-5.40) Hemoglobin 10.5 g/dL (12.0-15.5) Hematocrit 30.1 % (36.0-47.0) Mean Corpuscular Volume 83 fL (79-100) Mean Corpuscular Hemoglobin 29 pg (25-35) Mean Corpuscular Hemoglobin Concent 35 g/dL (31-37) Red Cell Distribution Width 14.4 % (11.5-14.5) Platelet Count 206 x10^3/uL (140-400) Neutrophils (%) (Auto) 79 % (31-73) Lymphocytes (%) (Auto) 10 % (24-48) Monocytes (%) (Auto) 10 % (0-9) Eosinophils (%) (Auto) 1 % (0-3) Basophils (%) (Auto) 0 % (0-3) Neutrophils # (Auto) 4.5 x10^3/uL (1.8-7.7) Lymphocytes # (Auto) 0.6 x10^3/uL (1.0-4.8) Monocytes # (Auto) 0.6 x10^3/uL (0.0-1.1) Eosinophils # (Auto) 0.0 x10^3/uL (0.0-0.7) Basophils # (Auto) 0.0 x10^3/uL (0.0-0.2) Sodium Level 132 mmol/L (136-145) Potassium Level 4.3 mmol/L (3.5-5.1) Chloride Level 101 mmol/L (98-107) Carbon Dioxide Level 23 mmol/L (21-32) Anion Gap 8 (6-14) Blood Urea Nitrogen 15 mg/dL (7-20) Creatinine 0.7 mg/dL (0.6-1.0) Estimated GFR (Cockcroft-Gault) 80.3 BUN/Creatinine Ratio 21 (6-20) Glucose Level 92 mg/dL (70-99) Calcium Level 8.9 mg/dL (8.5-10.1) Total Bilirubin 0.7 mg/dL (0.2-1.0) Aspartate Amino Transf (AST/SGOT) 25 U/L (15-37) Alanine Aminotransferase (ALT/SGPT) 24 U/L (14-59) Alkaline Phosphatase 75 U/L (46-116) Total Protein 5.6 g/dL (6.4-8.2) Albumin 2.5 g/dL (3.4-5.0) Albumin/Globulin Ratio 0.8 (1.0-1.7) Assessment and Plan Assessmemt and Plan Problems Medical Problems: (1) Pneumonia due to COVID-19 virus Status: Acute (2) Syncope and collapse Status: Acute (3) UTI (urinary tract infection) Status: Acute Comment Review of Relevant I have reviewed the following items walt (where applicable) has been applied. Justifications for Admission Other Justification LAITH BROWN MD Nov 21, 2021 15:03
[2021-11-21] MEDS: ENOXAPARIN 40 MG/0.4 ML SYRINGE. SQ SCH ×2 (16:00→16:48)
--- NOTE | 2021-11-21 16:42 | PDOC ---
PRABHAKAR AQUINO OIL AND GAS SPECIALIST 11/21/21 1641: CARDIO Progress Notes Date and Time Date of Service 11/21/20 Time of Evaluation 1245 Subjective Subjective: No Chest Pain, No shortness of breath, No Palpitations Vitals Vitals Vital Signs Date Time Temp Pulse Resp B/P (MAP) Pulse Ox O2 Delivery O2 Flow Rate FiO2 11/21/21 14:41 98.0 69 20 120/58 (78) 95 Room Air 98.0 11/21/21 03:05 2.0 Weight Weight [ ] Input and Output Intake and Output Intake and Output 11/21/21 07:00 Intake Total 2131.2 ml Output Total 300 ml Balance 1831.2 ml Intake Oral 1200 ml IV Total 931.2 ml Output Urine Total 300 ml # Voids 4 Laboratory Labs Laboratory Tests Test 11/21/21 04:45 White Blood Count 5.7 x10^3/uL (4.0-11.0) Red Blood Count 3.63 x10^6/uL (3.50-5.40) Hemoglobin 10.5 g/dL (12.0-15.5) Hematocrit 30.1 % (36.0-47.0) Mean Corpuscular Volume 83 fL (79-100) Mean Corpuscular Hemoglobin 29 pg (25-35) Mean Corpuscular Hemoglobin Concent 35 g/dL (31-37) Red Cell Distribution Width 14.4 % (11.5-14.5) Platelet Count 206 x10^3/uL (140-400) Neutrophils (%) (Auto) 79 % (31-73) Lymphocytes (%) (Auto) 10 % (24-48) Monocytes (%) (Auto) 10 % (0-9) Eosinophils (%) (Auto) 1 % (0-3) Basophils (%) (Auto) 0 % (0-3) Neutrophils # (Auto) 4.5 x10^3/uL (1.8-7.7) Lymphocytes # (Auto) 0.6 x10^3/uL (1.0-4.8) Monocytes # (Auto) 0.6 x10^3/uL (0.0-1.1) Eosinophils # (Auto) 0.0 x10^3/uL (0.0-0.7) Basophils # (Auto) 0.0 x10^3/uL (0.0-0.2) Sodium Level 132 mmol/L (136-145) Potassium Level 4.3 mmol/L (3.5-5.1) Chloride Level 101 mmol/L (98-107) Carbon Dioxide Level 23 mmol/L (21-32) Anion Gap 8 (6-14) Blood Urea Nitrogen 15 mg/dL (7-20) Creatinine 0.7 mg/dL (0.6-1.0) Estimated GFR (Cockcroft-Gault) 80.3 BUN/Creatinine Ratio 21 (6-20) Glucose Level 92 mg/dL (70-99) Calcium Level 8.9 mg/dL (8.5-10.1) Total Bilirubin 0.7 mg/dL (0.2-1.0) Aspartate Amino Transf (AST/SGOT) 25 U/L (15-37) Alanine Aminotransferase (ALT/SGPT) 24 U/L (14-59) Alkaline Phosphatase 75 U/L (46-116) Total Protein 5.6 g/dL (6.4-8.2) Albumin 2.5 g/dL (3.4-5.0) Albumin/Globulin Ratio 0.8 (1.0-1.7) Microbiology Micro Microbiology 11/17/21 Urine Culture - Final, Complete 11/17/21 Antimicrobic Susceptibility - Final, Complete Physical Exam HEENT: Neck Supple W Full Motion Chest: Symmetric LUNGS: Other (on NC ) Heart: S1S2, RRR (SR) Abdomen: Soft N/T Extremities: No Calf Tenderness Neurology: alert, oriented, follow commands Assessment Assessment 1. Covid-19 pneumonia: Continue treatment per IM. remains hypoxic on RA Continue O2 supplementation 2. Syncope: Most probably secondary to dehydration resulting from loss of appetite/N/V/D. Continue intravenous hydration. 3. Sick sinus syndrome s/p permanent pacemaker implantation. Recent device check showed normal function. Her battery is at GUY (elective replacement indicated). Plan for generator change as an outpatient once Covid recovered. 4. CAD s/p PCI/stent placement to LAD in the past and subsequent coronary artery bypass surgery for significant left main coronary artery stenosis. Recent Lexiscan nuclear stress test did not show any significant ischemia. Recent cardiac catheterization showed patent OG to LAD, radial artery graft to diagonal and SVG to OM/LCx without any stenosis in ungrafted RCA. She is currently stable and chest pain-free. Continue current secondary prevention measures. 5. Chronic diastolic heart failure: Clinically well compensated. Recent 2D echo showed normal LV systolic function with EF 50 to 55% with diastolic dysfunction. 6. Paroxysmal atrial fibrillation s/p ablation therapy, presently in SR. pt reports that EP has taken off her tikosyn and anticoagulation as well. Continue metoprolol. Continue ASA. 7. Hypertension: Controlled 8. Hyperlipidemia: Continue statin therapy 9. Hypothyroidism: Continue levothyroxine 10. Chronic venous insufficiency: s/p ablation therapy 11. Hyponatremia: per PCP Justicifation of Admission Dx: Justifications for Admission: Justification of Admission Dx: No JENSEN BALTAZAR MD 11/21/212130: CARDIO Progress Notes Assessment Assessment Patient seen and examined. Agree with BRAND MANAGER's assessment and plan as stated above. PRABHAKAR AQUINO APRN Nov 21, 2021 16:41 JENSEN BALTAZAR MD Nov 21, 2021 21:31
[2021-11-21] MEDS: cefTRIAXone IV Push 1 GM VIAL. IVP SCH (16:48)
--- NOTE | 2021-11-21 19:21 | NUR ---
Patient very bruised on abdomen from Lovenox injections, this afternoon's dose was held due to this.
[2021-11-21 19:40] VITALS: BP 154/78
[2021-11-21 22:29] VITALS: BP 122/60
[2021-11-21] MEDS: PANTOPRAZOLE IV PUSH 40 MG VIAL. IVP SCH (22:58)
[2021-11-21] MEDS: ATORVASTATIN CALCIUM 10 MG TABLET. PO SCH (22:58)
[2021-11-21] MEDS: traMADol 50 MG TABLET PO PRN (22:58)
[2021-11-22 02:16] VITALS: BP 129/62
[2021-11-22 05:46] LABS: BASO % 0 % (0-3); EOS # 0.1 x10^3/uL (0.0-0.7); EOS % 1 % (0-3); HEMATOCRIT 28.9 % (36.0-47.0); HEMOGLOBIN 10.2 g/dL (12.0-15.5); LYMPH # 0.7 x10^3/uL (1.0-4.8); LYMPH % 15 % (24-48); MEAN CORPUSCULAR HEMOGLOBIN 29 pg (25-35); MEAN CORPUSCULAR HGB CONC 35 g/dL (31-37); MEAN CORPUSCULAR VOLUME 83 fL (79-100); MONO # 0.5 x10^3/uL (0.0-1.1); MONO % 10 % (0-9); NEUT # 3.3 x10^3/uL (1.8-7.7); NEUT % 73 % (31-73); PLATELET COUNT 206 x10^3/uL (140-400); RED CELL DISTRIBUTION WIDTH 14.6 % (11.5-14.5); WHITE BLOOD COUNT 4.5 x10^3/uL (4.0-11.0)
[2021-11-22 06:07] LABS: ALBUMIN 2.4 g/dL (3.4-5.0); ALBUMIN/GLOBULIN RATIO 0.8 (1.0-1.7); CALCIUM 8.8 mg/dL (8.5-10.1); CREATININE 0.8 mg/dL (0.6-1.0); GFR 68.8; POTASSIUM 4.4 mmol/L (3.5-5.1); TOTAL BILIRUBIN 0.6 mg/dL (0.2-1.0); TOTAL PROTEIN 5.5 g/dL (6.4-8.2)
[2021-11-22 07:55] VITALS: BP 136/65
[2021-11-22] MEDS: ASCORBIC ACID 500 MG TABLET PO SCH (09:00)
[2021-11-22] MEDS: FAMOTIDINE 20 MG TABLET. PO SCH (09:00)
[2021-11-22] MEDS: THIAMINE 100 MG TABLET. PO SCH (09:11)
[2021-11-22] MEDS: ZINC SULFATE 220 MG CAPSULE. PO SCH (09:12)
[2021-11-22] MEDS: ASPIRIN CHEWABLE 81 MG TABLET. PO SCH (09:12)
[2021-11-22] MEDS: METOPROLOL SUCC 24HR ER 50 MG TAB.ER.24H. PO SCH (09:12)
[2021-11-22] MEDS: LACTOBACILLUS RHAMNOSUS GG 1 CAPSULE. PO SCH ×2 (09:12→22:03)
[2021-11-22] MEDS: DOXYCYCLINE HYCLATE 100 MG TABLET PO SCH ×2 (09:12→22:03)
[2021-11-22 11:08] VITALS: BP 118/55
--- NOTE | 2021-11-22 12:06 | PDOC ---
CARDIO Progress Notes Date and Time Date of Service 11/22/21 Time of Evaluation 1200 Subjective Subjective: No Chest Pain, No shortness of breath, No Palpitations Vitals Vitals Vital Signs Date Time Temp Pulse Resp B/P (MAP) Pulse Ox O2 Delivery O2 Flow Rate FiO2 11/22/21 11:08 97.2 60 18 118/55 (76) 95 Room Air 97.2 11/22/21 02:16 2.0 Weight Weight [ ] Input and Output Intake and Output Intake and Output 11/22/21 07:00 Intake Total 1000 ml Output Total 750 ml Balance 250 ml Intake Oral 1000 ml Output Urine Total 750 ml Laboratory Labs Laboratory Tests Test 11/22/21 03:40 White Blood Count 4.5 x10^3/uL (4.0-11.0) Red Blood Count 3.50 x10^6/uL (3.50-5.40) Hemoglobin 10.2 g/dL (12.0-15.5) Hematocrit 28.9 % (36.0-47.0) Mean Corpuscular Volume 83 fL (79-100) Mean Corpuscular Hemoglobin 29 pg (25-35) Mean Corpuscular Hemoglobin Concent 35 g/dL (31-37) Red Cell Distribution Width 14.6 % (11.5-14.5) Platelet Count 206 x10^3/uL (140-400) Neutrophils (%) (Auto) 73 % (31-73) Lymphocytes (%) (Auto) 15 % (24-48) Monocytes (%) (Auto) 10 % (0-9) Eosinophils (%) (Auto) 1 % (0-3) Basophils (%) (Auto) 0 % (0-3) Neutrophils # (Auto) 3.3 x10^3/uL (1.8-7.7) Lymphocytes # (Auto) 0.7 x10^3/uL (1.0-4.8) Monocytes # (Auto) 0.5 x10^3/uL (0.0-1.1) Eosinophils # (Auto) 0.1 x10^3/uL (0.0-0.7) Basophils # (Auto) 0.0 x10^3/uL (0.0-0.2) Sodium Level 134 mmol/L (136-145) Potassium Level 4.4 mmol/L (3.5-5.1) Chloride Level 103 mmol/L (98-107) Carbon Dioxide Level 25 mmol/L (21-32) Anion Gap 6 (6-14) Blood Urea Nitrogen 14 mg/dL (7-20) Creatinine 0.8 mg/dL (0.6-1.0) Estimated GFR (Cockcroft-Gault) 68.8 BUN/Creatinine Ratio 18 (6-20) Glucose Level 89 mg/dL (70-99) Calcium Level 8.8 mg/dL (8.5-10.1) Total Bilirubin 0.6 mg/dL (0.2-1.0) Aspartate Amino Transf (AST/SGOT) 21 U/L (15-37) Alanine Aminotransferase (ALT/SGPT) 28 U/L (14-59) Alkaline Phosphatase 79 U/L (46-116) Total Protein 5.5 g/dL (6.4-8.2) Albumin 2.4 g/dL (3.4-5.0) Albumin/Globulin Ratio 0.8 (1.0-1.7) Microbiology Micro Microbiology 11/17/21 Urine Culture - Final, Complete 11/17/21 Antimicrobic Susceptibility - Final, Complete Physical Exam HEENT: Neck Supple W Full Motion Chest: Symmetric LUNGS: Other (on NC ) Heart: S1S2, RRR (SR) Abdomen: Soft N/T Extremities: No Calf Tenderness Neurology: alert, follow commands Assessment Assessment 1. Covid-19 pneumonia: Continue treatment per IM. remains hypoxic on RA Continue O2 supplementation 2. Syncope: Most probably secondary to dehydration resulting from loss of appetite/N/V/D. 3. Sick sinus syndrome s/p permanent pacemaker implantation. Recent device check showed normal function. Her battery is at GUY (elective replacement aline cated). Plan for generator change as an outpatient once Covid recovered. 4. CAD s/p PCI/stent placement to LAD in the past and subsequent coronary artery bypass surgery for significant left main coronary artery stenosis. Recent Lexiscan nuclear stress test did not show any significant ischemia. Recent cardiac catheterization showed patent OG to LAD, radial artery graft to diagonal and SVG to OM/LCx without any stenosis in ungrafted RCA. She is currently stable and chest pain-free. Continue current secondary prevention measures. 5. Chronic diastolic heart failure: Clinically well compensated. Recent 2D echo showed normal LV systolic function with EF 50 to 55% with diastolic dysfunction. 6. Paroxysmal atrial fibrillation s/p ablation therapy, presently in SR. pt reports that EP has taken off her tikosyn and anticoagulation as well. Continue metoprolol. Continue ASA. 7. Hypertension: Controlled 8. Hyperlipidemia: Continue statin therapy 9. Hypothyroidism: Continue levothyroxine 10. Chronic venous insufficiency: s/p ablation therapy 11. Hyponatremia: per PCP Justicifation of Admission Dx: Justifications for Admission: Justification of Admission Dx: PRABHAKAR Hector APRN Nov 22, 2021 12:06
--- NOTE | 2021-11-22 13:25 | PDOC ---
[employer] PROGRESS NOTE Date of Service DOS: DATE: 11/22/21 TIME: 13:24 Chief Complaint Chief Complaint Pneumonia - multifocal. Given the symptoms of 2 weeks and comorbidities likely secondary gram negative pneumonia with COVID 19 pneumonia. Empiric antibiotics for CAP COVID 19 -symptomatic with cough, malaise, diarrhea, loss of appetite. Not currently hypoxic, will give supportive care. Fall - likely due to weakness and debility. CT head and pelvis with no acute fracture. PT for gait assessment Hyponatremia - nutritional from COVID, will have sand buffer to see NOHELIA - likely vasomotor nephropathy from poor PO intake. Will monitor SSS s/p PPM. Stable CAD s/p CABG - stable Atrial fibrillation s/p ablation - stable, sinus, paced weakness, debility, confusion, fall risk History of Present Illness History of Present Illness 81-year-old female w/ PMHx SSS s/p permanent pacemaker implantation, s/p AICD, CAD s/p CABG, afib s/p ablation who comes to ED c/o weakness, myalgias, N/V/D for almost 2 weeks. She has had loss off appetite and anosmia as well. She notes she was getting up to make herself food in the kitchen when she became lightheaded and fell back onto her backside and struck the back of her head on the concrete floor. She did not lose consciousness, did not experience any shock, has no focal weakness, no seizure activity. She denies any back pain. No PND or orthopnea. EKG paced WBC 7.8, Hb 13, platelets 187, NA 127, K4.4, BUN 26, CR 1.3, glucose 108, magnesium 2.3, bilirubin 1, AST 38, ALT 37, alkaline phosphatase 105, albumin 3.5, lipase 175, NT proBNP is 1039, high-sensitivity troponin is 14, urinalysis small leuk esterase small blood, rapid COVID-[address] head neck no acute abnormalities, pelvic x-ray with no acute abnormalities no fracture noted. Chest radiograph with bilateral interstitial opacities, median sternotomy wires, AICD. 11/22 doing better with PT and OT, skilled likely needed fall risk, breathing better, seems confused, acute covid complication, cont other Vitals/I&O Vitals/I&O: Vital Signs Date Time Temp Pulse Resp B/P (MAP) Pulse Ox O2 Delivery O2 Flow Rate FiO2 1/11/22 11:08 97.2 60 18 118/55 (76) 95 Room Air 97.2 11/22/21 02:16 2.0 I & O 11/21/21 11/21/21 11/22/21 15:00 23:00 07:00 Intake Total 660 ml 240 ml 100 ml Output Total 550 ml 200 ml Balance 110 ml 40 ml 100 ml Physical Exam General: Alert, Oriented X3, Cooperative, moderate distress Heart: Regular rate Lungs: Clear Abdomen: Normal bowel sounds, Soft, No tenderness, No hepatosplenomegaly, No masses Extremities: No clubbing, No cyanosis, No edema, Normal pulses, No tenderness/swelling Skin: No rashes, No breakdown, No significant lesion Labs Labs: Laboratory Tests Test 11/22/21 03:40 White Blood Count 4.5 x10^3/uL (4.0-11.0) Red Blood Count 3.50 x10^6/uL (3.50-5.40) Hemoglobin 10.2 g/dL (12.0-15.5) Hematocrit 28.9 % (36.0-47.0) Mean Corpuscular Volume 83 fL (79-100) Mean Corpuscular Hemoglobin 29 pg (25-35) Mean Corpuscular Hemoglobin Concent 35 g/dL (31-37) Red Cell Distribution Width 14.6 % (11.5-14.5) Platelet Count 206 x10^3/uL (140-400) Neutrophils (%) (Auto) 73 % (31-73) Lymphocytes (%) (Auto) 15 % (24-48) Monocytes (%) (Auto) 10 % (0-9) Eosinophils (%) (Auto) 1 % (0-3) Basophils (%) (Auto) 0 % (0-3) Neutrophils # (Auto) 3.3 x10^3/uL (1.8-7.7) Lymphocytes # (Auto) 0.7 x10^3/uL (1.0-4.8) Monocytes # (Auto) 0.5 x10^3/uL (0.0-1.1) Eosinophils # (Auto) 0.1 x10^3/uL (0.0-0.7) Basophils # (Auto) 0.0 x10^3/uL (0.0-0.2) Sodium Level 134 mmol/L (136-145) Potassium Level 4.4 mmol/L (3.5-5.1) Chloride Level 103 mmol/L (98-107) Carbon Dioxide Level 25 mmol/L (21-32) Anion Gap 6 (6-14) Blood Urea Nitrogen 14 mg/dL (7-20) Creatinine 0.8 mg/dL (0.6-1.0) Estimated GFR (Cockcroft-Gault) 68.8 BUN/Creatinine Ratio 18 (6-20) Glucose Level 89 mg/dL (70-99) Calcium Level 8.8 mg/dL (8.5-10.1) Total Bilirubin 0.6 mg/dL (0.2-1.0) Aspartate Amino Transf (AST/SGOT) 21 U/L (15-37) Alanine Aminotransferase (ALT/SGPT) 28 U/L (14-59) Alkaline Phosphatase 79 U/L (46-116) Total Protein 5.5 g/dL (6.4-8.2) Albumin 2.4 g/dL (3.4-5.0) Albumin/Globulin Ratio 0.8 (1.0-1.7) Assessment and Plan Assessmemt and Plan Problems Medical Problems: (1) Pneumonia due to COVID-19 virus Status: Acute (2) Syncope and collapse Status: Acute (3) UTI (urinary tract infection) Status: Acute Comment Review of Relevant I have reviewed the following items walt (where applicable) has been applied. Justifications for Admission Other Justification LAITH BROWN MD Nov 22, 2021 13:25
--- NOTE | 2021-11-22 14:52 | NUR ---
SS assisting with discharge planning. SS spoke with pt RN and discussed with Personnel Research Scientist, Trish. Pt is currently requiring oxygen at two liters nasal canula. COVID19 positive. PT/OT recommended senior care unit. SS spoke with pt's daughter, Emelina, and discussed discharge planning and senior care unit. [facility] is the only facility accepting COVID19 positive pt's at this time. Pt's daughter agreeable to referral. SS phoned and faxed referral to [facility], ; fax [phone]. Personnel Research Scientist notified. Addendum: 11/22/21 at 1628 by OLU RIVERA Pt accepted at [facility] pending bed availability.
[2021-11-22 15:00] VITALS: BP 124/63
[2021-11-22] MEDS: ENOXAPARIN 40 MG/0.4 ML SYRINGE. SQ SCH (16:54)
[2021-11-22] MEDS: cefTRIAXone IV Push 1 GM VIAL. IVP SCH (16:55)
[2021-11-22 19:33] VITALS: BP 135/60
[2021-11-22] MEDS: PANTOPRAZOLE IV PUSH 40 MG VIAL. IVP SCH (21:00)
[2021-11-22] MEDS: CALCIUM CARBONATE 500 MG TAB.CHEW PO PRN (22:03)
[2021-11-22] MEDS: ATORVASTATIN CALCIUM 10 MG TABLET. PO SCH (22:03)
[2021-11-22 22:38] VITALS: BP 121/67
[2021-11-23] VITALS (7 sets, daily range): BP systolic 137–181; BP diastolic 63–71
[2021-11-23] MEDS: traMADol 50 MG TABLET PO PRN ×2 (09:28→22:55)
[2021-11-23] MEDS: THIAMINE 100 MG TABLET. PO SCH (09:28)
[2021-11-23] MEDS: ASPIRIN CHEWABLE 81 MG TABLET. PO SCH (09:28)
[2021-11-23] MEDS: LACTOBACILLUS RHAMNOSUS GG 1 CAPSULE. PO SCH ×2 (09:28→20:37)
[2021-11-23] MEDS: ZINC SULFATE 220 MG CAPSULE. PO SCH (09:29)
[2021-11-23] MEDS: DOXYCYCLINE HYCLATE 100 MG TABLET PO SCH ×2 (09:29→20:37)
[2021-11-23] MEDS: METOPROLOL SUCC 24HR ER 50 MG TAB.ER.24H. PO SCH (09:29)
[2021-11-23] MEDS: ASCORBIC ACID 500 MG TABLET PO SCH (09:29)
[2021-11-23] MEDS: FAMOTIDINE 20 MG TABLET. PO SCH (09:29)
--- NOTE | 2021-11-23 12:50 | PDOC ---
[employer] PROGRESS NOTE Date of Service DOS: DATE: 11/23/21 TIME: 12:49 Chief Complaint Chief Complaint Pneumonia - multifocal. Given the symptoms of 2 weeks and comorbidities likely secondary gram negative pneumonia with COVID 19 pneumonia. Empiric antibiotics for CAP COVID 19 -symptomatic with cough, malaise, diarrhea, loss of appetite. Not currently hypoxic, will give supportive care. Fall - likely due to weakness and debility. CT head and pelvis with no acute fracture. PT for gait assessment Hyponatremia - nutritional from COVID, will have postal service clerk to see NOHELIA - likely vasomotor nephropathy from poor PO intake. Will monitor SSS s/p PPM. Stable CAD s/p CABG - stable Atrial fibrillation s/p ablation - stable, sinus, paced weakness, debility, confusion, fall risk History of Present Illness History of Present Illness 81-year-old female w/ PMHx SSS s/p permanent pacemaker implantation, s/p AICD, CAD s/p CABG, afib s/p ablation who comes to ED c/o weakness, myalgias, N/V/D for almost 2 weeks. She has had loss off appetite and anosmia as well. She notes she was getting up to make herself food in the kitchen when she became lightheaded and fell back onto her backside and struck the back of her head on the concrete floor. She did not lose consciousness, did not experience any shock, has no focal weakness, no seizure activity. She denies any back pain. No PND or orthopnea. EKG paced WBC 7.8, Hb 13, platelets 187, NA 127, K4.4, BUN 26, CR 1.3, glucose 108, magnesium 2.3, bilirubin 1, AST 38, ALT 37, alkaline phosphatase 105, albumin 3.5, lipase 175, NT proBNP is 1039, high-sensitivity troponin is 14, urinalysis small leuk esterase small blood, rapid COVID-[address] head neck no acute abnormalities, pelvic x-ray with no acute abnormalities no fracture noted. Chest radiograph with bilateral interstitial opacities, median sternotomy wires, AICD. 11/22 doing better with PT and OT, skilled likely needed fall risk, breathing better, seems confused, acute covid complication, cont other 11/23, plan DC to skilled, BP 180 this afternoon, but was 118 yesterday morning, was 137 this AM. risk of hypotension noted Vitals/I&O Vitals/I&O: Vital Signs Date Time Temp Pulse Resp B/P (MAP) Pulse Ox O2 Delivery O2 Flow Rate FiO2 11/23/21 11:00 96.5 64 18 181/71 (107) 97 Room Air 96.5 I & O 11/22/21 11/22/21 11/23/21 15:00 23:00 07:00 Intake Total 400 ml 750 ml 200 ml Output Total 200 ml Balance 400 ml 550 ml 200 ml Physical Exam General: Alert, Oriented X3, Cooperative, moderate distress Heart: Regular rate Lungs: Clear Abdomen: Normal bowel sounds, Soft, No tenderness, No hepatosplenomegaly, No masses Extremities: No clubbing, No cyanosis, No edema, Normal pulses, No tenderness/swelling Skin: No rashes, No breakdown, No significant lesion Assessment and Plan Assessmemt and Plan Problems Medical Problems: (1) Pneumonia due to COVID-19 virus Status: Acute (2) Syncope and collapse Status: Acute (3) UTI (urinary tract infection) Status: Acute Comment Review of Relevant I have reviewed the following items walt (where applicable) has been applied. Justifications for Admission Other Justification LAITH BROWN MD Nov 23, 2021 12:50
[2021-11-23] MEDS: cefTRIAXone IV Push 1 GM VIAL. IVP SCH (16:00)
[2021-11-23] MEDS: ENOXAPARIN 40 MG/0.4 ML SYRINGE. SQ SCH (17:38)
[2021-11-23] MEDS: ATORVASTATIN CALCIUM 10 MG TABLET. PO SCH (20:37)
[2021-11-23] MEDS: CEFDINIR 300 MG CAPSULE PO SCH (20:37)
[2021-11-23] MEDS ORDERED: PANTOPRAZOLE 40 MG TABLET.DR. PO SCH (21:00)
[2021-11-23] MEDS: ONDANSETRON PF 4 MG/2 ML VIAL. IVP PRN (22:55)
[2021-11-24 02:51] VITALS: BP 136/63
[2021-11-24 07:00] VITALS: BP 133/63
[2021-11-24] MEDS: CEFDINIR 300 MG CAPSULE PO SCH (08:59)
[2021-11-24] MEDS: DOXYCYCLINE HYCLATE 100 MG TABLET PO SCH (08:59)
[2021-11-24] MEDS: ZINC SULFATE 220 MG CAPSULE. PO SCH (08:59)
[2021-11-24] MEDS: THIAMINE 100 MG TABLET. PO SCH (09:00)
[2021-11-24] MEDS: FAMOTIDINE 20 MG TABLET. PO SCH (09:00)
[2021-11-24] MEDS: ASCORBIC ACID 500 MG TABLET PO SCH (09:00)
[2021-11-24] MEDS: ASPIRIN CHEWABLE 81 MG TABLET. PO SCH (09:00)
[2021-11-24] MEDS: LACTOBACILLUS RHAMNOSUS GG 1 CAPSULE. PO SCH (09:00)
[2021-11-24] MEDS: METOPROLOL SUCC 24HR ER 50 MG TAB.ER.24H. PO SCH (09:05)
[2021-11-24 11:00] VITALS: BP 138/64
[2021-11-24] MEDS ORDERED: MULT-246 PO (11:11)
[2021-11-24] MEDS ORDERED: FAMO20TA5 PO (11:11)
[2021-11-24] MEDS ORDERED: ZINC220C5 PO (11:11)
[2021-11-24] MEDS ORDERED: ASCO500T4 PO (11:11)
--- NOTE | 2021-11-24 11:14 | SNU/HH DC ---
DISCHARGE ORDERS DISCHARGE INFORMATION: DISCHARGE DATE: Nov 24, 2021 FINAL DIAGNOSIS acute covid weakness UTI Problems Medical Problems: (1) Pneumonia due to COVID-19 virus Status: Acute (2) Syncope and collapse Status: Acute (3) UTI (urinary tract infection) Status: Acute CONDITION ON DISCHARGE: Stable CODE STATUS: Code Status: Full [facility]CI: SNF STAY <30 DAYS: Yes HOSPICE: HOSPICE: No HOSPICE EVAL & TREAT: No POST DISCHARGE ORDERS: ACTIVITY ORDERS: Activity as tolerated WEIGHT BEARING STATUS: No restrictions, Full weight bearing, As tolerated DIET AFTER DISCHARGE: Regular WOUND/INCISION CARE: Keep wound/cast CDI FOLLOW-UP: LAB ORDERS FOR FOLLOW-UP: INR 2x a week, chem 7, cbc in 3 days TREATMENT/EQUIPMENT ORDERS: ADAPTIVE EQUIPMENT NEEDED: Front wheeled walker Physical Therapy For: Evalulation/Treatment Occupational Therapy For: Evaluation/Treatment DISCHARGE MEDICATIONS: Home Meds Active Scripts Enoxaparin Sodium (LOVENOX) 40 Mg/0.4 Ml Disp.syrin, 40 MG SQ DAILY for ANTI- COAGULANT for 5 Days, DIS.SYR Prov:LAITH BROWN MD 11/24/21 Doxycycline Hyclate (DOXYCYCLINE HYCLATE) 100 Mg Tablet, 100 MG PO BID for covid pneumonia, #8 TAB Prov:LAITH BROWN MD 11/24/21 Multivitamin (MULTI-VITAMIN DAILY) 1 Each Tablet, 1 TAB PO DAILY for covid for 30 Days, #30 TAB 0 Refills Prov:LAITH BROWN MD 11/24/21 Ascorbic Acid (VITAMIN C) 500 Mg Tablet, 500 MG PO DAILY for covid, #30 TAB Prov:LAITH BROWN MD 11/24/21 Famotidine (FAMOTIDINE) 20 Mg Tablet, 20 MG PO DAILY for gerd, #30 TAB Prov:LAITH BROWN MD 11/24/21 Zinc Sulfate (Zinc Sulfate) 50 Mg Capsule, 220 MG PO DAILY for covid, #30 CAP Prov:LAITH BROWN MD 11/24/21 Naproxen (NAPROXEN) 500 Mg Tablet, 1 TAB PO BID PRN for PAIN, #30 TAB 1 Refill Prov:JUANJO TUBBS DO 06/08/20 Diltiazem Hcl (DILTIAZEM 24HR CD) 120 Mg Cap.er.24h, 1 CAP PO DAILY for HTN for 30 Days, #30 CAP 2 Refills Prov:RIFFEL,CHRISTOPHER S MD 11/21/18 Metoprolol Succinate (Toprol XL) 50 Mg Tab.er.24h, 50 MG PO DAILY for Atrial Tachyarrhythmia for 30 Days, #30 TAB.SR 2 Refills Prov:LUAN LAROSE MD 11/21/18 Reported Medications Bumetanide (BUMETANIDE) 2 Mg Tablet, 1 TAB PO DAILY for rx, #30 TAB 5 Refills 01/16/20 Potassium Chloride (POTASSIUM CHLORIDE ) 10 Meq Tab.sr.24h, 2 TAB PO BID for SUPPLEMENT, TAB.SR 01/16/20 Magnesium Oxide (MAG-OXIDE) 400 Mg Tablet, 1 TAB PO BID for supplement, #60 TAB 5 Refills 11/16/18 Ferrous Sulfate (FERROUS SULFATE) 325 Mg Tablet, 325 MG PO DAILY for supplement, TAB 11/16/18 Levothyroxine Sodium (LEVOTHYROXINE SODIUM) 50 Mcg Tablet, 50 MCG PO DAILYAC for THYROID SUPPLEMENT, #30 TAB 0 Refills 04/04/18 Atorvastatin Calcium (ATORVASTATIN CALCIUM) 10 Mg Tablet, 5 MG PO HS for FOR C HOLESTEROL, #30 TAB 0 Refills 04/03/18 Cholecalciferol (Vitamin D3) (VITAMIN D3) 1,000 Unit Tablet, 1000 UNIT PO, TAB 04/03/18 [place]-3S/Dha/Epa/Fish Oil (Fish Oil 1,200 mg Softgel) 1 Each Capsule, 2 EACH PO 01/05/16 Multivitamin (MULTIVITAMINS) 1 Each Tablet, 1 TAB PO DAILY, #90 TAB 3 Refills 01/05/16 Aspirin (ASPIRIN) 81 Mg Tab.chew, 1 TAB PO DAILY, #30 TAB 3 Refills 12/31/15 Discontinued Reported Medications Warfarin Sodium (WARFARIN SODIUM) 1 Mg Tablet, 3 TAB PO DAILY for RX, TAB 01/16/20 LAITH BROWN MD Nov 24, 2021 11:14
[2021-11-24] MEDS ORDERED: DOXY100T PO (11:16)
[2021-11-24] MEDS ORDERED: ENOX40DI SQ (11:18)
--- NOTE | 2021-11-24 11:20 | PDOC3 ---
Discharge Summary Visit Information Date of Admission: Nov 17, 2021 Date of Discharge: Nov 24, 2021 Final Diagnosis Pneumonia - multifocal. Given the symptoms of 2 weeks and comorbidities likely secondary gram negative pneumonia with COVID 19 pneumonia. Empiric antibiotics for CAP COVID 19 -symptomatic with cough, malaise, diarrhea, loss of appetite. Not currently hypoxic, will give supportive care. Fall - likely due to weakness and debility. CT head and pelvis with no acute fracture. PT for gait assessment Hyponatremia - nutritional from COVID, will have acute care assistant to see NOHELIA - likely vasomotor nephropathy from poor PO intake. Will monitor SSS s/p PPM. Stable CAD s/p CABG - stable Atrial fibrillation s/p ablation - stable, sinus, paced weakness, debility, confusion, fall risk Problems Medical Problems: (1) Pneumonia due to COVID-19 virus Status: Acute (2) Syncope and collapse Status: Acute (3) UTI (urinary tract infection) Status: Acute Brief Hospital Course Allergies Allergies Coded Allergies Type Severity Reaction Last Updated Verified Sulfa (Sulfonamide Antibiotics) Allergy Intermediate Nausea and Vomiting 11/17/21 No Vital Signs Vital Signs Date Time Temp Pulse Resp B/P (MAP) Pulse Ox O2 Delivery O2 Flow Rate FiO2 11/24/21 09:05 63 133/63 11/24/21 08:00 Room Air 11/24/21 07:00 96.9 20 97 96.9 11/23/21 23:25 2.0 Brief Hospital Course Ms. Cali is a 81 old w/ PMHx SSS s/p permanent pacemaker implantation, s/p AICD, CAD s/p CABG, afib s/p ablation who comes to ED c/o weakness, myalgias, N/V/D for almost 2 weeks COVID pos, treatd with abx, vitamins, steroids given, tapered off, she had been taken off her Tikosyn and her coumadin by her EP doc. resp status improvd quickly, then weakness persists, too weak to go home, to acute rehab, COVID infection Discharge Information Condition at Discharge: Improved Follow Up: Weeks Disposition/Orders: D/C to Another Facility Scheduled Ascorbic Acid (Vitamin C) 500 Mg Tablet, 500 MG PO DAILY for covid, #30 Prescribed by: LAITH BROWN on 11/24/21 1111 Aspirin (Aspirin) 81 Mg Tab.chew, 1 TAB PO DAILY, #30 Ref 3 (Reported) Entered as Reported by: CRISTINO GLEASON on 12/31/15 0834 Last Action: Continued on 11/18/21 1116 by NELL HASSAN Atorvastatin Calcium (Atorvastatin Calcium) 10 Mg Tablet, 5 MG PO HS for FOR CHOLESTEROL, #30 Ref 0 (Reported) Entered as Reported by: RADHA MOORE on 04/03/18 1555 Last Action: Continued on 11/18/21 1116 by NELL HASSAN Bumetanide (Bumetanide) 2 Mg Tablet, 1 TAB PO DAILY for rx, #30 Ref 5 (Reported) Entered as Reported by: CELENA RODRIGUEZ on 01/16/20 0859 Diltiazem Hcl (Diltiazem 24HR Cd) 120 Mg Cap.er.24h, 1 CAP PO DAILY for HTN for 30 Days, #30 Ref 2 Prescribed by: LUAN LAROSE MD on 11/21/18 1253 Doxycycline Hyclate (Doxycycline Hyclate) 100 Mg Tablet, 100 MG PO BID for covid pneumonia, #8 Prescribed by: LAITH BROWN on 11/24/21 1116 Enoxaparin Sodium (Lovenox) 40 Mg/0.4 Ml Disp.syrin, 40 MG SQ DAILY for ANTI- COAGULANT for 5 Days Prescribed by: LAITH BROWN on 11/24/21 1118 Famotidine (Famotidine) 20 Mg Tablet, 20 MG PO DAILY for gerd, #30 Prescribed by: LAITH BROWN on 11/24/21 1111 Ferrous Sulfate (Ferrous Sulfate) 325 Mg Tablet, 325 MG PO DAILY for supplement, (Reported) Entered as Reported by: HIRAL ROSENBERG on 11/16/18 0135 Levothyroxine Sodium (Levothyroxine Sodium) 50 Mcg Tablet, 50 MCG PO DAILYAC for THYROID SUPPLEMENT, #30 Ref 0 (Reported) Entered as Reported by: ELIZABETH STUBBS on 04/04/18 1018 Magnesium Oxide (Mag-Oxide) 400 Mg Tablet, 1 TAB PO BID for supplement, #60 Ref 5 (Reported) Entered as Reported by: HIRAL ROSENBERG on 11/16/18 0135 Metoprolol Succinate (Toprol XL) 50 Mg Tab.er.24h, 50 MG PO DAILY for Atrial Tachyarrhythmia for 30 Days, #30 Ref 2 Prescribed by: LUAN LAROSE MD on 11/21/18 1143 Last Action: Continued on 11/18/21 1116 by NELL HASSAN Multivitamin (Multivitamins) 1 Each Tablet, 1 TAB PO DAILY, #90 Ref 3 (Reported) Entered as Reported by: ANNETTE VELEZ on 01/05/16 1220 Multivitamin (Multi-Vitamin Daily) 1 Each Tablet, 1 TAB PO DAILY for covid for 30 Days, #30 Ref 0 Prescribed by: LAITH BROWN on 11/24/21 1111 Potassium Chloride (Potassium Chloride ) 10 Meq Tab.sr.24h, 2 TAB PO BID for SUPPLEMENT, (Reported) Entered as Reported by: CELENA RODRIGUEZ on 01/16/20 0859 Zinc Sulfate (Zinc Sulfate) 50 Mg Capsule, 220 MG PO DAILY for covid, #30 Prescribed by: LAITH BROWN on 11/24/21 1111 Scheduled PRN Naproxen (Naproxen) 500 Mg Tablet, 1 TAB PO BID PRN for PAIN, #30 Ref 1 Prescribed by: JUANJO TUBBS D.O. on 06/08/20 2141 Miscellaneous Medications Cholecalciferol (Vitamin D3) (Vitamin D3) 1,000 Unit Tablet, 1,000 UNIT PO, (Reported) Entered as Reported by: RADHA MOORE on 04/03/18 1554 [place]-3S/Dha/Epa/Fish Oil (Fish Oil 1,200 mg Softgel) 1 Each Capsule, 2 EACH PO, (Reported) Entered as Reported by: ANNETTE VELEZ on 01/05/16 1220 Discontinued Medications Warfarin Sodium (Warfarin Sodium) 1 Mg Tablet, 3 TAB PO DAILY for RX, (Reported) Entered as Reported by: CELENA RODRIGUEZ on 01/16/20 0859 Patient Instructions Patient Instructions to acute rehab, pt seen today 33 min Justicifation of Admission Dx: Justifications for Admission: Justification of Admission Dx: LAITH Pryor MD Nov 24, 2021 11:20
--- NOTE | 2021-11-24 13:45 | NUR ---
patient discharged to [id number]. taken out by wheelchair.
--- NOTE | 2021-11-24 13:58 | NUR ---
1345 attempted to call report to [facility]. I was put on hold. No answer 1355 attempted to call report. was transferred-no answer.
== END 2021-11-24 13:40 | DRG 177 ==
LOC: ER 10:29 → 6 SOUTH 14:27
PROVIDERS: ADMIT Internal Medicine; ATTEND Internal Medicine
DX: U07.1 COVID-19 (principal); J12.82 Pneumonia due to coronavirus disease 2019; N17.0 Acute kidney failure with tubular necrosis; J15.6 Pneumonia due to other Gram-negative bacteria; E87.1 Hypo-osmolality and hyponatremia; I48.92 Unspecified atrial flutter; I50.32 Chronic diastolic (congestive) heart failure; N39.0 Urinary tract infection, site not specified; E03.9 Hypothyroidism, unspecified; E78.5 Hyperlipidemia, unspecified; E86.0 Dehydration; E86.1 Hypovolemia; I11.0 Hypertensive heart disease with heart failure; I25.10 Atherosclerotic heart disease of native coronary artery without angina pectoris; I48.0 Paroxysmal atrial fibrillation; I87.2 Venous insufficiency (chronic) (peripheral); R09.02 Hypoxemia; S09.90XA Unspecified injury of head, initial encounter; Y92.000 Kitchen of unspecified non-institutional (private) residence as the place of occurrence of the external cause; Z82.3 Family history of stroke; Z82.49 Family history of ischemic heart disease and other diseases of the circulatory system; Z83.3 Family history of diabetes mellitus; Z91.81 History of falling; Z95.0 Presence of cardiac pacemaker; Z95.1 Presence of aortocoronary bypass graft; Z95.5 Presence of coronary angioplasty implant and graft; F32.A Depression, unspecified; F41.9 Anxiety disorder, unspecified; M19.90 Unspecified osteoarthritis, unspecified site; W18.39XA Other fall on same level, initial encounter; Y93.89 Activity, other specified; Y99.8 Other external cause status
CPT/HCPCS: 36415; 70450; 71045; 72125; 72170; 80053; 81001; 83690; 83735; 83880; 84484; 85025; 87077; 87086; 87186; 87426; 93005; 96374; 96375; C9113; J0696; J0780; J1650; J2405; J7030; 97110-GP; 97530-GP; 97535-GO; 99285-25; G0378

== ENCOUNTER 2021-12-19 07:09 | Outpatient (CLI) | payer MEDICARE ==
[2021-12-19] VITALS (7 sets, daily range): BP systolic 122–147; BP diastolic 50–66
[~2021-12-19] VITALS: Ht 167.6 cm; Wt 72.7 kg
[~2021-12-19 07:09] MED LIST changes: +ASCO500T4 PO; +DOXY100T PO; +ENOX40DI SQ; +MULT-246 PO; +ZINC220C5 PO
[2021-12-19] MEDS ORDERED: ceFAZolin SODIUM 1 GM in IV NORMAL SALINE 100ML 100 ML IRR ONE (07:30)
[2021-12-19] MEDS ORDERED: LIDOCAINE 2%/EPI 1:100,000 20 ML VIAL. ONE (08:01)
[2021-12-19] MEDS ORDERED: MIDAZOLAM HCL/PF 2 MG/2 ML VIAL. ONE ×2 (08:34→09:20)
[2021-12-19] MEDS ORDERED: ceFAZolin SODIUM IV Push 1 GM VIAL. IVP ONE (08:35)
[2021-12-19] MEDS ORDERED: fentaNYL PF VIAL 100 MCG/2 ML VIAL ONE ×2 (08:35→09:12)
[2021-12-19] MEDS ORDERED: SPIR25TA5 PO (08:38)
[2021-12-19] MEDS ORDERED: LIDOCAINE 2%/EPI 1:100,000 20 ML VIAL. IJ ONE (09:00)
[2021-12-19] MEDS: MIDAZOLAM HCL/PF 2 MG/2 ML VIAL. IV ONE (09:00)
[2021-12-19] MEDS ORDERED: fentaNYL PF VIAL 100 MCG/2 ML VIAL IV ONE (09:00)
--- NOTE | 2021-12-19 09:51 | CARD ---
MR#: [id number] Date of Study: 12/19/2021 Ordering Physician: JENSEN MARIE, Referring Physician: JENSEN MARIE, Tech: APPROVED REPORT PROCEDURES Biotronik dual-chamber permanent pacemaker generator change fl time: 0.0 min dose: 0.02 gycm2 moderate sedation: 37 min INDICATIONS Sick sinus syndrome s/p permanent pacemaker implantation presenting with battery depletion PROCEDURE After explaining the risks, benefits, and alternative options, informed consent was obtained from the patient. The patient was brought to the cardiac catheterization lab and the left chest and shoulder were prepp ed and draped in a sterile manner. IV conscious sedation was used throughout procedure with appropriate monitoring and was performed in the presence of a registered nurse who was an independent trained observer other than the physician p erforming the procedure. During this case, Fluoroscopy and low osmolar contrast were used for imaging. Specimen(s) Removed: No Estimated Blood loss: 5 cc's. An incision was made over the previous scar and using blunt dissection and cautery the pocket was ope wallace, capsule exposed and opened and the previously placed generator removed from the pocket. The lead s were detached, found to be functioning well and very attached to a Biotronik dual-chamber permanent pacemaker generator model Edora 8 DR-T serial #[id number]. This was placed in the pocket that was subs equently closed in 3 layers. Hemostasis was secured. The right ventricular lead showed a sensing amplitude of 10 mV, impedance of 460 ohms and a threshold of 0.7 V. The right atrial lead showed a sensing amplitude of 5 mV, impedance of 390 ohms and a thre shold of 0.9 V. Patient tolerated the procedure well. There were no immediate complications. CONCLUSION Successful Biotronik dual-chamber permanent pacemaker generator change in a patient with sick sinus s yndrome s/p permanent pacemaker implantation presenting with battery depletion Signed by : Jensen Marie, Electronically Approved : 12/19/2021 09:51:19
--- NOTE | 2021-12-19 11:24 | NUR ---
Discharge Note: MARY ALICE MICHELE Discharge instructions and discharge home medications reviewed with Patient and a copy given. All questions have been answered and understanding verbalized. The following instructions and handouts were given: Moderat Sedation and Pacemaker battery change. Discontinued lines and drains: right wrist IV dc'd, tip intact, dressing applied. Patient discharged to home with daughter via personal vehicle.
[2021-12-20] MEDS ORDERED: ceFAZolin SODIUM IV Push 1 GM VIAL. IVP ONE (06:00)
== END 2021-12-19 11:29 | disposition home or self-care (01) ==
LOC: CCL 07:09
PROVIDERS: ATTEND Internal Medicine Cardiovascular Disease
DX: Z45.010 Encounter for checking and testing of cardiac pacemaker pulse generator [battery] (principal); I49.5 Sick sinus syndrome; I11.0 Hypertensive heart disease with heart failure; I50.9 Heart failure, unspecified; I48.91 Unspecified atrial fibrillation; E78.00 Pure hypercholesterolemia, unspecified; G47.30 Sleep apnea, unspecified; M19.90 Unspecified osteoarthritis, unspecified site; E03.9 Hypothyroidism, unspecified; F41.9 Anxiety disorder, unspecified; F32.9 Major depressive disorder, single episode, unspecified; Z79.82 Long term (current) use of aspirin; Z79.899 Other long term (current) drug therapy; Z98.890 Other specified postprocedural states; Z88.2 Allergy status to sulfonamides; Z88.3 Allergy status to other anti-infective agents
CPT/HCPCS: 33228; 36415; 85610; 99152; 99153; C1785; J0690; J2250; J3010; J3490

== ENCOUNTER → 2022-04-05 | Outpatient (CLI) | payer MEDICARE ==
[~2022-04-05] MED LIST changes: +APIX5TAB PO; +SPIR25TA5 PO
== END ==
LOC: LAB 08:00
PROVIDERS: ATTEND Internal Medicine Cardiovascular Disease
DX: Z20.822 Contact with and (suspected) exposure to COVID-19 (principal)
CPT/HCPCS: C9803; U0003

== ENCOUNTER 2022-04-07 10:33 | Day surgery (SDC) | payer MEDICARE ==
[~2022-04-07] VITALS: Ht 168.9 cm; Wt 72.0 kg
--- NOTE | 2022-04-07 11:17 | EKG ---
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: NIKKI : 1940 Requested By: JENSEN BALTAZAR Order Number: [id number] Reading MD: Measurements Intervals [place] Rate: 70 P: [place]: QRS: -78 QRSD: 200 T: 102 QT: 478 QTc: 520 Interpretive Statements IRREGULAR RHYTHM, NO P-WAVE FOUND ABNORMAL LEFT AXIS DEVIATION NON SPECIFIC INTRAVENTRICULAR BLOCK QRS(T) CONTOUR ABNORMALITY CONSISTENT WITH ANTEROSEPTAL INFARCT POSSIBLY RECENT ABNORMAL ECG RI6.02 Compared to ECG 11/17/2021 10:53:07 Left-axis deviation now present Myocardial infarct finding now present Ventricular-paced complex(es) or rhythm no longer present Ventricular premature complex(es) no longer present
[2022-04-07 11:32] LABS: CALCIUM 10.3 mg/dL (8.5-10.1); CREATININE 1.7 mg/dL (0.6-1.0); GFR 28.8; POTASSIUM 4.4 mmol/L (3.5-5.1); PROTHROMBIN TIME PATIENT 20.4 SEC (11.7-14.0)
[2022-04-07] MEDS ORDERED: IV RINGERS,LACTATED 1000ML 1,000 ML IV SCH (12:45)
[2022-04-07 12:52] VITALS: BP 108/63
--- NOTE | 2022-04-07 13:01 | EKG ---
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
--- NOTE | 2022-04-07 13:23 | PDOC4 ---
Procedure Note Procedure: External cardioversion Indications: Atrial fibrillation Complications: None Procedural Details: An informed consent was obtained from patient. Anesthesiology team gave intravenous propofol the patient for deep sedation. Patient was then administered 200 J of synchronized biphasic DC shock therapy with successful conversion of patient's rhythm to AV paced rhythm. She was hemodynamically stable without any neurological deficits at the end of procedure. She tolerated the procedure well. There were no immediate complications. Conclusions: Successful external cardioversion of atrial fibrillation to AV paced rhythm. JENSEN BALTAZAR MD April 07, 2022 13:23
== END 2022-04-07 13:24 | disposition home or self-care (01) ==
LOC: SURG 10:33
PROVIDERS: ATTEND Internal Medicine Cardiovascular Disease
DX: I48.91 Unspecified atrial fibrillation (principal); I25.10 Atherosclerotic heart disease of native coronary artery without angina pectoris; I13.0 Hypertensive heart and chronic kidney disease with heart failure and stage 1 through stage 4 chronic kidney disease, or unspecified chronic kidney disease; I50.9 Heart failure, unspecified; E78.00 Pure hypercholesterolemia, unspecified; G47.30 Sleep apnea, unspecified; N18.30 Chronic kidney disease, stage 3 unspecified; K21.9 Gastro-esophageal reflux disease without esophagitis; M19.90 Unspecified osteoarthritis, unspecified site; E03.9 Hypothyroidism, unspecified; F41.9 Anxiety disorder, unspecified; F32.9 Major depressive disorder, single episode, unspecified; Z79.899 Other long term (current) drug therapy; Z98.890 Other specified postprocedural states; Z88.2 Allergy status to sulfonamides
CPT/HCPCS: 36415; 80048; 85014; 85018; 85610; 92960; 93005